=== PATIENT | male | born 1955 | race Two or more races ===

== ENCOUNTER 2020-05-05 10:17 | Outpatient (REF) | payer MEDICARE, OTHER, SELFPAY | END 2020-05-05 10:18 | disposition home or self-care (01) | LOC: HO.LAB 10:17 | PROVIDERS: PCP Internal Medicine; Visit Provider Internal Medicine | DX: Z20.828 Contact with and (suspected) exposure to other viral communicable diseases (principal) | CPT/HCPCS: 87635 ==

== ENCOUNTER 2020-05-06 16:23 | Emergency (ER) | payer MEDICARE, OTHER, SELFPAY ==
[2020-05-06 16:43] VITALS: BP 111/77; PULSE 84; RESP 20; TEMP 38.7; O2SAT 96; BMI 34.8
--- NOTE | 2020-05-06 16:47 | XR_ITS ---
EXAMINATION: XR CHEST CLINICAL INFORMATION: Cough COMPARISON: 07/20/2019 TECHNIQUE: Portable chest 5:17 PM view of the chest was obtained. FINDINGS: Relative expiratory chest eccentric lung markings. There is mild peribronchial thickening. Increased perihilar markings. No significant abnormality is otherwise noted involving the heart, lungs, mediastinum, bony thorax or soft tissues. XR/XR chest 1V IMPRESSION: Limited expiratory portable chest x-rays nonspecific findings of bronchitis.
--- NOTE | 2020-05-06 16:47 | ECG_ITS ---
Test Reason : COUGH Blood Pressure : / mmHG Vent. Rate : 071 BPM Atrial Rate : 071 BPM P-R Int : 146 ms QRS Dur : 108 ms QT Int : 392 ms P-R-T Axes : 029 -49 015 degrees QTc Int : 425 ms Normal sinus rhythm Left anterior fascicular block Abnormal ECG When compared with ECG of 28-JUL-2019 15:08, No significant change was found Referred By: Tiffany Reis Electronically Signed By:REYES HODGE MD
--- NOTE | 2020-05-06 17:03 | ED_ITS ---
HPI - Fever General Chief Complaint: Upper Respiratory Symptoms Stated Complaint: cough,headache Time Seen by Provider: 05/06/20 16:40 Source: patient Mode of arrival: ambulatory Limitations: no limitations History of Present Illness HPI Narrative: 64-year-old male with a past medical history of diabetes, gout here with complaints of headache, cough, dizziness, chest tightness and shortness of breath for the last 4 days. Yesterday he was tested for COVID-19 and his results are pending. He denies any fevers, chills or body aches at home. He tells me his cough is congested but is not productive. His shortness of breath with exertion and not at rest. Chest tightness with breathing and coughing. MD elicited complaint: other ( See above) Onset (ago): day(s) Exacerbating factors: nothing Associated symptoms: cough, chest pain and shortness of breath Treatments prior to arrival fever: none Related Data Allergies Allergy/AdvReac Type Severity Reaction Status Date / Time tuberculin, purified protein Allergy Mild RASH Verified 05/06/20 16:49 deriva [From Tuberculin PPD Henny Test] linagliptin [Tradjenta] Allergy Unknown Cough Verified 05/06/20 16:49 Invokana Allergy Unknown vomiting Uncoded 03/17/20 00:00 Phentermine HCl AdvReac Unknown insomnia, Uncoded 03/17/20 00:00 palpitations Review of Systems Review of Systems: Yes all other systems are reviewed and are negative Constitutional: Constitutional: Reports no additional constitutional complaints, Denies body ache(s), Denies chills, Denies fever(s), Reports headache(s) and Denies weakness Eyes: Eyes: Reports no additional eye complaints and Denies change in vision ENT: Reports system reviewed and no additional complaints, except as documented, Reports dizziness, Reports headache(s), Denies nasal congestion, Denies nasal discharge and Denies neck pain Cardiovascular: Cardiovascular: Reports no additional cardiovascular complaints, Reports chest pain, Denies leg edema, Reports dyspnea on exertion, Denies orthopnea and Denies paroxysmal nocturnal dyspnea Respiratory: Respiratory: Reports no additional respiratory complaints, Reports cough and Reports dyspnea on exertion Gastrointestinal: Gastrointestinal: Reports no additional gastrointestinal complaints, Denies abdominal pain, Denies diarrhea, Denies nausea and Denies vomiting Genitourinary: Genitourinary: Denies urinary incontinence Musculoskeletal: Musculoskeletal: Reports no additional musculoskeletal complaints, Denies back pain, Denies arthralgias, Denies joint swelling, Denies neck pain, Denies numbness and Denies tingling Integumentary/Breasts: Skin/Breast: Reports system reviewed and no additional complaints, except as docu and Denies rash Neurologic: Reports system reviewed and no additional complaints, except as documented, Denies Abnormal speech present, Reports dizziness, Reports headache(s), Denies numbness, Denies tingling and Denies weakness PMFSH Past Medical History Attestation statement: The following information was validated with the patient. Source: obtained from family and nursing notes reviewed Medical History Diabetes Gout Surgical History Gastric bypass status for obesity Social History Social History Advance Directives: No Advance Directives Information Provided: No Physical Exam Vital Signs: Vital Signs: Vital Signs Temp Pulse Resp BP Pulse Ox 05/06/20 16:43 101.7 F H 84 20 111/77 96 Body Mass Index 34.8 Const: General: cooperative, healthy appearing, comfortable and no acute distress Orientation/consciousness: patient oriented x3 Limitations: no limitations HENMT: Head: Yes normal to inspection Ears: hearing grossly normal bilaterally General nose exam: Normal external nose present Face and sinus: Yes normal facial exam Mouth: Normal oral and palatal mucosa present Throat: Yes posterior oropharynx normal Eyes: General: appearance normal, both eyes and all related structures Pupils: Equal, round and reactive pupils present Neck: Neck: Yes normal visual inspection Chest: Chest palpation & inspection: normal inspection of the chest Resp: Other: coarse breath sounds throughout right greater than left Effort & Inspection: normal respiratory effort Cardio: Rate: regular rate Rhythm: regular rhythm Peripheral pulses: Peripheral pulses 2+ throughout GI: Inspection: Yes normal to inspection Palpation (GI): Soft to palpation and nontender Auscultation: normal bowel sounds Back/Spine/Pelvis: Thoracic/Lumbar Spine: thoracic and lumbar spine normal to inspection Skin: General skin exam: no rashes or lesions noted Neuro: General: patient oriented x3, no focal motor deficits and normal sensation to monofilament Cranial nerves: Yes Equal, round and reactive pupils present Cognition (Neuro): normal cognition Speech: No Abnormal speech present Gait exam (Neuro): Normal gait present Motor exam (neuro): 5/5 motor strength present throughout Extrem: General: Yes normal to inspection Course Course Course Narrative: 64-year-old male here with flu-like symptoms for the last 4 days with the COVID swab which is pending. On arrival the patient appears well and is speaking full sentences. He does have coarse breath sounds throughout but has a stable saturation. He is febrile on arrival. Will need labs including blood cultures, lactic acid. EKG and troponin for reports of reproducible chest pain. Chest x-ray. 1744-CXR read as bronchitis but appears to have patchy opacities in the right middle lobe concerning for underlying PNA. Antibiotics ordered for presumed infection. 1800-Sign out to [place] [employer] pending above. MDM - Fever MDM Narrative Medical decision making narrative: Considered viral syndrome, COVID-19 infection, pneumonia
[2020-05-06 18:04] LABS: MANUAL DIFF FLAG NO
[2020-05-06 18:09] LABS: Eosinophils Percent Auto 0.5 % (0-4); Hematocrit 44.3 % (42-52); Hemoglobin 14.5 g/dl (14.0-18.0); Imm Gran Abs Auto 0.01 X10*3/uL (0.00-0.03); Imm Gran Pct Auto 0.2 % (0.0-0.4); Lymphocytes Percent Auto 18.7 % (20-40); Mean Corpuscular HGB Conc 32.7 g/dl (31.0-36.0); Mean Corpuscular Hemoglobin 29.9 pg (27.0-33.0); Mean Corpuscular Volume 91.3 fL (80-98); Mean Platelet Volume 9.7 fL (9.4-12.4); Monocytes Absolute Auto 0.8 X10*3/uL (0.1-1.2); Monocytes Percent Auto 14.2 % (2-11); Neutrophils Absolute Auto 3.7 X10*3/uL (2.0-8.3); Neutrophils Percent Auto 66.4 % (45-73); Platelet Count 152 X10*3/uL (160-400); Red Blood Count 4.85 X10*6/uL (4.60-5.80); Red Cell Distribution Width 13.7 % (11.0-16.0); White Blood Count 5.5 X10*3/uL (4.8-10.8)
[2020-05-06] MEDS: Acetaminophen 325 MG TABLET 975 MG PO (18:23)
[2020-05-06] MEDS: cefTRIAXone sodium 1 GM in 0.9 % Sodium Chloride 50 ML IV (18:24)
[2020-05-06 18:26] LABS: INTERNATIONAL NORM RATIO 1.2 (0.9-1.1); Prothrombin Time 14.2 SEC (10.8-13.0)
[2020-05-06] MEDS: 0.9 % Sodium Chloride 1,000 ML 999 ML IV (18:26)
[2020-05-06 18:30] LABS: Lactic Acid 0.7 mmol/L (0.5-2.0)
[2020-05-06 18:34] LABS: Anion Gap 12 (12-20); Blood Urea Nitrogen 15 mg/dL (9-16); Calcium 8.6 mg/dL (8.4-10.2); Carbon Dioxide 27 mmol/L (22-29); Chloride 101 mmol/L (96-108); Creatinine Clr Calc Pharmacy 53.8; Estimated Glomerular Filt Rate 42; Glucose Random 101 mg/dL (60-115); Magnesium 1.8 mg/dL (1.6-2.6); Potassium 4.3 mmol/l (3.3-5.1); Sodium 136 mmol/L (135-145)
[2020-05-06 18:41] LABS: Troponin-I High Sensitivity 10.3 ng/L (<3.5-35.0)
[2020-05-06 19:26] VITALS: PULSE 63; RESP 20; TEMP 39.1
[2020-05-06] MEDS: Azithromycin 500 MG in 0.9 % Sodium Chloride 250 ML 125 MG IV (19:40)
[2020-05-06] MEDS: 0.9 % Sodium Chloride 500 ML 1000 ML IV (19:46)
[2020-05-06] MEDS: Ibuprofen 800 MG TABLET PO (19:53)
--- NOTE | 2020-05-06 19:57 | PC.NURSE ---
Pt medicated with azithromycin and motrin as charted for continued fever. Pt appears in NAD at this time, endorsing hunger and provided with sandwich, crackers and emily reta. Abx infusing for 2 hours.
[2020-05-06 21:05] VITALS: BP 97/60; PULSE 71; RESP 22; TEMP 37.3; O2SAT 96
[2020-05-06 22:03] LABS: Troponin-I High Sensitivity 10.1 ng/L (<3.5-35.0)
[2020-05-06 22:29] VITALS: BP 108/62; PULSE 76; RESP 16; TEMP 37.2; O2SAT 96
== END 2020-05-06 22:31 | disposition home or self-care (01) ==
PROVIDERS: Nurse Practitioner Family; Nurse Practitioner Primary Care; Emergency Provider Emergency Medicine; PCP Internal Medicine
DX: J40 Bronchitis, not specified as acute or chronic (principal); Z20.828 Contact with and (suspected) exposure to other viral communicable diseases; R07.89 Other chest pain; E11.9 Type 2 diabetes mellitus without complications
CPT/HCPCS: 36415; 71045; 80048; 83605; 83735; 84484; 85025; 85610; 87040; 93005; 96361; 96365; 96367; 99285

== ENCOUNTER 2020-05-31 11:18 | Outpatient (REF) | payer MEDICARE, OTHER, SELFPAY | END 2020-05-31 11:19 | disposition home or self-care (01) | LOC: HO.LAB 11:18 | PROVIDERS: PCP Internal Medicine; Visit Provider Internal Medicine | DX: Z20.828 Contact with and (suspected) exposure to other viral communicable diseases (principal) | CPT/HCPCS: C9803; U0003 ==

== ENCOUNTER → 2020-08-16 08:25 | Outpatient (BNVA) | payer MEDICARE, SELFPAY | PROVIDERS: PCP Internal Medicine; Referring Provider Internal Medicine; Visit Provider Internal Medicine Endocrinology, Diabetes & Metabolism | DX: Z13.89 Encounter for screening for other disorder (principal) | CPT/HCPCS: Q3014 ==

== ENCOUNTER 2020-08-18 06:07 | Outpatient (REF) | payer MEDICARE, SELFPAY ==
[2020-08-18 07:00] LABS: MANUAL DIFF FLAG NO
[2020-08-18 07:15] LABS: Basophils Percent Auto 0.2 % (0-2); Eosinophils Absolute Auto 0.2 X10*3/uL (0.0-0.4); Eosinophils Percent Auto 3.8 % (0-4); Hematocrit 47.6 % (42-52); Hemoglobin 15.2 g/dl (14.0-18.0); Imm Gran Abs Auto 0.02 X10*3/uL (0.00-0.03); Imm Gran Pct Auto 0.4 % (0.0-0.4); Lymphocytes Absolute Auto 2.1 X10*3/uL (1.2-4.9); Lymphocytes Percent Auto 38.8 % (20-40); Mean Corpuscular HGB Conc 31.9 g/dl (31.0-36.0); Mean Corpuscular Hemoglobin 29.5 pg (27.0-33.0); Mean Corpuscular Volume 92.4 fL (80-98); Monocytes Absolute Auto 0.6 X10*3/uL (0.1-1.2); Neutrophils Absolute Auto 2.5 X10*3/uL (2.0-8.3); Neutrophils Percent Auto 45.8 % (45-73); Platelet Count 224 X10*3/uL (160-400); Red Blood Count 5.15 X10*6/uL (4.60-5.80); Red Cell Distribution Width 13.8 % (11.0-16.0); White Blood Count 5.5 X10*3/uL (4.8-10.8)
[2020-08-18 07:37] LABS: Alanine Aminotransferase 16 U/L (0-40); Albumin Level 4.1 g/dL (3.5-5.0); Alkaline Phosphatase 107 U/L (39-117); Anion Gap 13 (12-20); Aspartate Amino Transferase 18 U/L (5-37); Bilirubin Total 0.6 mg/dL (0.0-1.0); Blood Urea Nitrogen 20 mg/dL (9-16); Calcium 9.3 mg/dL (8.4-10.2); Carbon Dioxide 29 mmol/L (22-29); Chloride 105 mmol/L (96-108); Cholesterol 241 mg/dL; Creatinine Urine 120.88 mg/dL; Estimated Glomerular Filt Rate 46; Glucose Fasting 100 mg/dL (60-99); HDL Cholesterol 40 mg/dL; LDL Cholesterol Calculated 171 mg/dl; Microalbum/Creatinine Ratio Ur 9.9 ug/mg cr; Potassium 4.7 mmol/L (3.3-5.1); Sodium 142 mmol/L (135-145); Total Protein 7.6 g/dL (6.5-8.0); Triglycerides 151 mg/dL
[2020-08-18 07:47] LABS: Estimated Average Glucose 131 mg/dL; Hemoglobin A1c % 6.2 %
[2020-08-18 07:53] LABS: Vitamin D 25-OH Total 20.5 ng/mL (>30)
[2020-08-18 08:11] LABS: Uric Acid 11.4 mg/dL (3.4-7.0)
[2020-08-18 09:50] LABS: Vitamin B12 466 pg/mL (200-900)
[2020-08-19 05:43] LABS: LDL Cholesterol Direct 172 mg/dL (<100)
[2020-08-23 13:02] LABS: Vitamin D 25-OH, D2 6 ng/mL; Vitamin D 25-OH, D3 25 ng/mL; Vitamin D 25-OH, Total 31 ng/mL (30-100)
[2020-08-25 06:07] LABS: Vitamin B1 11 nmol/L (8-30)
== END 2020-08-18 06:08 | disposition home or self-care (01) ==
LOC: HO.LABR 06:07
PROVIDERS: PCP Internal Medicine; Visit Provider Internal Medicine Endocrinology, Diabetes & Metabolism
DX: R42 Dizziness and giddiness (principal); E11.9 Type 2 diabetes mellitus without complications; E78.5 Hyperlipidemia, unspecified; M10.9 Gout, unspecified; K90.49 Malabsorption due to intolerance, not elsewhere classified; E55.9 Vitamin D deficiency, unspecified
CPT/HCPCS: 36415; 80053; 80061; 82043; 82306; 82607; 83036; 83721; 84425; 84550; 85025

== ENCOUNTER 2020-11-03 05:26 | Emergency (ER) | payer MEDICARE, SELFPAY ==
[2020-11-03 05:50] VITALS: BP 114/75; PULSE 99; RESP 18; TEMP 37.4; O2SAT 98; BMI 36.3
[2020-11-03 06:11] LABS: Glucose Urine UA NEG (NEG); Leukocyte Esterase Urine 1+ (NEG); Nitrite Urine NEG (NEG); UACC Culture Trigger YES; Urine Blood 3+ (NEG); Urine Ketones NEG (NEG); Urine Protein TRACE MG/DL (NEG-TRACE)
[2020-11-03 06:16] LABS: Appearance Urine HAZY; Color Urine YELLOW
[2020-11-03 06:21] LABS: Bacteria Urine 2+ /LPF; Mucus Urine 1+ /LPF; RBC Urine 30-49 /HPF (0); Squamous Epithelial Cell Urine 1+ /LPF; UACC CULT YES; WBC Urine 50-75 /HPF (0-4)
--- NOTE | 2020-11-03 06:45 | ED.MALEGU ---
HPI - Male Genitourinary General Chief complaint: Urogenital-Male Stated complaint: ?UTI Time Seen by Provider: 11/03/20 06:45 Source: patient and broadcast checker Mode of arrival: ambulatory Limitations: no limitations History of Present Illness HPI Narrative: 65 yo male with DM, HPL, CKD here with dysuria x 1 day no fevers, no back pain, no vomiting Complaint: dysuria Onset (ago): day(s) (1) Duration: intermittent Radiation: penis Severity: mild Quality: burning Relieving factors: none Exacerbating factors: urination Associated symptoms: Reports denies other symptoms Related Data Home Medications Medication Instructions Recorded Confirmed allopurinol 300 mg tablet 300 mg PO DAILY 07/18/20 08/16/20 aspirin 81 mg tablet,delayed 81 mg PO DAILY 07/18/20 08/16/20 release gabapentin 100 mg capsule 100 mg PO BID 07/18/20 08/16/20 Previous Rx's Medication Instructions Recorded benzonatate 100 mg capsule 100 mg PO BID #20 cap 06/03/20 meclizine 25 mg tablet 25 mg PO DAILY PRN 7 Days #7 tab 08/10/20 acarbose 50 mg tablet 50 mg PO TID 30 Days #90 tab 08/16/20 cyanocobalamin (vitamin B-12) 1,000 mcg SUBLINGUAL DAILY 30 Days 08/16/20 1,000 mcg sublingual tablet #30 tab lisinopril 20 mg tablet 20 mg PO DAILY 30 Days #30 tab 08/16/20 atorvastatin 40 mg tablet 40 mg PO BEDTIME 30 Days #30 tab 08/18/20 cholecalciferol (vitamin D3) 1,250 1,250 mcg PO 2XW 30 Days #9 cap 08/18/20 mcg (50,000 unit) capsule docusate sodium [Colace] 100 mg PO BID PRN #30 cap 11/03/20 levofloxacin 500 mg PO DAILY 6 Days #6 tab 11/03/20 sennosides [senna] 8.6 mg PO BEDTIME PRN #30 cap 11/03/20 Allergies Allergy/AdvReac Type Severity Reaction Status Date / Time tuberculin, purified protein Allergy Mild RASH Verified 11/03/20 05:56 deriva [From Tuberculin PPD Henny Test] canagliflozin [From Invokana] Allergy Unknown vomitting Verified 11/03/20 05:56 linagliptin [Tradjenta] Allergy Unknown Cough Verified 11/03/20 05:56 phentermine Allergy Unknown insomnia,pa Verified 11/03/20 05:56 lpitations Review of Systems Review of Systems: Constitutional : No Fever, No Chills ENT/Mouth : No sore throat Eyes: No Eye Pain, No Swelling, No Redness Cardiovascular : No Chest Pain, No SOB Respiratory : No Cough, No Sputum, No Wheezing Gastrointestinal : no Nausea, no Vomiting, No Diarrhea, no abdominal pain Genitourinary : positive Dysuria, positive urinary frequency, no Hematuria, no Flank Pain, no hesitancy Musculoskeletal : No joint pain, No Myalgias Skin : No Skin Lesions, No rash Neuro : No Weakness, No Numbness, No Headache Psych : No Anxiety/Panic, No Depression Heme/Lymph: No Bruising, No Lymphadenopathy Endocrine : No Polyuria, No Polydipsia All other systems reviewed and are negative [facility] Past Medical History Attestation statement: The following information was validated with the patient. Medical History B12 deficiency CKD stage 3 due to type 2 diabetes mellitus Diabetes Diabetes type 2, controlled Dyslipidemia Essential hypertension Gout Hypoglycemia after GI (gastrointestinal) surgery Hypovitaminosis D Malabsorption due to intolerance, not elsewhere classified Surgical History Gastric bypass status for obesity History of tonsillectomy Kaposi sarcoma Family History Family History (Updated 07/06/20 @ 08:23 by Hannah Hopkins [facility]) Father Prostate cancer Mother Diabetes Brother In good health Sister In good health Son No problems noted. Sister In good health Social History Social History Alcohol intake: never Smoking Status: Never smoker Advance Directives: No Advance Directives Information Provided: No Physical Exam Vital Signs: Vital Signs: Last Vital Signs Temp 99.3 F 11/03/20 05:50 Pulse 99 11/03/20 05:50 Resp 18 11/03/20 05:50 BP 114/75 11/03/20 05:50 Pulse Ox 98 11/03/20 05:50 Body Mass Index 36.3 Appearance: Alert. Oriented X3. No acute distress. Eyes: Pupils equal, round and reactive to light. ENT: Pharynx normal. Neck: Normal inspection. Neck supple. CVS: Normal heart rate and rhythm. Pulses normal. Respiratory: No respiratory distress. Breath sounds normal. Abdomen: Soft and nontender. Back: No CVA ttp Skin: Skin warm and dry. Normal skin color. Normal skin turgor. Extremities: No lower extremity edema. No calf ttp Neuro: Oriented X 3. No motor deficit. No sensory deficit. MDM - Male Genitourinary MDM Narrative Medical decision making narrative: 65 yo male with DM, HPL, CKD here with dysuria x 1 day no fevers, no back pain, no vomiting - at this time UA ordered, also c/o mild constipation, no clinical symptoms of pyelonephritis and no signs of renal colic as he has no pain, baseline CrCl for over 1 year > 500 given age and demographics will start on levofloxacin 500 daily if he has UTI Lab Data Labs: Lab Results 11/03/20 Range/Units 06:00 Urine Color YELLOW Urine Appearance HAZY Urine pH 6.0 (5.0-8.0) Ur Specific [place] 1.020 (1.005-1.025) Urine Protein TRACE (NEG-TRACE) MG/DL Urine Glucose (UA) NEG (NEG) MG/DL Urine Ketones NEG (NEG) MG/DL Urine Blood 3+ H (NEG) Urine Nitrite NEG (NEG) Ur Leukocyte Esterase 1+ H (NEG) Urine RBC 30-49 H (0) /HPF Urine WBC 50-75 H (0-4) /HPF Ur Squamous Epith Cells 1+ /LPF Urine Bacteria 2+ /LPF Urine Mucus 1+ /LPF Discharge Plan Discharge Clinical Impression: Urinary tract infection Qualifiers: Urinary tract infection type: acute cystitis Hematuria presence: with hematuria Qualified Code(s): N30.01 - Acute cystitis with hematuria Constipation Qualifiers: Constipation type: unspecified constipation type Qualified Code(s): K59.00 - Constipation, unspecified Patient Disposition: Home, Self-Care Instructions: Constipation (ED), Urinary Tract Infection in Men (ED) Additional Instructions: return to ED for any worsening symptoms or concerns Prescriptions: New senna 8.6 mg capsule 8.6 mg PO BEDTIME PRN (Reason: constipation) Qty: 30 RF: 0 docusate sodium [Colace] 100 mg capsule 100 mg PO BID PRN (Reason: constipation) Qty: 30 RF: 0 levofloxacin 500 mg tablet 500 mg PO DAILY 6 Days Qty: 6 RF: 0 No Action benzonatate [Tessalon Perles] 100 mg capsule 100 mg PO BID Qty: 20 RF: 1 meclizine 25 mg tablet 25 mg PO DAILY PRN (Reason: motion sickness) 7 Days Qty: 7 RF: 0 atorvastatin 40 mg tablet 40 mg PO BEDTIME 30 Days Qty: 30 RF: 6 cholecalciferol (vitamin D3) 1,250 mcg (50,000 unit) capsule 1,250 mcg PO 2XW 30 Days Qty: 9 RF: 6 gabapentin 100 mg capsule 100 mg PO BID RF: 0 aspirin [Adult Aspirin Regimen] 81 mg tablet,delayed release (DR/EC) 81 mg PO DAILY RF: 0 allopurinol 300 mg tablet 300 mg PO DAILY RF: 0 cyanocobalamin (vitamin B-12) 1,000 mcg tablet, sublingual 1,000 mcg sublingual DAILY 30 Days Qty: 30 RF: 6 acarbose 50 mg tablet 50 mg PO TID 30 Days Qty: 90 RF: 6 lisinopril 20 mg tablet 20 mg PO DAILY 30 Days Qty: 30 RF: 6 Referrals: Maryam Art MD [Primary Care Provider] - 5 days (have kidney function checked on Saturday by your doctor) Stand Alone Forms: Work/School Release Print Language: Slovak
[2020-11-03] MEDS: levoFLOXacin 500 MG TABLET PO (07:37)
== END 2020-11-03 07:41 | disposition home or self-care (01) ==
PROVIDERS: Emergency Provider Emergency Medicine; PCP Internal Medicine
DX: N30.01 Acute cystitis with hematuria (principal); K59.00 Constipation, unspecified; R30.0 Dysuria; Z79.899 Other long term (current) drug therapy
CPT/HCPCS: 81001; 87086; 87088; 87186; 99283

== ENCOUNTER 2020-12-02 11:46 | Emergency (ER) | payer MEDICARE, SELFPAY ==
--- NOTE | ~2020-12-02 | CT_ITS ---
EXAMINATION: CT ABDOMEN AND PELVIS WITH CONTRAST CLINICAL INFORMATION: Patient with left testicular swelling COMPARISON: Ultrasound earlier the same day prior CT 02/17/2014 TECHNIQUE: Multidetector volumetric images were obtained from the superior aspect of the liver through the pubic symphysis following administration 100 mL of Omnipaque 350 intravenous contrast. Sagittal and coronal reformatted images were obtained on the technologist's workstation. Oral contrast: No This CT examination was performed using dose optimization techniques as appropriate, variously including the following: *Automated exposure control *Adjustment of mA and/or kV according to patient size (this includes techniques or standardized protocols for targeted exams where dose is matched to indication/reason for exam; i.e. extremities or head) *Use of iterative reconstruction technique DLP: 1063 mGy-cm FINDINGS: LUNG BASES: There is bilateral lower lobe bronchial wall thickening. There is mosaic lung attenuation at the lung bases suggesting small airways disease. LIVER, GALLBLADDER, AND BILIARY TREE: The liver is normal in size, shape, and attenuation. No focal hepatic lesion or biliary ductal dilatation is present. There is dependent density in the neck of the gallbladder which could represent noncalcified sludge or stones. No gallbladder wall thickening or pericholecystic fluid. No biliary ductal dilatation. PANCREAS: Unremarkable. SPLEEN: Unremarkable. ADRENAL GLANDS: Unremarkable. KIDNEYS AND URETERS: The kidneys are normal in size, shape, and attenuation. No hydronephrosis, hydroureter, or calculi seen. No perinephric stranding. BLADDER: Unremarkable. GASTROINTESTINAL TRACT: Postoperative changes consistent with prior Linda-en-Y gastric bypass. No dilated loops of bowel seen. Normal appendix. Scattered colonic diverticulosis. One wall of the sigmoid colon extends through the left inguinal canal with a fat-containing left inguinal hernia extending further inferiorly. There is a fat-containing right inguinal hernia as well. ABDOMINAL WALL: Left greater than right bilateral inguinal hernias as described above. Small fat-containing umbilical hernia. LYMPH NODES: Normal. VASCULAR: Normal caliber aorta. PELVIC VISCERA: Prostatomegaly. OSSEOUS STRUCTURES: No acute or suspicious osseous abnormality. Severe lower lumbar facet arthropathy. CT/CT abdomen pelvis w con IMPRESSION: One wall of the sigmoid colon extends into the left inguinal canal (Gifford's hernia) with left greater than right inguinal hernias. Hyperdense sludge or noncalcified stones dependently in the gallbladder. Bilateral lower lobe bronchial wall thickening and mosaic lung attenuation at the lung bases consistent with small airways disease.
--- NOTE | ~2020-12-02 | US_ITS ---
EXAMINATION: US SCROTUM CLINICAL INFORMATION: Swelling. COMPARISON: Previous scrotal ultrasound July 2014 TECHNIQUE: A sonogram of the scrotum was performed assessing pro-scale appearance and color Doppler flow. Spectral Doppler analysis of the arterial and venous flow were performed in the testes bilaterally. FINDINGS: RIGHT: Right testicle measures 4.1 x 2.2 x 2.8 cm, volume 13 mL. There is a 5 mm hypoechoic solid lesion with vascular flow seen in the right testicle. This does not appear appreciably changed in size from prior exams 2013 and this measured 0.4 cm. Spectral Doppler analysis of the arterial and venous flow is in the right testis. Right epididymal head is normal in size. There are multiple right epididymal head cysts, largest measuring 4 x 4 x 5 mm. The remainder of the right epididymis is normal. There are right tunical calcifications and moderate right hydrocele. There is no right varicocele. LEFT: Left testicle measures 3.4 x 2.7 x 2.7 cm, volume 13 mL. No focal testicular parenchymal lesions are visualized. Spectral Doppler analysis of the arterial and venous flow is increased in the left testis. The left epididymis is enlarged and hypervascular. There is a large left hydrocele. There is question left tunical calcification versus a calcified appendix epididymis. There is no left varicocele. There is left scrotal skin thickening. US/US scrotum doppler IMPRESSION: Left: Hypervascular left testicle and enlarged hypervascular left epididymis suggestive of left epididymoorchitis. Large left hydrocele. Right: 5 mm hypoechoic lesion in the right testicle not appreciably changed from old exams from 2013 and 2014. Right hydrocele. Right epididymal head cyst.
[2020-12-02 12:41] VITALS: BP 119/76; PULSE 67; RESP 18; TEMP 36.4; O2SAT 99; BMI 35.4
--- NOTE | 2020-12-02 15:44 | PC.NURSE ---
MED PULLED FOR PATIENT HE WENT TO ULTRASOUND WILL MEDICATE ONCE HE RETURNS
[2020-12-02] MEDS: Acetaminophen 325 MG TABLET 975 MG PO (15:45)
[2020-12-02] MEDS: oxyCODONE HCl Immed Release 5 MG TABLET PO (15:46)
[2020-12-02 17:01] LABS: MANUAL DIFF FLAG NO
[2020-12-02 17:05] LABS: Basophils Percent Auto 0.1 % (0-2); Eosinophils Absolute Auto 0.2 X10*3/uL (0.0-0.4); Eosinophils Percent Auto 2.2 % (0-4); Hematocrit 41.1 % (42-52); Hemoglobin 13.3 g/dl (14.0-18.0); Imm Gran Abs Auto 0.06 X10*3/uL (0.00-0.03); Imm Gran Pct Auto 0.7 % (0.0-0.4); Lymphocytes Absolute Auto 2.2 X10*3/uL (1.2-4.9); Lymphocytes Percent Auto 27.3 % (20-40); Mean Corpuscular HGB Conc 32.4 g/dl (31.0-36.0); Mean Corpuscular Hemoglobin 30.1 pg (27.0-33.0); Mean Platelet Volume 8.4 fL (9.4-12.4); Monocytes Absolute Auto 0.7 X10*3/uL (0.1-1.2); Monocytes Percent Auto 8.6 % (2-11); Neutrophils Absolute Auto 4.9 X10*3/uL (2.0-8.3); Neutrophils Percent Auto 61.1 % (45-73); Platelet Count 328 X10*3/uL (160-400); Red Blood Count 4.42 X10*6/uL (4.60-5.80); Red Cell Distribution Width 13.8 % (11.0-16.0); White Blood Count 8.1 X10*3/uL (4.8-10.8)
[2020-12-02] MEDS: cefTRIAXone sodium 2 GM in 0.9 % Sodium Chloride 50 ML IV (17:08)
[2020-12-02] MEDS: 0.9 % Sodium Chloride 1,000 ML 999 ML IVCONT (17:08)
[2020-12-02 17:09] LABS: INTERNATIONAL NORM RATIO 1.2 (0.9-1.1); Prothrombin Time 14.7 SEC (10.8-13.0)
--- NOTE | 2020-12-02 17:29 | ED.MALEGU ---
HPI - Male Genitourinary General Chief complaint: Urogenital-Male Stated complaint: having pain Time Seen by Provider: 12/02/20 13:57 Source: patient Mode of arrival: ambulatory Limitations: language barrier (Belarusian-speaking) History of Present Illness HPI Narrative: 65-year-old male with a past medical history of diabetes type 2, hypertension, dyslipidemia, CKD type 3 and gout presenting to the ED with complaints of/swelling for the past 6 days worse today. Reports that approximately 1 month ago he was treated here for UTI and then he went to [place] and ended up in the hospital there and was receiving and reports he is currently still on oral antibiotics from [place]. Reports he has not been sexually active and he has been with his for years and he does not have concerns for STDs. Denies any fevers, abdominal pain, dysuria, hematuria, back pain, abnormal penile discharge, rashes to the penis area, recent trauma or any other symptoms complaints or concerns at this time. MD Complaint: testicle pain and testicle swelling Onset (ago): day(s) (Six days worse today) Duration: constant and progressively worsening Location: left testicle Severity: severe Severity scale (1-10): >10 Quality: aching Relieving factors: none Exacerbating factors: palpation and movement Associated symptoms: Reports denies other symptoms Related Data Sexually active: No Home Medications Medication Instructions Recorded Confirmed allopurinol 300 mg tablet 300 mg PO DAILY 07/18/20 11/15/20 aspirin 81 mg tablet,delayed 81 mg PO DAILY 07/18/20 11/15/20 release gabapentin 100 mg capsule 100 mg PO BID 07/18/20 11/15/20 Previous Rx's Medication Instructions Recorded benzonatate 100 mg capsule 100 mg PO BID #20 cap 06/03/20 meclizine 25 mg tablet 25 mg PO DAILY PRN 7 Days #7 tab 08/10/20 acarbose 50 mg tablet 50 mg PO TID 30 Days #90 tab 08/16/20 cyanocobalamin (vitamin B-12) 1,000 mcg SUBLINGUAL DAILY 30 Days 08/16/20 1,000 mcg sublingual tablet #30 tab lisinopril 20 mg tablet 20 mg PO DAILY 30 Days #30 tab 08/16/20 atorvastatin 40 mg tablet 40 mg PO BEDTIME 30 Days #30 tab 08/18/20 cholecalciferol (vitamin D3) 1,250 1,250 mcg PO 2XW 30 Days #9 cap 08/18/20 mcg (50,000 unit) capsule docusate sodium [Colace] 100 mg PO BID PRN #30 cap 11/03/20 sennosides [senna] 8.6 mg PO BEDTIME PRN #30 cap 11/03/20 acetaminophen [Tylenol Extra 1,000 mg PO QID PRN #14 tab 12/02/20 Strength] oxycodone 5 mg PO BID PRN #10 tab 12/02/20 sulfamethoxazole-trimethoprim 1 tab PO BID 14 Days #28 tab 12/02/20 [Bactrim DS] Allergies Allergy/AdvReac Type Severity Reaction Status Date / Time canagliflozin [From Invokana] Allergy Intermediate vomitting Verified 11/15/20 14:47 linagliptin [Tradjenta] Allergy Intermediate Cough Verified 11/15/20 14:47 phentermine Allergy Intermediate insomnia,pa Verified 11/15/20 14:47 lpitations tuberculin, purified protein Allergy Mild RASH Verified 11/15/20 14:47 deriva [From Tuberculin PPD Henny Test] Review of Systems Review of Systems: Constitutional : No Weight loss, No Fever, No Chills, No Night Sweats, No Fatigue, NoMalaise ENT/Mouth: No ear pain, No sore throat, No Difficulty swallowing Cardiovascular : No Chest Pain, No SOB, No Dyspnea on Exertion, No Orthopnea, NoEdema, No Palpitations Respiratory : No Cough, No Sputum, No Wheezing, No Dyspnea Gastrointestinal : No Nausea, No Vomiting, No Diarrhea, + abdominal Pain, No Hematochezia, No Melena Genitourinary : + testicular pain/swelling left-sided, No irregular bleeding, No Dysuria, No Urinary Frequency, No Hematuria,No Urinary Incontinence, No Urgency, No Flank Pain Musculoskeletal : No joint pain, No Myalgias, No Joint Swelling Skin : No Skin Lesions, No rash Neuro : No Weakness, No Numbness, No Paresthesias, No Loss of Consciousness, NoDizziness, No Headache Psych : No Social Issues, Heme/Lymph: No Bruising, No Bleeding,No Lymphadenopathy Endocrine : No Polyuria, No Polydipsia, No Temperature Intolerance PATIENT DENIES ANY THOUGHTS OF STDS Yes all other systems are reviewed and are negative [facility] Past Medical History Attestation statement: The following information was validated with the patient. 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 Sister In good health Social History Social History Alcohol intake: never Smoking Status: Never smoker Advance Directives: Yes Advance Directives Information Provided: Yes Advance Directives on File: No Physical Exam Vital Signs: Vital Signs: Last Vital Signs Temp 97.5 F 12/02/20 12:41 Pulse 67 12/02/20 12:41 Resp 18 12/02/20 12:41 BP 119/76 12/02/20 12:41 Pulse Ox 99 12/02/20 12:41 Body Mass Index 35.4 vital signs have been reviewed as normal and appeared to be correct. Blood pressure normal. Heart rate normal. Respiration rate normal. Temperature normal. Oxygen saturation normal. Appearance: Alert. Oriented X3. No acute distress. Head: Normal external exam. Normocephalic. Atraumatic. Eyes: PERRLA. EOMI. Conjunctiva and sclera normal. Eyelids normal. ENT: Pharynx normal. Uvula midline. Moist mucous membranes. Neck: Normal inspection. Neck supple. FROM. No adenopathy. Thyroid Normal. No meningeal signs. No neck mass noted. CVS: Normal heart rate and rhythm. Heart sound normal. No murmurs noted. Pulses normal throughout. Respiratory: No respiratory distress. Painless inspiration. Breath sounds normal. No wheezes/rales/rhonchi noted. Chest nontender. No accessory muscle usage noted or decreased air movement noted. Abdomen: Soft and nontender. Bowel sounds normal in all 4 quadrants. No distention noted. No organomegaly noted. No visible injury noted. : Chaperoned by SHELDON Byrnes. Left scrotum/testicle moderately larger than the right side with moderate tenderness. The rest of the external exam is within normal limits. No ecchymosis/erythema noted. No hernia noted. No inguinal lymphadenopathy noted. No lacerations/lesions/induration noted. Normal penis. No Condyloma noted. No ecchymosis/nodule/papules/pustules/vesicles. Not consistent with paraphimosis or phimosis. No ulcerations or lesions noted. The meatus is normal. No meatal discharge noted. No blood at the meatus. Cremasteric reflex positive. No ecchymosis/erythema noted. Testicles are both descended bilaterally. No hydrocele noted. No inguinal hernia noted. No ulcerations or varicocele. No blue dot sign. No testicular atrophy noted. Back: No CVA tenderness. Full range of motion noted. Skin: Skin warm and dry. Normal skin color. Normal skin turgor. No rashes/lesions/lacerations noted. Extremities: Extremities exhibit normal range of motion. Extremities nontender. Neuro: Oriented X 3. No motor deficit. No sensory deficit. Reflexes normal. Course Course Course Narrative: 16:30pm - ultrasound revealed Left: Hypervascular left testicle and enlarged hypervascular left epididymis suggestive of left epididymoorchitis. Large left hydrocele. - therefore I consulted with Dr. Carver the urologist and he recommended to give the patient IV Rocephin and to discharge the patient on double-strength Bactrim for approximately 7-10 days and for the patient to follow up with him in the outpatient office - therefore at this time will obtain labs, blood cultures, lactic acid. Provide IV fluids, IV Rocephin and a CT scan of abdomen and pelvis and re-evaluate Reevaluation(s) Reevaluation #1: - labs reviewed and patient with mild anemia with an H&H of /41. Otherwise all other labs are within normal limits. UA revealed leukocytes and blood. Gonorrhea chlamydia are pending at this time. - pending CT scan of abdomen and pelvis with IV contrast will re-evaluate Time: 17:41 MDM - Male Genitourinary MDM Narrative Medical decision making narrative: - 65-year-old male with a past medical history of diabetes type 2, hypertension, dyslipidemia, CKD type 3 and gout presenting to the ED with complaints of/swelling for the past 6 days worse today. Reports that approximately 1 month ago he was treated here for UTI and then he went to [place] and ended up in the hospital there and was receiving and reports he is currently still on oral antibiotics from [place]. Reports he has not been sexually active and he has been with his for years and he does not have concerns for STDs. - on exam patient has moderate tenderness and swelling to the left testicle it is more enlarged than the right side although no signs of infection. No penile discharge is noted. No rashes noted abdomen is soft nontender. - Plan: UA, ultrasound of scrotum/testicles provide 975 mg of Tylenol and 5 mg of oxycodone then re-evaluate. Medical Records Attestation: I reviewed the patient's medical records. Lab Data Attestation: I reviewed the patient's lab results. Result diagrams: 12/02/20 16:55 12/02/20 16:55 Labs: Lab Results 12/02/20 12/02/20 12/02/20 Range/Units 16:54 16:55 16:55 WBC 8.1 (4.8-10.8) X10*3/uL RBC 4.42 L (4.60-5.80) X10*6/uL Hgb 13.3 L (14.0-18.0) g/dl Hct 41.1 L (42-52) % MCV 93.0 (80-98) fL MCH 30.1 (27.0-33.0) pg MCHC 32.4 (31.0-36.0) g/dl RDW 13.8 (11.0-16.0) % Plt Count 328 D (160-400) X10*3/uL MPV 8.4 L (9.4-12.4) fL Immature Gran % (Auto) 0.7 H (0.0-0.4) % Neut % (Auto) 61.1 (45-73) % Lymph % (Auto) 27.3 (20-40) % [place] % (Auto) 8.6 (2-11) % Eos % (Auto) 2.2 (0-4) % Baso % (Auto) 0.1 (0-2) % Lymph # (Auto) 2.2 (1.2-4.9) X10*3/uL [place] # (Auto) 0.7 (0.1-1.2) X10*3/uL Eos # (Auto) 0.2 (0.0-0.4) X10*3/uL Baso # (Auto) 0.0 (0.0-0.2) X10*3/uL Abs Immat Gran (auto) 0.06 H (0.00-0.03) X10*3/uL Absolute Neuts (auto) 4.9 (2.0-8.3) X10*3/uL Absolute Nucleated RBC 0.000 (0.0-0.012) X10*3/uL Nucleated RBC % (auto) 0.0 (0.0-0.2) /100WBC PT 14.7 H (10.8-13.0) SEC INR 1.2 H (0.9-1.1) Sodium (135-145) mmol/L Potassium (3.3-5.1) mmol/L Chloride (96-108) mmol/L Carbon Dioxide (22-29) mmol/L Anion Gap (12-20) BUN (9-16) mg/dL Creatinine (0.5-1.4) mg/dL Estim Creat Clear Calc Estimated GFR Random Glucose (60-115) mg/dL Lactic Acid 1.6 (0.5-2.0) mmol/L Calcium (8.4-10.2) mg/dL Magnesium (1.6-2.6) mg/dL Total Bilirubin (0.0-1.0) mg/dL AST (5-37) U/L ALT (0-40) U/L Alkaline Phosphatase (39-117) U/L Total Protein (6.5-8.0) g/dL Albumin (3.5-5.0) g/dL 12/02/20 Range/Units 16:55 WBC (4.8-10.8) X10*3/uL RBC (4.60-5.80) X10*6/uL Hgb (14.0-18.0) g/dl Hct (42-52) % MCV (80-98) fL MCH (27.0-33.0) pg MCHC (31.0-36.0) g/dl RDW (11.0-16.0) % Plt Count (160-400) X10*3/uL MPV (9.4-12.4) fL Immature Gran % (Auto) (0.0-0.4) % Neut % (Auto) (45-73) % Lymph % (Auto) (20-40) % [place] % (Auto) (2-11) % Eos % (Auto) (0-4) % Baso % (Auto) (0-2) % Lymph # (Auto) (1.2-4.9) X10*3/uL [place] # (Auto) (0.1-1.2) X10*3/uL Eos # (Auto) (0.0-0.4) X10*3/uL Baso # (Auto) (0.0-0.2) X10*3/uL Abs Immat Gran (auto) (0.00-0.03) X10*3/uL Absolute Neuts (auto) (2.0-8.3) X10*3/uL Absolute Nucleated RBC (0.0-0.012) X10*3/uL Nucleated RBC % (auto) (0.0-0.2) /100WBC PT (10.8-13.0) SEC INR (0.9-1.1) Sodium 142 (135-145) mmol/L Potassium 4.2 (3.3-5.1) mmol/L Chloride 104 (96-108) mmol/L Carbon Dioxide 27 (22-29) mmol/L Anion Gap 15 (12-20) BUN 16 (9-16) mg/dL Creatinine 1.27 (0.5-1.4) mg/dL Estim Creat Clear Calc 69.5 Estimated GFR 57 Random Glucose 110 (60-115) mg/dL Lactic Acid (0.5-2.0) mmol/L Calcium 9.1 (8.4-10.2) mg/dL Magnesium 2.2 (1.6-2.6) mg/dL Total Bilirubin 0.5 (0.0-1.0) mg/dL AST 18 (5-37) U/L ALT 25 (0-40) U/L Alkaline Phosphatase 106 (39-117) U/L Total Protein 7.6 (6.5-8.0) g/dL Albumin 3.9 (3.5-5.0) g/dL Imaging Data Ultrasound of testicle/scrotum: Attestation: I personally reviewed and interpreted this imaging study as follows: Radiologist's impression: RIGHT: Right testicle measures 4.1 x 2.2 x 2.8 cm, volume 13 mL. There is a 5 mm hypoechoic solid lesion with vascular flow seen in the right testicle. This does not appear appreciably changed in size from prior exams 2014 and this measured 0.4 cm. Spectral Doppler analysis of the arterial and venous flow is in the right testis. Right epididymal head is normal in size. There are multiple right epididymal head cysts, largest measuring 4 x 4 x 5 mm. The remainder of the right epididymis is normal. There are right tunical calcifications and moderate right hydrocele. There is no right varicocele. LEFT: Left testicle measures 3.4 x 2.7 x 2.7 cm, volume 13 mL. No focal testicular parenchymal lesions are visualized. Spectral Doppler analysis of the arterial and venous flow is increased in the left testis. The left epididymis is enlarged and hypervascular. There is a large left hydrocele. There is question left tunical calcification versus a calcified appendix epididymis. There is no left varicocele. There is left scrotal skin thickening. US/US scrotum IMPRESSION: Left: Hypervascular left testicle and enlarged hypervascular left epididymis suggestive of left epididymoorchitis. Large left hydrocele. Right: 5 mm hypoechoic lesion in the right testicle not appreciably changed from old exams from 2013 and 2014. Right hydrocele. Right epididymal head cyst. Critical Care Time Critical Care Time Critical Care Time: Yes Total Critical Care Time: 60 Attestation: I personally attest to this time spent taking care of the patient Discharge Plan Discharge Clinical Impression: Acute epididymo-orchitis, Left hydrocele Instructions: Epididymo-Orchitis (ED), Hydrocele (ED) Prescriptions: New sulfamethoxazole-trimethoprim [Bactrim DS] 800-160 mg tablet 1 tab PO BID 14 Days Qty: 28 RF: 0 acetaminophen [Tylenol Extra Strength] 500 mg tablet 1,000 mg PO QID PRN (Reason: fever or pain) Qty: 14 RF: 0 oxycodone 5 mg tablet 5 mg PO BID PRN (Reason: pain) Qty: 10 RF: 0 No Action benzonatate [Tessalon Perles] 100 mg capsule 100 mg PO BID Qty: 20 RF: 1 meclizine 25 mg tablet 25 mg PO DAILY PRN (Reason: motion sickness) 7 Days Qty: 7 RF: 0 atorvastatin 40 mg tablet 40 mg PO BEDTIME 30 Days Qty: 30 RF: 6 cholecalciferol (vitamin D3) 1,250 mcg (50,000 unit) capsule 1,250 mcg PO 2XW 30 Days Qty: 9 RF: 6 senna 8.6 mg capsule 8.6 mg PO BEDTIME PRN (Reason: constipation) Qty: 30 RF: 0 docusate sodium [Colace] 100 mg capsule 100 mg PO BID PRN (Reason: constipation) Qty: 30 RF: 0 gabapentin 100 mg capsule 100 mg PO BID RF: 0 aspirin [Adult Aspirin Regimen] 81 mg tablet,delayed release (DR/EC) 81 mg PO DAILY RF: 0 allopurinol 300 mg tablet 300 mg PO DAILY RF: 0 cyanocobalamin (vitamin B-12) 1,000 mcg tablet, sublingual 1,000 mcg sublingual DAILY 30 Days Qty: 30 RF: 6 acarbose 50 mg tablet 50 mg PO TID 30 Days Qty: 90 RF: 6 lisinopril 20 mg tablet 20 mg PO DAILY 30 Days Qty: 30 RF: 6 Referrals: Meir Carver MD [Physician] - 1 week Print Language: Belarusian
[2020-12-02 17:32] LABS: Lactic Acid 1.6 mmol/L (0.5-2.0)
[2020-12-02 17:36] LABS: Alanine Aminotransferase 25 U/L (0-40); Albumin Level 3.9 g/dL (3.5-5.0); Alkaline Phosphatase 106 U/L (39-117); Anion Gap 15 (12-20); Aspartate Amino Transferase 18 U/L (5-37); Bilirubin Total 0.5 mg/dL (0.0-1.0); Blood Urea Nitrogen 16 mg/dL (9-16); Calcium 9.1 mg/dL (8.4-10.2); Carbon Dioxide 27 mmol/L (22-29); Chloride 104 mmol/L (96-108); Creatinine Clr Calc Pharmacy 69.5; Estimated Glomerular Filt Rate 57; Glucose Random 110 mg/dL (60-115); Magnesium 2.2 mg/dL (1.6-2.6); Potassium 4.2 mmol/L (3.3-5.1); Sodium 142 mmol/L (135-145); Total Protein 7.6 g/dL (6.5-8.0)
[2020-12-02] MEDS: iohexoL 350 MG/ML 100 ML INFUS..BTL IV (18:22)
[2020-12-03 10:20] LABS: CT PCR NOT DETECTED (Not Detect.)
[2020-12-03 10:21] LABS: NG PCR NOT DETECTED (Not Detect.)
== END 2020-12-02 21:00 | disposition home or self-care (01) ==
PROVIDERS: Physician Assistant Medical; Emergency Provider Internal Medicine; PCP Internal Medicine
DX: N45.3 Epididymo-orchitis (principal); N43.3 Hydrocele, unspecified; N50.89 Other specified disorders of the male genital organs; I12.9 Hypertensive chronic kidney disease with stage 1 through stage 4 chronic kidney disease, or unspecified chronic kidney disease; E11.22 Type 2 diabetes mellitus with diabetic chronic kidney disease; N18.30 Chronic kidney disease, stage 3 unspecified; Z79.899 Other long term (current) drug therapy
CPT/HCPCS: 36415; 74177; 76870; 80053; 83605; 83735; 85025; 85610; 87040; 87491; 87591; 93975; 96360; 96361; 99283; 99285; J0696; Q9967

== ENCOUNTER → 2020-12-19 07:24 | Outpatient (BNVA) | payer MEDICARE, SELFPAY | PROVIDERS: PCP Internal Medicine; Visit Provider Internal Medicine Endocrinology, Diabetes & Metabolism | DX: K91.2 Postsurgical malabsorption, not elsewhere classified (principal); E11.22 Type 2 diabetes mellitus with diabetic chronic kidney disease; I12.9 Hypertensive chronic kidney disease with stage 1 through stage 4 chronic kidney disease, or unspecified chronic kidney disease; N18.30 Chronic kidney disease, stage 3 unspecified; E53.8 Deficiency of other specified B group vitamins; E78.5 Hyperlipidemia, unspecified; E55.9 Vitamin D deficiency, unspecified | CPT/HCPCS: 82947; 99212 ==

== ENCOUNTER 2020-12-19 08:05 | Outpatient (REF) | payer MEDICARE, SELFPAY ==
[2020-12-19 10:27] LABS: MANUAL DIFF FLAG NO
[2020-12-19 10:37] LABS: Basophils Percent Auto 0.2 % (0-2); Eosinophils Absolute Auto 0.2 X10*3/uL (0.0-0.4); Eosinophils Percent Auto 2.7 % (0-4); Imm Gran Abs Auto 0.02 X10*3/uL (0.00-0.03); Imm Gran Pct Auto 0.3 % (0.0-0.4); Lymphocytes Absolute Auto 1.8 X10*3/uL (1.2-4.9); Lymphocytes Percent Auto 28.6 % (20-40); Mean Corpuscular HGB Conc 32.6 g/dl (31.0-36.0); Mean Corpuscular Hemoglobin 30.4 pg (27.0-33.0); Mean Corpuscular Volume 93.5 fL (80-98); Mean Platelet Volume 9.7 fL (9.4-12.4); Monocytes Absolute Auto 0.7 X10*3/uL (0.1-1.2); Monocytes Percent Auto 10.4 % (2-11); Neutrophils Absolute Auto 3.6 X10*3/uL (2.0-8.3); Neutrophils Percent Auto 57.8 % (45-73); Platelet Count 247 X10*3/uL (160-400); White Blood Count 6.3 X10*3/uL (4.8-10.8)
[2020-12-19 11:10] LABS: Alanine Aminotransferase 19 U/L (0-40); Albumin Level 3.9 g/dL (3.5-5.0); Alkaline Phosphatase 116 U/L (39-117); Anion Gap 13 (12-20); Aspartate Amino Transferase 19 U/L (5-37); Bilirubin Total 0.5 mg/dL (0.0-1.0); Blood Urea Nitrogen 17 mg/dL (9-16); Calcium 9.2 mg/dL (8.4-10.2); Carbon Dioxide 21 mmol/L (22-29); Chloride 110 mmol/L (96-108); Cholesterol 214 mg/dL; Estimated Glomerular Filt Rate 39; Glucose Fasting 114 mg/dL (60-99); HDL Cholesterol 40 mg/dL; LDL Cholesterol Calculated 151 mg/dl; Potassium 4.4 mmol/L (3.3-5.1); Sodium 140 mmol/L (135-145); Total Protein 7.4 g/dL (6.5-8.0); Triglycerides 115 mg/dL
[2020-12-19 11:38] LABS: Vitamin B12 741 pg/mL (200-900)
[2020-12-19 11:47] LABS: Creatinine Urine 133.64 mg/dL; Microalbum/Creatinine Ratio Ur 6.7 ug/mg cr
[2020-12-21 05:42] LABS: LDL Cholesterol Direct 146 mg/dL (<100)
[2020-12-26 05:22] LABS: Vitamin D 25-OH, D2 5 ng/mL; Vitamin D 25-OH, D3 21 ng/mL; Vitamin D 25-OH, Total 26 ng/mL (30-100)
== END 2020-12-19 08:06 | disposition home or self-care (01) ==
LOC: HO.10HDL 08:05
PROVIDERS: Internal Medicine Endocrinology, Diabetes & Metabolism; Visit Provider Internal Medicine
DX: D64.9 Anemia, unspecified (principal); E53.8 Deficiency of other specified B group vitamins; E11.9 Type 2 diabetes mellitus without complications; E78.5 Hyperlipidemia, unspecified; M10.9 Gout, unspecified; E55.9 Vitamin D deficiency, unspecified
CPT/HCPCS: 36415; 80053; 80061; 82043; 82306; 82607; 82746; 83721; 84550; 85025

== ENCOUNTER → 2020-12-21 14:10 | Outpatient (BNVA) | payer MEDICARE, SELFPAY | PROVIDERS: PCP Internal Medicine; Visit Provider Urology | DX: N32.0 Bladder-neck obstruction (principal); N43.3 Hydrocele, unspecified | CPT/HCPCS: 99202 ==

== ENCOUNTER 2021-02-13 07:36 | Outpatient (REF) | payer MEDICARE, SELFPAY ==
--- NOTE | ~2021-02-13 | MR_ITS ---
EXAMINATION: MR BRAIN WITHOUT CONTRAST CLINICAL INFORMATION: Stroke. Vertebral basilar occlusive disease. Self-reported dizziness. COMPARISON: None TECHNIQUE: Routine unenhanced MRI of the brain. FINDINGS: Diffusion-weighted images demonstrate no evidence of acute infarcts. No intracranial hemorrhage or intracranial tumors are noted. Mild diffuse commensurate prominence of ventricles and sulci is visualized. A mild number of scattered supratentorial subcortical and periventricular white matter punctate T2 hyperintensities are identified. Susceptibility weighted images reveal no evidence of acute or chronic hemorrhage within the brain parenchyma. Grossly normal flow-related signal intensity is identified in the major intracranial vessels and dural sinuses including the visualized components of the basilar artery and intradural segments of the vertebral arteries. 4 mm inferior ectopia of the cerebellar tonsils is visualized (series 3 image 12). Mild hyperostosis frontalis interna is identified. No suspicious marrow abnormalities are visualized. Partial visualization is made of endplate discogenic marrow signal changes at C3-C4 and along the inferior endplate of C4 with partial visualization made of at least mild-moderate central stenosis at C3-C4 related to a partially visualized broad-based disc bulge. Mild mucosal thickening is present throughout the paranasal sinuses with findings most pronounced within the maxillary sinuses. No mastoid effusions are identified. Making allowances for artifacts, the orbits and globes are normal in appearance. MR/MR head/brain wo con IMPRESSION: 1. No acute abnormalities. No acute infarcts or intracranial hemorrhage. 2. Mild white matter chronic small vessel ischemic changes. 3. Grossly normal appearance of the basilar artery without evidence of gross basilar artery stenosis or occlusion. 4. Mild Chiari I malformation. 4 mm inferior cerebellar tonsillar ectopia is noted and just meets size threshold criteria for a Chiari I malformation. The visualized cervical spinal cord demonstrates no syrinx formation. Chiari malformations with less than 7 mm cerebellar ectopia may be asymptomatic. 5. Mild diffuse paranasal sinus mucosal thickening which may correlate with mild chronic sinusitis.
== END 2021-02-13 07:37 | disposition home or self-care (01) ==
LOC: HO.MRI 07:36
PROVIDERS: Visit Provider Psychiatry & Neurology Neurology
DX: G45.0 Vertebro-basilar artery syndrome (principal); Z86.73 Personal history of transient ischemic attack (TIA), and cerebral infarction without residual deficits
CPT/HCPCS: 70551

== ENCOUNTER → 2021-03-03 13:43 | Outpatient (REF) | payer MEDICARE, SELFPAY ==
--- NOTE | 2021-03-03 13:56 | ECG_ITS ---
Hook-up date: 2021-03-03 14:03:00 Duration: 47:59:00 Test Indications: syncopal episodes Medications: [id number] QRS complexes 137 Ventricular ectopics which represent <1 % of total QRS comp. 104 Supraventricular ectopics which represent <1 % of total QRS comp. * Paced QRS complexs which represent % of total QRS comp. VENTRICULAR ECTOPY 137 Isolated 0 Bigeminal Cycles 0 Couplets 0 Runs 0 Beats in Runs * Beats LONGEST at * BPM at :: -- * Beats FASTEST at * BPM at :: -- SUPRAVENTRICULAR ECTOPY 102 Isolated 1 Couplets 0 Runs 0 Beats in Runs * Beats LONGEST at * BPM at :: -- * Beats FASTEST at * BPM at :: -- HEART RATES 42 MIN at 05:55:48 2021-03-05 64 AVG 116 MAX at 09:19:08 2021-03-04 LONGEST RR 1.5120 secs at 06:07:18 2021-03-05 S-T LEVELS Channel 1 - 128 mm at 14:03:00 2021-03-03 - 128 mm at 14:03:00 2021-03-03 Channel 2 - 128 mm at 14:03:00 2021-03-03 - 128 mm at 14:03:00 2021-03-03 Channel 3 - 128 mm at 03:32:21 -- - 128 mm at 03:32:21 Basic rhythm Normal sinus rhythm No long pause or profound bradycardia Rare ectopics No diary submitted Referred By: Eleanor Montgomery Overread By: DEBORAH FALK MD
== END ==
LOC: HO.CARD 13:43
PROVIDERS: Visit Provider Psychiatry & Neurology Neurology
DX: R42 Dizziness and giddiness (principal)
CPT/HCPCS: 93225; 93226

== ENCOUNTER 2021-03-06 08:47 | Outpatient (REF) | payer MEDICARE, SELFPAY ==
[2021-03-06 10:42] LABS: Alanine Aminotransferase 16 U/L (0-40); Albumin Level 4.1 g/dL (3.5-5.0); Alkaline Phosphatase 109 U/L (39-117); Anion Gap 12 (12-20); Aspartate Amino Transferase 19 U/L (5-37); Bilirubin Total 0.9 mg/dL (0.0-1.0); Blood Urea Nitrogen 17 mg/dL (9-16); Calcium 9.4 mg/dL (8.4-10.2); Carbon Dioxide 26 mmol/L (22-29); Chloride 108 mmol/L (96-108); Cholesterol 138 mg/dL; Estimated Glomerular Filt Rate 49; Glucose Fasting 106 mg/dL (60-99); HDL Cholesterol 41 mg/dL; LDL Cholesterol Calculated 79 mg/dl; Potassium 4.7 mmol/L (3.3-5.1); Sodium 141 mmol/L (135-145); Total Protein 7.3 g/dL (6.5-8.0); Triglycerides 92 mg/dL
[2021-03-06 10:58] LABS: Prostate Specific Antigen 9.27 ng/mL (<0.05-4.0)
== END 2021-03-06 08:48 | disposition home or self-care (01) ==
LOC: HO.10HDL 08:47
PROVIDERS: Internal Medicine Endocrinology, Diabetes & Metabolism; Visit Provider Urology
DX: E78.5 Hyperlipidemia, unspecified (principal); N13.8 Other obstructive and reflux uropathy; N40.1 Benign prostatic hyperplasia with lower urinary tract symptoms; E11.9 Type 2 diabetes mellitus without complications
CPT/HCPCS: 36415; 80053; 80061; 84153

== ENCOUNTER → 2021-03-23 14:13 | Outpatient (BNVA) | payer MEDICARE, SELFPAY | PROVIDERS: Visit Provider Urology | DX: N50.819 Testicular pain, unspecified (principal); N32.0 Bladder-neck obstruction; R97.20 Elevated prostate specific antigen [PSA]; N40.1 Benign prostatic hyperplasia with lower urinary tract symptoms; N13.8 Other obstructive and reflux uropathy; R35.1 Nocturia | CPT/HCPCS: 51798; 99212 ==

== ENCOUNTER 2021-06-13 07:43 | Outpatient (REF) | payer MEDICARE, SELFPAY ==
[2021-06-13 10:54] LABS: PSA,Total (Free>4and<10) 2.99 ng/mL (0.00-4.00)
== END 2021-06-13 07:44 | disposition home or self-care (01) ==
LOC: HO.10HDL 07:43
PROVIDERS: Visit Provider Urology
DX: Z12.5 Encounter for screening for malignant neoplasm of prostate (principal); R97.20 Elevated prostate specific antigen [PSA]
CPT/HCPCS: 36415; 84153

== ENCOUNTER → 2021-07-04 09:28 | Outpatient (BNVA) | payer MEDICARE, SELFPAY | PROVIDERS: PCP Internal Medicine; Visit Provider Urology | DX: R97.20 Elevated prostate specific antigen [PSA] (principal); N32.0 Bladder-neck obstruction | CPT/HCPCS: Q3014 ==

== ENCOUNTER 2021-07-17 07:58 | Outpatient (REF) | payer MEDICARE, SELFPAY ==
[2021-07-17 08:16] LABS: MANUAL DIFF FLAG NO
[2021-07-17 08:46] LABS: Basophils Percent Auto 0.2 % (0-2); Eosinophils Absolute Auto 0.1 X10*3/uL (0.0-0.4); Eosinophils Percent Auto 2.1 % (0-4); Hematocrit 45.4 % (42.0-52.0); Hemoglobin 14.9 g/dl (14.0-18.0); Imm Gran Abs Auto 0.02 X10*3/uL (0.00-0.03); Imm Gran Pct Auto 0.3 % (0.0-0.4); Lymphocytes Absolute Auto 1.9 X10*3/uL (1.2-4.9); Lymphocytes Percent Auto 33.2 % (20-40); Mean Corpuscular HGB Conc 32.8 g/dl (31.0-36.0); Mean Corpuscular Hemoglobin 30.7 pg (27.0-33.0); Mean Corpuscular Volume 93.4 fL (80.0-98.0); Mean Platelet Volume 9.8 fL (9.4-12.4); Monocytes Absolute Auto 0.6 X10*3/uL (0.1-1.2); Monocytes Percent Auto 9.5 % (2-11); Neutrophils Absolute Auto 3.2 x10*3/uL (2.0-8.3); Neutrophils Percent Auto 54.7 % (45-73); Platelet Count 219 X10*3/uL (160-400); Red Blood Count 4.86 X10*6/uL (4.60-5.80); Red Cell Distribution Width 13.5 % (11.0-16.0); White Blood Count 5.8 X10*3/uL (4.8-10.8)
[2021-07-17 09:02] LABS: Alanine Aminotransferase 21 U/L (0-40); Alkaline Phosphatase 117 U/L (39-117); Anion Gap 9 (12-20); Aspartate Amino Transferase 20 U/L (5-37); Bilirubin Total 0.9 mg/dL (0.0-1.0); Blood Urea Nitrogen 18 mg/dL (9-16); Calcium 9.8 mg/dL (8.4-10.2); Carbon Dioxide 29 mmol/L (22-29); Chloride 107 mmol/L (96-108); Cholesterol 168 mg/dL; Estimated Glomerular Filt Rate 42; Glucose Fasting 99 mg/dL (60-99); HDL Cholesterol 42 mg/dL; Iron 115 mcg/dL (45-160); LDL Cholesterol Calculated 105 mg/dl; Percent Iron Saturation 38 % (15-50); Potassium 5.2 mmol/L (3.3-5.1); Sodium 140 mmol/L (135-145); Total Iron Binding Capacity 304 mcg/dL (228-428); Total Protein 7.4 g/dL (6.5-8.0); Triglycerides 105 mg/dL; Unsaturated Iron Binding 189 ug/dL; Uric Acid 5.5 mg/dL (3.4-7.0)
[2021-07-17 09:33] LABS: Folate 17.8 ng/mL (> or = 4.0); Vitamin B12 327 pg/mL (200-900)
[2021-07-17 10:26] LABS: Creatinine Urine 113.85 mg/dL; Microalbumin Urine < 5.0 mg/L
[2021-07-21 12:52] LABS: Vitamin D 25-OH, D2 <4 ng/mL; Vitamin D 25-OH, D3 32 ng/mL; Vitamin D 25-OH, Total 32 ng/mL (30-100)
== END 2021-07-17 07:59 | disposition home or self-care (01) ==
LOC: HO.LAB 07:58
PROVIDERS: PCP Internal Medicine; Visit Provider Internal Medicine
DX: E53.8 Deficiency of other specified B group vitamins (principal); E11.22 Type 2 diabetes mellitus with diabetic chronic kidney disease; N18.30 Chronic kidney disease, stage 3 unspecified; M10.9 Gout, unspecified; E55.9 Vitamin D deficiency, unspecified; E78.5 Hyperlipidemia, unspecified; D64.9 Anemia, unspecified
CPT/HCPCS: 36415; 80053; 80061; 82043; 82306; 82607; 82746; 83540; 84550; 85025

== ENCOUNTER 2021-10-09 08:15 | Outpatient (REF) | payer MEDICARE, SELFPAY ==
[2021-10-09 14:20] LABS: PSA,Total (Free>4and<10) 1.87 ng/mL (0.00-4.00)
== END 2021-10-09 08:16 | disposition home or self-care (01) ==
LOC: HO.10HDL 08:15
PROVIDERS: Visit Provider Urology
DX: Z12.5 Encounter for screening for malignant neoplasm of prostate (principal); N13.8 Other obstructive and reflux uropathy; N40.1 Benign prostatic hyperplasia with lower urinary tract symptoms; R97.20 Elevated prostate specific antigen [PSA]
CPT/HCPCS: 36415; 84153

== ENCOUNTER → 2021-12-05 09:05 | Outpatient (BNVA) | payer MEDICARE, SELFPAY | PROVIDERS: PCP Internal Medicine; Referring Provider Internal Medicine; Visit Provider Physician Assistant | DX: Z13.89 Encounter for screening for other disorder (principal) ==

== ENCOUNTER → 2021-12-07 13:00 | Outpatient (BNVA) | payer MEDICARE, SELFPAY | PROVIDERS: PCP Internal Medicine; Referring Provider Internal Medicine; Visit Provider Physician Assistant | DX: E66.9 Obesity, unspecified (principal); Z68.38 Body mass index [BMI] 38.0-38.9, adult; E11.9 Type 2 diabetes mellitus without complications; Z98.84 Bariatric surgery status; Z98.890 Other specified postprocedural states | CPT/HCPCS: 99202 ==

== ENCOUNTER 2022-01-02 08:44 | Outpatient (REF) | payer MEDICARE, SELFPAY ==
[2022-01-02 09:04] LABS: MANUAL DIFF FLAG NO
[2022-01-02 09:13] LABS: Basophils Percent Auto 0.2 % (0-2); Eosinophils Absolute Auto 0.2 X10*3/uL (0.0-0.4); Eosinophils Percent Auto 2.6 % (0-4); Hematocrit 44.3 % (42.0-52.0); Hemoglobin 14.2 g/dl (14.0-18.0); Imm Gran Abs Auto 0.02 X10*3/uL (0.00-0.03); Imm Gran Pct Auto 0.3 % (0.0-0.4); Lymphocytes Absolute Auto 2.2 X10*3/uL (1.2-4.9); Lymphocytes Percent Auto 35.8 % (20-40); Mean Corpuscular HGB Conc 32.1 g/dl (31.0-36.0); Mean Corpuscular Volume 93.7 fL (80.0-98.0); Mean Platelet Volume 9.2 fL (9.4-12.4); Monocytes Absolute Auto 0.6 X10*3/uL (0.1-1.2); Monocytes Percent Auto 10.3 % (2-11); Neutrophils Absolute Auto 3.1 x10*3/uL (2.0-8.3); Neutrophils Percent Auto 50.8 % (45-73); Platelet Count 214 X10*3/uL (160-400); Red Blood Count 4.73 X10*6/uL (4.60-5.80); Red Cell Distribution Width 13.8 % (11.0-16.0); White Blood Count 6.1 X10*3/uL (4.8-10.8)
[2022-01-02 10:29] LABS: Folate 19.3 ng/mL (> or = 4.0); Vitamin B12 561 pg/mL (200-900)
[2022-01-02 10:48] LABS: Alanine Aminotransferase 20 U/L (0-40); Alkaline Phosphatase 106 U/L (39-117); Anion Gap 9 (12-20); Aspartate Amino Transferase 19 U/L (5-37); Bilirubin Total 0.6 mg/dL (0.0-1.0); Blood Urea Nitrogen 18 mg/dL (9-16); Carbon Dioxide 28 mmol/L (22-29); Chloride 108 mmol/L (96-108); Cholesterol 161 mg/dL; Creatinine Urine 132.34 mg/dL; Estimated Glomerular Filt Rate 51; Glucose Fasting 102 mg/dL (60-99); HDL Cholesterol 43 mg/dL; LDL Cholesterol Calculated 98 mg/dl; Microalbum/Creatinine Ratio Ur 3.7 ug/mg cr; Potassium 4.3 mmol/L (3.3-5.1); Sodium 141 mmol/L (135-145); Total Protein 7.1 g/dL (6.5-8.0); Triglycerides 103 mg/dL; Uric Acid 5.4 mg/dL (3.4-7.0)
[2022-01-02 10:50] LABS: Insulin 16 uU/mL (2-29); Thyroid Stimulating Hormone 1.22 uIU/mL (0.32-4.0); Vitamin D 25-OH Total 29.2 ng/mL (>30)
[2022-01-06 04:17] LABS: Zinc 82 mcg/dL (60-130)
== END 2022-01-02 08:45 | disposition home or self-care (01) ==
LOC: HO.10HDL 08:44
PROVIDERS: Visit Provider Internal Medicine
DX: R97.20 Elevated prostate specific antigen [PSA] (principal); N32.0 Bladder-neck obstruction; E66.01 Morbid (severe) obesity due to excess calories; Z68.41 Body mass index [BMI] 40.0-44.9, adult; E11.9 Type 2 diabetes mellitus without complications; E78.5 Hyperlipidemia, unspecified; M10.9 Gout, unspecified; E55.9 Vitamin D deficiency, unspecified; E53.8 Deficiency of other specified B group vitamins
CPT/HCPCS: 36415; 80053; 80061; 82043; 82306; 82607; 82746; 83525; 84443; 84550; 84630; 85025; Q3014

== ENCOUNTER 2022-02-13 10:30 | Outpatient (REF) | payer MEDICARE, SELFPAY ==
--- NOTE | ~2022-02-13 | XR_ITS ---
EXAMINATION: XR CHEST 2 VIEWS CLINICAL INFORMATION: Nonspecific reaction to tuberculin skin test without active tuberculosis. COMPARISON: Chest radiograph dated 05/06/2020. TECHNIQUE: Frontal and lateral views of the chest were obtained. FINDINGS: The heart, great vessels, pulmonary vasculature and mediastinum are normal. The lungs show no focal infiltrate, effusion or pneumothorax. There is no mass, nodule or thoracic lymphadenopathy. There is no acute osseous abnormality. XR/XR chest 2V IMPRESSION: No active cardiopulmonary disease.
== END 2022-02-13 10:31 | disposition home or self-care (01) ==
LOC: HO.XRAY 10:30
PROVIDERS: PCP Internal Medicine; Visit Provider Internal Medicine
DX: R76.11 Nonspecific reaction to tuberculin skin test without active tuberculosis (principal)
CPT/HCPCS: 71046

== ENCOUNTER 2022-02-15 09:27 | Outpatient (REF) | payer MEDICARE, SELFPAY ==
[2022-02-15 10:46] LABS: Alanine Aminotransferase 17 U/L (0-40); Albumin Level 4.1 g/dL (3.5-5.0); Alkaline Phosphatase 101 U/L (39-117); Anion Gap 14 (12-20); Aspartate Amino Transferase 22 U/L (5-37); Bilirubin Total 0.9 mg/dL (0.0-1.0); Blood Urea Nitrogen 15 mg/dL (9-16); Calcium 9.4 mg/dL (8.4-10.2); Carbon Dioxide 26 mmol/L (22-29); Chloride 106 mmol/L (96-108); Estimated Glomerular Filt Rate 47; Glucose Random 113 mg/dL (60-115); Potassium 4.9 mmol/L (3.3-5.1); Sodium 141 mmol/L (135-145); Total Protein 7.2 g/dL (6.5-8.0)
[2022-02-15 10:59] LABS: Creatinine Urine 137.09 mg/dL; Total Protein Urine Random < 7 mg/dL (<12)
== END 2022-02-15 09:28 | disposition home or self-care (01) ==
LOC: HO.LAB 09:27
PROVIDERS: Absent Provider Internal Medicine Hypertension Specialist; PCP Internal Medicine; Visit Provider Urology
DX: I12.9 Hypertensive chronic kidney disease with stage 1 through stage 4 chronic kidney disease, or unspecified chronic kidney disease (principal); N18.9 Chronic kidney disease, unspecified; E11.22 Type 2 diabetes mellitus with diabetic chronic kidney disease
CPT/HCPCS: 36415; 80053; 84156

== ENCOUNTER 2022-07-03 07:25 | Outpatient (REF) | payer MEDICARE, SELFPAY ==
[2022-07-03 09:11] LABS: Prostate Specific Antigen 1.12 ng/mL (<0.05-4.0)
== END 2022-07-03 07:26 | disposition home or self-care (01) ==
LOC: HO.LAB 07:25
PROVIDERS: PCP Internal Medicine; Visit Provider Urology
DX: Z12.5 Encounter for screening for malignant neoplasm of prostate (principal); N40.1 Benign prostatic hyperplasia with lower urinary tract symptoms; N13.8 Other obstructive and reflux uropathy
CPT/HCPCS: 36415; 84153

== ENCOUNTER → 2022-07-06 10:25 | Outpatient (BNVA) | payer MEDICARE, SELFPAY | PROVIDERS: PCP Internal Medicine; Visit Provider Urology | DX: R97.20 Elevated prostate specific antigen [PSA] (principal); N32.0 Bladder-neck obstruction | CPT/HCPCS: 51798; 99212 ==

== ENCOUNTER 2022-10-03 08:41 | Outpatient (REF) | payer MEDICARE, SELFPAY ==
[2022-10-03 11:53] LABS: Anion Gap 11 (12-20); Blood Urea Nitrogen 17 mg/dL (9-16); Carbon Dioxide 27 mmol/L (22-29); Chloride 108 mmol/L (96-108); Estimated Glomerular Filt Rate 53; Glucose Random 127 mg/dL (60-115); Potassium 4.4 mmol/L (3.3-5.1); Sodium 142 mmol/L (135-145)
== END 2022-10-03 08:42 | disposition home or self-care (01) ==
LOC: HO.10HDL 08:41
PROVIDERS: Visit Provider Internal Medicine Hypertension Specialist
DX: N18.30 Chronic kidney disease, stage 3 unspecified (principal)
CPT/HCPCS: 36415; 80048

== ENCOUNTER 2022-11-12 07:36 | Outpatient (REF) | payer MEDICARE, SELFPAY ==
[2022-11-12 08:50] LABS: Cholesterol 154 mg/dL; HDL Cholesterol 39 mg/dL; LDL Cholesterol Calculated 89 mg/dl; Triglycerides 130 mg/dL; Uric Acid 5.5 mg/dL (3.4-7.0)
[2022-11-12 09:10] LABS: ~HepC Num1 0.09 S/CO (0.00-0.79); ~Hepatitis C Antibody Nonreactive (Nonreactive)
[2022-11-12 09:13] LABS: Folate 15.4 ng/mL (> or = 4.0); Vitamin B12 251 pg/mL (200-900); Vitamin D 25-OH Total 30.3 ng/mL (>30)
[2022-11-12 10:21] LABS: Creatinine Urine 152.09 mg/dL; Microalbumin Urine < 5.0 mg/L
== END 2022-11-12 07:37 | disposition home or self-care (01) ==
LOC: HO.LAB 07:36
PROVIDERS: PCP Internal Medicine; Visit Provider Internal Medicine
DX: E11.9 Type 2 diabetes mellitus without complications (principal); E78.5 Hyperlipidemia, unspecified; E53.8 Deficiency of other specified B group vitamins; M10.9 Gout, unspecified; E55.9 Vitamin D deficiency, unspecified
CPT/HCPCS: 36415; 80061; 82043; 82306; 82607; 82746; 84550; 86803

== ENCOUNTER 2023-03-13 09:05 | Outpatient (REF) | payer MEDICARE, SELFPAY ==
[2023-03-13 11:02] LABS: Creatinine Urine 152.35 mg/dL; Microalbum/Creatinine Ratio Ur 8.5 ug/mg cr (<30)
[2023-03-13 11:12] LABS: Alanine Aminotransferase 16 U/L (0-40); Albumin Level 4.2 g/dL (3.5-5.0); Alkaline Phosphatase 104 U/L (39-117); Anion Gap 10 (12-20); Aspartate Amino Transferase 21 U/L (5-37); Bilirubin Total 0.7 mg/dL (0.0-1.0); Blood Urea Nitrogen 17 mg/dL (9-16); Calcium 10.1 mg/dL (8.4-10.2); Carbon Dioxide 28 mmol/L (22-29); Chloride 108 mmol/L (96-108); Cholesterol 147 mg/dL (<200); Estimated Glomerular Filt Rate 48; Glucose Fasting 110 mg/dL (60-99); HDL Cholesterol 42 mg/dL (>40); LDL Cholesterol Calculated 86 mg/dL (<100); Potassium 4.4 mmol/L (3.3-5.1); Sodium 142 mmol/L (135-145); Total Protein 7.8 g/dL (6.5-8.0); Triglycerides 99 mg/dL (<150); Uric Acid 5.1 mg/dL (3.4-7.0)
[2023-03-13 11:24] LABS: Prostate Specific Antigen 1.49 ng/mL (<0.05-4.0)
[2023-03-13 11:32] LABS: Vitamin D 25-OH Total 31.5 ng/mL (>30)
[2023-03-13 11:41] LABS: Folate 16.1 ng/mL (> or = 4.0); Vitamin B12 335 pg/mL (200-900)
== END 2023-03-13 09:06 | disposition home or self-care (01) ==
LOC: HO.LAB 09:05
PROVIDERS: Urology; PCP Internal Medicine; Visit Provider Internal Medicine
DX: Z12.5 Encounter for screening for malignant neoplasm of prostate (principal); M10.9 Gout, unspecified; E11.22 Type 2 diabetes mellitus with diabetic chronic kidney disease; N18.30 Chronic kidney disease, stage 3 unspecified; E53.8 Deficiency of other specified B group vitamins; E78.5 Hyperlipidemia, unspecified; R97.20 Elevated prostate specific antigen [PSA]; E55.9 Vitamin D deficiency, unspecified
CPT/HCPCS: 36415; 80053; 80061; 82043; 82306; 82607; 82746; 84153; 84550

== ENCOUNTER 2023-03-20 16:35 | Outpatient (AMB) | payer MEDICARE, SELFPAY ==
[2023-03-20 16:44] VITALS: BP 122/80; BMI 40.3
--- NOTE | 2023-03-20 16:44 | MHC.PC.OV ---
Vital Signs 03/20/23 16:44 Height 5 ft 9 in Weight 273 lb BMI 40.3 BP 122/80 Blood Pressure Location Lt brachial Position Sitting Intake Visit Reasons: 4 month f/u Intake Note: Patient here for a 4 month follow up Color Weigher Required: No Accompanied by: Self / Same As Patient Allergies canagliflozin [From Invokana] Allergy (Intermediate, Verified 03/20/23 17:12) vomitting linagliptin [Tradjenta] Allergy (Intermediate, Verified 03/20/23 17:12) Cough phentermine Allergy (Intermediate, Verified 03/20/23 17:12) insomnia,palpitations tuberculin, purified protein deriva [From Tuberculin PPD Henny Test] Allergy (Mild, Verified 03/20/23 17:12) RASH Medication List - Last Reconciled 03/20/23 by Maryam Black MD acetaminophen (Tylenol Extra Strength) 1,000 mg (2 x 500 mg) PO QID PRN allopurinol 300 mg PO DAILY 90 days aspirin (Adult Aspirin Regimen) 81 mg PO DAILY 90 days atorvastatin 20 mg PO DAILY 90 days blood sugar diagnostic (Accu-Chek Guide test strips) Use 1 test strip once a day blood-glucose meter (Accu-Chek Guide Glucose Meter) As directed cholecalciferol (vitamin D3) 1,250 mcg PO 2XW 30 days cyanocobalamin (vitamin B-12) 1,000 mcg sublingual DAILY 30 days [diabetic shoes As directed] docusate sodium (Colace) 100 mg PO BID PRN finasteride 5 mg PO DAILY 90 days gabapentin 100 mg PO BID lisinopril 20 mg PO DAILY 30 days multivitamin 1 tab PO DAILY sennosides (senna) 8.6 mg PO BEDTIME PRN tamsulosin 0.4 mg PO BEDTIME 90 days Tobacco use date assessed: 08/02/22 Fall risk assessment: No Falls in past year Last assessed Fall Risk: 03/20/23 Dental Screening Dental Screen Date: 03/20/23 Did you have a dental visit in the last 12 months?: Yes Did you have a dental problem in the last 6 months where you did not have access to dental care?: No Was dental information given to patient?: Patient has dentist HPI HPI Comments History of Present Illness Details This is a 67-year-old male with diabetes mellitus type 2 controlled with diet, hypertension, dyslipidemia, morbid obesity and Arnold-Chiari malformation type 1 that comes today complaining of some constipation and persistent headaches. A1c within goal. Blood pressure stable. LDL close to goal. He is morbidly obese with BMI of 40.3 and declines weight loss surgery. Last MRI of the brain was 2020 and MRI will be repeated to see if there is any difference in Arnold Chiari malformation causing persistent headaches. I will refill docusate to help with constipation. 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 Sister In good health Social History Housing: House Alcohol intake: never Patient Tobacco Use Status: Never used Tobacco e-Cigarette/Vaping Use: Never Used Second Hand Smoke Exposure: No service: No Current occupational status: employed Current occupational exposures/hazards: No Cognitive needs: No Hearing needs: No Vision needs: Yes Questionnaire Thrive Questionnaire Date Thrive assessed: 11/13/22 JORGE L-7 AMB Questionnaire JORGE L-7 Date JORGE L - 7 assessed: 08/02/22 Source: Developed by Drs. Amando Del Toro, Amna Harris, Zeus Ho and colleagues, with an educational josé antonio from [employer] Review of Systems Const All systems reviewed & are unremarkable except as noted in HPI and below Eyes Reports no additional complaints, Denies change in vision and Denies other visual disturbances Card Denies chest pain at rest, Denies chest pain with activity, Denies edema, Denies irregular heart rhythm, Denies claudication, Denies dyspnea, Denies dyspnea on exertion, Denies orthopnea, Denies paroxysmal nocturnal dyspnea and Denies slow heart rate Resp Denies cough, Denies dyspnea and Denies dyspnea on exertion GI Denies abdominal pain, Denies change in bowel habits, Denies excessive flatus, Denies nausea and Denies vomiting Denies urinary hesitancy, Denies urinary incontinence and Denies urinary urgency Musc Denies abnormal gait, Denies atrophy, Denies deformity and Denies limited range of motion Skin/Breast Denies bleeding lesions, Denies changing lesions and Denies rash Neuro Denies abnormal gait and Denies lack of coordination Physical exam (Primary Care) Vital Signs: Last Vital Signs BP 122/80 03/20/23 16:44 BMI result Body Mass Index 40.3 Tobacco/Smoking Status: Tobacco use Status Tobacco use date assessed 08/02/22 03/20/23 16:49 Patient Tobacco Use Status Never used Tobacco 03/20/23 16:49 e-Cigarette/Vaping Use Never Used 03/20/23 16:49 Thrive Assessment: Date of Thrive Assessment Date Thrive assessed 11/13/22 03/20/23 16:49 Eyes General: appearance normal, both eyes and all related structures Eyelids: Yes eyelids normal Conjunctivae: conjunctivae normal Neck Neck: Yes normal visual inspection and Yes supple Resp Effort & Inspection: normal respiratory effort Auscultation: clear to auscultation bilaterally Cardio Jugular venous distension: no JVD Rate: regular rate Rhythm: regular rhythm Heart sounds: S1 normal heart sound present and S2 normal heart sound present Extrem General: Yes full ROM Results AMB Hemoglobin A1c AMB Hemoglobin A1c 6.7 % Last Edit by JOSE Hebert on 03/20/23 16:52 AMB Urinalysis, Automated UA Leukoctes 0 Eli/uL Last Edit by JOSE Hebert on 03/20/23 17:32 UA Nitrite Negative Last Edit by JOSE Hebert on 03/20/23 17:32 UA Urobilinogen 0.2 mg/dL Last Edit by JOSE Hebert on 03/20/23 17:32 UA Protein 0 mg/dL Last Edit by JOSE Hebert on 03/20/23 17:32 UA pH 6.0 Last Edit by Camilo Contreras, RMA on 03/20/23 17:32 UA Blood 1 Jasen/uL Last Edit by Camilo Contreras, RMA on 03/20/23 17:32 UA Specific [place] 1.015 Last Edit by Camilo Contreras, RMA on 03/20/23 17:32 UA Ketone Negative Last Edit by Camilo Contreras, RMA on 03/20/23 17:32 UA Bilirubin 0 mg/dL Last Edit by Camilo Contreras, RMA on 03/20/23 17:32 UA Glucose 0 mg/dL Last Edit by Camilo Contreras, RMA on 03/20/23 17:32 Results Reviewed Results Reviewed: Laboratory Last Values Hgb A1c (Clinic) 6.7 % (4.0-6.0) H 03/20/23 16:50 Urine pH (Auto) 6.0 03/20/23 17:30 Specific [place] (Auto) 1.015 03/20/23 17:30 Urine Protein (Auto) 0 mg/dL 03/20/23 17:30 Glucose (UA)(Auto) 0 mg/dL 03/20/23 17:30 Urine Ketones (Auto) Negative 03/20/23 17:30 Urine Blood (Auto) 1 Jasen/uL 03/20/23 17:30 Urine Nitrite (Auto) Negative 03/20/23 17:30 Urine Bilirubin (Auto) 0 mg/dL 03/20/23 17:30 Urine Urobilinogen (Auto) 0.2 mg/dL 03/20/23 17:30 Leukocyte Esterase (Auto) 0 Eli/uL 03/20/23 17:30 Assessment and Plan Assessment & Plan (1) Diabetes type 2, controlled: Code(s): E11.9 - Type 2 diabetes mellitus without complications Qualifiers: Diabetes mellitus predatory animal exterminator insulin use: without predatory animal exterminator use Diabetes mellitus complication status: without complication Qualified Code(s): E11.9 - Type 2 diabetes mellitus without complications Plan: Controlled with diet. A1c goal is equal or less than 7%. (2) Essential hypertension: Code(s): I10 - Essential (primary) hypertension Plan: Continue lisinopril. Blood pressure goal is equal or less than 130/80. (3) Dyslipidemia: Code(s): E78.5 - Hyperlipidemia, unspecified Plan: Continue statins. LDL goal is less than 70. (4) Arnold-Chiari malformation, type I: Code(s): G93.5 - Compression of brain Plan: MRI of the brain ordered (5) Morbid obesity with BMI of 40.0-44.9, adult: Code(s): E66.01 - Morbid (severe) obesity due to excess calories; Z68.41 - Body mass index [BMI] 40.0-44.9, adult Plan: Start diet and exercise. BMI goal is less than 30. Orders: Orders MR head/brain wo con Today G93.5 - Compression of brain Vitamin D 25-OH Total 4 Months E55.9 - Vitamin D deficiency, unspecified Vitamin B12 and Folate 4 Months E53.8 - Deficiency of other specified B group vitamins Lipid Panel 4 Months E78.5 - Hyperlipidemia, unspecified Microalbumin, Random (w Creat) 4 Months E11.9 - Type 2 diabetes mellitus without complications Comprehensive [place]. Panel Fast 4 Months E11.9 - Type 2 diabetes mellitus without complications AMB Hemoglobin A1c Today E11.9 - Type 2 diabetes mellitus without complications AMB Urinalysis Automated Today R30.0 - Dysuria Medications: New semaglutide (Rybelsus) 3 mg PO DAILY 30 days 30 tabs 0RF E11.9 - Type 2 diabetes mellitus without complications Changed From docusate sodium (Colace) 100 mg PO BID PRN 30 caps 0RF constipation To docusate sodium (Colace) 100 mg PO BID 30 days PRN 30 caps 3RF constipation Coding Level of Care Code Est Pt Level 4 (72402) Diagnoses Diabetes type 2, controlled E11.9 Diabetes mellitus predatory animal exterminator insulin use: without predatory animal exterminator use Diabetes mellitus complication status: without complication Essential hypertension I10 Dyslipidemia E78.5 Arnold-Chiari malformation, type I G93.5 Morbid obesity with BMI of 40.0-44.9, adult E66.01; Z68.41 Time Spent (min) 23
== END 2023-03-20 17:43 | disposition home or self-care (01) ==
PROVIDERS: Visit Provider Internal Medicine
DX: E11.9 Type 2 diabetes mellitus without complications (principal); I10 Essential (primary) hypertension; G93.5 Compression of brain; E66.01 Morbid (severe) obesity due to excess calories; Z68.41 Body mass index [BMI] 40.0-44.9, adult; R30.0 Dysuria; E78.5 Hyperlipidemia, unspecified
CPT/HCPCS: 81003; 83036; 99214

== ENCOUNTER 2023-04-16 12:42 | Outpatient (AMB) | payer MEDICARE, SELFPAY ==
[2023-04-16 12:44] VITALS: BP 110/74; PULSE 77; BMI 39.5
--- NOTE | 2023-04-16 12:44 | A.OFFVIS_ITS ---
Intake Vital Signs 04/16/23 12:44 Height 5 ft 9 in Weight 267 lb 10.259 oz BMI 39.5 BP 110/74 Blood Pressure Location Rt brachial Position Sitting Pulse 77 Intake Visit Reasons: Colonoscopy Screening Intake Note: Patient presents to in office visit today for colonoscopy screening. CC: Patient reports doing well and last colonoscopy he reports was done before the pandemic. Denies any GI concerns or symptoms today. Allergies canagliflozin [From Invokana] Allergy (Intermediate, Verified 04/16/23 12:49) vomitting linagliptin [Tradjenta] Allergy (Intermediate, Verified 04/16/23 12:49) Cough phentermine Allergy (Intermediate, Verified 04/16/23 12:49) insomnia,palpitations tuberculin, purified protein deriva [From Tuberculin PPD Henny Test] Allergy (Mild, Verified 04/16/23 12:49) RASH HPI Colonoscopy Screening HPI Details 67 year old? male here today for pre col onoscopy screening.? Patient was sent to us by his PCP.? Last colonoscopy 08/24/2009 1 tubular adenoma found.? Patient denies any gastrointestinal symptoms in the past or at present.? Denies any personal or family history of gastrointestinal disease or cancer.? Denies history of difficulty with sedation or anesthesia in the past.? Negative for history of sleep apnea.? Denies any history of cardiac, renal, pulmonary, or hepatic disease.?? No history of infectious? diseases like hepatitis A, B, C, HIV or tuberculosis.? Patient is on low-dose aspirin [facility] Medical History Morbid obesity with BMI of 40.0-44.9, adult CKD stage 3 due to type 2 diabetes mellitus Class 2 obesity with body mass index (BMI) of 38.0 to 38.9 in adult Physical exam Arnold-Chiari malformation, type I Testicular pain Dizziness Malabsorption due to intolerance, not elsewhere classified Dyslipidemia B12 deficiency CKD stage 3 due to type 2 diabetes mellitus Diabetes type 2, controlled Hypoglycemia after GI (gastrointestinal) surgery Hypovitaminosis D Essential hypertension Gout Diabetes Surgical History Kaposi sarcoma History of tonsillectomy Gastric bypass status for obesity Family History Father Prostate cancer Mother Diabetes Brother In good health Sister In good health Son No problems noted. Sister In good health Social History Housing: House Alcohol intake: never Patient Tobacco Use Status: Never used Tobacco e-Cigarette/Vaping Use: Never Used Second Hand Smoke Exposure: No service: No Current occupational status: employed Current occupational exposures/hazards: No Cognitive needs: No Hearing needs: No Vision needs: Yes Review of Systems Const Denies weight gain and Denies weight loss ENT Reports no additional complaints, Denies dysphagia and Denies odynophagia Card Reports no additional complaints Resp Reports no additional complaints GI Denies abdominal pain, Denies belching, Denies melena, Denies bloating, Denies change in bowel habits, Denies dysphagia, Denies excessive flatus, Denies dyspepsia, Denies heartburn, Denies diarrhea, Denies loose stools, Denies nausea, Denies odynophagia and Denies vomiting Reports no additional complaints Musc Reports no additional complaints Neuro Reports no additional complaints Psych Reports no additional complaints Endo Reports no additional complaints Physical Exam Vital Signs: Last Vital Signs Pulse 77 04/16/23 12:44 BP 110/74 04/16/23 12:44 BMI result Body Mass Index 39.5 Const General: healthy appearing, no acute distress and well developed Orientation/consciousness: patient oriented x3 HEENT Head: Yes normal to inspection, Yes normocephalic and Yes atraumatic Face and sinus: Yes normal facial exam Mouth: Normal oral and palatal mucosa present Throat: Yes posterior oropharynx normal, Yes tonsils normal and Yes uvula midline Eyes General: appearance normal, both eyes and all related structures Neck Neck: Yes normal visual inspection, Yes full ROM and Yes trachea midline Thyroid: Thyroid normal Resp Effort & Inspection: normal respiratory effort, able to speak in complete sentences, no tracheal deviation and symmetric chest movement Auscultation: clear to auscultation bilaterally Cardio Rate: regular rate Heart sounds: S1 normal heart sound present and S2 normal heart sound present GI Inspection: Yes normal to inspection, No distended and Yes obesity Palpation (GI): Soft to palpation, not firm, nontender and No hepatosplenomegaly present Auscultation: normal bowel sounds General: Yes no CVA tenderness Back/Spine/Pelvis Back: no CVA tenderness Skin General skin exam: elasticity normal, turgor normal and dry skin Neuro General: patient oriented x3 Psych Appearance: grossly normal Mental Status: mental status grossly normal Speech and movement: Normal speech and movement present Assessment & Plan Assessment & Plan (1) Tubular adenoma of colon: Code(s): D12.6 - Benign neoplasm of colon, unspecified (2) Screen for colon cancer: Code(s): Z12.11 - Encounter for screening for malignant neoplasm of colon Plan: Patient denies any GI, cardiac or respiratory symptoms.? Denies any issues with anesthesia in the past.? Denies any history of sleep apnea.? No history infectious diseases in the past or present.? On low-dose aspirin daily. ? No family or personal history of colon cancer or polyps.? Patient denies melena, hematochezia, unintentional weight loss or ribbon like stools.? Discussed at [facility] the pre-procedure,? prep, diet & medications as well as what to expect prior, during and after the procedure.?? Stressed the importance of good bowel prep. ?Recommended the use of Vaseline or Calmoseptine OTC & baby wipes with bowel movements to promote comfort.? ?Patient verbalizes understanding and agrees to plan of care.? He was given the opportunity to ask questions and all questions answered.? We will see him after the procedure.? Medications: New bisacodyl (Dulcolax (bisacodyl)) take 2 tabs at noon the day before your colonoscopy 10 mg (2 x 5 mg) PO ONCE 2 tabs 0RF 1 day Z12.11 - Encounter for screening for malignant neoplasm of colon polyethylene glycol 3350 (Miralax) As directed by gastroenterology department at [facility] 238 grams PO ONCE 238 grams 0RF Z12.11 - Encounter for screening for malignant neoplasm of colon Coding Level of Care Code New Pt Level 3 (59870) Diagnoses Tubular adenoma of colon D12.6 Screen for colon cancer Z12.11 Time Spent (min) 40 Comment 30 minutes spent with patient and additional 10 minutes spent reviewing his records.
== END 2023-04-16 14:03 | disposition home or self-care (01) ==
PROVIDERS: PCP Internal Medicine; Visit Provider Nurse Practitioner Family
DX: D12.6 Benign neoplasm of colon, unspecified (principal); Z12.11 Encounter for screening for malignant neoplasm of colon
CPT/HCPCS: 99203

== ENCOUNTER → 2023-04-16 12:42 | Outpatient (BNVA) | payer MEDICARE, SELFPAY | PROVIDERS: PCP Internal Medicine; Visit Provider Nurse Practitioner Family ==

== ENCOUNTER 2023-04-25 07:37 | Outpatient (REF) | payer MEDICARE, SELFPAY ==
--- NOTE | ~2023-04-25 | MR_ITS ---
EXAMINATION: CT HEAD WITHOUT IV CONTRAST INDICATION: Compression of brain COMPARISON: MRI brain on 02/13/2021. TECHNIQUE: Multiplanar multisequence MRI of the brain without administration of intravenous contrast. FINDINGS: Additional artifact is present. No acute intracranial hemorrhage or infarct. Scattered and confluent periventricular white matter T2/FLAIR hyperintensities, nonspecific however commonly seen with small vessel ischemic disease. No midline shift or hydrocephalus. No acute extra-axial fluid collections. The osseous structures are unremarkable. There is 6 mm inferior descent of the cerebellar tonsils into the foramen magnum which appears similar to prior with minimal crowding of the posterior fossa. No evidence of syrinx within the visualized upper cervical spinal cord. The pituitary gland and pineal gland are unremarkable. No orbital pathology. Mucosal thickening of the paranasal sinuses. The mastoid air cells are clear. MR/MR head/brain wo con IMPRESSION: Within the limitations of this study, -No acute intracranial abnormality. -Chiari I malformation.
== END 2023-04-25 07:38 | disposition home or self-care (01) ==
LOC: HO.MRI 07:37
PROVIDERS: PCP Internal Medicine; Visit Provider Internal Medicine
DX: G93.5 Compression of brain (principal)
CPT/HCPCS: 70551

== ENCOUNTER 2023-07-23 07:42 | Outpatient (REF) | payer MEDICARE, SELFPAY ==
[2023-07-23 09:06] LABS: Alanine Aminotransferase 24 U/L (0-40); Albumin Level 3.9 g/dL (3.5-5.0); Alkaline Phosphatase 95 U/L (39-117); Anion Gap 10 (12-20); Aspartate Amino Transferase 24 U/L (5-37); Bilirubin Total 0.5 mg/dL (0.0-1.0); Blood Urea Nitrogen 16 mg/dL (9-16); Calcium 9.5 mg/dL (8.4-10.2); Carbon Dioxide 29 mmol/L (22-29); Chloride 107 mmol/L (96-108); Cholesterol 192 mg/dL (<200); Estimated Glomerular Filt Rate 53; Glucose Fasting 96 mg/dL (60-99); HDL Cholesterol 44 mg/dL (>40); LDL Cholesterol Calculated 124 mg/dL (<100); Potassium 4.2 mmol/L (3.3-5.1); Sodium 142 mmol/L (135-145); Total Protein 7.5 g/dL (6.5-8.0); Triglycerides 123 mg/dL (<150)
[2023-07-23 09:35] LABS: Folate 14.2 ng/mL (> or = 4.0); Vitamin B12 432 pg/mL (200-900)
[2023-07-23 10:06] LABS: Creatinine Urine 119.97 mg/dL
== END 2023-07-23 07:43 | disposition home or self-care (01) ==
LOC: HO.LAB 07:42
PROVIDERS: Visit Provider Internal Medicine
DX: E11.9 Type 2 diabetes mellitus without complications (principal); E55.9 Vitamin D deficiency, unspecified; E53.8 Deficiency of other specified B group vitamins; E78.5 Hyperlipidemia, unspecified
CPT/HCPCS: 36415; 80053; 80061; 82043; 82306; 82570; 82607; 82746

== ENCOUNTER 2023-07-25 16:36 | Outpatient (AMB) | payer MEDICARE, SELFPAY ==
[2023-07-25 17:03] VITALS: BP 112/76; BMI 39.0
--- NOTE | 2023-07-25 17:03 | MHC.PC.OV ---
Vital Signs 07/25/23 17:03 Height 5 ft 9 in Weight 264 lb BMI 39.0 BP 112/76 Blood Pressure Location Lt brachial Position Sitting Intake Visit Reasons: dm Intake Note: Patient here for a follow up DM Platform Power Technician Required: No Accompanied by: Self / Same As Patient Allergies canagliflozin [From Invokana] Allergy (Intermediate, Verified 07/25/23 17:13) vomitting linagliptin [Tradjenta] Allergy (Intermediate, Verified 07/25/23 17:13) Cough phentermine Allergy (Intermediate, Verified 07/25/23 17:13) insomnia,palpitations tuberculin, purified protein deriva [From Tuberculin PPD Henny Test] Allergy (Mild, Verified 07/25/23 17:13) RASH Medication List - Last Reconciled 07/25/23 by Maryam Black MD acetaminophen (Tylenol Extra Strength) 1,000 mg (2 x 500 mg) PO QID PRN allopurinol 300 mg PO DAILY 90 days aspirin (Adult Aspirin Regimen) 81 mg PO DAILY 90 days atorvastatin 20 mg PO DAILY 90 days bisacodyl (Dulcolax (bisacodyl)) 10 mg (2 x 5 mg) PO ONCE 1 day blood sugar diagnostic (Accu-Chek Guide test strips) Use 1 test strip once a day blood-glucose meter (Accu-Chek Guide Glucose Meter) As directed cholecalciferol (vitamin D3) 1,250 mcg PO 2XW 30 days cyanocobalamin (vitamin B-12) 1,000 mcg sublingual DAILY 30 days [diabetic shoes As directed] docusate sodium (Colace) 100 mg PO BID PRN 30 days finasteride 5 mg PO DAILY 90 days lisinopril 20 mg PO DAILY 30 days multivitamin 1 tab PO DAILY polyethylene glycol 3350 (Miralax) 238 grams PO ONCE sennosides (senna) 8.6 mg PO BEDTIME PRN tamsulosin 0.4 mg PO BEDTIME 90 days Tobacco use date assessed: 07/25/23 Fall risk assessment: No Falls in past year Last assessed Fall Risk: 07/25/23 Dental Screening Dental Screen Date: 07/25/23 Did you have a dental visit in the last 12 months?: No Did you have a dental problem in the last 6 months where you did not have access to dental care?: No Was dental information given to patient?: Patient has dentist HPI HPI Comments History of Present Illness Details This is a 67-year-old male with diabetes mellitus type 2, hypertension, dyslipidemia and Arnold-Chiari malformation type 1 that comes today for follow-up on his conditions. A1c within goal control with diet. Blood pressure stable. LDL not on goal and I will increase atorvastatin. Recent MRI of the brain showing stable Arnold-Chiari malformation and he denies any headaches or weakness. Will be referred to neuro surgery for this matter. Compliant with medications. REPLACED BY [facility] Medical History Morbid obesity with BMI of 40.0-44.9, adult CKD stage 3 due to type 2 diabetes mellitus Class 2 obesity with body mass index (BMI) of 38.0 to 38.9 in adult Physical exam Arnold-Chiari malformation, type I Testicular pain Dizziness Malabsorption due to intolerance, not elsewhere classified Dyslipidemia B12 deficiency CKD stage 3 due to type 2 diabetes mellitus Diabetes type 2, controlled Hypoglycemia after GI (gastrointestinal) surgery Hypovitaminosis D Essential hypertension Gout Diabetes Surgical History Kaposi sarcoma History of tonsillectomy Gastric bypass status for obesity Family History Father Prostate cancer Mother Diabetes Brother In good health Sister In good health Son No problems noted. Sister In good health Social History Housing: House Alcohol intake: never Patient Tobacco Use Status: Never used Tobacco e-Cigarette/Vaping Use: Never Used Second Hand Smoke Exposure: No service: No Current occupational status: employed Current occupational exposures/hazards: No Cognitive needs: No Hearing needs: No Vision needs: Yes Questionnaire PHQ-9 Over the last 2 weeks, how often have you been bothered by any of the following problems? 1. Little interest or pleasure in doing things: not at all 2. Feeling down, depressed, or hopeless: not at all 3. Trouble falling or staying asleep, or sleeping too much: not at all 4. Feeling tired or having little energy: not at all 5. Poor appetite or overeating: not at all 6. Feeling bad about yourself - or that you are a failure or have let yourself or your family down: not at all 7. Trouble concentrating on things, such as reading the newspaper or watching television: not at all 8. Moving or speaking so slowly that other people could have noticed. Or the opposite - being so fidgety or restless that you have been moving around a lot more than usual: not at all 9. Thoughts that you would be better off or of hurting yourself in some way: not at all Total score: 0 Depression Screening Interpretation: Negative Depression Screening Done: Yes 11892 - PHQ-9 Billing: Yes Source: Developed by Drs. Amando Del Toro, Amna Harris, Zeus Ho and colleagues, with an educational josé antonio from [employer]. Thrive Questionnaire Date Thrive assessed: 07/25/23 I am a: Patient What is your living situation today?: I have a steady place to live Within the past 12 months, did the food you bought not last and you didn't have the money to get more?: Never true Within the past 12 months, did you worry whether your food would run out before you got money to buy more?: Never true Do you have trouble paying for medicines?: No Do you have trouble getting transportation to medical appointments?: No Do you have trouble paying your heating and electricity bill?: No Do you have trouble taking care of your child, family member or friend?: No Do you have trouble with day-to-day activities such as bathing, preparing meals, shopping, managing finances, etc.?: No Are you currently unemployed and looking for a job?: No Are you interested in more education?: No Please select the resources that you would like help with: None Currently or been in a relationship where the following occur: no concerns reported AUDIT C Alcohol Use Questionnaire (AUDIT-C) 1. How often do you have a drink containing alcohol?: Never Total Score: 0 JORGE L-7 AMB Questionnaire JORGE L-7 Date JORGE L - 7 assessed: 07/25/23 Feeling nervous, anxious, or on edge: 0 = Not at all Not being able to stop or control worryin = Not at all Worrying too much about different things: 0 = Not at all Trouble relaxin = Not at all Being so restless that it is hard to sit still: 0 = Not at all Becoming easily annoyed or irritable: 0 = Not at all Feeling afraid as if something awful might happen: 0 = Not at all Total JORGE L-7 score (0-4 normal; 5-9 mild; 10-14 moderate; 15-21 severe): 0 Source: Developed by Drs. Amando Del Toro, Amna Harris, Zeus Ho and colleagues, with an educational josé antonio from [employer]. JORGE L-7 Assessment Billing JORGE L-7 Assessment Tool: JORGE L-7 Assessment 19082 Review of Systems Const All systems reviewed & are unremarkable except as noted in HPI and below Eyes Reports no additional complaints, Denies change in vision and Denies other visual disturbances Card Denies chest pain at rest, Denies chest pain with activity, Denies edema, Denies irregular heart rhythm, Denies claudication, Denies dyspnea, Denies dyspnea on exertion, Denies orthopnea, Denies paroxysmal nocturnal dyspnea and Denies slow heart rate Resp Denies cough, Denies dyspnea and Denies dyspnea on exertion GI Denies abdominal pain, Denies change in bowel habits, Denies excessive flatus, Denies nausea and Denies vomiting Denies urinary hesitancy, Denies urinary incontinence and Denies urinary urgency Musc Denies atrophy, Denies deformity and Denies limited range of motion Physical exam (Primary Care) Vital Signs: Last Vital Signs BP 112/76 07/25/23 17:03 BMI result Body Mass Index 39.0 Tobacco/Smoking Status: Tobacco use Status Tobacco use date assessed 07/25/23 07/25/23 17:07 Patient Tobacco Use Status Never used Tobacco 07/25/23 17:07 e-Cigarette/Vaping Use Never Used 07/25/23 17:07 PHQ-9: PHQ-9 Score PHQ-9: Total score 0 07/25/23 17:15 Depression Screening Interpretation: Negative Thrive Assessment: Date of Thrive Assessment Date Thrive assessed 07/25/23 07/25/23 17:07 Currently or been in a relationship where the following occur: no concerns reported Eyes General: appearance normal, both eyes and all related structures Eyelids: Yes eyelids normal Conjunctivae: conjunctivae normal Neck Neck: Yes normal visual inspection and Yes supple Resp Effort & Inspection: normal respiratory effort Auscultation: clear to auscultation bilaterally Cardio Jugular venous distension: no JVD Rate: regular rate Rhythm: regular rhythm Heart sounds: S1 normal heart sound present and S2 normal heart sound present Extrem General: Yes full ROM Results AMB Hemoglobin A1c AMB Hemoglobin A1c 6.8 % Last Edit by JOSE Hebert on 07/25/23 17:10 Results Reviewed Results Reviewed: Laboratory Last Values Hgb A1c (Clinic) 6.8 % (4.0-6.0) H 07/25/23 17:07 Assessment and Plan Assessment & Plan (1) Diabetes type 2, controlled: Code(s): E11.9 - Type 2 diabetes mellitus without complications Qualifiers: Diabetes mellitus terminal gauger insulin use: without nursing home use Diabetes mellitus complication status: without complication Qualified Code(s): E11.9 - Type 2 diabetes mellitus without complications Plan: Start Ozempic. A1c goal is equal or less than 7%. (2) Essential hypertension: Code(s): I10 - Essential (primary) hypertension Plan: Continue lisinopril. Blood pressure goal is equal or less than 130/80. (3) Dyslipidemia: Code(s): E78.5 - Hyperlipidemia, unspecified Plan: Increase atorvastatin from 20 mg to 40 mg. LDL goal is less than 70. (4) Arnold-Chiari malformation, type I: Code(s): G93.5 - Compression of brain Plan: Referred to neuro surgery. Orders: Orders Microalbumin, Random (w Creat) 5 Months E11.9 - Type 2 diabetes mellitus without complications Comprehensive [place]. Panel Fast 5 Months E11.9 - Type 2 diabetes mellitus without complications Vitamin B12 and Folate 5 Months E53.8 - Deficiency of other specified B group vitamins AMB Hemoglobin A1c Today E11.9 - Type 2 diabetes mellitus without complications Lipid Panel 5 Months E78.5 - Hyperlipidemia, unspecified Vitamin D 25-OH Total 5 Months E55.9 - Vitamin D deficiency, unspecified Uric Acid 5 Months M10.9 - Gout, unspecified Referrals Neurosurgery Referral G93.5 - Compression of brain Medications: New atorvastatin 40 mg PO BEDTIME 90 days 90 tabs 1RF semaglutide (Ozempic) for 4 weeks 0.25 mg (0.368 mL) subcut QWEEK 28 days 1.472 mL 0RF E11.9 - Type 2 diabetes mellitus without complications cholecalciferol (vitamin D3) 50 mcg PO DAILY 90 days 90 caps 2RF Refilled [diabetic shoes with inserts] As directed 1 ea 1RF E11.9 - Type 2 diabetes mellitus without complications Discontinued atorvastatin Discontinued Reason: Patient Completed Course 20 mg PO DAILY 90 days 90 tabs 1RF cholecalciferol (vitamin D3) Dose increased Discontinued Reason: Patient Completed Course 1,250 mcg PO 2XW 30 days 10 caps 6RF E11.9 - Type 2 diabetes mellitus without complications Coding Level of Care Code Est Pt Level 4 (71961) Diagnoses Controlled type 2 diabetes mellitus without complication, without long-term current use of insulin E11.9 Diabetes mellitus terminal gauger insulin use: without terminal gauger use Diabetes mellitus complication status: without complication Essential hypertension I10 Dyslipidemia E78.5 Arnold-Chiari malformation, type I G93.5 Additional Codes JORGE L-7 Assessment Billing - JORGE L-7 Assessment Tool: JORGE L-7 Assessment [id number] ([id number]) Time Spent (min) 21
== END 2023-07-25 17:22 | disposition home or self-care (01) ==
LOC: HO.HMGH 16:36
PROVIDERS: PCP Internal Medicine; Visit Provider Internal Medicine
DX: E11.9 Type 2 diabetes mellitus without complications (principal); I10 Essential (primary) hypertension; E78.5 Hyperlipidemia, unspecified; G93.5 Compression of brain
CPT/HCPCS: 83036; 99214

== ENCOUNTER 2023-09-05 09:03 | Outpatient (AMB) | payer MEDICARE, SELFPAY ==
--- NOTE | 2023-09-05 09:04 | A.OFFVIS_ITS ---
Intake Intake Visit Reasons: 1Y PSA/PVR(set) Intake Note: Patient presents today for a follow-up Meds- Tamsulosin, Finasteride Allergies to Antibiotic- No Known Allergies Blood Thinner- Aspirin Patient Symptoms: Patient stated he goes to the bathroom constantly, about 8 to 10 times a day. he has to push hard to urinates, cause the urine does not want to come out and causes him discomfort and pain. He also stated he needs refiills for Tamsulosin and Finasteride. Key Account Representative Required: Yes Accompanied by: Self / Same As Patient Allergies canagliflozin [From Invokana] Allergy (Intermediate, Verified 09/05/23 09:21) vomitting linagliptin [Tradjenta] Allergy (Intermediate, Verified 09/05/23 09:21) Cough phentermine Allergy (Intermediate, Verified 09/05/23 09:21) insomnia,palpitations tuberculin, purified protein deriva [From Tuberculin PPD Henny Test] Allergy (Mild, Verified 09/05/23 09:21) RASH Medication List - Last Reconciled 09/05/23 by Meir Carver MD acetaminophen (Tylenol Extra Strength) 1,000 mg (2 x 500 mg) PO QID PRN allopurinol 300 mg PO DAILY 90 days aspirin (Adult Aspirin Regimen) 81 mg PO DAILY 90 days atorvastatin 40 mg PO BEDTIME 90 days bisacodyl (Dulcolax (bisacodyl)) 10 mg (2 x 5 mg) PO ONCE 1 day blood sugar diagnostic (Accu-Chek Guide test strips) Use 1 test strip once a day blood-glucose meter (Accu-Chek Guide Glucose Meter) As directed cholecalciferol (vitamin D3) 50 mcg PO DAILY 90 days cyanocobalamin (vitamin B-12) 1,000 mcg sublingual DAILY 30 days [diabetic shoes with inserts As directed] docusate sodium (Colace) 100 mg PO BID PRN 30 days finasteride 5 mg PO DAILY 90 days lisinopril 20 mg PO DAILY 30 days multivitamin 1 tab PO DAILY polyethylene glycol 3350 (Miralax) 238 grams PO ONCE semaglutide (Ozempic) 0.25 mg (0.368 mL) subcut QWEEK 28 days sennosides (senna) 8.6 mg PO BEDTIME PRN tamsulosin 0.4 mg PO BEDTIME 90 days HPI HPI Comments History of Present Illness Details Zan is a pleasant male. He is a patient of Dr. Black. He is seen for the following urologic conditions - lower urinary tract symptoms - left hydrocele Armenian translation provided in office by qualified biomedical service engineer PSA remains low Reports urgency with some frequency Small volumes Discussed renal bladder ultrasound with office cystoscopy Hydrocele seen for epididymo-orchitis in emergency room 2020 reactive hydrocele on left side Substantially improved The is no pain in the swelling resolved Bladder outlet obstruction Follow-up for lower urinary tract symptoms Currently has less restricted stream and improved emptying - nocturia - 1-2 times PSA 03/04 9.3, 10/03 1.9, 07/05 1.2, 03/06 1.5 Good response tamsulosin and finasteride Father had prostate cancer [facility] Medical History Morbid obesity with BMI of 40.0-44.9, adult CKD stage 3 due to type 2 diabetes mellitus Class 2 obesity with body mass index (BMI) of 38.0 to 38.9 in adult Physical exam Arnold-Chiari malformation, type I Testicular pain Dizziness Malabsorption due to intolerance, not elsewhere classified Dyslipidemia B12 deficiency CKD stage 3 due to type 2 diabetes mellitus Diabetes type 2, controlled Hypoglycemia after GI (gastrointestinal) surgery Hypovitaminosis D Essential hypertension Gout Diabetes Surgical History Kaposi sarcoma History of tonsillectomy Gastric bypass status for obesity Family History Father Prostate cancer Mother Diabetes Brother In good health Sister In good health Son No problems noted. Sister In good health Social History Housing: House Alcohol intake: never Patient Tobacco Use Status: Never used Tobacco e-Cigarette/Vaping Use: Never Used Second Hand Smoke Exposure: No service: No Current occupational status: employed Current occupational exposures/hazards: No Cognitive needs: No Hearing needs: No Vision needs: Yes Review of Systems Const Denies chills and Denies fever(s) Card Reports no additional complaints and Denies syncope Resp Denies cough GI Denies abdominal pain and Denies heartburn Reports as per HPI and Denies change in libido Neuro Denies syncope Psych Denies change in libido Endo Denies change in libido Physical Exam Const General: cooperative, healthy appearing, comfortable and no acute distress Orientation/consciousness: patient oriented x3 HEENT Face and sinus: Yes normal facial exam Mouth: moist mucous membranes Neck Neck: Yes normal visual inspection, Yes full ROM and Yes trachea midline Chest Chest palpation & inspection: normal inspection of the chest Resp Effort & Inspection: normal respiratory effort, able to speak in complete sentences and no respiratory distress GI Inspection: Yes normal to inspection Back/Spine/Pelvis Cervical Spine: normal cervical lordosis Thoracic/Lumbar Spine: thoracic and lumbar spine normal to inspection Skin General skin exam: no rashes or lesions noted Neuro General: patient oriented x3, gait normal, tone normal and moves all extremities Extrem General: Yes normal to inspection and Yes capillary refill normal Assessment & Plan Assessment & Plan (1) Elevated PSA: Code(s): R97.20 - Elevated prostate specific antigen [PSA] (2) Bladder outlet obstruction: Code(s): N32.0 - Bladder-neck obstruction Plan Renal bladder ultrasound with office cystoscopy Refill medications Orders: Orders US retroperitoneal limited Today N32.0 - Bladder-neck obstruction, R31.29 - Other microscopic hematuria Medications: Refilled finasteride 5 mg PO DAILY 90 tabs 3RF 90 days N13.8 - Other obstructive and reflux uropathy, N32.0 - Bladder-neck obstruction, N40.1 - Benign prostatic hyperplasia with lower urinary tract symptoms, R33.9 - Retention of urine, unspecified tamsulosin 0.4 mg PO BEDTIME 90 caps 3RF 90 days N40.1 - Benign prostatic hyperplasia with lower urinary tract symptoms, R35.1 - Nocturia Patient Instructions: Imaging studies, laboratory and physical exam results were discussed and reviewed in detail. No major barriers to patient understanding were identified. An opportunity to ask questions regarding the treatment plan was provided. All questions were answered. The patient expressed understanding and agreement with the above treatment plan. The patient is aware they should contact our office by phone for worsening of their current condition or the appearance of new urologic symptoms. Compliance is encouraged with any medications and followup testing that is ordered. It is a privilege to participate in the urologic care of your patient. If you have any questions or concerns regarding treatment for the above conditions, or other urologic issues, please do not hesitate to contact me. The office telephone contact is [phone]. This note is constructed using voice recognition software. While every effort has been made to ensure accuracy industrial engineering analyst errors may have been included. Yours sincerely, Dr Meir Carver MD, [facility] - Urology Providers of Expert, Compassionate Care for the Genitourinary System Coding Level of Care Code Est Pt Level 4 (06019) Diagnoses Elevated PSA R97.20 Bladder outlet obstruction N32.0
== END 2023-09-05 09:35 | disposition home or self-care (01) ==
PROVIDERS: PCP Internal Medicine; Visit Provider Urology
DX: R97.20 Elevated prostate specific antigen [PSA] (principal); N32.0 Bladder-neck obstruction
CPT/HCPCS: 99213

== ENCOUNTER → 2023-09-05 09:03 | Outpatient (BNVA) | payer MEDICARE, SELFPAY | PROVIDERS: PCP Internal Medicine; Visit Provider Urology | DX: R97.20 Elevated prostate specific antigen [PSA] (principal); N32.0 Bladder-neck obstruction | CPT/HCPCS: 99212 ==

== ENCOUNTER 2023-09-08 15:47 | Outpatient (REF) | payer MEDICARE, SELFPAY ==
--- NOTE | ~2023-09-08 | MR_ITS ---
EXAMINATION: MR CERVICAL SPINE WITHOUT CONTRAST CLINICAL INFORMATION: Neck and shoulder pain. Arm pain. COMPARISON: Brain MRI dated 04/25/2023. TECHNIQUE: Multiplanar, multisequential imaging of the cervical spine was performed without contrast. FINDINGS: VERTEBRAL BODIES AND PARASPINAL SOFT TISSUES: There are severe chronic degenerative endplate changes and loss of disc height with a retrosubluxation at the C3-C4 level. Very mild edematous endplate changes noted. No compression fractures are visible. Mild leftward cervical spinal curvature evident. There are partial osseous endplate fusion changes at the C4-C5 and C5-C6 levels. Ryymdduu-ps-cqatfm loss of disc height evident at the C6-C7 level. There is a mild anterolisthesis at the C7-T1 level. The paraspinal soft tissues are normal. The vertebral artery flow voids are preserved. The visualized lung apices are grossly clear. CERVICOMEDULLARY JUNCTION AND VISUALIZED POSTERIOR FOSSA: No Chiari malformation evident on the basis of this study. The cerebellar tonsils are approximately 4 mm caudal to the level of foramen magnum. No cord signal abnormality or syrinx is seen. SPINAL LEVELS: C2-C3: No focal disc protrusion or central canal stenosis. Patent neural foramina with mild facet arthrosis. C3-C4: Retrosubluxation and broad-based disc-osteophyte complex with thickening of the ligamentum flavum resulting in [id number]-[id number] cord distortion and moderate central canal stenosis. Severe bilateral foraminal narrowing. C4-C5: Partial endplate fusion changes with a mild disc bulge. Mild narrowing of the central canal. Severe right foraminal narrowing and moderate left foraminal encroachment. C5-C6: Posterior disc bulge and endplate spurring with mild central canal stenosis and severe right foraminal encroachment. C6-C7: Small left paracentral disc protrusion and disc-osteophyte complex without central canal stenosis or foraminal narrowing. C7-T1: Mild anterolisthesis without central canal stenosis. Moderate facet arthropathy and gncv-rr-ltxcphas foraminal narrowing. MR/MR cervical spine wo con IMPRESSION: 1. Multilevel cervical spondylosis, most severe at the C3-C4 level with a retrosubluxation and disc-osteophyte complex resulting in dwdr-[id number] cord distortion and moderate central canal stenosis. Severe bilateral foraminal narrowing. 2. Severe right foraminal narrowing and moderate left foraminal narrowing with partial endplate fusion changes at the C4-C5 level. 3. Mild central canal stenosis and severe right foraminal narrowing at the C5-C6 level. 4. Small left paracentral disc protrusion and disc-osteophyte complex at the C6-C7 level.
== END 2023-09-08 15:48 | disposition home or self-care (01) ==
LOC: HO.MRI 15:47
PROVIDERS: PCP Internal Medicine; Visit Provider Physician Assistant
DX: G93.5 Compression of brain (principal)
CPT/HCPCS: 72141

== ENCOUNTER 2023-09-12 10:44 | Outpatient (REF) | payer MEDICARE, SELFPAY ==
--- NOTE | ~2023-09-12 | US_ITS ---
EXAMINATION: US PELVIS LIMITED (BLADDER) CLINICAL INFORMATION: Other microscopic hematuria. Bladder neck obstruction. COMPARISON: Renal ultrasound 09/04/2021 and 10/26/2019. CT abdomen and pelvis 12/02/2020. TECHNIQUE: Real-time imaging of the bladder. FINDINGS: BLADDER: Partially distended. Bilateral ureteral jets are demonstrated. Prevoid bladder volume is 95 mL. Postvoid bladder volume is 5 mL. A 1.3 cm posteroinferior bladder diverticulum is seen. OTHER: Prostate dimensions are 5.6 x 4.5 x 3.9 cm (volume 51.9 mL). US/US bladder IMPRESSION: 1. A small bladder diverticulum is seen. 2. There is prostatomegaly.
== END 2023-09-12 10:45 | disposition home or self-care (01) ==
LOC: HO.US 10:44
PROVIDERS: PCP Internal Medicine; Visit Provider Urology
DX: R31.29 Other microscopic hematuria (principal); N32.0 Bladder-neck obstruction
CPT/HCPCS: 76857

== ENCOUNTER 2023-09-12 20:04 | Outpatient (REF) | payer MEDICARE, SELFPAY | END 2023-09-12 20:05 | disposition home or self-care (01) | LOC: HO.MRI 20:04 | PROVIDERS: PCP Internal Medicine; Visit Provider Physician Assistant | DX: Z13.89 Encounter for screening for other disorder (principal) ==

== ENCOUNTER 2023-09-17 07:13 | Day surgery (SDC) | payer MEDICARE, SELFPAY ==
[2023-09-13 14:21] VITALS: BMI 39.4
--- NOTE | 2023-09-16 09:00 | HO.ANESPROP2 ---
Documented by User: Roopa Priest NP 09/16/23 10:33 HPI - Anesthesia Eval Consult details Narrative: 67yo M for Colonoscopy Anesthesia Pre-Procedure Meds Is the patient on any of the following meds?: Semaglutide (Ozempic) PMFSH Active Problems Active Problems: All Active Problems (Updated 11/13/22 @ 14:31 by Maryam Black MD) Tubular adenoma of colon (Acute) Skin lesion (Acute) Screening for hepatitis C declined (Acute) PPD positive (Acute) Obesity (Acute) S/P panniculectomy (Acute) Morbid obesity with BMI of 40.0-44.9, adult (Acute) CKD stage 3 due to type 2 diabetes mellitus (Acute) Class 2 obesity with body mass index (BMI) of 38.0 to 38.9 in adult (Acute) Physical exam (Acute) Elevated PSA (Acute) Arnold-Chiari malformation, type I (Acute) Hydrocele (Acute) Bladder outlet obstruction (Acute) Testicular pain (Acute) Dizziness (Acute) Malabsorption due to intolerance, not elsewhere classified (Acute) Dyslipidemia (Acute) B12 deficiency (Acute) CKD stage 3 due to type 2 diabetes mellitus (Acute) Diabetes type 2, controlled (Acute) Hypoglycemia after GI (gastrointestinal) surgery (Acute) Hypovitaminosis D (Acute) Essential hypertension (Acute) Gout (Acute) Diabetes (Acute) Past Medical History Medical History Morbid obesity with BMI of 40.0-44.9, adult CKD stage 3 due to type 2 diabetes mellitus Class 2 obesity with body mass index (BMI) of 38.0 to 38.9 in adult Physical exam Arnold-Chiari malformation, type I Testicular pain Dizziness Malabsorption due to intolerance, not elsewhere classified Dyslipidemia B12 deficiency CKD stage 3 due to type 2 diabetes mellitus Diabetes type 2, controlled Hypoglycemia after GI (gastrointestinal) surgery Hypovitaminosis D Essential hypertension Gout Diabetes Family History Family History Father Prostate cancer Mother Diabetes Brother In good health Sister In good health Son No problems noted. Sister In good health Surgical History Surgical History Kaposi sarcoma History of tonsillectomy Gastric bypass status for obesity Social History Social History Housing: House Alcohol intake: never Patient Tobacco Use Status: Never used Tobacco e-Cigarette/Vaping Use: Never Used Second Hand Smoke Exposure: No Advance Directives: No Advance Directives Information Provided: Yes service: No Current occupational status: employed Current occupational exposures/hazards: No Cognitive needs: No Hearing needs: No Vision needs: Yes Meds Allergies Allergy/AdvReac Type Severity Reaction Status Date / Time canagliflozin [From Invokana] Allergy Intermediate vomitting Verified 09/05/23 09:21 linagliptin [Tradjenta] Allergy Intermediate Cough Verified 09/05/23 09:21 phentermine Allergy Intermediate insomnia,pa Verified 09/05/23 09:21 lpitations tuberculin, purified protein Allergy Mild RASH Verified 09/05/23 09:21 deriva [From Tuberculin PPD Henny Test] Home Medications Medication Instructions Recorded Confirmed Last Taken Type multivitamin 1 tab PO DAILY 12/07/21 09/05/23 Unknown History sennosides 8.6 mg tablet (senna) 8.6 mg PO BEDTIME PRN constipation 07/06/22 09/05/23 Unknown History Exam Height,Weight and Vital Signs: Height 5 ft 9 in Weight 121.109 kg Pertinent Lab Results Pertinent Lab Results: Laboratory Tests 07/23/23 07:54 Sodium 142 Potassium 4.2 Chloride 107 Carbon Dioxide 29 BUN 16 Creatinine 1.35 Assessment and Plan Assessment Anesthesia Assessment: Chart Reviewed Documented by User: Joselin Clements MD 09/17/23 08:24 HPI - Anesthesia Eval Anesthesia Pre-Procedure Meds If Yes to any meds - educate patient: Pt education - increased risk of aspiration PMFSH Past Medical History Medical History Morbid obesity with BMI of 40.0-44.9, adult CKD stage 3 due to type 2 diabetes mellitus Class 2 obesity with body mass index (BMI) of 38.0 to 38.9 in adult Physical exam Arnold-Chiari malformation, type I Testicular pain Dizziness Malabsorption due to intolerance, not elsewhere classified Dyslipidemia B12 deficiency CKD stage 3 due to type 2 diabetes mellitus Diabetes type 2, controlled Hypoglycemia after GI (gastrointestinal) surgery Hypovitaminosis D Essential hypertension Gout Diabetes Family History Family History Father Prostate cancer Mother Diabetes Brother In good health Sister In good health Son No problems noted. Sister In good health Surgical History Surgical History Kaposi sarcoma History of tonsillectomy Gastric bypass status for obesity History of Problems with Anesthesia: No Social History Social History Housing: House Alcohol intake: never Patient Tobacco Use Status: Never used Tobacco e-Cigarette/Vaping Use: Never Used Second Hand Smoke Exposure: No Advance Directives: No Advance Directives Information Provided: Yes service: No Current occupational status: employed Current occupational exposures/hazards: No Cognitive needs: No Hearing needs: No Vision needs: Yes Meds Allergies Allergy/AdvReac Type Severity Reaction Status Date / Time canagliflozin [From Invokana] Allergy Intermediate vomitting Verified 09/05/23 09:21 linagliptin [Tradjenta] Allergy Intermediate Cough Verified 09/05/23 09:21 phentermine Allergy Intermediate insomnia,pa Verified 09/05/23 09:21 lpitations tuberculin, purified protein Allergy Mild RASH Verified 09/05/23 09:21 deriva [From Tuberculin PPD Henny Test] Home Medications Medication Instructions Recorded Confirmed Last Taken Type multivitamin 1 tab PO DAILY 12/07/21 09/05/23 Unknown History sennosides 8.6 mg tablet (senna) 8.6 mg PO BEDTIME PRN constipation 07/06/22 09/05/23 Unknown History Exam Airway Mallampati Class: IV TM Dist: >3cm Neck ROM: Limited Partial: Lower Loose/Missing/Broken Teeth: Yes and Lower Heart: RRR Lungs: CTA Assessment and Plan Assessment Anesthesia Assessment: Anesthesia Plan Discussed Final Anesthetic Review History of Problems with Anesthesia: No NPO: Yes ASA Class: III Final Preanesthetic Review: Meds/Allgs Chart Reviewed, Consent Obtained/Reviewed and Anes Risks/Benef Reviewed Patient Risk: Intermediate Procedure Risk: Low Anesthetic Plan Anesthetic Plan: MAC: Disposition: Standard PACU
[2023-09-17] MEDS: Lactated Ringers 1,000 ML 100 ML IVCONT (07:59)
--- NOTE | 2023-09-17 08:22 | MHC.SHP ---
Pre-Procedural Eval Section A - 24 Hr Update-Section A only Date of Service: 09/17/23 Section B - Complete if H&P > 30 days Chief Complaint: screening Relevant Family History (Specify if Yes): No Relevant Social History: None Present Medications: see Short Stay Collaborative assessment Medical History: Significant History (Morbid obesity with BMI of 40.0-44.9, adult CKD stage 3 due to type 2 diabetes mellitus Class 2 obesity with body mass index (BMI) of 38.0 to 38.9 in adult Physical exam Arnold-Chiari malformation, type I Testicular pain Dizziness Malabsorption due to intolerance, not elsewhere classified Dyslipidem) History of Previous Operations: Relevant previous surgery/procedure and date(s) (Kaposi sarcoma History of tonsillectomy Gastric bypass status for obesity) Allergies: Allergies Allergy/AdvReac Type Severity Reaction Status Date / Time canagliflozin [From Invokana] Allergy Intermediate vomitting Verified 09/05/23 09:21 linagliptin [Tradjenta] Allergy Intermediate Cough Verified 09/05/23 09:21 phentermine Allergy Intermediate insomnia,pa Verified 09/05/23 09:21 lpitations tuberculin, purified protein Allergy Mild RASH Verified 09/05/23 09:21 deriva [From Tuberculin PPD Henny Test] Review of Systems Sugical H&P ROS: Negative: Constitution, Cardiovascular, Respiratory, Neurological, Psychiatric, Hem-Onc, Allergic/Immunologic, Gastrointestinal, Genitourinary, Musculoskeletal, Integumentary, Endocrine and Eyes/Ears/Nose/Throat Exam Surgical H&P Exam: Normal: HEENT, Normal: Heart, Normal: Lungs, Normal: Extremities, Normal: Abdomen, Normal: Skin and Normal: Neurological Plan Diagnosis/Plan: Unchanged I have reviewed the history and physical and performed a pertinent physical examination on my patient. No changes have occurred unless specified. Time Spent With Patient Time: Total time managing care of this patient today ____ minutes.
--- NOTE | 2023-09-17 08:26 | P.OP_ITS ---
Operative Note Operative Note Date of Service: 09/17/23 Narrative: Operative Information Procedure Description: Colonoscopy Indication: screening Anesthesia: MAC COLONOSCOPY Instrument: Olympus variable stiffness pediatric scope 190L Colonoscopy Monitoring: Vital signs and clinical assessment, continuous EKG monitoring, Pulse oximetry, Carbon Dioxide monitoring and blood pressure monitoring were done throughout the procedure. Colon withdrawal time was 12 minutes. Procedure: The patient was placed in the left lateral decubitis position and pre-procedure medications were administered. After a digital rectal examination of the ano-rectum, the video colonoscope was inserted into the rectum and advanced through the colon to the cecum/TI. The colonoscope was slowly withdrawn in a retrograde panoramic fashion and the colon mucosa was carefully examined including a retroflexed view of the rectum. Findings and interventions are described below. Procedure Difficulty: easy Findings: Terminal Ileum-normal Cecum:normal right sided retroflexion: normal Ascending Colon: normal Transverse Colon - x 2 sessile polyps moted, x 1 was 10 mm and removed with cold snare, the other was about 6-7 mm and removed with cold forceps Descending Colon:normal Sigmoid Colon: moderate diverticulosis Rectum: Retroflexion with medium sized internal hemorrhoids seen, grade I Anorectum - normal Colon preparation: Pattison Bowel Preparation Scale Right colon; 1-2 Transverse colon: 2 Left colon; 1-2 (0 = Unprepared colon segment with mucosa not seen due to solid stool that cannot be cleared. 1 = Portion of mucosa of the colon segment seen, but other areas of the colon se gment not well seen due to staining, residual stool and/or opaque liquid. 2 = Minor amount of residual staining, small fragments of stool and/or opaque liquid, but mucosa of colon segment seen well. 3 = Entire mucosa of colon segment seen well with no residual staining, small fragments of stool or opaque liquid) Impression and Post Procedure Diagnosis: diverticulosis colon polyps internal hemorrhoids Plan: High fiber diet leaflet Avoid straining at stool, epsom salts and sitz bath, anusol supps or cream Repeat Colonoscopy in 3 years due to hx of polyps and fair prep or earlier if clinically indicated Above findings were reviewed with the patient and relevant handouts were provided if indicated.
[2023-09-17 08:55] VITALS: BP 102/71; PULSE 71; RESP 18; TEMP 36.1; O2SAT 99
[2023-09-17 09:10] VITALS: BP 116/83; PULSE 58; RESP 16; TEMP 36.1; O2SAT 98
== END 2023-09-17 09:44 | disposition home or self-care (01) ==
PROVIDERS: PCP Internal Medicine; Visit Provider Internal Medicine Gastroenterology
PROC: 0DJD8ZZ Inspection of Lower Intestinal Tract, Via Natural or Artificial Opening Endoscopic (ICD-10-PCS; CPT 45378; principal; 2023-09-17 09:00)
DX: Z12.11 Encounter for screening for malignant neoplasm of colon (principal); D12.3 Benign neoplasm of transverse colon; K57.30 Diverticulosis of large intestine without perforation or abscess without bleeding; K64.0 First degree hemorrhoids; Z86.010 Personal history of colon polyps; E11.22 Type 2 diabetes mellitus with diabetic chronic kidney disease; I12.9 Hypertensive chronic kidney disease with stage 1 through stage 4 chronic kidney disease, or unspecified chronic kidney disease; N18.30 Chronic kidney disease, stage 3 unspecified; E78.5 Hyperlipidemia, unspecified; Z98.84 Bariatric surgery status; Z79.82 Long term (current) use of aspirin
CPT/HCPCS: 45385; 45380; 88305; J2405; J2704

== ENCOUNTER → 2023-09-17 07:13 | Outpatient (BNV) | payer MEDICARE, SELFPAY | PROVIDERS: PCP Internal Medicine; Visit Provider Internal Medicine Gastroenterology | DX: Z12.11 Encounter for screening for malignant neoplasm of colon (principal); D12.3 Benign neoplasm of transverse colon; K57.30 Diverticulosis of large intestine without perforation or abscess without bleeding; K64.0 First degree hemorrhoids | CPT/HCPCS: 45380; 45385 ==

== ENCOUNTER 2023-10-08 13:21 | Outpatient (AMB) | payer MEDICARE, SELFPAY ==
--- NOTE | 2023-10-08 13:23 | MHC.OFFVIS ---
Intake Vital Signs 10/08/23 13:24 Height 5 ft 9 in Weight 267 lb BMI 39.4 BP 115/69 Blood Pressure Location Rt brachial Position Sitting Pulse 77 Intake Visit Reasons: f/u Colonoscopy Intake Note: Patient in office today in follow up of colonoscopy on 09/17/23. CC: Patient reports doing well and denies having any GI symptoms today. 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 Denies any issues with anesthesia in the past.? Denies any history of sleep apnea.? No history infectious diseases in the past or present.? On low-dose aspirin daily. ? No family or personal history of colon cancer or polyps.? Patient denies melena, hematochezia, unintentional weight loss or ribbon like stools.? Discussed at length the pre-procedure,? prep, diet & medications as well as what to expect prior, during and after the procedure.?? Stressed the importance of good bowel prep. ?Recommended the use of Vaseline or Calmoseptine OTC & baby wipes with bowel movements to promote comfort.? ?Patient verbalizes understanding and agrees to plan of care.? He was given the opportunity to ask questions and all questions answered.? We will see him after the procedure.? Plan Medications New bisacodyl (Dulcolax (bisacodyl)) take 2 tabs at noon the day before your colonoscopy 10 mg (2 x 5 mg) PO ONCE 2 tabs 0RF 1 day Z12.11 polyethylene glycol 3350 (Miralax) As directed by gastroenterology department at [facility] 238 grams PO ONCE 238 grams 0RF Z12.11 COLONOSCOPY: Findings: Terminal Ileum-normal Cecum:normal right sided retroflexion: normal Ascending Colon: normal Transverse Colon - x 2 sessile polyps moted, x 1 was 10 mm and removed with cold snare, the other was about 6-7 mm and removed with cold forceps Descending Colon:normal Sigmoid Colon: moderate diverticulosis Rectum: Retroflexion with medium sized internal hemorrhoids seen, grade I Anorectum - normal Colon preparation: Mclean Bowel Preparation Scale Right colon; 1-2 Transverse colon: 2 Left colon; 1-2 (0 = Unprepared colon segment with mucosa not seen due to solid stool that cannot be cleared. 1 = Portion of mucosa of the colon segment seen, but other areas of the colon segment not well seen due to staining, residual stool and/or opaque liquid. 2 = Minor amount of residual staining, small fragments of stool and/or opaque liquid, but mucosa of colon segment seen well. 3 = Entire mucosa of colon segment seen well with no residual staining, small fragments of stool or opaque liquid) Impression and Post Procedure Diagnosis: diverticulosis colon polyps internal hemorrhoids Plan: High fiber diet leaflet Avoid straining at stool, epsom salts and sitz bath, anusol supps or cream Repeat Colonoscopy in 3 years due to hx of polyps and fair prep or earlier if clinically indicated PATHOLOGY RESULTS: Diagnosis Colon, transverse, polypectomy x2: Tubular adenoma (2); negative for high-grade dysplasia TODAY'S VISIT: Patient is here today for follow-up and to discuss colonoscopy results. Patient denies any ill effects from the prep, anesthesia or procedure itself. Patient reports that he has been feeling well. Denies any GI concerning symptoms. Denies any melena, hematochezia. Two polyps found in transverse colon biopsy showing tubular adenoma found without high-grade dysplasia or carcinoma. Patient will need to return for colorectal screening in 3 years due to polyps and suboptimal prep. Patient was found to have moderate diverticulosis of sigmoid colon. Patient was instructed food increase fiber in his diet after his colonoscopy. Patient states that he has been moving his bowels without any issues. Denies any abdominal pain or discomfort. Patient is taking hoco-ufs-djbohes fiber. [facility] Medical History (Updated 10/08/23 @ 13:52 by Yen Soliz [facility]) Diverticulosis Morbid obesity with BMI of 40.0-44.9, adult CKD stage 3 due to type 2 diabetes mellitus Class 2 obesity with body mass index (BMI) of 38.0 to 38.9 in adult Physical exam Arnold-Chiari malformation, type I Testicular pain Dizziness Malabsorption due to intolerance, not elsewhere classified Dyslipidemia B12 deficiency CKD stage 3 due to type 2 diabetes mellitus Diabetes type 2, controlled Hypoglycemia after GI (gastrointestinal) surgery Hypovitaminosis D Essential hypertension Gout Diabetes Surgical History Kaposi sarcoma History of tonsillectomy Gastric bypass status for obesity Family History Father Prostate cancer Mother Diabetes Brother In good health Sister In good health Son No problems noted. Sister In good health Social History Housing: House Alcohol intake: never Patient Tobacco Use Status: Never used Tobacco e-Cigarette/Vaping Use: Never Used Second Hand Smoke Exposure: No service: No Current occupational status: employed Current occupational exposures/hazards: No Cognitive needs: No Hearing needs: No Vision needs: Yes Review of Systems Const Denies weight gain and Denies weight loss ENT Reports no additional complaints, Denies dysphagia and Denies odynophagia Card Reports no additional complaints Resp Reports no additional complaints GI Denies abdominal pain, Denies belching, Denies melena, Denies bloating, Denies change in bowel habits, Denies dysphagia, Denies excessive flatus, Denies dyspepsia, Denies heartburn, Denies diarrhea, Denies loose stools, Denies nausea, Denies odynophagia and Denies vomiting Reports no additional complaints Musc Reports no additional complaints Neuro Reports no additional complaints Psych Reports no additional complaints Endo Reports no additional complaints Physical Exam Vital Signs: Last Vital Signs Pulse 77 10/08/23 13:24 BP 115/69 10/08/23 13:24 BMI result Body Mass Index 39.4 Const General: healthy appearing and no acute distress Nutritional Appearance: obese Orientation/consciousness: patient oriented x3 Resp Effort & Inspection: normal respiratory effort, able to speak in complete sentences, no tracheal deviation and symmetric chest movement Auscultation: clear to auscultation bilaterally Cardio Rate: regular rate GI Inspection: Yes normal to inspection, No distended and Yes obesity Palpation (GI): Soft to palpation, not firm, nontender and No hepatosplenomegaly present Auscultation: normal bowel sounds General: Yes no CVA tenderness Back/Spine/Pelvis Back: no CVA tenderness Skin General skin exam: elasticity normal, turgor normal and dry skin Neuro General: patient oriented x3 Psych Appearance: grossly normal Mental Status: mental status grossly normal Assessment & Plan Assessment & Plan (1) Tubular adenoma of colon: Code(s): D12.6 - Benign neoplasm of colon, unspecified (2) Diverticulosis: Code(s): K57.90 - Diverticulosis of intestine, part unspecified, without perforation or abscess without bleeding (3) Status post colonoscopy: Code(s): Z98.890 - Other specified postprocedural states Plan Two tubular adenomas without high-grade dysplasia or carcinoma found in transverse colon. Moderate diverticulosis in sigmoid colon. Patient will follow-up in 3 years, sooner if clinically necessary. Patient did have suboptimal prep. He can use [id number] fiber and probiotics. Increase fiber in his diet. Patient was also encouraged to increase fluid intake and activity to promote better bowel motility. Patient denies any GI concerning symptoms and will follow-up in our office on as needed basis. He is agreeable to this plan and verbalizes understanding of instructions. He was given the opportunity to ask questions and all questions answered. Thank you for allowing me to participate in her care Coding Level of Care Code Est Pt Level 3 (52519) Diagnoses Tubular adenoma of colon D12.6 Diverticulosis K57.90 Status post colonoscopy Z98.890 Time Spent (min) 30 Comment 20 minutes spent with patient and additional 10 minutes spent reviewing his records
[2023-10-08 13:24] VITALS: BP 115/69; PULSE 77; BMI 39.4
== END 2023-10-08 15:17 | disposition home or self-care (01) ==
PROVIDERS: PCP Internal Medicine; Visit Provider Nurse Practitioner Family
DX: D12.6 Benign neoplasm of colon, unspecified (principal); K57.90 Diverticulosis of intestine, part unspecified, without perforation or abscess without bleeding; Z98.890 Other specified postprocedural states
CPT/HCPCS: 99213

== ENCOUNTER → 2023-10-08 13:21 | Outpatient (BNVA) | payer MEDICARE, SELFPAY | PROVIDERS: PCP Internal Medicine; Visit Provider Nurse Practitioner Family | DX: D12.6 Benign neoplasm of colon, unspecified (principal); K57.90 Diverticulosis of intestine, part unspecified, without perforation or abscess without bleeding; Z98.890 Other specified postprocedural states | CPT/HCPCS: 99212 ==

== ENCOUNTER 2023-10-18 12:55 | Outpatient (AMB) | payer MEDICARE, SELFPAY ==
--- NOTE | 2023-10-18 13:12 | MHC.OFFVIS ---
Intake Intake Visit Reasons: cysto/US Intake Note: Patient presents today for a Cystoscopy Meds: Tamsulosin Allergies to Antibiotic: No Known Allergies Blood Thinner: Aspirin Urinalysis test clear for Cysto? Yes Disposable Uro-G Cystoscope Cannula: Lot: [id number] Exp: 05/23/2026 Sales Donor Recruitment Representative Required: No Accompanied by: Self / Same As Patient Allergies canagliflozin [From Invokana] Allergy (Intermediate, Verified 10/18/23 13:14) vomitting linagliptin [Tradjenta] Allergy (Intermediate, Verified 10/18/23 13:14) Cough phentermine Allergy (Intermediate, Verified 10/18/23 13:14) insomnia,palpitations tuberculin, purified protein deriva [From Tuberculin PPD Henny Test] Allergy (Mild, Verified 10/18/23 13:14) RASH HPI HPI Comments History of Present Illness Details Zan is a pleasant male. He is a patient of Dr. Black. He is seen for the following urologic conditions - lower urinary tract symptoms - left hydrocele Albanian translation provided in office by qualified bilingual medical receptionist Cystoscopy for urinary urgency and progressive bladder outlet obstruction symptoms Bladder ultrasound 50 g prostate, effective emptying, small diverticulum Prostate impingement GreenLight laser recommended Hydrocele seen for epididymo-orchitis in emergency room 2020 reactive hydrocele on left side Substantially improved The is no pain in the swelling resolved Bladder outlet obstruction Follow-up for lower urinary tract symptoms Currently has less restricted stream and improved emptying - nocturia - 1-2 times PSA 03/04 9.3, 10/03 1.9, 07/05 1.2, 03/06 1.5 Good response tamsulosin and finasteride Father had prostate cancer [facility] Medical History Diverticulosis Morbid obesity with BMI of 40.0-44.9, adult CKD stage 3 due to type 2 diabetes mellitus Class 2 obesity with body mass index (BMI) of 38.0 to 38.9 in adult Physical exam Arnold-Chiari malformation, type I Testicular pain Dizziness Malabsorption due to intolerance, not elsewhere classified Dyslipidemia B12 deficiency CKD stage 3 due to type 2 diabetes mellitus Diabetes type 2, controlled Hypoglycemia after GI (gastrointestinal) surgery Hypovitaminosis D Essential hypertension Gout Diabetes Surgical History Kaposi sarcoma History of tonsillectomy Gastric bypass status for obesity Family History Father Prostate cancer Mother Diabetes Brother In good health Sister In good health Son No problems noted. Sister In good health Social History Housing: House Alcohol intake: never Patient Tobacco Use Status: Never used Tobacco e-Cigarette/Vaping Use: Never Used Second Hand Smoke Exposure: No service: No Current occupational status: employed Current occupational exposures/hazards: No Cognitive needs: No Hearing needs: No Vision needs: Yes Review of Systems Const Denies chills and Denies fever(s) Card Reports no additional complaints and Denies syncope Resp Denies cough GI Denies abdominal pain and Denies heartburn Reports as per HPI and Denies change in libido Neuro Denies syncope Psych Denies change in libido Endo Denies change in libido Physical Exam Const General: cooperative, healthy appearing, comfortable and no acute distress Orientation/consciousness: patient oriented x3 HEENT Face and sinus: Yes normal facial exam Mouth: moist mucous membranes Neck Neck: Yes normal visual inspection, Yes full ROM and Yes trachea midline Chest Chest palpation & inspection: normal inspection of the chest Resp Effort & Inspection: normal respiratory effort, able to speak in complete sentences and no respiratory distress GI Inspection: Yes normal to inspection Back/Spine/Pelvis Cervical Spine: normal cervical lordosis Thoracic/Lumbar Spine: thoracic and lumbar spine normal to inspection Skin General skin exam: no rashes or lesions noted Neuro General: patient oriented x3, gait normal, tone normal and moves all extremities Extrem General: Yes normal to inspection and Yes capillary refill normal Office Procedures Cystoscopy Consent Discussed risk and benefit or proposed procedure with the patient. Information consent for procedure given to the patient. Discussed technical aspects, risks, benefits and alternatives in full. Addressed all of the patient's questions and concerns regarding the procedure. The patient demonstrated knowledge and understanding. They wish to proceed with this procedure. Preparation The patient was prepped in the usual manner. A delinquent tax collector was present and in the room. Genitalia was prepped with betadine solution in a sterile manner. Lidocaine Jelly 2% was placed into the urethra and 16Fr flexible Olympus cystoscope was inserted into the meatus after adequate lubrication. Procedure Meatus uncircumcised Urethra anterior and posterior urethra normal Prostatic Urethra trilobar hyperplasia Bladder examination with retroflexion of cystoscope Bladder Orifices normal shape and position Bladder Capacity median Trabeculations grade 1/2 Cellule Formation - Diverticulum Formation - Mucosal Erythema - Bladder Tumor - [id number] DISPOSABLE SCOPE URO-G FLEXIBLE SCOPE Procedure code (CPT) selection complete Office Meds lidocaine HCl 2 % mucosal jelly in applicator Performing Provider: Meir Carver MD Performing Location: [facility] Administered by: Mark Haynes LPN on 10/18/23 13:26 Dose Route Admin Location Dispensed Lot Number Expiration Date ND Wharf Tender Helper 10 mL intra-urethral 10 mL nitrofurantoin monohydrate/macrocrystals 100 mg capsule Performing Provider: Meir Carver MD Performing Location: [facility] Administered by: Mark Haynes LPN on 10/18/23 13:26 Dose Route Admin Location Dispensed Lot Number Expiration Date ND Wharf Tender Helper 100 mg PO 1 cap naproxen 500 mg tablet Performing Provider: Meir Carver MD Performing Location: [facility] Administered by: Mark Haynes LPN on 10/18/23 13:26 Dose Route Admin Location Dispensed Lot Number Expiration Date ND Wharf Tender Helper 500 mg PO 1 tab Results AMB Urinalysis, Automated UA Leukoctes 0 Eli/uL Last Edit by Janice Da Silva CMA on 10/18/23 13:18 UA Nitrite Negative Last Edit by Janice Da Silva CMA on 10/18/23 13:18 UA Urobilinogen 0.2 mg/dL Last Edit by Janice Da Silva CMA on 10/18/23 13:18 UA Protein 0 mg/dL Last Edit by Janice Da Silva CMA on 10/18/23 13:18 UA pH 6.0 Last Edit by Janice Da Silva CMA on 10/18/23 13:18 UA Blood 0 Jasen/uL Last Edit by Janice Da Silva CMA on 10/18/23 13:18 UA Specific [place] 1.015 Last Edit by Janice Da Silva CMA on 10/18/23 13:18 UA Ketone Negative Last Edit by Janice Da Silva CMA on 10/18/23 13:18 UA Bilirubin 0 mg/dL Last Edit by Janice Da Silva CMA on 10/18/23 13:18 UA Glucose 0 mg/dL Last Edit by Janice Da Silva CMA on 10/18/23 13:18 Results Reviewed Results Reviewed: Laboratory Last Values Urine pH (Auto) 6.0 10/18/23 13:14 Specific [place] (Auto) 1.015 10/18/23 13:14 Urine Protein (Auto) 0 mg/dL 10/18/23 13:14 Glucose (UA)(Auto) 0 mg/dL 10/18/23 13:14 Urine Ketones (Auto) Negative 10/18/23 13:14 Urine Blood (Auto) 0 Jasen/uL 10/18/23 13:14 Urine Nitrite (Auto) Negative 10/18/23 13:14 Urine Bilirubin (Auto) 0 mg/dL 10/18/23 13:14 Urine Urobilinogen (Auto) 0.2 mg/dL 10/18/23 13:14 Leukocyte Esterase (Auto) 0 Eli/uL 10/18/23 13:14 Assessment & Plan Assessment & Plan (1) Bladder outlet obstruction: Code(s): N32.0 - Bladder-neck obstruction (2) Elevated PSA: Code(s): R97.20 - Elevated prostate specific antigen [PSA] Plan We discussed the nature of the decision and reasonable options for performing a prostate intervention. Interventions include TURP, GreenLight laser enucleation of the prostate, GreenLight laser ablation of the prostate, transurethral incision of the prostate, and I-Tend prostate procedure. Options such as medical therapy were discussed. The relative uncertainties and benefits related to each alternate procedure were adequately discussed. General surgical risks including, but not limited to, pain, bleeding, infection, myocardial infarction, pulmonary embolus, deep vein thrombosis and cerebrovascular accident which may result in further hospitalization were discussed. Full disclosure of the procedure as well as all major risks, benefits and complications were discussed including but not limited to damage to the urethra or bladder neck, recurrent BPH, retrograde ejaculation, bladder infection, urge, de del frequency, incomplete emptying, dysuria, remote chance of erectile dysfunction, epididymitis, and meatal stenosis. The success rate of the procedure was discussed. Success of the procedure in the short-term does not necessarily guarantee that long-term success will be maintained. Suitable follow up will need to be maintained. The patient showed understanding of discussion. An opportunity was provided for questions to be answered and wishes to proceed with the following procedure. - GreenLight laser prostatectomy Orders: Orders AMB Urinalysis Automated Today R33.9 - Retention of urine, unspecified AMB Cystoscopy Today N32.0 - Bladder-neck obstruction, R97.20 - Elevated prostate specific antigen [PSA] Patient Instructions: Imaging studies, laboratory and physical exam results were discussed and reviewed in detail. No major barriers to patient understanding were identified. An opportunity to ask questions regarding the treatment plan was provided. All questions were answered. The patient expressed understanding and agreement with the above treatment plan. The patient is aware they should contact our office by phone for worsening of their current condition or the appearance of new urologic symptoms. Compliance is encouraged with any medications and followup testing that is ordered. It is a privilege to participate in the urologic care of your patient. If you have any questions or concerns regarding treatment for the above conditions, or other urologic issues, please do not hesitate to contact me. The office telephone contact is [phone]. This note is constructed using voice recognition software. While every effort has been made to ensure accuracy bakery pastry internship errors may have been included. Yours sincerely, Dr Meir Carver MD, [facility] - Urology Providers of Expert, Compassionate Care for the Genitourinary System Coding Level of Care Code Est Pt Level 4 (95464) Diagnoses Bladder outlet obstruction N32.0 Elevated PSA R97.20 CPT Codes Cystoscopy - CPT: 23069-Zavqpybitl ([id number])
== END 2023-10-18 13:49 | disposition home or self-care (01) ==
PROVIDERS: PCP Internal Medicine; Visit Provider Urology
DX: N32.0 Bladder-neck obstruction (principal); R97.20 Elevated prostate specific antigen [PSA]; R33.9 Retention of urine, unspecified
CPT/HCPCS: 52000; 99214

== ENCOUNTER → 2023-10-18 12:55 | Outpatient (BNVA) | payer MEDICARE, SELFPAY | PROVIDERS: PCP Internal Medicine; Visit Provider Urology | DX: N32.0 Bladder-neck obstruction (principal); R97.20 Elevated prostate specific antigen [PSA] | CPT/HCPCS: 52000; 81003; 99212 ==

== ENCOUNTER 2023-11-26 16:55 | Outpatient (AMB) | payer MEDICARE, SELFPAY ==
--- NOTE | 2023-11-26 17:02 | MHC.PC.OV ---
Vital Signs 11/26/23 17:04 Height 5 ft 9 in Weight 269 lb BMI 39.7 BP 118/70 Blood Pressure Location Lt brachial Position Sitting Intake Visit Reasons: dm - see comments Intake Note: Patient here for a follow up DM Rib Sawyer Required: No Accompanied by: Self / Same As Patient Allergies canagliflozin [From Invokana] Allergy (Intermediate, Verified 11/26/23 17:23) vomitting linagliptin [Tradjenta] Allergy (Intermediate, Verified 11/26/23 17:23) Cough phentermine Allergy (Intermediate, Verified 11/26/23 17:23) insomnia,palpitations tuberculin, purified protein deriva [From Tuberculin PPD Henny Test] Allergy (Mild, Verified 11/26/23 17:23) RASH Medication List - Last Reconciled 11/26/23 by Maryam Black MD acetaminophen (Tylenol Extra Strength) 1,000 mg (2 x 500 mg) PO QID PRN allopurinol 300 mg PO DAILY 90 days aspirin (Adult Aspirin Regimen) 81 mg PO DAILY 90 days atorvastatin 40 mg PO BEDTIME 90 days blood sugar diagnostic (Accu-Chek Guide test strips) Use 1 test strip once a day blood-glucose meter (Accu-Chek Guide Glucose Meter) As directed cholecalciferol (vitamin D3) 50 mcg PO DAILY 90 days cyanocobalamin (vitamin B-12) 1,000 mcg sublingual DAILY 30 days [diabetic shoes with inserts As directed] docusate sodium (Colace) 100 mg PO BID PRN 30 days finasteride 5 mg PO DAILY 90 days lisinopril 20 mg PO DAILY 30 days multivitamin 1 tab PO DAILY semaglutide (Ozempic) 0.25 mg (0.368 mL) subcut QWEEK 28 days sennosides (senna) 8.6 mg PO BEDTIME PRN tamsulosin 0.4 mg PO BEDTIME 90 days Tobacco use date assessed: 07/25/23 Fall risk assessment: No Falls in past year Last assessed Fall Risk: 11/26/23 Dental Screening Dental Screen Date: 07/25/23 HPI HPI Comments History of Present Illness Details This is a 68-year-old male with diabetes mellitus type 2, hypertension, dyslipidemia and chronic kidney disease stage 3 that comes today for follow-up on his conditions. A1c within goal. Blood pressure stable. Last LDL was not on goal and this will be repeated. Last GFR was 53 and has been stable. Denies any chest pain or shortness of breath. Has not had a gout attack in years. Has enlarged prostate that is follow by Urology and will have surgery soon. He is obese with a BMI of 39.7 and was advised to diet and exercise to reach BMI goal less than 30. [facility] Medical History Diverticulosis Morbid obesity with BMI of 40.0-44.9, adult CKD stage 3 due to type 2 diabetes mellitus Class 2 obesity with body mass index (BMI) of 38.0 to 38.9 in adult Physical exam Arnold-Chiari malformation, type I Testicular pain Dizziness Malabsorption due to intolerance, not elsewhere classified Dyslipidemia B12 deficiency CKD stage 3 due to type 2 diabetes mellitus Diabetes type 2, controlled Hypoglycemia after GI (gastrointestinal) surgery Hypovitaminosis D Essential hypertension Gout Diabetes Surgical History Kaposi sarcoma History of tonsillectomy Gastric bypass status for obesity Family History Father Prostate cancer Mother Diabetes Brother In good health Sister In good health Son No problems noted. Sister In good health Social History Housing: House Alcohol intake: never Patient Tobacco Use Status: Never used Tobacco e-Cigarette/Vaping Use: Never Used Second Hand Smoke Exposure: No service: No Current occupational status: employed Current occupational exposures/hazards: No Cognitive needs: No Hearing needs: No Vision needs: Yes Questionnaire Thrive Questionnaire Date Thrive assessed: 07/25/23 JORGE L-7 AMB Questionnaire JORGE L-7 Date JORGE L - 7 assessed: 07/25/23 Source: Developed by Drs. Amando Del Toro, Amna Harris, Zeus Ho and colleagues, with an educational josé antonio from [employer]. Review of Systems Const All systems reviewed & are unremarkable except as noted in HPI and below Eyes Reports no additional complaints, Denies change in vision and Denies other visual disturbances Card Denies chest pain at rest, Denies chest pain with activity, Denies edema, Denies irregular heart rhythm, Denies claudication, Denies dyspnea, Denies dyspnea on exertion, Denies orthopnea, Denies paroxysmal nocturnal dyspnea and Denies slow heart rate Resp Denies cough, Denies dyspnea and Denies dyspnea on exertion Physical exam (Primary Care) Vital Signs: Last Vital Signs BP 118/70 11/26/23 17:04 BMI result Body Mass Index 39.7 Tobacco/Smoking Status: Tobacco use Status Tobacco use date assessed 07/25/23 11/26/23 17:11 Patient Tobacco Use Status Never used Tobacco 11/26/23 17:11 e-Cigarette/Vaping Use Never Used 11/26/23 17:11 Thrive Assessment: Date of Thrive Assessment Date Thrive assessed 07/25/23 11/26/23 17:11 Resp Effort & Inspection: normal respiratory effort Auscultation: clear to auscultation bilaterally Cardio Jugular venous distension: no JVD Rate: regular rate Rhythm: regular rhythm Heart sounds: S1 normal heart sound present and S2 normal heart sound present Extrem General: Yes full ROM Results AMB Hemoglobin A1c AMB Hemoglobin A1c 6.5 % Last Edit by JOSE Hebert on 11/26/23 17:14 Results Reviewed Results Reviewed: Laboratory Last Values Hgb A1c (Clinic) 6.5 % (4.0-6.0) H 11/26/23 17:12 Assessment and Plan Assessment & Plan (1) Diabetes type 2, controlled: Code(s): E11.9 - Type 2 diabetes mellitus without complications Qualifiers: Diabetes mellitus manager terminal insulin use: without custodial use Diabetes mellitus complication status: without complication Qualified Code(s): E11.9 - Type 2 diabetes mellitus without complications Plan: Increase Ozempic. A1c goal is equal or less than 7%. (2) Essential hypertension: Code(s): I10 - Essential (primary) hypertension Plan: Continue lisinopril. Blood pressure goal is equal or less than 130/80. (3) CKD stage 3 due to type 2 diabetes mellitus: Code(s): E11.22 - Type 2 diabetes mellitus with diabetic chronic kidney disease; N18.30 - Chronic kidney disease, stage 3 unspecified Plan: Avoid NSAIDs. Keep blood pressure within goal. (4) Dyslipidemia: Code(s): E78.5 - Hyperlipidemia, unspecified Plan: Continue statins. Repeat lipid panel. LDL goal is less than 70. Orders: Orders AMB Hemoglobin A1c Today E11.9 - Type 2 diabetes mellitus without complications Lipid Panel 4 Months E78.5 - Hyperlipidemia, unspecified Uric Acid 4 Months M10.9 - Gout, unspecified Vitamin B12 and Folate 4 Months E53.8 - Deficiency of other specified B group vitamins Vitamin D 25-OH Total 4 Months E55.9 - Vitamin D deficiency, unspecified Comprehensive Dana. Panel Fast 4 Months E11.9 - Type 2 diabetes mellitus without complications Medications: New semaglutide (Ozempic) 0.5 mg (0.736 mL) subcut QWEEK 4 weeks 2.944 mL 0RF E11.9 - Type 2 diabetes mellitus without complications Refilled [diabetic shoes with inserts] As directed 1 ea 1RF E11.9 - Type 2 diabetes mellitus without complications Discontinued semaglutide (Ozempic) for 4 weeks Discontinued Reason: Order 0.25 mg (0.368 mL) subcut QWEEK 28 days 1.472 mL 0RF E11.9 - Type 2 diabetes mellitus without complications Coding Level of Care Code Est Pt Level 4 (73342) Diagnoses Controlled type 2 diabetes mellitus without complication, without long-term current use of insulin E11.9 Diabetes mellitus manager terminal insulin use: without manager terminal use Diabetes mellitus complication status: without complication Essential hypertension I10 CKD stage 3 due to type 2 diabetes mellitus E11.22; N18.30 Dyslipidemia E78.5 Time Spent (min) 23
[2023-11-26 17:04] VITALS: BP 118/70; BMI 39.7
== END 2023-11-26 17:33 | disposition home or self-care (01) ==
PROVIDERS: PCP Internal Medicine; Visit Provider Internal Medicine
DX: I12.9 Hypertensive chronic kidney disease with stage 1 through stage 4 chronic kidney disease, or unspecified chronic kidney disease (principal); E11.22 Type 2 diabetes mellitus with diabetic chronic kidney disease; N18.30 Chronic kidney disease, stage 3 unspecified; E78.5 Hyperlipidemia, unspecified
CPT/HCPCS: 83036; 99214

== ENCOUNTER 2023-12-30 08:43 | Day surgery (SDC) | payer MEDICARE, SELFPAY ==
[2023-12-26 16:17] VITALS: BMI 40.0
[2023-12-30] VITALS (7 sets, daily range): BP systolic 95–129; BP diastolic 65–79; PULSE 53–75; RESP 14–18; TEMP 36.1–36.8; O2SAT 95–99; BMI 40.0
--- NOTE | 2023-12-30 09:37 | HO.ANESPROP2 ---
[facility] Active Problems Active Problems: All Active Problems Diverticulosis (Acute) Tubular adenoma of colon (Acute) Skin lesion (Acute) Screening for hepatitis C declined (Acute) PPD positive (Acute) Obesity (Acute) S/P panniculectomy (Acute) Morbid obesity with BMI of 40.0-44.9, adult (Acute) CKD stage 3 due to type 2 diabetes mellitus (Acute) Class 2 obesity with body mass index (BMI) of 38.0 to 38.9 in adult (Acute) Physical exam (Acute) Elevated PSA (Acute) Arnold-Chiari malformation, type I (Acute) Hydrocele (Acute) Bladder outlet obstruction (Acute) Testicular pain (Acute) Dizziness (Acute) Malabsorption due to intolerance, not elsewhere classified (Acute) Dyslipidemia (Acute) B12 deficiency (Acute) CKD stage 3 due to type 2 diabetes mellitus (Acute) Diabetes type 2, controlled (Acute) Hypoglycemia after GI (gastrointestinal) surgery (Acute) Hypovitaminosis D (Acute) Essential hypertension (Acute) Gout (Acute) Diabetes (Acute) Past Medical History Medical History Diverticulosis Morbid obesity with BMI of 40.0-44.9, adult CKD stage 3 due to type 2 diabetes mellitus Class 2 obesity with body mass index (BMI) of 38.0 to 38.9 in adult Physical exam Arnold-Chiari malformation, type I Testicular pain Dizziness Malabsorption due to intolerance, not elsewhere classified Dyslipidemia B12 deficiency CKD stage 3 due to type 2 diabetes mellitus Diabetes type 2, controlled Hypoglycemia after GI (gastrointestinal) surgery Hypovitaminosis D Essential hypertension Gout Diabetes Family History Family History Father Prostate cancer Mother Diabetes Brother In good health Sister In good health Son No problems noted. Sister In good health Surgical History Surgical History Kaposi sarcoma History of tonsillectomy Gastric bypass status for obesity History of Problems with Anesthesia: No Social History Social History Housing: House Alcohol intake: never Patient Tobacco Use Status: Never used Tobacco e-Cigarette/Vaping Use: Never Used Second Hand Smoke Exposure: No Advance Directives: No Advance Directives Information Provided: Yes service: No Current occupational status: employed Current occupational exposures/hazards: No Cognitive needs: No Hearing needs: No Vision needs: Yes Meds Allergies Allergy/AdvReac Type Severity Reaction Status Date / Time canagliflozin [From Invokana] Allergy Intermediate vomitting Verified 12/30/23 09:45 linagliptin [Tradjenta] Allergy Intermediate Cough Verified 12/30/23 09:45 phentermine Allergy Intermediate insomnia,pa Verified 12/30/23 09:45 lpitations tuberculin, purified protein Allergy Mild RASH Verified 12/30/23 09:45 deriva [From Tuberculin PPD Henny Test] Active Medications: Current Medications Lactated Ringer's (Lr) 1,000 mls @ 80 mls/hr IVCONT .[id number] DANIELLA Home Medications ?Medication ?Instructions ?Recorded ?Confirmed ?Last Taken ?Type multivitamin 1 tab PO DAILY 12/07/21 12/30/23 Unknown History sennosides 8.6 mg tablet (senna) 8.6 mg PO BEDTIME PRN constipation 07/06/22 12/30/23 Unknown History Exam Height,Weight and Vital Signs: Height 5 ft 8.75 in Weight 122.016 kg Airway Mallampati Class: III TM Dist: >3cm Neck ROM: Full Denture: Lower Loose/Missing/Broken Teeth: Yes and Lower Heart: RRR Lungs: CTA Assessment and Plan Assessment Anesthesia Assessment: Anesthesia Plan Discussed and Chart Reviewed Final Anesthetic Review History of Problems with Anesthesia: No NPO: Yes ASA Class: III Final Preanesthetic Review: Meds/Allgs Chart Reviewed, Consent Obtained/Reviewed and Anes Risks/Benef Reviewed Patient Risk: Intermediate Procedure Risk: Low Anesthetic Plan Anesthetic Plan: GA Disposition: Standard PACU
[2023-12-30] MEDS: Lactated Ringers 1,000 ML 80 ML IVCONT (09:39)
[2023-12-30 09:47] LABS: Glucose, Whole Blood 100 mg/dL (60-115)
--- NOTE | 2023-12-30 10:22 | MHC.SHP ---
Pre-Procedural Eval Section A - 24 Hr Update-Section A only Date of Service: 12/30/23 The patient is an INPATIENT: No Changes since office visit: No Cold of Flu in the past 2 weeks, No New Medical Problems, No Changes in Medication and No Patient answered all questions The patient has been examined within 24 hours of the surgical procedure. The History & Physical has been completed within 30 days and I have reviewed it.: Yes Section B - Complete if H&P > 30 days Chief Complaint: Benign prostatic hyperplasia with lower urinary tr Details of Present Illness: 50cc on US Relevant Family History (Specify if Yes): No Relevant Social History: None Present Medications: see Short Stay Collaborative assessment Medical History: No relevant PMH History of Previous Operations: No relevant previous surgery Allergies: Allergies Allergy/AdvReac Type Severity Reaction Status Date / Time canagliflozin [From Invokana] Allergy Intermediate vomitting Verified 12/30/23 09:45 linagliptin [Tradjenta] Allergy Intermediate Cough Verified 12/30/23 09:45 phentermine Allergy Intermediate insomnia,pa Verified 12/30/23 09:45 lpitations tuberculin, purified protein Allergy Mild RASH Verified 12/30/23 09:45 deriva [From Tuberculin PPD Henny Test] Review of Systems Sugical H&P ROS: Negative: Constitution, Cardiovascular, Respiratory, Neurological, Psychiatric, Hem-Onc, Allergic/Immunologic, Gastrointestinal, Genitourinary, Musculoskeletal, Integumentary, Endocrine and Eyes/Ears/Nose/Throat Exam Surgical H&P Exam: Normal: HEENT, Normal: Heart, Normal: Lungs, Normal: Extremities, Normal: Abdomen, Normal: Skin and Normal: Neurological Plan Diagnosis/Plan: Unchanged (green light laser prostatectomy) I have reviewed the history and physical and performed a pertinent physical examination on my patient. No changes have occurred unless specified. Time Spent With Patient Time: Total time managing care of this patient today ____ minutes.
--- NOTE | 2023-12-30 11:28 | W.PM.OPN ---
Operative Note Operative Note Date of Service: 12/30/23 Narrative: PreOperative Diagnosis: Bladder outlet obstruction Post Operative Diagnosis: Bladder outlet obstruction Procedure: GreenLight Laser Enucleation of the prostate CPT 83883 Surgeon: Dr Meir Carver Anesthesia: General History of bladder outlet obstruction. Treated with alpha-kimo and other medications. Still with symptoms. On cystoscopy in office has trilobar prostate. Recommendation for prostate procedure with laser enucleation of prostate. 75 g on ultrasound Risks and benefits have been discussed. Focus was placed on development of retrograde ejaculation which is a normal part of this procedure. Procedure: After informed consent was verified the patient was brought to the operating room and placed in a supine position. Anesthesia was administered per protocol. Patient was placed in modified dorsal lithotomy position and prepped and draped in a sterile fashion. Safety pause time-out was confirmed. Antibiotics have been given. A Twenty-four [place] laser cystoscope was inserted per urethra. No abnormalities were found of the anterior and bulbar urethra. The prostatic urethra shows primarily lateral lobe crowding. The bladder was examined and both ureteric orifices were seen in their normal positions away from the area of interest. Bladder trabeculation grade 1. Using a GreenLight laser with settings of 80 donahue incisions were made at the 5 and 7 o'clock position. The incisions were taken down from the bladder neck down to the level of the veru. These were gradually deepened in order to define the lateral aspects of the median lobe area. Once clearly defined they will also extended in the lateral directions in order to create a deep groove. The median lobe was then ablated and enucleated tissue released into the bladder with the laser power increased to 120 W. Once the median lobe area had been cleared attention was directed to the lateral lobes. Starting with the patient's left lateral lobe. First the 05:00 o'clock groove was further developed. This was moved in the lateral direction to undermine the tissue on the lateral side running from the bladder neck to the prostate apex. The ureteric orifice was used to guide incisions. Focus was then placed on the laser at the 1 o'clock position to developing a secondary groove down to the level of bladder fibers. The creation of a second deep groove defined a segment of intervening tissue similar to a slice of orange. At the apex of the prostate the 2 grooves were linked the us releasing the intervening tissue. This tissue was then removed with a combination of enucleation and ablation working from the apex toward the bladder neck. A similar procedure was repeated on the patient's right-hand side. The only differences being the position of the lateral groove at he 7 'oclock position and the secondary groove at the 11 o'clock position, Otherwise the procedure was developed in a mirror fashion. After the majority of tissue had been debulked remnant tissue was ablated with the side fire laser and the curve of the prostate followed up each side wall clearly defining the anterior remnant strip that remained between the 11 and 1 o'clock positions. When this was had been completed debris and pieces of prostate were removed from the bladder with irrigation. Both ureteric orifices were reviewed again in shown to be patent in away from any areas of energy damage. The apical area was reviewed in any stray ooze was controlled. A 22 [place] 30 cc balloon Davis catheter was placed over a stylet into the bladder. Clear efflux was obtained upon irrigation with a Thad piston syringe. 30 cc cc was placed in the balloon and gentle traction was placed. A snap was used to hold tension on the catheter to control bleeding during patient moved and transported. A drainage bag was placed. Once transportation is complete to the PACU the snap will be removed. The patient tolerated the procedure well, he was extubated in the operating and transferred in a stable condition to the recovery area. Total Power 108 kW Lasing time 10 minutes 50 Pathology: Prostate tissue Drains: Davis catheter
[2023-12-30] MEDS: Acetaminophen 325 MG TABLET 975 MG PO (12:09)
[2023-12-30] MEDS: oxyCODONE HCl Immed Release 5 MG TABLET PO (12:10)
== END 2023-12-30 13:00 | disposition home or self-care (01) ==
PROVIDERS: PCP Internal Medicine; Visit Provider Urology
PROC: (CPT 52648; principal; 2023-12-30 10:30)
DX: N40.1 Benign prostatic hyperplasia with lower urinary tract symptoms (principal); N32.0 Bladder-neck obstruction; R39.15 Urgency of urination; E11.22 Type 2 diabetes mellitus with diabetic chronic kidney disease; I12.9 Hypertensive chronic kidney disease with stage 1 through stage 4 chronic kidney disease, or unspecified chronic kidney disease; N18.30 Chronic kidney disease, stage 3 unspecified; K91.2 Postsurgical malabsorption, not elsewhere classified; K57.30 Diverticulosis of large intestine without perforation or abscess without bleeding; E66.01 Morbid (severe) obesity due to excess calories; Z68.41 Body mass index [BMI] 40.0-44.9, adult; Z98.84 Bariatric surgery status; Z79.899 Other long term (current) drug therapy; Z79.82 Long term (current) use of aspirin; Z88.8 Allergy status to other drugs, medicaments and biological substances
CPT/HCPCS: 52649; 82947; 88305; 88344; J1956; J2704; J3010

== ENCOUNTER → 2023-12-30 08:43 | Outpatient (BNV) | payer MEDICARE, SELFPAY | PROVIDERS: PCP Internal Medicine; Visit Provider Urology | DX: N40.1 Benign prostatic hyperplasia with lower urinary tract symptoms (principal); N13.8 Other obstructive and reflux uropathy | CPT/HCPCS: 52649 ==

== ENCOUNTER → 2024-01-02 10:35 | Outpatient (BNVA) | payer MEDICARE, SELFPAY | PROVIDERS: PCP Internal Medicine; Visit Provider Urology | DX: N32.0 Bladder-neck obstruction (principal) | CPT/HCPCS: 51700; 51798 ==

== ENCOUNTER 2024-02-11 12:56 | Outpatient (AMB) | payer MEDICARE, SELFPAY ==
--- NOTE | 2024-02-11 13:13 | A.OFFVIS_ITS ---
Intake Visit Reasons: Prostatectomy- follow up Intake Note: Patient presents today for prostatectomy f/u Meds: Tamsulosin,finasteride,bactrim Allergies to Antibiotic: No Known Allergies Blood Thinner: Aspirin Collar Separator Required: No Accompanied by: Self / Same As Patient Allergies canagliflozin [From Invokana] Allergy (Intermediate, Verified 02/11/24 13:15) vomitting linagliptin [Tradjenta] Allergy (Intermediate, Verified 02/11/24 13:15) Cough phentermine Allergy (Intermediate, Verified 02/11/24 13:15) insomnia,palpitations tuberculin, purified protein deriva [From Tuberculin PPD Henny Test] Allergy (Mild, Verified 02/11/24 13:15) RASH Medication List - Last Reconciled 02/11/24 by Meir Carver MD acetaminophen (Tylenol Extra Strength) 1,000 mg (2 x 500 mg) PO QID PRN allopurinol 300 mg PO DAILY 90 days aspirin (Adult Aspirin Regimen) 81 mg PO DAILY 90 days atorvastatin 40 mg PO BEDTIME 90 days blood sugar diagnostic (Accu-Chek Guide test strips) Use 1 test strip once a day blood-glucose meter (Accu-Chek Guide Glucose Meter) As directed cholecalciferol (vitamin D3) 50 mcg PO DAILY 90 days cyanocobalamin (vitamin B-12) 1,000 mcg sublingual DAILY 30 days [diabetic shoes with inserts As directed] docusate sodium (Colace) 100 mg PO BID PRN 30 days lisinopril 20 mg PO DAILY 30 days multivitamin 1 tab PO DAILY sennosides (senna) 8.6 mg PO BEDTIME PRN sulfamethoxazole-trimethoprim 400-80 mg (Bactrim) 1 tab PO DAILY tamsulosin 0.4 mg PO BEDTIME 90 days HPI Comments Details: Zan is a pleasant male. He is a patient of Dr. Black. He is seen for the following urologic conditions - lower urinary tract symptoms - left hydrocele Yi translation provided in office by qualified medical sales consultant Significant improvement in flow Happy with current result Will cease finasteride Follow-up from 01/05 GreenLight laser 11/05 Cystoscopy for urinary urgency and progressive bladder outlet obstruction symptoms Bladder ultrasound 50 g prostate, effective emptying, small diverticulum Hydrocele seen for epididymo-orchitis in emergency room 2020 reactive hydrocele on left side Substantially improved The is no pain in the swelling resolved Bladder outlet obstruction Follow-up for lower urinary tract symptoms Currently has less restricted stream and improved emptying - nocturia - 1-2 times PSA 03/04 9.3, 10/03 1.9, 07/05 1.2, 03/06 1.5 Good response tamsulosin and finasteride Father had prostate cancer [facility] Medical History Diverticulosis Morbid obesity with BMI of 40.0-44.9, adult CKD stage 3 due to type 2 diabetes mellitus Class 2 obesity with body mass index (BMI) of 38.0 to 38.9 in adult Physical exam Arnold-Chiari malformation, type I Testicular pain Dizziness Malabsorption due to intolerance, not elsewhere classified Dyslipidemia B12 deficiency CKD stage 3 due to type 2 diabetes mellitus Diabetes type 2, controlled Hypoglycemia after GI (gastrointestinal) surgery Hypovitaminosis D Essential hypertension Gout Diabetes Surgical History Kaposi sarcoma History of tonsillectomy Gastric bypass status for obesity Family History Father Prostate cancer Mother Diabetes Brother In good health Sister In good health Son No problems noted. Sister In good health Social History Housing: House Alcohol intake: never Patient Tobacco Use Status: Never used Tobacco e-Cigarette/Vaping Use: Never Used Second Hand Smoke Exposure: No service: No Current occupational status: employed Current occupational exposures/hazards: No Cognitive needs: No Hearing needs: No Vision needs: Yes Review of Systems Const Denies chills and Denies fever(s) Card Reports no additional complaints and Denies syncope Resp Denies cough GI Denies abdominal pain and Denies heartburn Reports as per HPI and Denies change in libido Neuro Denies syncope Psych Denies change in libido Endo Denies change in libido Physical Exam Const General: cooperative, healthy appearing, comfortable and no acute distress Orientation/consciousness: patient oriented x3 HEENT Face and sinus: Yes normal facial exam Mouth: moist mucous membranes Neck Neck: Yes normal visual inspection, Yes full ROM and Yes trachea midline Chest Chest palpation & inspection: normal inspection of the chest Resp Effort & Inspection: normal respiratory effort, able to speak in complete sentences and no respiratory distress GI Inspection: Yes normal to inspection Back/Spine/Pelvis Cervical Spine: normal cervical lordosis Thoracic/Lumbar Spine: thoracic and lumbar spine normal to inspection Skin General skin exam: no rashes or lesions noted Neuro General: patient oriented x3, gait normal, tone normal and moves all extremities Extrem General: Yes normal to inspection and Yes capillary refill normal Results AMB Urinalysis, Automated UA Leukoctes 125 Eli/uL Last Edit by SCHUYLER Quiles on 02/11/24 13:28 UA Nitrite Negative Last Edit by SCHUYLER Quiles on 02/11/24 13:28 UA Urobilinogen 0.2 mg/dL Last Edit by SCHUYLER Quiles on 02/11/24 13:2 8 UA Protein 15 mg/dL Last Edit by Slim Parsons CCM on 02/11/24 13:28 UA pH 5.5 Last Edit by Slim Parsons CCM on 02/11/24 13:28 UA Blood 200 Jasen/uL Last Edit by Slim Parsons CCM on 02/11/24 13:28 UA Specific [place] 1.015 Last Edit by SCHUYLER Quiles on 02/11/24 13: 28 UA Ketone Negative Last Edit by SCHUYLER Quiles on 02/11/24 13:28 UA Bilirubin 0 mg/dL Last Edit by Slim Parsons CCM on 02/11/24 13:28 UA Glucose 0 mg/dL Last Edit by Slim Parsons CCM on 02/11/24 13:28 Results Reviewed Results Reviewed: Laboratory Last Values Urine pH (Auto) 5.5 02/11/24 13:26 Specific [place] (Auto) 1.015 02/11/24 13:26 Urine Protein (Auto) 15 mg/dL 02/11/24 13:26 Glucose (UA)(Auto) 0 mg/dL 02/11/24 13:26 Urine Ketones (Auto) Negative 02/11/24 13:26 Urine Blood (Auto) 200 Jasen/uL 02/11/24 13:26 Urine Nitrite (Auto) Negative 02/11/24 13:26 Urine Bilirubin (Auto) 0 mg/dL 02/11/24 13:26 Urine Urobilinogen (Auto) 0.2 mg/dL 02/11/24 13:26 Leukocyte Esterase (Auto) 125 Eli/uL 02/11/24 13:26 Assessment & Plan Assessment & Plan (1) Bladder outlet obstruction: Code(s): N32.0 - Bladder-neck obstruction Category: Medical Plan Six month follow-up PSA Orders: Orders AMB Urinalysis Automated Today Z13.9 - Encounter for screening, unspecified Prostate Specific Antigen 6 Months N32.0 - Bladder-neck obstruction Medications: Discontinued finasteride Discontinued Reason: Patient Completed Course 5 mg PO DAILY 90 days 90 tabs 3RF N13.8 - Other obstructive and reflux uropathy, N32.0 - Bladder-neck obstruction, N40.1 - Benign prostatic hyperplasia with lower urinary tract symptoms, R33.9 - Retention of urine, unspecified Patient Instructions: Imaging studies, laboratory and physical exam results were discussed and reviewed in detail. No major barriers to patient understanding were identified. An opportunity to ask questions regarding the treatment plan was provided. All questions were answered. The patient expressed understanding and agreement with the above treatment plan. The patient is aware they should contact our office by phone for worsening of their current condition or the appearance of new urologic symptoms. Compliance is encouraged with any medications and followup testing that is ordered. It is a privilege to participate in the urologic care of your patient. If you have any questions or concerns regarding treatment for the above conditions, or other urologic issues, please do not hesitate to contact me. The office telephone contact is [phone]. This note is constructed using voice recognition software. While every effort has been made to ensure accuracy public health program manager errors may have been included. Yours sincerely, Dr Meir Carver MD, [facility] - Urology Providers of Expert, Compassionate Care for the Genitourinary System Coding Level of Care Code Est Pt Level 3 (54744) Diagnoses Bladder outlet obstruction N32.0
== END 2024-02-11 14:18 | disposition home or self-care (01) ==
PROVIDERS: PCP Internal Medicine; Visit Provider Urology
DX: Z13.9 Encounter for screening, unspecified (principal); N32.0 Bladder-neck obstruction
CPT/HCPCS: 99024

== ENCOUNTER → 2024-02-11 12:56 | Outpatient (BNVA) | payer MEDICARE, SELFPAY | PROVIDERS: PCP Internal Medicine; Visit Provider Urology | DX: N32.0 Bladder-neck obstruction (principal); Z90.79 Acquired absence of other genital organ(s) | CPT/HCPCS: 81003; 99212 ==

== ENCOUNTER 2024-05-08 08:23 | Outpatient (REF) | payer MEDICARE, SELFPAY ==
[2024-05-08 10:42] LABS: Alanine Aminotransferase 24 U/L (0-40); Albumin Level 3.8 g/dL (3.5-5.0); Alkaline Phosphatase 97 U/L (39-117); Anion Gap 11 (12-20); Aspartate Amino Transferase 29 U/L (5-37); Bilirubin Total 0.6 mg/dL (0.0-1.0); Blood Urea Nitrogen 15 mg/dL (9-16); Calcium 9.5 mg/dL (8.4-10.2); Carbon Dioxide 27 mmol/L (22-29); Chloride 109 mmol/L (96-108); Cholesterol 135 mg/dL (<200); Estimated Glomerular Filt Rate 46; Glucose Fasting 120 mg/dL (60-99); HDL Cholesterol 42 mg/dL (>40); LDL Cholesterol Calculated 77 mg/dL (<100); Potassium 4.1 mmol/L (3.3-5.1); Sodium 143 mmol/L (135-145); Total Protein 7.1 g/dL (6.5-8.0); Triglycerides 82 mg/dL (<150); Uric Acid 4.6 mg/dL (3.4-7.0)
[2024-05-08 10:43] LABS: Vitamin D 25-OH Total 28.7 ng/mL (>30)
[2024-05-08 11:00] LABS: Folate 16.7 ng/mL (> or = 4.0); Vitamin B12 346 pg/mL (200-900)
== END 2024-05-08 08:24 | disposition home or self-care (01) ==
LOC: HO.10HDL 08:23
PROVIDERS: Visit Provider Internal Medicine
DX: E78.5 Hyperlipidemia, unspecified (principal); E53.8 Deficiency of other specified B group vitamins; M10.9 Gout, unspecified; E55.9 Vitamin D deficiency, unspecified; E11.9 Type 2 diabetes mellitus without complications
CPT/HCPCS: 36415; 80053; 80061; 82306; 82607; 82746; 84550

== ENCOUNTER 2024-05-11 13:42 | Outpatient (AMB) | payer MEDICARE, SELFPAY ==
--- NOTE | 2024-05-11 13:46 | MHC.PC.OV ---
Vital Signs 05/11/24 13:49 Height 5 ft 8.75 in Weight 263 lb BMI 39.1 BP 110/76 Blood Pressure Location Lt brachial Position Sitting Intake Visit Reasons: annual exam - see comments Plate Shop Helper Required: No Accompanied by: Self / Same As Patient Allergies canagliflozin [From Invokana] Allergy (Intermediate, Verified 05/11/24 13:57) vomitting linagliptin [Tradjenta] Allergy (Intermediate, Verified 05/11/24 13:57) Cough phentermine Allergy (Intermediate, Verified 05/11/24 13:57) insomnia,palpitations tuberculin, purified protein deriva [From Tuberculin PPD Henny Test] Allergy (Mild, Verified 05/11/24 13:57) RASH Medication List - Last Reconciled 05/11/24 by Maryam Black MD acetaminophen (Tylenol Extra Strength) 1,000 mg (2 x 500 mg) PO QID PRN allopurinol 300 mg PO DAILY 90 days aspirin (Adult Aspirin Regimen) 81 mg PO DAILY 90 days atorvastatin 40 mg PO BEDTIME 90 days blood sugar diagnostic (Accu-Chek Guide test strips) Use 1 test strip once a day blood-glucose meter (Accu-Chek Guide Glucose Meter) As directed cholecalciferol (vitamin D3) 50 mcg PO DAILY 90 days cyanocobalamin (vitamin B-12) 1,000 mcg sublingual DAILY 30 days [diabetic shoes with inserts As directed] docusate sodium (Colace) 100 mg PO BID PRN 30 days lisinopril 20 mg PO DAILY 30 days multivitamin 1 tab PO DAILY sennosides (senna) 8.6 mg PO BEDTIME PRN sulfamethoxazole-trimethoprim 400-80 mg (Bactrim) 1 tab PO DAILY tamsulosin 0.4 mg PO BEDTIME 90 days Tobacco use date assessed: 07/25/23 Dental Screening Dental Screen Date: 07/25/23 HPI HPI Comments History of Present Illness Details This is a 68-year-old male with diabetes mellitus type 2 controlled with diet that comes for his physical exam. A1c within goal. LDL close to goal. Also has chronic kidney disease stage 3 with last GFR of 46. Colonoscopy done 2023 showing tubular adenoma. No chest pain or shortness on breath. He is obese with a BMI of 39.1 and will try to start him on semaglutide. PFSH Medical History (Updated 05/11/24 @ 15:38 by Maryam Black MD) Diverticulosis Morbid obesity with BMI of 40.0-44.9, adult CKD stage 3 due to type 2 diabetes mellitus Class 2 obesity with body mass index (BMI) of 38.0 to 38.9 in adult Physical exam Arnold-Chiari malformation, type I Testicular pain Dizziness Malabsorption due to intolerance, not elsewhere classified Dyslipidemia B12 deficiency CKD stage 3 due to type 2 diabetes mellitus Diabetes type 2, controlled Hypoglycemia after GI (gastrointestinal) surgery Hypovitaminosis D Essential hypertension Gout Diabetes Surgical History (Updated 05/11/24 @ 14:03 by Maryam Black MD) S/P TURP Kaposi sarcoma History of tonsillectomy Gastric bypass status for obesity Family History Father Prostate cancer Mother Diabetes Brother In good health Sister In good health Son No problems noted. Sister In good health Social History Housing: House Alcohol intake: never Patient Tobacco Use Status: Never used Tobacco e-Cigarette/Vaping Use: Never Used Second Hand Smoke Exposure: No service: No Current occupational status: employed Current occupational exposures/hazards: No Cognitive needs: No Hearing needs: No Vision needs: Yes Questionnaire Thrive Questionnaire Date Thrive assessed: 07/25/23 JORGE L-7 AMB Questionnaire JORGE L-7 Date JORGE L - 7 assessed: 07/25/23 Source: Developed by Drs. Amando Del Toro, Amna Harris, Zeus Ho and colleagues, with an educational josé antonio from [employer]. Review of Systems Const All systems reviewed & are unremarkable except as noted in HPI and below Card Denies chest pain at rest, Denies chest pain with activity, Denies edema, Denies irregular heart rhythm, Denies claudication, Denies dyspnea, Denies dyspnea on exertion, Denies orthopnea, Denies paroxysmal nocturnal dyspnea and Denies slow heart rate Resp Denies cough, Denies dyspnea and Denies dyspnea on exertion GI Denies abdominal pain, Denies change in bowel habits, Denies excessive flatus, Denies nausea and Denies vomiting Denies urinary hesitancy, Denies urinary incontinence and Denies urinary urgency Musc Denies atrophy, Denies deformity and Denies limited range of motion Physical exam (Primary Care) Vital Signs: Last Vital Signs BP 110/76 05/11/24 13:49 BMI result Body Mass Index 39.1 BMI Assessment/Plan discussion: High BMI High, discussed plan: lifestyle, weight reduction, dietary and physical activity Tobacco/Smoking Status: Tobacco use Status Tobacco use date assessed 07/25/23 05/11/24 13:47 Patient Tobacco Use Status Never used Tobacco 05/11/24 13:47 e-Cigarette/Vaping Use Never Used 05/11/24 13:47 Thrive Assessment: Date of Thrive Assessment Date Thrive assessed 07/25/23 05/11/24 13:47 HENMT Head: Yes normal to inspection, Yes normocephalic and Yes atraumatic Ears: external ears normal Eyes General: appearance normal, both eyes and all related structures Eyelids: Yes eyelids normal Conjunctivae: conjunctivae normal Neck Neck: Yes normal visual inspection and Yes supple Resp Effort & Inspection: normal respiratory effort Auscultation: clear to auscultation bilaterally Cardio Jugular venous distension: no JVD Rate: regular rate Rhythm: regular rhythm Heart sounds: S1 normal heart sound present and S2 normal heart sound present GI Inspection: Yes normal to inspection Palpation (GI): Soft to palpation and nontender Auscultation: normal bowel sounds Skin General skin exam: no rashes or lesions noted Neuro General: no focal motor deficits Extrem General: Yes full ROM Psych Appearance: grossly normal Office Procedures Flu Questionnaire Does the patient have a severe egg allergy?: No Results AMB Hemoglobin A1c AMB Hemoglobin A1c 6.4 % Last Edit by JOSE Hebert on 05/11/24 13:56 Immunizations Fluarix Triv [id number] (PF) 45 mcg (15 mcg x 3)/0.5 mL IM syringe Performing Provider: Maryam Black MD [facility] [place] [facility] Documented (not given) by: JOSE Hebert on 05/11/24 13:55 Reason Not Given: Patient Refused Results Reviewed Results Reviewed: Laboratory Last Values Hgb A1c (Clinic) 6.4 % (4.0-6.0) H 05/11/24 13:54 Coding Level of Care Code Est Pt Prev Care >65y(94176) Diagnoses Physical exam Z00.00 Controlled type 2 diabetes mellitus without complication, without long-term current use of insulin E11.9 Diabetes mellitus exterminator helper insulin use: without usp use Diabetes mellitus complication status: without complication CKD stage 3 due to type 2 diabetes mellitus E11.22; N18.30 Time Spent (min) 31 Assessment & Plan Assessment & Plan (1) Physical exam: Code(s): Z00.00 - Encounter for general adult medical examination without abnormal findings Category: Medical Plan: Repeat in a year. (2) Diabetes type 2, controlled: Code(s): E11.9 - Type 2 diabetes mellitus without complications Category: Medical Qualifiers: Diabetes mellitus exterminator helper insulin use: without exterminator helper use Diabetes mellitus complication status: without complication Qualified Code(s): E11.9 - Type 2 diabetes mellitus without complications Plan: Continue low-carbohydrate diet. A1c goal is equal or less than 7%. (3) CKD stage 3 due to type 2 diabetes mellitus: Code(s): E11.22 - Type 2 diabetes mellitus with diabetic chronic kidney disease; N18.30 - Chronic kidney disease, stage 3 unspecified Category: Medical Plan: Avoid NSAIDs. Keep blood pressure within goal. Orders: Orders AMB Hemoglobin A1c Today E11.9 - Type 2 diabetes mellitus without complications Vitamin B12 and Folate 6 Months E53.8 - Deficiency of other specified B group vitamins Vitamin D 25-OH Total 6 Months E55.9 - Vitamin D deficiency, unspecified Influenza [id number] Immunization Today Z23 - Encounter for immunization Lipid Panel 6 Months E78.5 - Hyperlipidemia, unspecified Microalbumin, Random (w Creat) 6 Months R80.9 - Proteinuria, unspecified Comprehensive [place]. Panel Fast 6 Months E66.01 - Morbid (severe) obesity due to excess calories, Z68.41 - Body mass index [BMI] 40.0-44.9, adult Medications: New semaglutide for 4 weeks 0.25 mg (0.368 mL) subcut QWEEK 4 weeks 1.472 mL 0RF
[2024-05-11 13:49] VITALS: BP 110/76; BMI 39.1
== END 2024-05-11 14:08 | disposition home or self-care (01) ==
LOC: HO.HMCH 13:42
PROVIDERS: PCP Internal Medicine; Visit Provider Internal Medicine
DX: Z00.00 Encounter for general adult medical examination without abnormal findings (principal); E11.22 Type 2 diabetes mellitus with diabetic chronic kidney disease; N18.30 Chronic kidney disease, stage 3 unspecified; Z23 Encounter for immunization

== ENCOUNTER → 2024-05-11 13:42 | Outpatient (BNVA) | payer MEDICARE, SELFPAY | PROVIDERS: PCP Internal Medicine; Visit Provider Internal Medicine | DX: Z00.00 Encounter for general adult medical examination without abnormal findings (principal); E11.22 Type 2 diabetes mellitus with diabetic chronic kidney disease; N18.30 Chronic kidney disease, stage 3 unspecified | CPT/HCPCS: 83036; 90471; 99397 ==

== ENCOUNTER 2024-08-14 07:52 | Outpatient (REF) | payer MEDICARE, SELFPAY ==
--- OUTSIDE RECORDS SUMMARY | 2024-08-14 07:55 | XMS_ITS | Encounter Summary ---
Author Organization [employer] [facility] Address [address] [place] [address] Care Team Providers Care Service Electrician Name Role Phone Unavailable Primary Care Provider Unavailabl e Encounter Details Date Type Department Care Team (Latest Contact Info) Description 02/27/2021 Abstract [facility] CONVERSIONS Dental, Provider, DDS Social History Tobacco Use Types Packs/Day Years Used Date Smoking Tobacco: Never Assessed Sex and Gender Information Value Date Recorded Sex Assigned at Male 05/14/2022 10:14 AM EDT Legal Sex Male 10:14 AM EDT Gender Identity Male 05/14/2022 10:14 AM EDT Sexual Orientation Choose not to disclose 2021 10:14 AM EDT documented as of this encounter Plan of Treatment Not on file documented as of this encounter Visit Diagnoses Not on filedocumented in this encounter
--- OUTSIDE RECORDS SUMMARY | 2024-08-14 07:55 | XMS_ITS | Encounter Summary ---
Author Organization [employer] [facility] Address [address] [place] [address] Care Team Providers Care Tester Sound Name Role Phone Unavailable Primary Care Provider Unavailabl e Encounter Details Date Type Department Care Team (Late st Contact Info) Description 01/01/2023 Abstract [facility] ADULT DENTAL [address] [place] [address] David Michelaris [address] [place] [address] Social History Tobacco Use Types Packs/Day Years Used Date Smoking Tobacco: Never Passive Smoke Exposure: Never Smokeless Tobacco: Never Alcohol Use Standard Drinks/Week Comments Never 0 (1 standard drink = 0.6 oz pur e alcohol) Sex and Gender Information Value Date Recorded Sex Assigned at Male 05/14/2022 10:14 AM EDT Legal Sex Male 10:14 AM EDT Gender Identity Male 05/14/2022 10:14 AM EDT Sexual Orientation Choose not to disclose 2021 10:14 AM EDT COVID-19 Exposure Response Date Recorded In the last 10 days, have yo u been in contact with someone who was confirmed or suspected to have Coronavirus/COVID-19? No / Unsure 12/11/2022 10:01 AM EDT documented as of this encounter Plan of Treatment Not on file documented as of this encounter Visit Diagnoses Not on filedocumented in this encounter
--- OUTSIDE RECORDS SUMMARY | 2024-08-14 07:55 | XMS_ITS | Clinical Summary ---
Author Organization [facility] Address [address] [place] [address] Phone Care Team Providers Care Synthetic Cloth Binding Cutter Name Role Phone Maryam Art MD Primary Care Provider [phone] Allergies Active Allergy Reactions Criticality Noted Date Comments Canagliflozin Other (see comments) 08/14/2021 Linagliptin 08/13/2023 Phentermine 08/13/2023 Medications * This document contains information received from the source organization and may not represent a complete record from that organization. Multiple Vitamin (multivitamin) capsule Take 1 capsule by mouth 1 (one) time each day Active allopurinol (ZYLOPRIM) 300 MG tablet Take 1 tablet by mouth 1 (one) time each day Active aspirin (ST GAGAN) 81 MG EC tablet Take 1 tablet by mouth 1 (one) time each day Active atorvastatin (LIPITOR) 40 MG tablet Take 1 tablet by mouth 1 (one) time each day Active cholecalciferol (VITAMIN D-3) 25 MCG (1000 UT) capsule Take 1 capsule by mouth 1 (one) time each day Active lisinopril 20 MG tablet Take 1 tablet by mouth 1 (one) time each day Active terbinafine (LamISIL) 250 MG tablet Take 1 tablet by mouth 1 (one) time each day Active Cyanocobalamin ER 1000 MCG tablet controlled-relea se Take by mouth Active tamsulosin (FLOMAX) 0.4 MG 24 hr capsule Take 0.4 mg by mouth at bed time 07/11/2021 Active finasteride (PROSCAR) 5 MG tablet Take 5 mg by mouth 1 (one) time each day 06/30/2021 Active Dapagliflozin Propanediol 10 MG tablet Take 10 mg by mouth 1 (one) time each day in the morning 90 tablet 3 06/15/2024 09/14/19 25 Active Active Problems Problem Noted Date Diagnosed Date Renal osteodystrophy 06/15/2024 Stage 3a chronic kidney disease 10/15/2023 Periodontal disease 12/11/2022 Generalized gingival recession 12/11/2022 Dental calculus 12/11/2022 Chronic periodontitis 11/19/2022 Vitamin D deficiency 08/14/2021 Renal stone 08/14/2021 Renal disorder due to type 2 diabetes mellitus 0 08/14/2021 Chronic kidney disease stage 3 08/14/2021 Obesity 04/13/2019 Exposure to fenfluramine 04/01/2019 Overview (08/17/2021): for weight loss Gout 04/01/2019 History of bariatric surgical procedure 04/01/20 19 Overview (08/17/2021): 09/2011 Gastric bypass Hyperlipidemia 04/01/2019 Hypertension 04/01/2019 Obstructive sleep apnea syndrome 04/01/2019 Osteoarthritis 04/01/2019 Overview (08/17/2021): Low back, knees, feet Type 2 diabetes mellitus without complication Vitamin B12 deficiency 04/01/2019 Encounters Date Type Department Care Team Description 06/15/2024 2:00 PM EST Office Visit [facility] [address] [place] [id number] Polo Miller MD Stage 3a chronic kidney disease (HCC) (Primary Dx); Renal disorder due to type 2 diabetes mellitus <Diabetic nephropathy> (HCC); Renal osteodystrophy from Last 3 Months Immunizations Name Administration Dates Next Due Influenza, Unspecified 06/24/2019,05/28/2018,05/2017,03/12/2016 Moderna SARS-COV-2 06/28/2021,09/15/2020, 021 Pneumococcal Polysaccharide 05/28/2018 Tdap 06/01/2015 Family History Medical History Relation Comments Cancer Father prostate Diabetes Mother Relation Status Comments Father Unknown Mother Unknown Social History Tobacco Use Types Packs/Day Years Used Date Smoking Tobacco: Never Smokeless Tobacco: Never Tobacco Cessation:Counseling Given: Not Answered Alcohol Use Standard Drinks/Week Comments No 0 (1 standard drink = 0.6 oz pur e alcohol) Sex and Gender Information Value Date Recorded Sex Assigned at Not on file Legal Sex Male 4:52 PM EST Gender Identity Not on file Sexual Orientation Not on file Last Filed Vital Signs Vital Sign Reading Time Taken Comments Blood Pressure 108/62 06/15/2024 1:52 PM EST Pulse 74 06/15/2024 1:52 PM EST Temperature - - Respiratory Rate - - Oxygen Saturation 95% 06/15/2024 1:52 PM EST Inhaled Oxygen Concentration - - Weight 122 kg (269 lb) 06/15/2024 1:52 PM EST Height 175.3 cm (5' 9 ) 10/01/2022 2:19 PM EDT Body Mass Index 39.72 10/01/2022 2:19 PM EDT Plan of Treatment Upcoming Encounters Date Type Department Care Team (Late st Contact Info) Description 12/21/2024 3:45 PM EDT Office Visit [facility] [address] [place] [phone] Polo Miller MD [address] [facility] [address] [place] [address] Health Maintenance Due Date Last Done Comments Colorectal Cancer Screening: Annual FOBT 10/13/2003 Colorectal Cancer Screening: Colonoscopy 10/13/2003 Colorectal Cancer Screening: Sigmoidoscopy 10/13/2003 Pneumococcal Vaccine: 65+ Years (2 of 2 - PCV) 05/28/2019 05/28/2018 Diabetes: Ophthalmology Exam 08/14/2020 Diabetes: Pedal Pulse Checked 08/14/2020 Diabetes: Sensory Foot Exam 08/14/2020 Diabetes: Visual Foot Exam 08/14/2020 Diabetes: Hemoglobin A1C 10/24/2023 07/25/2023 Influenza Vaccine (#1) 2024 9, 05/28/2018, 03/25/2017, Additional history exists Hepatitis B Vaccine Aged Out No longe r eligible based on patient's age to complete this topic Procedures Procedure Name Priority Date/Time Associated Diagnosis Comments EXT RESULT ENTRY Routine 07/25/2023 from Last 3 Months or Most Recently Relevant to Health Maintenance Results * (ABNORMAL) EXT RESULT ENTRY (07/25/2023) Hemoglobin A1C 6.8(A) 4.0 - 6.0 07/25/2023 Historical Provider LAB BLOOD ORDERABLES Gracie l Result from Last 3 Months or Most Recently Relevant to Health Maintenance Insurance Care Teams Synthetic Cloth Binding Cutter Relationship Specialty Start Date End Date Maryam Art MD [address] [place], [place] PCP - General 07/25/20
--- OUTSIDE RECORDS SUMMARY | 2024-08-14 07:55 | XMS_ITS | Encounter Summary ---
Author Organization [facility] Address [address] [place] [address] Care Team Providers Care Broodmare Barn Groom Name Role Phone Unavailable Primary Care Provider Unavailabl e Encounter Details Date Type Department Care Team (Latest Contact Info) Description 02/27/[address] [facility] CONVERSIONS Dental, Provider, DDS Social History Tobacco [...]
--- OUTSIDE RECORDS SUMMARY | 2024-08-14 07:55 | XMS_ITS | Clinical Summary ---
Author Organization [facility] Address [address] [address] [address] [place] [address] Care Team Providers Care Dental Detail Representative Name Role Phone Unavailable Primary Care Provider Unavailabl e Allergies Active Allergy Reactions Criticality Noted Date Comments Canagliflozin Rash Low 08/14/2021 Medications allopurinol (Zyloprim) 300 MG tablet Take 300 mg by mouth in the morning. 10/03/2022 Active Aspirin Low Dose 81 MG EC tablet Take 81 mg by mouth in the morning. 09/02/2022 Active atorvastatin (Lipitor) 20 MG tablet Take 20 mg by mouth in the morning. 11/29/2022 Active Cyanocobalamin ER 1000 MCG tablet controlled-rele ase Take by mouth. Active finasteride (Proscar) 5 MG tablet Take 5 mg by mouth. 06/30/2021 Active lisinopril 20 MG tablet Take 1 tablet by mouth. Active Multiple Vitamin (multivitamin) capsule Take 1 capsule by mouth. Active tamsulosin (Flomax) 0.4 MG 24 hr capsule Take 0.4 mg by mouth at bed time. 07/11/2021 Active Active Problems Problem Noted Date Diagnosed Date Dental calculus 12/11/2022 Periodontal disease 12/11/2022 Gingival recession, generalized 12/11/2022 Periodontitis chronic, apical 11/19/2022 Social History Tobacco Use Types Packs/Day Years Used Date Smoking Tobacco: Never Passive Smoke Exposure: Never Smokeless Tobacco: Never Tobacco Cessation:Counseling Given: Not Answered Alcohol Use Standard Drinks/Week Comments Never 0 (1 standard drink = 0.6 oz pur e alcohol) Sex and Gender Information Value Date Recorded Sex Assigned at Male 05/14/2022 10:14 AM EDT Legal Sex Male 10:14 AM EDT Gender Identity Male 05/14/2022 10:14 AM EDT Sexual Orientation Choose not to disclose 2021 10:14 AM EDT Last Filed Vital Signs Vital Sign Reading Time Taken Comments Blood Pressure 126/74 12/11/2022 10:11 AM EDT Pulse 78 12/11/2022 10:11 AM EDT Temperature - - Respiratory Rate - - Oxygen Saturation - - Inhaled Oxygen Concentration - - Weight - - Height - - Body Mass Index - - Plan of Treatment Health Maintenance Due Date Last Done Comments CT Colonography 1954 Colonoscopy 1954 Colorectal Cancer Screening 1954 Dental X-Ray: Bitewings 1954 Dental X-Ray: Full Mouth 1954 Depression Screening 1954 FIT DNA/Cologuard 1954 FIT 1954 FOBT 1954 Lipid Panel 1954 SDOH Screening 1954 Sigmoidoscopy 1954 Alcohol/Substance Use Screening 1966 Hepatitis C Screening 1972 Zoster Vaccines (1 of 2) 2004 Pneumococcal Vaccine: 50+ Years (2 of 2 - PCV) 05/28/2019 05/28/2018 Dental Oral Exam 05/23/2023 11/19/2022 Dental Prophylaxis 06/14/2023 12/11/2022 Tobacco Screening 12/12/2023 12/11/2022 COVID-19 Vaccine ( season) 2024 06/28/2021, 09/15/2020, 08/18/2020 Influenza Vaccine (#1) 2024 9, 05/28/2018, 03/25/2017, Additional history exists DTaP/Tdap/Td Vaccines (2 - Td or Tdap) 06/01/2025 06/01/2015 RSV Patients and Patients Aged 60 years or older (1 - 1-dose 75+ series) 2029 HIB Vaccines Aged Out No longer eligi ble based on patient's age to complete this topic HPV Vaccines Aged Out No longer eligi ble based on patient's age to complete this topic Hepatitis A Vaccines Aged Out No long er eligible based on patient's age to complete this topic Hepatitis B Vaccines Aged Out No long er eligible based on patient's age to complete this topic IPV Vaccines Aged Out No longer eligi ble based on patient's age to complete this topic Meningococcal Vaccine Aged Out No marco a christin eligible based on patient's age to complete this topic RSV under 20 months Aged Out No longe r eligible based on patient's age to complete this topic Rotavirus Vaccines Aged Out No longer eligible based on patient's age to complete this topic Procedures Procedure Name Priority Date/Time Associated Diagnosis Comments PROPHYLAXIS - ADULT Routine 12/11/2022 1 0:00 AM EDT Dental calculus PERIODIC ORAL EVALUATION - ESTABLISHED PATIENT Routine 11/19/2022 3:30 PM EDT from Last 3 Months or Most Recently Relevant to Health Maintenance Insurance DENTAL - [facility]
--- OUTSIDE RECORDS SUMMARY | 2024-08-14 07:55 | XMS_ITS | Encounter Summary ---
Author Organization [facility] Address [address] [place] [address] Care Team Providers Care Nursing Education Consultant Name Role Phone Unavailable Primary Care Provider Unavailabl e Encounter Details Date Type Department Care Team (Latest Contact Info) Description 02/27/2021 Abstract [facility] CONVERSIONS Dental, Provider, DDS Social History [...]
[2024-08-14 11:44] LABS: Prostate Specific Antigen 4.55 ng/mL (<0.05-4.0)
== END 2024-08-14 07:53 | disposition home or self-care (01) ==
LOC: HO.10HDL 07:52
PROVIDERS: Visit Provider Urology
DX: Z12.5 Encounter for screening for malignant neoplasm of prostate (principal); N32.0 Bladder-neck obstruction
CPT/HCPCS: 36415; 84153

== ENCOUNTER 2024-09-03 04:43 | Inpatient (IN) | payer MEDICARE, SELFPAY ==
--- NOTE | ~2024-09-03 | CT_ITS ---
EXAMINATION: CT ABDOMEN AND PELVIS WITHOUT CONTRAST CLINICAL INFORMATION: Leukocytosis. Hematuria. Concerning pyelonephritis. COMPARISON: CT dated December 02, 2020. TECHNIQUE: Multidetector volumetric imaging was performed from the superior aspect of the liver through the pubic symphysis. Sagittal and coronal reformatted images were obtained on the technologist's workstation. This CT examination was performed using dose optimization techniques as appropriate, variously including the following: *Automated exposure control *Adjustment of mA and/or kV according to patient size (this includes techniques or standardized protocols for targeted exams where dose is matched to indication/reason for exam; i.e. extremities or head) *Use of iterative reconstruction technique. DLP: 947 mGy centimeter. FINDINGS: Inadequate evaluation of the intra-abdominal organs and vascular structures due to lack of IV contrast. LUNG BASES: Patchy pulmonary groundglass. LIVER, GALLBLADDER, AND BILIARY TREE: Liver measures 18 cm. Subtle nodular surface. Layering small cholelithiasis without pericholecystic fluid collection or gallbladder wall thickening. Common bile duct measures 4 mm. PANCREAS: No peripancreatic fluid collections. No main pancreatic ductal dilatation. SPLEEN: 10 cm. ADRENAL GLANDS: No nodular lesions. KIDNEYS AND URETERS: 1 mm calculus in the mid/lower pole junction right pelvicalyceal system. No hydronephrosis in either kidney. BLADDER: Collapsed with questionable wall thickening and pericystic edema pattern. GASTROINTESTINAL TRACT: Sutures at the gastroesophageal junction and the proximal small bowel loops likely Linda-en-Y procedure. Appendix is normal. Numerous diverticula throughout the large intestine mostly the left hemicolon. Small, 6 mm fat density in the duodenal bulb region may represent small lipoma. Abundant stool within the large intestine. No intestinal obstruction pattern. No pneumatosis intestinalis. No ascites. No pneumoperitoneum. ABDOMINAL WALL: Small tiny fat-containing umbilical hernia. Small to moderate sized fat-containing inguinal hernias, bilaterally. LYMPH NODES: Prominent subcentimeter nodules in the periprostatic and mesenteric. VASCULAR: Calcified plaques in the distal abdominal aorta wall and iliac arteries. No aneurysm, abdominal aorta. Calcified plaques in the coronary arteries. PELVIC VISCERA: 9 cm heterogeneous and enlarged prostate gland extending into the urinary bladder floor with periprostatic edema pattern and prominent nodules. OSSEOUS STRUCTURES: Facet joint hypertrophy at L4-5 and L5-S1 resulting in central spinal canal and bilateral neuroforamina stenosis. Spina bifida occulta, S1. Sclerosis and the sacroiliac joints. Mild degenerative changes in the coxofemoral joints. S-shaped curvature of the thoracolumbar spine. No acute fracture. No gross lytic or blastic lesions Well-defined lobulated fat density within the right quadriceps muscle.. CT/CT abdomen pelvis wo IV con IMPRESSION: Consider benign prostate hyperplasia versus malignancy with questionable associated the/superimposed inflammatory versus infectious process. Alternative diagnosis of acute cystitis in the correct clinical settings. Diverticular disease/diverticulosis. Cholelithiasis. Hepatomegaly, mild to moderate with questionable hepatocellular disease. Probable nonobstructing nephrolithiasis, right kidney. Fat-containing umbilical and inguinal hernias. 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 Status post Linda-en-Y procedure.. Fleischner guidelines were followed. Electronically signed by: Antione Siddiqui MD 09/03/2024 08:56 AM IFRAH
[2024-09-03 04:50] VITALS: BP 109/75; PULSE 106; RESP 20; TEMP 36.5; O2SAT 98; BMI 38.8
[2024-09-03 05:16] LABS: Hematocrit 40.7 % (42.0-52.0); Hemoglobin 13.6 g/dl (14.0-18.0); Mean Corpuscular HGB Conc 33.4 g/dl (31.0-36.0); Mean Corpuscular Hemoglobin 30.2 pg (27.0-33.0); Mean Corpuscular Volume 90.2 fL (80.0-98.0); Mean Platelet Volume 8.6 fL (9.4-12.4); Platelet Count 274 X10*3/uL (160-400); Red Blood Count 4.51 X10*6/uL (4.60-5.80); Red Cell Distribution Width 13.6 % (11.0-16.0)
[2024-09-03 05:20] LABS: White Blood Count 35.6 X10*3/uL (4.8-10.8)
[2024-09-03 05:25] LABS: Appearance Urine Turbid; Color Urine RED; Glucose Urine UA Negative (Negative); Leukocyte Esterase Urine Trace (Negative); Nitrite Urine Negative (Negative); Specific Gravity - Urine >= 1.030 (1.005-1.025); UMIC TRIGGER UACC YES; Urine Blood Large (3+) (Negative); Urine Ketones Negative (Negative); Urine Protein 100 (2+) mg/dL (Neg-Trace)
[2024-09-03 05:28] LABS: Bacteria Urine 2+ (None Seen); Hyaline Casts Urine 0-2 /LPF (0-2); RBC Urine >20 /HPF (0-2); UACC Culture Trigger YES; WBC Urine 21-50 /HPF (0-5)
[2024-09-03 05:37] LABS: Alanine Aminotransferase 24 U/L (0-40); Albumin Level 3.8 g/dL (3.5-5.0); Anion Gap 13 (12-20); Aspartate Amino Transferase 36 U/L (5-37); Bilirubin Total 1.5 mg/dL (0.0-1.0); Blood Urea Nitrogen 15 mg/dL (9-16); Calcium 9.4 mg/dL (8.4-10.2); Carbon Dioxide 21 mmol/L (22-29); Chloride 106 mmol/L (96-108); Creatinine Clr Calc Pharmacy 57.7; Estimated Glomerular Filt Rate 45; Glucose Random 157 mg/dL (60-115); Sodium 136 mmol/L (135-145); Total Protein 8.3 g/dL (6.5-8.0)
[2024-09-03 05:38] LABS: Alkaline Phosphatase 99 U/L (39-117)
--- NOTE | 2024-09-03 06:08 | PC.NURSE ---
Pt no answer in waiting room at this time. Attempted to call pts listed cell phone number with no answer.
[2024-09-03 06:15] VITALS: BP 117/79; PULSE 95; RESP 18; TEMP 36.2; O2SAT 95
[2024-09-03] MEDS: 0.9 % Sodium Chloride 1,000 ML 999 ML IV (07:06)
[2024-09-03 07:26] LABS: Lipase 22 U/L (8-78); Magnesium 1.7 mg/dL (1.6-2.6)
--- NOTE | 2024-09-03 07:30 | ED_ITS ---
HPI - Male Genitourinary General Chief complaint: Urogenital-Male Stated complaint: UTI Time Seen by Provider: 09/03/24 06:32 Source: patient, RN notes reviewed and old records reviewed Mode of arrival: ambulatory History of Present Illness ED Provider: Stephanie Moreno PA-C HPI Narrative: 68-year-old male with a past medical history diverticulosis, CKD, diabetes, gout, HTN, presenting to the ED complaining of dysuria and gross hematuria since yesterday and constipation, last BM 2 days ago. Also reports URI symptoms with cough. Denies abdominal pain, flank pain, back pain, nausea, vomiting, diarrhea, CP/SOB. Takes baby ASA Related Data Home Medications ?Medication ?Instructions ?Recorded ?Confirmed multivitamin 1 tab PO DAILY 12/07/21 05/11/24 sennosides 8.6 mg tablet (senna) 8.6 mg PO BEDTIME PRN constipation 07/06/22 05/11/24 Previous Rx's ?Medication ?Instructions ?Recorded acetaminophen 500 mg tablet 1,000 mg (2 x 500 mg) PO QID PRN 12/02/20 (Tylenol Extra Strength) fever or pain #14 tabs cyanocobalamin (vitamin B-12) 1,000 mcg sublingual DAILY 30 days 12/19/20 1,000 mcg sublingual tablet #30 tabs blood sugar diagnostic (Accu-Chek #100 ea 05/21/22 Guide test strips) blood-glucose meter (Accu-Chek #1 ea 10/11/22 Guide Glucose Meter) tamsulosin 0.4 mg capsule 0.4 mg PO BEDTIME 90 days #90 caps 09/05/23 docusate sodium 100 mg capsule 100 mg PO BID PRN constipation 30 10/08/23 (Colace) days #30 caps aspirin 81 mg tablet,delayed 81 mg PO DAILY 90 days #90 tabs 11/04/23 release (Adult Aspirin Regimen) diabetic shoes with inserts #1 ea 12/26/23 sulfamethoxazole 400 1 tab PO DAILY #10 tabs 12/30/23 mg-trimethoprim 80 mg tablet (Bactrim) atorvastatin 40 mg tablet 40 mg PO BEDTIME 90 days #90 tabs 02/17/24 semaglutide 0.25 mg or 0.5 mg (2 0.25 mg (0.368 mL) subcut QWEEK 4 05/11/24 mg/3 mL) subcutaneous pen injector weeks #1.472 mL allopurinol 300 mg tablet 300 mg PO DAILY 90 days #90 tabs 06/17/24 cholecalciferol (vitamin D3) 50 50 mcg PO DAILY 90 days #90 caps 08/12/24 mcg (2,000 unit) capsule lisinopril 20 mg tablet 20 mg PO DAILY 30 days #30 tabs 08/12/24 Allergies Allergy/AdvReac Type Severity Reaction Status Date / Time canagliflozin [From Invokana] Allergy Intermediate vomitting Verified 09/03/24 04:52 linagliptin [Tradjenta] Allergy Intermediate Cough Verified 09/03/24 04:52 phentermine Allergy Intermediate insomnia,pa Verified 09/03/24 04:52 lpitations tuberculin, purified protein Allergy Mild RASH Verified 09/03/24 04:52 deriva [From Tuberculin PPD Henny Test] Review of Systems 2 Review of Systems: Yes all other systems are reviewed and are negative Constitutional: Constitutional: Reports as per [facility] Past Medical History Attestation statement: The following information was validated with the patient. Source: old records reviewed Medical History Diverticulosis Morbid obesity with BMI of 40.0-44.9, adult CKD stage 3 due to type 2 diabetes mellitus Class 2 obesity with body mass index (BMI) of 38.0 to 38.9 in adult Physical exam Arnold-Chiari malformation, type I Testicular pain Dizziness Malabsorption due to intolerance, not elsewhere classified Dyslipidemia B12 deficiency CKD stage 3 due to type 2 diabetes mellitus Diabetes type 2, controlled Hypoglycemia after GI (gastrointestinal) surgery Hypovitaminosis D Essential hypertension Gout Diabetes Surgical History S/P TURP Kaposi sarcoma History of tonsillectomy Gastric bypass status for obesity Family History Family History Father Prostate cancer Mother Diabetes Brother In good health Sister In good health Son No problems noted. Sister In good health Social History Social History Housing: House Alcohol intake: never Patient Tobacco Use Status: Never used Tobacco Smoked in Last 30 Days: No e-Cigarette/Vaping Use: Never Used Second Hand Smoke Exposure: No Use of substances other than those prescribed or required for medical reasons: No Advance Directives: No Advance Directives Information Provided: Yes service: No Current occupational status: employed Current occupational exposures/hazards: No Cognitive needs: No Hearing needs: No Vision needs: Yes Physical Exam 2 Vital Signs: Vital Signs: Last Vital Signs Temp 97.2 F 09/03/24 06:15 Pulse 95 09/03/24 06:15 Resp 18 09/03/24 06:15 BP 117/79 09/03/24 06:15 Pulse Ox 95 09/03/24 06:15 O2 Del Method Room Air 09/03/24 06:15 BMI result Body Mass Index 38.8 Const: General: cooperative, healthy appearing and no acute distress O rientation/consciousness: patient oriented x3 Limitations: no limitations HEENT: Head: Yes normal to inspection and Yes atraumatic Ears: hearing grossly normal bilaterally General nose exam: Normal external nose present Face and sinus: Yes normal facial exam Eyes: General: appearance normal, both eyes and all related structures EOM: EOMs intact bilaterally Neck: Neck: Yes normal visual inspection and Yes no meningeal signs Resp: Effort & Inspection: normal respiratory effort and no respiratory distress Auscultation: clear to auscultation bilaterally, no crackles and no wheezes Cardio: Rate: regular rate Heart sounds: S1 normal heart sound present and S2 normal heart sound present GI: Inspection: Yes normal to inspection Palpation (GI): Soft to palpation, nontender, no guarding and not rigid : General: Yes no CVA tenderness Back/Spine/Pelvis: Back: no CVA tenderness Skin: Rashes: no rashes Wounds: no wounds Neuro: General: patient oriented x3, tone normal and no meningeal signs C ranial nerves: Yes CN's II-XII intact bilaterally Gait exam (Neuro): Normal gait present Extrem: General: Yes normal to inspection Course Course Course Narrative: -0735-- leukocytosis of 35.6 > will obtain lactic/blood cultures and give empiric IV antibiotics. H/H stable. -chronic CKD. Lactic acid WNL. Bilirubin slightly elevated -UA infected 0910--CT abdomen pelvis wo IV con IMPRESSION: Consider benign prostate hyperplasia versus malignancy with questionable associated the/superimposed inflammatory versus infectious process. Alternative diagnosis of acute cystitis in the correct clinical settings. Diverticular disease/diverticulosis. Cholelithiasis. Hepatomegaly, mild to moderate with questionable hepatocellular disease. Probable nonobstructing nephrolithiasis, right kidney. Fat-containing umbilical and inguinal hernias. 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 Status post Linda-en-Y procedure.. Fleischner guidelines were followed. > plan to admit for further management, case discussed with Dr. Hernandez. Admission accepted Medications Administered Discontinued Medications Generic Name Dose Route Start Last Admin Trade Name Freq PRN Reason Stop Dose Admin Ceftriaxone Sodium 1 gm 09/03/24 07:10 09/03/24 07:46 Ceftriaxone Sodium 1 Gm Vial IVPUSH 09/03/24 07:11 1 gm ONCE ONE Administration Sodium Chloride 1,000 mls @ 999 mls/hr 09/03/24 06:45 09/03/24 08:37 Ns IV 09/03/24 07:45 Infused .Q1H1M DANIELLA Infusion Medical Decision Making Medical Decision Making MDM Narrative: 729 68-year-old male with a past medical history diverticulosis, CKD, diabetes, gout, HTN, presenting to the ED complaining of dysuria and gross hematuria since yesterday and constipation, last BM 2 days ago. On exam initially tachycardic, NAD, nontoxic appearing, ambulating with steady gait, abdomen soft/nontender, no CVAT, lungs CTA. Concern for UTI vs viral illness vs constipation vs SBO vs fecal impaction. Rule out bronchitis vs pneumonia. Pyelonephritis/renal stone on differential. Unlikely appendicitis/diverticulitis or testicular torsion Plan: Labs, UA, viral testing Please refer to course for remaining clinical decision making, interpretation of labs/imaging results, and discussions with consultants and/or family members. Differential Diagnosis Differential Diagnoses: The differential diagnosis associated with the presentation includes As above Admission/Observation Consideration of admission/observation: Escalation of care including admission/observation considered Lab Data [facility] Lab Attestation statement: I reviewed the patient's lab results. 09/03/24 05:08 09/03/24 05:08 Labs: Lab Results 09/03/24 09/03/24 09/03/24 Range/Units 05:08 07:04 08:26 WBC 35.6 H* (4.8-10.8) X10*3/uL RBC 4.51 L (4.60-5.80) X10*6/uL Hgb 13.6 L (14.0-18.0) g/dl Hct 40.7 L (42.0-52.0) % MCV 90.2 (80.0-98.0) fL MCH 30.2 (27.0-33.0) pg MCHC 33.4 (31.0-36.0) g/dl RDW 13.6 (11.0-16.0) % Plt Count 274 D (160-400) X10*3/uL MPV 8.6 L (9.4-12.4) fL Absolute Nucleated RBC 0.000 (0.0-0.012) X10*3/uL Nucleated RBC % (auto) 0.0 (0.0-0.2) /100WBC Smear Path Review SEE NOTE Sodium 136 (135-145) mmol/L Potassium 4.0 (3.3-5.1) mmol/L Chloride 106 (96-108) mmol/L Carbon Dioxide 21 L (22-29) mmol/L Anion Gap 13 (12-20) BUN 15 (9-16) mg/dL Creatinine 1.54 H (0.5-1.4) mg/dL Estim Creat Clear Calc 57.7 Estimated GFR 45 Random Glucose 157 H (60-115) mg/dL Lactic Acid 1.4 (0.5-2.0) mmol/L Calcium 9.4 (8.4-10.2) mg/dL Magnesium 1.7 (1.6-2.6) mg/dL Total Bilirubin 1.5 H (0.0-1.0) mg/dL AST 36 (5-37) U/L ALT 24 (0-40) U/L Alkaline Phosphatase 99 (39-117) U/L Total Protein 8.3 H (6.5-8.0) g/dL Albumin 3.8 (3.5-5.0) g/dL Lipase 22 (8-78) U/L Urine Color RED Urine Appearance Turbid Urine pH 6.0 (5.0-9.0) Ur Specific Sherwood >= 1.030 H (1.005-1.025) Urine Protein 100 (2+) H (Neg-Trace) mg/dL Urine Glucose (UA) Negative (Negative) mg/dL Urine Ketones Negative (Negative) mg/dL Urine Blood Large (3+) H (Negative) Urine Nitrite Negative (Negative) Ur Leukocyte Esterase Trace H (Negative) Urine RBC >20 H (0-2) /HPF Urine WBC 21-50 H (0-5) /HPF Ur Squamous Epith Cells 3-5 (0-2) /HPF Urine Bacteria 2+ (None Seen) Hyaline Casts 0-2 (0-2) /LPF Influenza Type A (PCR) NEGATIVE (Negative) Influenza Type B (PCR) NEGATIVE (Negative) RSV RNA Qual (PCR) NEGATIVE (Negative) SARS-CoV-2 RNA (RT-PCR) NEGATIVE (Negative) Independent Interpretation I performed an independent interpretation of an: CT Scan Radiology Impression Discussion of test interpretation with radiology: I have reviewed the radiologist's reading. External Record Review External record reviewed: Inpatient record, Office record, Outpatient record, Prior outpatient labs, Prior outpatient radiology, Primary care record and Outside ED record Tests considered The following testing was considered but not selected: As above Prescription Management I considered prescription management with: Pain Medication and Antibiotic Chronic Conditions Patient?s care impacted by: Diabetes and Hypertension Social Determinants Patient?s care significantly limited by Social Determinants of Health including: Other Social Determinant of Health Critical Care Time Critical Care Time Critical Care Time: Yes Total Critical Care Time: 40 Attestation: I have personally provided critical care time exclusive of time spent on separately billable procedures. Time includes review of lab data, radiology results, discussion with consultants, and monitoring for potential decompensation. Intervention performed as documented. Discharge Plan Discharge Clinical Impression: Cystitis, Leukocytosis Patient Disposition: Admitted As Inpatient Print Language: [place]
[2024-09-03 07:35] LABS: Lactic Acid 1.4 mmol/L (0.5-2.0)
[2024-09-03] MEDS: cefTRIAXone sodium 1 GM VIAL IVPUSH (07:46)
[2024-09-03 09:16] LABS: Influenza A PCR NEGATIVE (Negative); Influenza B PCR NEGATIVE (Negative); Resp Syncy Virus RNA Qual PCR NEGATIVE (Negative); SARS COV2 PCR INHOUSE NEGATIVE (Negative)
--- NOTE | 2024-09-03 11:07 | P.HPHOSP_ITS ---
History of Present Illness Date of Service: 09/03/24 Chief Complaint: hematuria 68M PMH BPH, CKD 3, diabetes, obesity status post gastric bypass, hypertension, gout, fatty liver presented with 1 day of hematuria. Patient states that symptoms began 1 day prior to presentation. Was having dysuria with urinary frequency and burning also noted to have gross hematuria. Denies fever or chills. 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 Pathology at that time showed atypical small acinar proliferation suspicious for carcinoma. In ED noted to have leukocytosis of 36,000, tachycardia, grossly positive UA. Urine now without gross hematuria though. CT abdomen showed possible BPH versus malignancy with questionable associated inflammatory versus infectious process, hepatomegaly, status post Linda-en-Y. Review of Systems 2 Review of Systems: Yes all other systems are reviewed and are negative [facility] Medical History Diverticulosis Morbid obesity with BMI of 40.0-44.9, adult CKD stage 3 due to type 2 diabetes mellitus Class 2 obesity with body mass index (BMI) of 38.0 to 38.9 in adult Physical exam Arnold-Chiari malformation, type I Testicular pain Dizziness Malabsorption due to intolerance, not elsewhere classified Dyslipidemia B12 deficiency CKD stage 3 due to type 2 diabetes mellitus Diabetes type 2, controlled Hypoglycemia after GI (gastrointestinal) surgery Hypovitaminosis D Essential hypertension Gout Diabetes Family History Father Prostate cancer Mother Diabetes Brother In good health Sister In good health Son No problems noted. Sister In good health Surgical History S/P TURP Kaposi sarcoma History of tonsillectomy Gastric bypass status for obesity Social History Housing: House Alcohol intake: never Patient Tobacco Use Status: Never used Tobacco Smoked in Last 30 Days: No e-Cigarette/Vaping Use: Never Used Second Hand Smoke Exposure: No Use of substances other than those prescribed or required for medical reasons: No Advance Directives: No Advance Directives Information Provided: Yes service: No Current occupational status: employed Current occupational exposures/hazards: No Cognitive needs: No Hearing needs: No Vision needs: Yes Meds Allergies Allergy/AdvReac Type Severity Reaction Status Date / Time canagliflozin [From Invokana] Allergy Intermediate vomitting Verified 09/03/24 04:52 linagliptin [Tradjenta] Allergy Intermediate Cough Verified 09/03/24 04:52 phentermine Allergy Intermediate insomnia,pa Verified 09/03/24 04:52 lpitations tuberculin, purified protein Allergy Mild RASH Verified 09/03/24 04:52 deriva [From Tuberculin PPD Henny Test] Active Medications: Current Medications Acetaminophen (Acetaminophen 325 Mg Tablet) 650 mg PO Q6H PRN PRN Reason: Pain, Mild 1-3,fever,headache Calcium Carbonate (Calcium Carbonate 750 Mg Tab.Chew) 750 mg PO Q4H PRN PRN Reason: Heartburn Ceftriaxone Sodium (Ceftriaxone Sodium 1 Gm Vial) 1 gm IVPUSH Q24H DANIELLA Dextrose (Dextrose 50 % 25 Gm/50 Ml Syringe) 25 gm IVPUSH Q15M PRN; Protocol PRN Reason: per Hypoglycemia Standing Ord. Enoxaparin Sodium (Enoxaparin Sodium 40 Mg/0.4 Ml Syringe) 40 mg SUBCUT Q24H DANIELLA Glucose (Glucose Gel 15 Gm Gel..Gram.) 15 gm PO Q15M PRN; Protocol PRN Reason: per Hypoglycemia Standing Ord. Insulin Human Lispro (Insulin Lispro 100 Unit/Ml 3 Ml Vial) 0 unit SUBCUT QIDACHS [facility]; Protocol Magnesium Hydroxide (Milk Of Magnesia 30 Ml Oral.Susp) 30 ml PO DAILY PRN PRN Reason: Constipation Melatonin (Melatonin 3 Mg Tablet) 6 mg PO BEDTIME PRN PRN Reason: Insomnia Sodium Chloride (0.9 % Sodium Chloride Flush 3 Ml Syringe) 3 ml IVFLUSH QSHIFT [facility] Home Medications ?Medication ?Instructions ?Recorded ?Confirmed ?Last Taken ?Type multivitamin 1 tab PO DAILY 12/07/21 05/11/24 Unknown History sennosides 8.6 mg tablet (senna) 8.6 mg PO BEDTIME PRN constipation 07/06/22 05/11/24 Unknown History Physical Exam 2 Vital Signs and Narrative: Vital Signs: Last Vital Signs Temp 97.2 F 09/03/24 06:15 Pulse 95 09/03/24 06:15 Resp 18 09/03/24 06:15 BP 117/79 09/03/24 06:15 Pulse Ox 95 09/03/24 06:15 O2 Del Method Room Air 09/03/24 06:15 BMI result Body Mass Index 38.8 General: AO X 3, no acute distress Resp: CTA bilateral, no accessory muscles used CVS: S1,S2,RRR GI: soft, non tender, non distended Neuro: motor grossly intact, alert Psych: appropriate affect, appropriate insight Results Labs 09/03/24 05:08 09/03/24 05:08 Labs: Laboratory Results - last 24 hr 09/03/24 09/03/24 09/03/24 05:08 07:04 08:26 MCV 90.2 MCH 30.2 MCHC 33.4 RDW 13.6 Plt Count 274 D MPV 8.6 L Absolute Nucleated RBC 0.000 Nucleated RBC % (auto) 0.0 Smear Path Review SEE NOTE Anion Gap 13 Estim Creat Clear Calc 57.7 Estimated GFR 45 Random Glucose 157 H Lactic Acid 1.4 Calcium 9.4 Magnesium 1.7 Total Bilirubin 1.5 H AST 36 ALT 24 Alkaline Phosphatase 99 Total Protein 8.3 H Albumin 3.8 Lipase 22 Urine Color RED Urine Appearance Turbid Urine pH 6.0 Ur Specific [place] >= 1.030 H Urine Protein 100 (2+) H Urine Glucose (UA) Negative Urine Ketones Negative Urine Blood Large (3+) H Urine Nitrite Negative Ur Leukocyte Esterase Trace H Urine RBC >20 H Urine WBC 21-50 H Ur Squamous Epith Cells 3-5 Urine Bacteria 2+ Hyaline Casts 0-2 Influenza Type A (PCR) NEGATIVE Influenza Type B (PCR) NEGATIVE RSV RNA Qual (PCR) NEGATIVE SARS-CoV-2 RNA (RT-PCR) NEGATIVE Imaging Radiologist's Impressions: Impressions Abdomen/Pelvis CT 09/03/24 08:12 IMPRESSION: Consider benign prostate hyperplasia versus malignancy with questionable associated the/superimposed inflammatory versus infectious process. Alternative diagnosis of acute cystitis in the correct clinical settings. Diverticular disease/diverticulosis. Cholelithiasis. Hepatomegaly, mild to moderate with questionable hepatocellular disease. Probable nonobstructing nephrolithiasis, right kidney. Fat-containing umbilical and inguinal hernias. 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 Status post Linda-en-Y procedure.. Fleischner guidelines were followed. Electronically signed by: Antione Siddiqui MD 09/03/2024 08:56 AM EST JAIMIE Assessment and Plan (1) Essential hypertension: Status: Acute Plan 68M PMH BPH, CKD 3, diabetes, obesity status post gastric bypass, gout, hypertension, fatty liver presented with 1 day of hematuria Sepsis due to urinary tract infection Ceftriaxone, follow up cultures, follow up differential and CBC Concern for prostate malignancy Urology eval Diabetes Insulin sliding scale History of obesity status post gastric bypass On Ozempic as outpatient CKD 3 Stable Gout On allopurinol Hypertension Lisinopril Fatty liver Likely nonalcoholic fatty liver Weight loss recommended DVT prophylaxis-Lovenox (currently no gross hematuria) Full code Given patient's sepsis due to urinary tract infection will require at least 2 midnights inpatient for IV antibiotics and pending cultures Quality Stroke Does the patient have a stroke diagnosis?: No VTE Prior VTE?: No VTE Risk Level:: Medical - moderate - high VTE Device Contraindication: Treatment Not Indicated VTE Drug Contraindication: N/A - Med Ordered
[2024-09-03 12:08] VITALS: BP 107/69; PULSE 84; RESP 18; O2SAT 97
[2024-09-03 12:08] LABS: Band Neutrophils Percent 3 % (3-5); Eosinophils Absolute Manual 0.4 X10*3/uL (0.0-0.4); Eosinophils Percent Manual 1 % (0-4); Lymphocytes Absolute Manual 1.1 X10*3/uL (1.2-4.9); Lymphocytes Percent Manual 3 % (20-40); Monocytes Absolute Manual 2.5 X10*3/uL (0.1-1.2); Monocytes Percent Manual 7 % (2-11); Neutrophils Absolute Manual 31.3 X10*3/uL (2.0-8.3); Neutrophils Percent Manual 85 % (45-73)
[2024-09-03 12:09] LABS: Burr Cells 1+ (0-2) /OIF; Platelet Estimate NORMAL (NORMAL); Platelet Morphology Comment NORMAL; RBC Morphology NOTED
[2024-09-03 12:10] LABS: Polychromasia 1+ (0-2) /OIF; Toxic Vacuolation PRESENT
[2024-09-03 12:12] LABS: Glucose, Whole Blood 130 mg/dL (60-115)
--- NOTE | 2024-09-03 12:29 | PM.UROCN ---
History of Present Illness Consult details Consult date: 09/03/24 Narrative: CC: Cystitis with hematuria 68-year-old Welsh-speaking male Presents with 1 day of hematuria associated dysuria with urinary frequency Prior GreenLight laser 01/02/2024. Recent PSA 4.5. Had urology follow-up last month but has rescheduled. WBC 34063, tachycardic and UA positive leukocyte negative nitrite positive blood Imaging shows BPH with cystitis Urine culture pending Would keep Davis catheter Await urine culture Continue antibiotics Ensure diabetic control Review of Systems Constitutional: Constitutional: Reports as per HPI and Reports no additional constitutional complaints Cardiovascular: Cardiovascular: Reports as per HPI and Reports no additional cardiovascular complaints Respiratory: Respiratory: Reports as per HPI and Reports no additional respiratory complaints Gastrointestinal: Gastrointestinal: Reports as per HPI and Reports no additional gastrointestinal complaints Genitourinary: Genitourinary: Reports as per HPI Musculoskeletal: Musculoskeletal: Reports no additional musculoskeletal complaints and Reports as per HPI Neurologic: Reports system reviewed and no additional complaints, except as documented and Reports as per HPI [facility] Past Medical History Medical History Diverticulosis Morbid obesity with BMI of 40.0-44.9, adult CKD stage 3 due to type 2 diabetes mellitus Class 2 obesity with body mass index (BMI) of 38.0 to 38.9 in adult Physical exam Arnold-Chiari malformation, type I Testicular pain Dizziness Malabsorption due to intolerance, not elsewhere classified Dyslipidemia B12 deficiency CKD stage 3 due to type 2 diabetes mellitus Diabetes type 2, controlled Hypoglycemia after GI (gastrointestinal) surgery Hypovitaminosis D Essential hypertension Gout Diabetes Family History Family History Father Prostate cancer Mother Diabetes Brother In good health Sister In good health Son No problems noted. Sister In good health Surgical History Surgical History S/P TURP Kaposi sarcoma History of tonsillectomy Gastric bypass status for obesity Social History Social History Housing: House Alcohol intake: never Patient Tobacco Use Status: Never used Tobacco Smoked in Last 30 Days: No e-Cigarette/Vaping Use: Never Used Second Hand Smoke Exposure: No Use of substances other than those prescribed or required for medical reasons: No Advance Directives: No Advance Directives Information Provided: Yes service: No Current occupational status: employed Current occupational exposures/hazards: No Cognitive needs: No Hearing needs: No Vision needs: Yes Meds Allergies Allergy/AdvReac Type Severity Reaction Status Date / Time canagliflozin [From Invokana] Allergy Intermediate vomitting Verified 09/03/24 04:52 linagliptin [Tradjenta] Allergy Intermediate Cough Verified 09/03/24 04:52 phentermine Allergy Intermediate insomnia,pa Verified 09/03/24 04:52 lpitations tuberculin, purified protein Allergy Mild RASH Verified 09/03/24 04:52 deriva [From Tuberculin PPD Henny Test] Active Medications: Current Medications Acetaminophen (Acetaminophen 325 Mg Tablet) 650 mg PO Q6H PRN PRN Reason: Pain, Mild 1-3,fever,headache Allopurinol (Allopurinol 100 Mg Tablet) 200 mg PO DAILY DANIELLA Aspirin (Aspirin Enteric Coated 81 Mg Tablet.Dr) 81 mg PO DAILY DANIELLA Calcium Carbonate (Calcium Carbonate 750 Mg Tab.Chew) 750 mg PO Q4H PRN PRN Reason: Heartburn Ceftriaxone Sodium (Ceftriaxone Sodium 1 Gm Vial) 1 gm IVPUSH Q24H DANIELLA Dextrose (Dextrose 50 % 25 Gm/50 Ml Syringe) 25 gm IVPUSH Q15M PRN; Protocol PRN Reason: per Hypoglycemia Standing Ord. Enoxaparin Sodium (Enoxaparin Sodium 40 Mg/0.4 Ml Syringe) 40 mg SUBCUT Q24H DANIELLA Glucose (Glucose Gel 15 Gm Gel..Gram.) 15 gm PO Q15M PRN; Protocol PRN Reason: per Hypoglycemia Standing Ord. Insulin Human Lispro (Insulin Lispro 100 Unit/Ml 3 Ml Vial) 0 unit SUBCUT QIDACHS [facility]; Protocol Last Admin: 09/03/24 12:26 Dose: Not Given Lisinopril (Lisinopril 20 Mg Tablet) 20 mg PO DAILY DANIELLA; Protocol Magnesium Hydroxide (Milk Of Magnesia 30 Ml Oral.Susp) 30 ml PO DAILY PRN PRN Reason: Constipation Melatonin (Melatonin 3 Mg Tablet) 6 mg PO BEDTIME PRN PRN Reason: Insomnia Sodium Chloride (0.9 % Sodium Chloride Flush 3 Ml Syringe) 3 ml IVFLUSH QSHIFT DANIELLA Tamsulosin HCl (Tamsulosin Hcl 0.4 Mg Capsule) 0.4 mg PO BEDTIME DANIELLA Home Medications ?Medication ?Instructions ?Recorded ?Confirmed ?Last Taken ?Type multivitamin 1 tab PO DAILY 12/07/21 05/11/24 Unknown History sennosides 8.6 mg tablet (senna) 8.6 mg PO BEDTIME PRN constipation 07/06/22 05/11/24 Unknown History Physical Exam Vital Signs: Vital Signs: Last Vital Signs Temp 97.2 F 09/03/24 06:15 Pulse 84 09/03/24 12:08 Resp 18 09/03/24 12:08 BP 107/69 09/03/24 12:08 Pulse Ox 97 09/03/24 12:08 O2 Del Method Room Air 09/03/24 12:08 BMI result Body Mass Index 38.8 Const: General: cooperative, healthy appearing, comfortable and no acute distress Orientation/consciousness: patient oriented x3 HEENT: Face and sinus: Yes normal facial exam Mouth: moist mucous membranes Neck: Neck: Yes normal visual inspection, Yes full ROM and Yes trachea midline Chest: Chest palpation & inspection: normal inspection of the chest Resp: Effort & Inspection: normal respiratory effort, able to speak in complete sentences and no respiratory distress GI: Inspection: Yes normal to inspection Back/Spine/Pelvis: Cervical Spine: normal cervical lordosis Thoracic/Lumbar Spine: thoracic and lumbar spine normal to inspection Skin: General skin exam: no rashes or lesions noted Neuro: General: patient oriented x3, tone normal and moves all extremities Extrem: General: Yes normal to inspection and Yes capillary refill normal Results Labs 09/03/24 05:08 09/03/24 05:08 Labs: Abnormal lab results 09/03/24 09/03/24 Range/Units 05:08 12:05 WBC 35.6 H* (4.8-10.8) X10*3/uL RBC 4.51 L (4.60-5.80) X10*6/uL Hgb 13.6 L (14.0-18.0) g/dl Hct 40.7 L (42.0-52.0) % MPV 8.6 L (9.4-12.4) fL Neutrophils % (Manual) 85 H (45-73) % Lymphocytes % (Manual) 3 L (20-40) % Abs Neuts (Manual) 31.3 H (2.0-8.3) X10*3/uL Lymphocytes # (Manual) 1.1 L (1.2-4.9) X10*3/uL Monocytes # (Manual) 2.5 H (0.1-1.2) X10*3/uL Carbon Dioxide 21 L (22-29) mmol/L Creatinine 1.54 H (0.5-1.4) mg/dL POC Glucose 130 H (60-115) mg/dL Random Glucose 157 H (60-115) mg/dL Total Bilirubin 1.5 H (0.0-1.0) mg/dL Total Protein 8.3 H (6.5-8.0) g/dL Ur Specific [place] >= 1.030 H (1.005-1.025) Urine Protein 100 (2+) H (Neg-Trace) mg/dL Urine Blood Large (3+) H (Negative) Ur Leukocyte Esterase Trace H (Negative) Urine RBC >20 H (0-2) /HPF Urine WBC 21-50 H (0-5) /HPF Short CBC 09/03/24 Range/Units 05:08 WBC 35.6 H* (4.8-10.8) X10*3/uL Hgb 13.6 L (14.0-18.0) g/dl Hct 40.7 L (42.0-52.0) % Plt Count 274 D (160-400) X10*3/uL BMP 09/03/24 05:08 Sodium 136 Potassium 4.0 Chloride 106 Carbon Dioxide 21 L BUN 15 Creatinine 1.54 H Calcium 9.4 Liver Function 09/03/24 Range/Units 05:08 Total Bilirubin 1.5 H (0.0-1.0) mg/dL AST 36 (5-37) U/L ALT 24 (0-40) U/L Alkaline Phosphatase 99 (39-117) U/L Albumin 3.8 (3.5-5.0) g/dL Urine 09/03/24 Range/Units 05:08 Urine Color RED Urine Appearance Turbid Urine pH 6.0 (5.0-9.0) Ur Specific [place] >= 1.030 H (1.005-1.025) Urine Protein 100 (2+) H (Neg-Trace) mg/dL Urine Glucose (UA) Negative (Negative) mg/dL All other labs normal. Assessment and Plan (1) Acute hemorrhagic cystitis: Status: Acute Plan Broad-spectrum antibiotics Karin once culture result finalize Procedures Date of Service Date of Service: 09/03/24
--- NOTE | 2024-09-03 13:15 | PHA.MEDREC ---
Addendum entered by Chhaya Ventura RPh 09/03/24 13:39: Reviewed by [facility], will let provider know pt takes Flomax PRN Original Note: Pharmacy Consult ? Medication Reconciliation Pharmacy has completed the medication reconciliation. Spoke with patient utilizing plasma center nurse and patient was able to confirm his medications. He confirmed the Ozempic injection once a week on Mondays and confirmed he took this Saturday. He claims he uses his Tamsulosin 0.4mg tab as needed for an enlarge prostate. He confirmed he is still also using the Finasteride 5mg tab once daily. He states he last took his medications yesterday morning.
--- NOTE | 2024-09-03 14:23 | PC.NURSE ---
Pt has been resting comfortably in stretcher. Denies pain discomfort, hematuria has now resolved. Aware of plan for care, uro consult. Report given to overai.
[2024-09-03] MEDS: Milk of Magnesia 30 ML ORAL.SUSP PO (14:29)
[2024-09-03 15:08] VITALS: BP 111/71; PULSE 84; RESP 20; TEMP 37.9; O2SAT 94
[2024-09-03] MEDS: 0.9 % Sodium Chloride Flush 3 ML SYRINGE IVFLUSH ×2 (15:31→20:47)
[2024-09-03 16:18] LABS: Glucose, Whole Blood 142 mg/dL (60-115)
--- NOTE | 2024-09-03 20:05 | PC.NURSE ---
Assumed care of patient at 19:00. Patient seen in ED overflow, awaiting PT/CM. A&Ox4. Pt incontinent of urine in bed this evening. Incontinence care provided, linens and gown changed. Verbal reassurance given. Continues with chronic cough per pt report. Non-productive. Breathing is even and unlabored without distress. Call chavez within reach, patient and visitors educated on use. Pt denies pain including chest pain, sob, n/v. Ambulates steadily in room. Safety measures in place.
[2024-09-03] MEDS: Tamsulosin HCL 0.4 MG CAPSULE PO (20:47)
[2024-09-03] MEDS: Atorvastatin Calcium 40 MG TABLET PO (20:47)
[2024-09-03 21:02] LABS: Glucose, Whole Blood 139 mg/dL (60-115)
[2024-09-03 22:51] VITALS: BP 99/61; PULSE 66; RESP 22; TEMP 36.2; O2SAT 94
[2024-09-04 04:59] VITALS: BP 110/64; PULSE 70; RESP 18; TEMP 36.4; O2SAT 97
--- NOTE | 2024-09-04 04:59 | PC.NURSE ---
pt reposition for comfort by tech, pt resting in bed, no sign of distress.
--- NOTE | 2024-09-04 06:45 | PC.NURSE ---
pt oob with a steady gait.
[2024-09-04 06:55] LABS: Hematocrit 37.1 % (42.0-52.0); Hemoglobin 12.6 g/dl (14.0-18.0); Mean Corpuscular Hemoglobin 30.7 pg (27.0-33.0); Mean Corpuscular Volume 90.5 fL (80.0-98.0); Mean Platelet Volume 8.9 fL (9.4-12.4); Platelet Count 244 X10*3/uL (160-400); Red Cell Distribution Width 13.5 % (11.0-16.0); White Blood Count 22.1 X10*3/uL (4.8-10.8)
[2024-09-04 06:59] LABS: Anion Gap 11 (12-20); Blood Urea Nitrogen 15 mg/dL (9-16); Calcium 9.1 mg/dL (8.4-10.2); Carbon Dioxide 23 mmol/L (22-29); Chloride 107 mmol/L (96-108); Creatinine Clr Calc Pharmacy 77.9; Estimated Glomerular Filt Rate > 60; Glucose Random 108 mg/dL (60-115); Potassium 3.9 mmol/L (3.3-5.1); Sodium 137 mmol/L (135-145)
[2024-09-04 07:51] LABS: Glucose, Whole Blood 112 mg/dL (60-115)
[2024-09-04] MEDS: Cholecalciferol (Vitamin D3) 25 MCG TABLET 50 MCG PO (08:48)
[2024-09-04] MEDS: Aspirin Enteric Coated 81 MG TABLET.DR PO (08:48)
[2024-09-04] MEDS: allopurinoL 100 MG TABLET 200 MG PO (08:48)
[2024-09-04] MEDS: Cyanocobalamin (Vitamin B-12) 1,000 MCG TABLET 1000 MCG PO (08:48)
[2024-09-04] MEDS: Multivitamin TABLET 1 TAB PO (08:48)
[2024-09-04] MEDS: Finasteride 5 MG TABLET PO (08:48)
[2024-09-04] MEDS: 0.9 % Sodium Chloride Flush 3 ML SYRINGE IVFLUSH ×3 (08:50→23:23)
[2024-09-04 11:03] VITALS: BP 110/65; PULSE 69; RESP 15; TEMP 36.8; O2SAT 98
[2024-09-04] MEDS: Enoxaparin Sodium 40 MG/0.4 ML SYRINGE SUBCUT (11:25)
[2024-09-04 11:35] LABS: Glucose, Whole Blood 121 mg/dL (60-115)
--- NOTE | 2024-09-04 13:12 | HO.PM.IMPN ---
Subjective Subjective Date of Service: 09/04/24 Interval History: Seen and examined this morning with cataloging assistant services Patient reports feeling well Denies any dysuria or hematuria Discussed with him about positive blood cultures Review of Systems Negative except HPI/interval history. Physical Exam Vital Signs: Vital Signs: Last Vital Signs Temp 98.2 F 09/04/24 11:03 Pulse 69 09/04/24 11:03 Resp 15 09/04/24 11:03 BP 110/65 09/04/24 11:03 Pulse Ox 98 09/04/24 11:03 O2 Del Method Room Air 09/04/24 11:03 BMI result Body Mass Index 38.8 Const: Other: General - no acute distress, appears comfortable Cardiovascular - regular rate and rhythm, S1-S2 Lungs - normal respiratory effort, clear to auscultation bilaterally, no wheezing Abdomen - soft, nontender, no rebound or guarding Extremities - no edema bilaterally Neuro - awake and alert, no focal deficits Objective Data Active Medications Acetaminophen (Acetaminophen 325 Mg Tablet) 650 mg PO Q6H PRN PRN Reason: Pain, Mild 1-3,fever,headache Allopurinol (Allopurinol 100 Mg Tablet) 200 mg PO DAILY [facility] Last Admin: 09/04/24 08:48 Dose: 200 mg Documented By: GENEVA Aspirin (Aspirin Enteric Coated 81 Mg Tablet.) 81 mg PO DAILY [facility] Last Admin: 09/04/24 08:48 Dose: 81 mg Documented By: GENEVA Atorvastatin Calcium (Atorvastatin Calcium 40 Mg Tablet) 40 mg PO BEDTIME [facility] Last Admin: 09/03/24 20:47 Dose: 40 mg Documented By: RASHMI Calcium Carbonate (Calcium Carbonate 750 Mg Tab.Chew) 750 mg PO Q4H PRN PRN Reason: Heartburn Ceftriaxone Sodium (Ceftriaxone Sodium 1 Gm Vial) 1 gm IVPUSH Q24H [facility] Cyanocobalamin (Cyanocobalamin (Vitamin B-12) 1,000 Mcg Tablet) 1,000 mcg PO DAILY [facility] Last Admin: 09/04/24 08:48 Dose: 1,000 mcg Documented By: GENEVA Dextrose (Dextrose 50 % 25 Gm/50 Ml Syringe) 25 gm IVPUSH Q15M PRN; Protocol PRN Reason: per Hypoglycemia Standing Ord. Enoxaparin Sodium (Enoxaparin Sodium 40 Mg/0.4 Ml Syringe) 40 mg SUBCUT Q24H [facility] Last Admin: 09/04/24 11:25 Dose: 40 mg Documented By: SURY Finasteride (Finasteride 5 Mg Tablet) 5 mg PO DAILY [facility] Last Admin: 09/04/24 08:48 Dose: 5 mg Documented By: GENEVA Glucose (Glucose Gel 15 Gm Gel..Gram.) 15 gm PO Q15M PRN; Protocol PRN Reason: per Hypoglycemia Standing Ord. Insulin Human Lispro (Insulin Lispro 100 Unit/Ml 3 Ml Vial) 0 unit SUBCUT QIDACHS [facility]; Protocol Last Admin: 09/04/24 11:32 Dose: Not Given Documented By: SURY Non-Admin Reason: poc 121 Magnesium Hydroxide (Milk Of Magnesia 30 Ml Oral.Susp) 30 ml PO DAILY PRN PRN Reason: Constipation Last Admin: 09/03/24 14:29 Dose: 30 ml Documented By: CALLIE Melatonin (Melatonin 3 Mg Tablet) 6 mg PO BEDTIME PRN PRN Reason: Insomnia Multivitamins/Vitamin C (Multivitamin Tablet) 1 tab PO DAILY [facility] Last Admin: 09/04/24 08:48 Dose: 1 tab Documented By: GENEVA Sodium Chloride (0.9 % Sodium Chloride Flush 3 Ml Syringe) 3 ml IVFLUSH QSHIFT [facility] Last Admin: 09/04/24 08:50 Dose: 3 ml Documented By: GENEVA Tamsulosin HCl (Tamsulosin Hcl 0.4 Mg Capsule) 0.4 mg PO BEDTIME [facility] Last Admin: 09/03/24 20:47 Dose: 0.4 mg Documented By: RASHMI Vitamin D (Cholecalciferol (Vitamin D3) 25 Mcg Tablet) 50 mcg PO DAILY [facility] Last Admin: 09/04/24 08:48 Dose: 50 mcg Documented By: GENEVA Labs 09/04/24 06:31 09/04/24 06:31 Labs: Laboratory Results - last 24 hr 09/03/24 09/03/24 09/04/24 16:11 20:41 06:31 MCV 90.5 MCH 30.7 MCHC 34.0 RDW 13.5 Plt Count 244 MPV 8.9 L Absolute Nucleated RBC 0.000 Nucleated RBC % (auto) 0.0 Anion Gap 11 L Estim Creat Clear Calc 77.9 Estimated GFR > 60 POC Glucose 142 H 139 H Random Glucose 108 Calcium 9.1 Magnesium 2.0 09/04/24 09/04/24 07:44 11:29 MCV MCH MCHC RDW Plt Count MPV Absolute Nucleated RBC Nucleated RBC % (auto) Anion Gap Estim Creat Clear Calc Estimated GFR POC Glucose 112 121 H Random Glucose Calcium Magnesium Microbiology Microbiology Results: Microbiology 09/03/24 Unknown Urine Culture - Preliminary Urine clean catch - Clean Catch Midstream Gram negative jordyn 09/03/24 07:20 Blood Culture - Preliminary Blood - Subclavian No growth after 24 hours. 09/03/24 07:04 Blood Culture - Preliminary Blood - Subclavian Prelim: GNR Gram Stain only Assessment and Plan (1) Sepsis: Status: Acute Plan 68M PMH BPH, CKD 3, diabetes, obesity status post gastric bypass, gout, hypertension, fatty liver presented with 1 day of hematuria Sepsis due to urinary tract infection Gram-negative bacteremia Continue ceftriaxone Follow cultures Concern for prostate malignancy Urology eval appreciated, recommendations to treat infection Diabetes Insulin sliding scale History of obesity status post gastric bypass On Ozempic as outpatient CKD 3 Stable Gout On allopurinol Hypertension Lisinopril Fatty liver Likely nonalcoholic fatty liver Weight loss recommended Full code DVT prophylaxis, Lovenox which he is tolerating without recurrence of hematuria Quality Stroke Does the patient have a stroke diagnosis?: No VTE Prior VTE?: No VTE Risk Level:: Medical - moderate - high VTE Device Contraindication: Treatment Not Indicated VTE Drug Contraindication: N/A - Med Ordered
[2024-09-04] MEDS: cefTRIAXone sodium 1 GM VIAL IVPUSH (13:35)
--- NOTE | 2024-09-04 16:11 | MHC.CM.PN ---
CM MET WITH PT WITH A VIDEO SPECIALIST PT REPORTS HE LIVES WITH HIS AND ONE OF HIS SONS HE IS INDEPENDENT WITH CARE AND WORKS HE DECLINES TO COMPLETE A HCP AT THIS TIME PCP: RAJI NOYOLA IMM DELIVERED DCP: HOME NO SERVICES VIA FAMILY TRANSPORT
[2024-09-04 16:59] LABS: Glucose, Whole Blood 103 mg/dL (60-115)
--- NOTE | 2024-09-04 19:21 | PC.NURSE ---
Assumed care at 1400, patient alert and oriented, Turkish speaking, VSS, patient on RA sats above 98%, intermittent cough, Ambulates independently to the bathroom, no complaints offered, ate 100% dinner. Visitors at bedside.
[2024-09-04 21:11] LABS: Glucose, Whole Blood 187 mg/dL (60-115)
[2024-09-04] MEDS: Tamsulosin HCL 0.4 MG CAPSULE PO (21:55)
[2024-09-04] MEDS: Milk of Magnesia 30 ML ORAL.SUSP PO (21:55)
[2024-09-04] MEDS: Atorvastatin Calcium 40 MG TABLET PO (21:55)
[2024-09-04] MEDS: Insulin Lispro 100 UNIT/ML 3 ML VIAL SUBCUT (21:55)
[2024-09-04 21:58] VITALS: BP 119/70; PULSE 64; RESP 18; TEMP 36.8; O2SAT 98
[2024-09-05 03:36] VITALS: BP 102/60; PULSE 65; RESP 16; TEMP 36.3; O2SAT 97
[2024-09-05 07:19] VITALS: BP 108/61; PULSE 62; RESP 14; TEMP 36.6; O2SAT 98
[2024-09-05 07:35] LABS: Glucose, Whole Blood 117 mg/dL (60-115)
[2024-09-05] MEDS: Cholecalciferol (Vitamin D3) 25 MCG TABLET 50 MCG PO (07:52)
[2024-09-05] MEDS: Finasteride 5 MG TABLET PO (07:53)
[2024-09-05] MEDS: Multivitamin TABLET 1 TAB PO (07:53)
[2024-09-05] MEDS: 0.9 % Sodium Chloride Flush 3 ML SYRINGE IVFLUSH ×3 (07:53→21:35)
[2024-09-05] MEDS: Aspirin Enteric Coated 81 MG TABLET.DR PO (07:53)
[2024-09-05] MEDS: Cyanocobalamin (Vitamin B-12) 1,000 MCG TABLET 1000 MCG PO (07:53)
[2024-09-05] MEDS: allopurinoL 100 MG TABLET 200 MG PO (07:53)
[2024-09-05 10:45] LABS: Hematocrit 37.2 % (42.0-52.0); Hemoglobin 12.5 g/dl (14.0-18.0); Mean Corpuscular HGB Conc 33.6 g/dl (31.0-36.0); Mean Corpuscular Hemoglobin 30.1 pg (27.0-33.0); Mean Corpuscular Volume 89.6 fL (80.0-98.0); Mean Platelet Volume 8.8 fL (9.4-12.4); Platelet Count 282 X10*3/uL (160-400); Red Blood Count 4.15 X10*6/uL (4.60-5.80); Red Cell Distribution Width 13.3 % (11.0-16.0); White Blood Count 8.4 X10*3/uL (4.8-10.8)
[2024-09-05] MEDS: cefTRIAXone sodium 1 GM VIAL IVPUSH (11:16)
[2024-09-05] MEDS: Enoxaparin Sodium 40 MG/0.4 ML SYRINGE SUBCUT (11:16)
[2024-09-05 11:19] LABS: Glucose, Whole Blood 172 mg/dL (60-115)
[2024-09-05] MEDS: Insulin Lispro 100 UNIT/ML 3 ML VIAL SUBCUT ×2 (11:29→21:35)
[2024-09-05 15:07] VITALS: BP 111/76; PULSE 55; RESP 14; TEMP 36.7; O2SAT 97
--- NOTE | 2024-09-05 15:36 | HO.PM.IMPN ---
Subjective Subjective Date of Service: 09/05/24 Interval History: uti,bacteremia Review of Systems denies any abd pain or new urinary c/o Physical Exam Vital Signs: Vital Signs: Last Vital Signs Temp 98.0 F 09/05/24 15:07 Pulse 55 09/05/24 15:07 Resp 14 09/05/24 15:07 BP 111/76 09/05/24 15:07 Pulse Ox 97 09/05/24 15:07 O2 Del Method Room Air 09/05/24 15:07 BMI result Body Mass Index 38.8 General - no acute distress, appears comfortable Cardiovascular - regular rate and rhythm, S1-S2 Lungs - normal respiratory effort, clear to auscultation bilaterally, no wheezing Abdomen - soft, nontender, no rebound or guarding Extremities - no edema bilaterally Neuro - awake and alert, no focal deficits Objective Data Active Medications Acetaminophen (Acetaminophen 325 Mg Tablet) 650 mg PO Q6H PRN PRN Reason: Pain, Mild 1-3,fever,headache Allopurinol (Allopurinol 100 Mg Tablet) 200 mg PO DAILY [facility] Last Admin: 09/05/24 07:53 Dose: 200 mg Documented By: RANDALL Aspirin (Aspirin Enteric Coated 81 Mg Tablet.) 81 mg PO DAILY [facility] Last Admin: 09/05/24 07:53 Dose: 81 mg Documented By: RANDALL Atorvastatin Calcium (Atorvastatin Calcium 40 Mg Tablet) 40 mg PO BEDTIME [facility] Last Admin: 09/04/24 21:55 Dose: 40 mg Documented By: VINCENT Calcium Carbonate (Calcium Carbonate 750 Mg Tab.Chew) 750 mg PO Q4H PRN PRN Reason: Heartburn Ceftriaxone Sodium (Ceftriaxone Sodium 1 Gm Vial) 1 gm IVPUSH Q24H [facility] Last Admin: 09/05/24 11:16 Dose: 1 gm Documented By: RANDALL Cyanocobalamin (Cyanocobalamin (Vitamin B-12) 1,000 Mcg Tablet) 1,000 mcg PO DAILY [facility] Last Admin: 09/05/24 07:53 Dose: 1,000 mcg Documented By: RANDALL Dextrose (Dextrose 50 % 25 Gm/50 Ml Syringe) 25 gm IVPUSH Q15M PRN; Protocol PRN Reason: per Hypoglycemia Standing Ord. Enoxaparin Sodium (Enoxaparin Sodium 40 Mg/0.4 Ml Syringe) 40 mg SUBCUT Q24H [facility] Last Admin: 09/05/24 11:16 Dose: 40 mg Documented By: RANDALL Finasteride (Finasteride 5 Mg Tablet) 5 mg PO DAILY [facility] Last Admin: 09/05/24 07:53 Dose: 5 mg Documented By: RANDALL Glucose (Glucose Gel 15 Gm Gel..Gram.) 15 gm PO Q15M PRN; Protocol PRN Reason: per Hypoglycemia Standing Ord. Insulin Human Lispro (Insulin Lispro 100 Unit/Ml 3 Ml Vial) 0 unit SUBCUT QIDACHS [facility]; Protocol Last Admin: 09/05/24 11:29 Dose: 2 unit Documented By: RANDALL Magnesium Hydroxide (Milk Of Magnesia 30 Ml Oral.Susp) 30 ml PO DAILY PRN PRN Reason: Constipation Last Admin: 09/04/24 21:55 Dose: 30 ml Documented By: VINCENT Melatonin (Melatonin 3 Mg Tablet) 6 mg PO BEDTIME PRN PRN Reason: Insomnia Multivitamins/Vitamin C (Multivitamin Tablet) 1 tab PO DAILY [facility] Last Admin: 09/05/24 07:53 Dose: 1 tab Documented By: RANDALL Sodium Chloride (0.9 % Sodium Chloride Flush 3 Ml Syringe) 3 ml IVFLUSH QSHIFT [facility] Last Admin: 09/05/24 07:53 Dose: 3 ml Documented By: RANDALL Tamsulosin HCl (Tamsulosin Hcl 0.4 Mg Capsule) 0.4 mg PO BEDTIME [facility] Last Admin: 09/04/24 21:55 Dose: 0.4 mg Documented By: VINCENT Vitamin D (Cholecalciferol (Vitamin D3) 25 Mcg Tablet) 50 mcg PO DAILY [facility] Last Admin: 09/05/24 07:52 Dose: 50 mcg Documented By: RANDALL Labs 09/05/24 10:33 09/04/24 06:31 Labs: Laboratory Results - last 24 hr 09/04/24 09/04/24 09/05/24 16:56 21:07 07:22 MCV MCH MCHC RDW Plt Count MPV Absolute Nucleated RBC Nucleated RBC % (auto) POC Glucose 103 187 H 117 H 09/05/24 09/05/24 10:33 11:12 MCV 89.6 MCH 30.1 MCHC 33.6 RDW 13.3 Plt Count 282 MPV 8.8 L Absolute Nucleated RBC 0.000 Nucleated RBC % (auto) 0.0 POC Glucose 172 H Microbiology Microbiology Results: Microbiology 09/03/24 07:04 Blood Culture - Preliminary Blood - Subclavian Gram negative jordyn 09/03/24 07:20 Blood Culture - Preliminary Blood - Subclavian No growth after 48 hours. 09/03/24 Unknown Urine Culture - Final Urine clean catch - Clean Catch Midstream Escherichia coli Assessment and Plan (1) Sepsis: Status: Acute (2) Acute hemorrhagic cystitis: Status: Acute Assessment and Plan: 68M PMH BPH, CKD 3, diabetes, obesity status post gastric bypass, gout, hypertension, fatty liver presented with 1 day of hematuria Sepsis due to urinary tract infection leucocytosis resolved Gram-negative bacteremia Continue ceftriaxone Follow cultures id eval added for above. Concern for prostate malignancy Urology eval appreciated, recommendations to treat infection Diabetes Insulin sliding scale History of obesity status post gastric bypass On Ozempic as outpatient CKD 3 Stable Gout On allopurinol Hypertension Lisinopril Fatty liver Likely nonalcoholic fatty liver Weight loss recommended Full code DVT prophylaxis, Lovenox which he is tolerating without recurrence of hematuria Quality Stroke Does the patient have a stroke diagnosis?: No VTE Prior VTE?: No VTE Risk Level:: Medical - moderate - high VTE Device Contraindication: Treatment Not Indicated VTE Drug Contraindication: N/A - Med Ordered
[2024-09-05 16:27] LABS: Glucose, Whole Blood 119 mg/dL (60-115)
--- NOTE | 2024-09-05 19:29 | W.PM.IDCN ---
History of Present Illness Data of Consult Service Date: 09/05/24 Requesting physician: Kathy Hernandez Primary Care Provider: Maryam Black MD HPI Reason for consult: sepsis He presents with one day frequency and urgency as well as hematuria. He has WBC 36,000. He has CT scan shows increased prostate gland size with nodules. He has gram negative jordyn 09/03 in blood and urine E coli sensitive to Cefepime,Ceftriaxone and Kefzol. He saw Urology He is feeling better. Review of Systems Review of Systems: Yes all other systems are reviewed and are negative [facility] Past Medical History Medical History Diverticulosis Morbid obesity with BMI of 40.0-44.9, adult CKD stage 3 due to type 2 diabetes mellitus Class 2 obesity with body mass index (BMI) of 38.0 to 38.9 in adult Physical exam Arnold-Chiari malformation, type I Testicular pain Dizziness Malabsorption due to intolerance, not elsewhere classified Dyslipidemia B12 deficiency CKD stage 3 due to type 2 diabetes mellitus Diabetes type 2, controlled Hypoglycemia after GI (gastrointestinal) surgery Hypovitaminosis D Essential hypertension Gout Diabetes Family History Family History Father Prostate cancer Mother Diabetes Brother In good health Sister In good health Son No problems noted. Sister In good health Family history: reviewed and not pertinent Surgical History Surgical History S/P TURP Kaposi sarcoma History of tonsillectomy Gastric bypass status for obesity Social History Social History Household Members: Spouse and Children Housing: House Do you presently have visiting nurse or other home services: No Alcohol intake: never Patient Tobacco Use Status: Never used Tobacco e-Cigarette/Vaping Use: Never Used Second Hand Smoke Exposure: No service: No Current occupational status: employed Current occupational exposures/hazards: No Cognitive needs: No Hearing needs: No Vision needs: Yes Meds Allergies Allergy/AdvReac Type Severity Reaction Status Date / Time canagliflozin [From Invokana] Allergy Intermediate vomitting Verified 09/03/24 04:52 linagliptin [Tradjenta] Allergy Intermediate Cough Verified 09/03/24 04:52 phentermine Allergy Intermediate insomnia,pa Verified 09/03/24 04:52 lpitations tuberculin, purified protein Allergy Mild RASH Verified 09/03/24 04:52 deriva [From Tuberculin PPD Henny Test] Active Medications: Current Medications Acetaminophen (Acetaminophen 325 Mg Tablet) 650 mg PO Q6H PRN PRN Reason: Pain, Mild 1-3,fever,headache Allopurinol (Allopurinol 100 Mg Tablet) 200 mg PO DAILY [facility] Last Admin: 09/05/24 07:53 Dose: 200 mg Aspirin (Aspirin Enteric Coated 81 Mg Tablet.Dr) 81 mg PO DAILY [facility] Last Admin: 09/05/24 07:53 Dose: 81 mg Atorvastatin Calcium (Atorvastatin Calcium 40 Mg Tablet) 40 mg PO BEDTIME [facility] Last Admin: 09/04/24 21:55 Dose: 40 mg Calcium Carbonate (Calcium Carbonate 750 Mg Tab.Chew) 750 mg PO Q4H PRN PRN Reason: Heartburn Ceftriaxone Sodium (Ceftriaxone Sodium 1 Gm Vial) 1 gm IVPUSH Q24H [facility] Last Admin: 09/05/24 11:16 Dose: 1 gm Cyanocobalamin (Cyanocobalamin (Vitamin B-12) 1,000 Mcg Tablet) 1,000 mcg PO DAILY [facility] Last Admin: 09/05/24 07:53 Dose: 1,000 mcg Dextrose (Dextrose 50 % 25 Gm/50 Ml Syringe) 25 gm IVPUSH Q15M PRN; Protocol PRN Reason: per Hypoglycemia Standing Ord. Enoxaparin Sodium (Enoxaparin Sodium 40 Mg/0.4 Ml Syringe) 40 mg SUBCUT Q24H [facility] Last Admin: 09/05/24 11:16 Dose: 40 mg Finasteride (Finasteride 5 Mg Tablet) 5 mg PO DAILY [facility] Last Admin: 09/05/24 07:53 Dose: 5 mg Glucose (Glucose Gel 15 Gm Gel..Gram.) 15 gm PO Q15M PRN; Protocol PRN Reason: per Hypoglycemia Standing Ord. Insulin Human Lispro (Insulin Lispro 100 Unit/Ml 3 Ml Vial) 0 unit SUBCUT QIDACHS [facility]; Protocol Last Admin: 09/05/24 16:32 Dose: Not Given Magnesium Hydroxide (Milk Of Magnesia 30 Ml Oral.Susp) 30 ml PO DAILY PRN PRN Reason: Constipation Last Admin: 09/04/24 21:55 Dose: 30 ml Melatonin (Melatonin 3 Mg Tablet) 6 mg PO BEDTIME PRN PRN Reason: Insomnia Multivitamins/Vitamin C (Multivitamin Tablet) 1 tab PO DAILY [facility] Last Admin: 09/05/24 07:53 Dose: 1 tab Sodium Chloride (0.9 % Sodium Chloride Flush 3 Ml Syringe) 3 ml IVFLUSH QSHIFT [facility] Last Admin: 09/05/24 16:34 Dose: 3 ml Tamsulosin HCl (Tamsulosin Hcl 0.4 Mg Capsule) 0.4 mg PO BEDTIME [facility] Last Admin: 09/04/24 21:55 Dose: 0.4 mg Vitamin D (Cholecalciferol (Vitamin D3) 25 Mcg Tablet) 50 mcg PO DAILY [facility] Last Admin: 09/05/24 07:52 Dose: 50 mcg Home Medications ?Medication ?Instructions ?Recorded ?Confirmed ?Last Taken ?Type multivitamin 1 tab PO DAILY 12/07/21 09/03/24 09/02/24 History sennosides 8.6 mg tablet (senna) 8.6 mg PO BEDTIME PRN constipation 07/06/22 09/03/24 09/01/24 History finasteride 5 mg tablet 5 mg PO DAILY 09/03/24 09/03/24 09/02/24 History semaglutide 0.25 mg or 0.5 mg (2 0.25 mg subcut [place] 09/03/24 09/03/24 08/31/24 History mg/3 mL) subcutaneous pen injector tamsulosin 0.4 mg capsule 0.4 mg PO BEDTIME PRN Enlarge 09/03/24 09/03/24 09/01/24 History Prostate Physical Exam Vital Signs: Vital Signs: Last Vital Signs Temp 98.0 F 09/05/24 15:07 Pulse 55 09/05/24 15:07 Resp 14 09/05/24 15:07 BP 111/76 09/05/24 15:07 Pulse Ox 97 09/05/24 15:07 O2 Del Method Room Air 09/05/24 15:07 BMI result Body Mass Index 38.8 Const: General: cooperative HEENT: Head: Yes normal to inspection Face and sinus: Yes normal facial exam Mouth: Normal oral and palatal mucosa present Teeth and gingiva: dentition normal Eyes: General: appearance normal, both eyes and all related structures Pupils: Equal, round and reactive pupils present Resp: Effort & Inspection: normal respiratory effort Cardio: Rate: regular rate Rhythm: regular rhythm GI: Palpation (GI): Soft to palpation and nontender : General: Yes no CVA tenderness Back/Spine/Pelvis: Back: no CVA tenderness Skin: General skin exam: no rashes or lesions noted Neuro: General: moves all extremities Cranial nerves: Yes Equal, round and reactive pupils present Extrem: General: Yes normal to inspection Psych: Appearance: grossly normal Results Labs 09/05/24 10:33 09/04/24 06:31 Labs: Short CBC 09/05/24 Range/Units 10:33 WBC 8.4 (4.8-10.8) X10*3/uL Hgb 12.5 L (14.0-18.0) g/dl Hct 37.2 L (42.0-52.0) % Plt Count 282 (160-400) X10*3/uL Microbiology Microbiology Results: Microbiology 09/03/24 07:04 Blood - Subclavian Blood Culture - Preliminary Gram negative jordyn 09/03/24 07:20 Blood - Subclavian Blood Culture - Preliminary No growth after 48 hours. 09/03/24 Unknown Urine clean catch - Clean Catch Midstream Urine Culture - Final Escherichia coli Assessment and Plan (1) Sepsis: Status: Acute (2) Acute hemorrhagic cystitis: Status: Acute Plan He has sepsis related to bacteremia from likely E coli bladder infection,do not think the gallbladder is etiology. Therefore since not gallbladder concern would not add anerobic coverage. He should be treated with 14 days antibiotics total (can finish with po cephalosporin) or 28 days if Urology feels prostate is implicated e.g abscesses.
[2024-09-05 19:39] VITALS: BP 114/74; PULSE 58; RESP 18; TEMP 36.4; O2SAT 96
[2024-09-05 20:31] LABS: Glucose, Whole Blood 165 mg/dL (60-115)
[2024-09-05] MEDS: Atorvastatin Calcium 40 MG TABLET PO (21:34)
[2024-09-05] MEDS: Tamsulosin HCL 0.4 MG CAPSULE PO (21:34)
[2024-09-06 03:15] VITALS: BP 114/68; PULSE 59; RESP 18; TEMP 36.3; O2SAT 95
[2024-09-06 07:30] VITALS: BP 113/64; PULSE 62; RESP 14; TEMP 36.2; O2SAT 96
--- NOTE | 2024-09-06 07:31 | HO.PM.IMPN ---
Subjective Subjective Date of Service: 09/06/24 Interval History: gram negative bacteremia Review of Systems denies any abd pain or new urinary c/o Review of Systems: Yes all other systems are reviewed and are negative Physical Exam Vital Signs: Vital Signs: Last Vital Signs Temp 97.1 F 09/06/24 07:30 Pulse 62 09/06/24 07:30 Resp 14 09/06/24 07:30 BP 113/64 09/06/24 07:30 Pulse Ox 96 09/06/24 07:30 O2 Del Method Room Air 09/06/24 07:30 BMI result Body Mass Index 38.8 General - no acute distress, appears comfortable Cardiovascular - regular rate and rhythm, S1-S2 Lungs - normal respiratory effort, clear to auscultation bilaterally, no wheezing Abdomen - soft, nontender, no rebound or guarding Extremities - no edema bilaterally Neuro - awake and alert, no focal deficits Objective Data Active Medications Acetaminophen (Acetaminophen 325 Mg Tablet) 650 mg PO Q6H PRN PRN Reason: Pain, Mild 1-3,fever,headache Allopurinol (Allopurinol 100 Mg Tablet) 200 mg PO DAILY [facility] Last Admin: 09/05/24 07:53 Dose: 200 mg Documented By: RANDALL Aspirin (Aspirin Enteric Coated 81 Mg Tablet.) 81 mg PO DAILY [facility] Last Admin: 09/05/24 07:53 Dose: 81 mg Documented By: RANDALL Atorvastatin Calcium (Atorvastatin Calcium 40 Mg Tablet) 40 mg PO BEDTIME [facility] Last Admin: 09/05/24 21:34 Dose: 40 mg Documented By: MARVIN Calcium Carbonate (Calcium Carbonate 750 Mg Tab.Chew) 750 mg PO Q4H PRN PRN Reason: Heartburn Ceftriaxone Sodium (Ceftriaxone Sodium 1 Gm Vial) 1 gm IVPUSH Q24H [facility] Last Admin: 09/05/24 11:16 Dose: 1 gm Documented By: RNADALL Cyanocobalamin (Cyanocobalamin (Vitamin B-12) 1,000 Mcg Tablet) 1,000 mcg PO DAILY [facility] Last Admin: 09/05/24 07:53 Dose: 1,000 mcg Documented By: RANDALL Dextrose (Dextrose 50 % 25 Gm/50 Ml Syringe) 25 gm IVPUSH Q15M PRN; Protocol PRN Reason: per Hypoglycemia Standing Ord. Enoxaparin Sodium (Enoxaparin Sodium 40 Mg/0.4 Ml Syringe) 40 mg SUBCUT Q24H [facility] Last Admin: 09/05/24 11:16 Dose: 40 mg Documented By: RANDALL Finasteride (Finasteride 5 Mg Tablet) 5 mg PO DAILY [facility] Last Admin: 09/05/24 07:53 Dose: 5 mg Documented By: RANDALL Glucose (Glucose Gel 15 Gm Gel..Gram.) 15 gm PO Q15M PRN; Protocol PRN Reason: per Hypoglycemia Standing Ord. Insulin Human Lispro (Insulin Lispro 100 Unit/Ml 3 Ml Vial) 0 unit SUBCUT QIDACHS [facility]; Protocol Last Admin: 09/05/24 21:35 Dose: 2 unit Documented By: MARVIN Magnesium Hydroxide (Milk Of Magnesia 30 Ml Oral.Susp) 30 ml PO DAILY PRN PRN Reason: Constipation Last Admin: 09/04/24 21:55 Dose: 30 ml Documented By: VINCENT Melatonin (Melatonin 3 Mg Tablet) 6 mg PO BEDTIME PRN PRN Reason: Insomnia Multivitamins/Vitamin C (Multivitamin Tablet) 1 tab PO DAILY [facility] Last Admin: 09/05/24 07:53 Dose: 1 tab Documented By: RANDALL Sodium Chloride (0.9 % Sodium Chloride Flush 3 Ml Syringe) 3 ml IVFLUSH QSHIFT [facility] Last Admin: 09/05/24 21:35 Dose: 3 ml Documented By: MARVIN Tamsulosin HCl (Tamsulosin Hcl 0.4 Mg Capsule) 0.4 mg PO BEDTIME [facility] Last Admin: 09/05/24 21:34 Dose: 0.4 mg Documented By: MARVIN Vitamin D (Cholecalciferol (Vitamin D3) 25 Mcg Tablet) 50 mcg PO DAILY [facility] Last Admin: 09/05/24 07:52 Dose: 50 mcg Documented By: RANDALL Labs 09/05/24 10:33 09/04/24 06:31 Labs: Laboratory Results - last 24 hr 09/05/24 09/05/24 09/05/24 07:22 10:33 11:12 MCV 89.6 MCH 30.1 MCHC 33.6 RDW 13.3 Plt Count 282 MPV 8.8 L Absolute Nucleated RBC 0.000 Nucleated RBC % (auto) 0.0 POC Glucose 117 H 172 H 09/05/24 09/05/24 16:22 19:42 MCV MCH MCHC RDW Plt Count MPV Absolute Nucleated RBC Nucleated RBC % (auto) POC Glucose 119 H 165 H Microbiology Microbiology Results: Microbiology 09/03/24 07:04 Blood Culture - Final Blood - Subclavian Escherichia coli 09/03/24 07:20 Blood Culture - Preliminary Blood - Subclavian No growth after 48 hours. 09/03/24 Unknown Urine Culture - Final Urine clean catch - Clean Catch Midstream Escherichia coli Assessment and Plan (1) Sepsis: Status: Acute (2) Acute hemorrhagic cystitis: Status: Acute Assessment and Plan: 68M PMH BPH, CKD 3, diabetes, obesity status post gastric bypass, gout, hypertension, fatty liver presented with 1 day of hematuria Sepsis due to urinary tract infection leucocytosis resolved Gram-negative bacteremia Continue ceftriaxone Follow cultures id eval added for above. Concern for prostate malignancy Urology eval appreciated, recommendations to treat infection Diabetes Insulin sliding scale History of obesity status post gastric bypass On Ozempic as outpatient CKD 3 Stable Gout On allopurinol Hypertension Lisinopril Fatty liver Likely nonalcoholic fatty liver Weight loss recommended Full code DVT prophylaxis, Lovenox which he is tolerating without recurrence of hematuria Quality Stroke Does the patient have a stroke diagnosis?: No VTE Prior VTE?: No VTE Risk Level:: Medical - moderate - high VTE Device Contraindication: Treatment Not Indicated VTE Drug Contraindication: N/A - Med Ordered
[2024-09-06 07:43] LABS: Glucose, Whole Blood 126 mg/dL (60-115)
[2024-09-06] MEDS: Cyanocobalamin (Vitamin B-12) 1,000 MCG TABLET 1000 MCG PO (08:34)
[2024-09-06] MEDS: Finasteride 5 MG TABLET PO (08:34)
[2024-09-06] MEDS: Aspirin Enteric Coated 81 MG TABLET.DR PO (08:34)
[2024-09-06] MEDS: Cholecalciferol (Vitamin D3) 25 MCG TABLET 50 MCG PO (08:34)
[2024-09-06] MEDS: Multivitamin TABLET 1 TAB PO (08:34)
[2024-09-06] MEDS: allopurinoL 100 MG TABLET 200 MG PO (08:34)
[2024-09-06] MEDS: 0.9 % Sodium Chloride Flush 3 ML SYRINGE IVFLUSH ×3 (08:38→20:58)
[2024-09-06] MEDS: Enoxaparin Sodium 40 MG/0.4 ML SYRINGE SUBCUT (10:18)
[2024-09-06 11:29] LABS: Glucose, Whole Blood 113 mg/dL (60-115)
[2024-09-06] MEDS: cefTRIAXone sodium 1 GM VIAL IVPUSH (11:51)
[2024-09-06 15:24] VITALS: BP 111/71; PULSE 64; RESP 14; TEMP 36.3; O2SAT 98
[2024-09-06 16:17] LABS: Glucose, Whole Blood 168 mg/dL (60-115)
[2024-09-06] MEDS: Insulin Lispro 100 UNIT/ML 3 ML VIAL SUBCUT (16:50)
[2024-09-06 19:06] VITALS: BP 122/76; PULSE 67; RESP 18; TEMP 36.4; O2SAT 96
[2024-09-06 20:14] LABS: Glucose, Whole Blood 96 mg/dL (60-115)
[2024-09-06] MEDS: Atorvastatin Calcium 40 MG TABLET PO (20:57)
[2024-09-06] MEDS: Tamsulosin HCL 0.4 MG CAPSULE PO (20:57)
[2024-09-07 03:50] VITALS: BP 114/69; PULSE 62; RESP 16; TEMP 36.3; O2SAT 96
[2024-09-07 07:39] LABS: Glucose, Whole Blood 109 mg/dL (60-115)
[2024-09-07 08:00] VITALS: BP 126/81; PULSE 73; RESP 76; TEMP 36; O2SAT 96
[2024-09-07] MEDS: allopurinoL 100 MG TABLET 200 MG PO (08:45)
[2024-09-07] MEDS: Cholecalciferol (Vitamin D3) 25 MCG TABLET 50 MCG PO (08:45)
[2024-09-07] MEDS: Aspirin Enteric Coated 81 MG TABLET.DR PO (08:45)
[2024-09-07] MEDS: Finasteride 5 MG TABLET PO (08:45)
[2024-09-07] MEDS: Cyanocobalamin (Vitamin B-12) 1,000 MCG TABLET 1000 MCG PO (08:45)
[2024-09-07] MEDS: Multivitamin TABLET 1 TAB PO (08:45)
[2024-09-07] MEDS: Enoxaparin Sodium 40 MG/0.4 ML SYRINGE SUBCUT (08:46)
[2024-09-07] MEDS: 0.9 % Sodium Chloride Flush 3 ML SYRINGE IVFLUSH (08:47)
[2024-09-07] MEDS: cefuroxime axetiL 500 MG TABLET PO (10:22)
--- NOTE | 2024-09-07 10:32 | PM.DS ---
DS: Providers Provider Date of Service: 09/07/24 Date of admission: 09/03/24 11:07 Date of discharge: 09/07/24 Primary care physician: Maryam Black MD Consults: 09/03/24 11:02 Consult to Urology Routine Consulting Provider: [facility] Urology Services Reason for consultation: hematuria, ?prostate CA on CT and previous pathology 09/05/24 10:24 Consult to Infectious Diseases Routine Consulting Provider: [facility] Infectious Disease [facility] Reason for consultation: Bacteremia Has provider been notified: No Attending physician on discharge: Kathy Hernandez Discharging clinician: Kathy Hernandez DS: Diagnosis Discharge Diagnosis (1) Sepsis: Status: Acute (2) Acute hemorrhagic cystitis: Status: Acute DS: Summary Hospital Course Hospital Course: hpi:68M PMH BPH, CKD 3, diabetes, obesity status post gastric bypass, hypertension, gout, fatty liver presented with 1 day of hematuria. Patient states that symptoms began 1 day prior to presentation. Was having dysuria with urinary frequency and burning also noted to have gross hematuria. Denies fever or chills. 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 Pathology at that time showed atypical small acinar proliferation suspicious for carcinoma. In ED noted to have leukocytosis of 36,000, tachycardia, grossly positive UA. Urine now without gross hematuria though. CT abdomen showed possible BPH versus malignancy with questionable associated inflammatory versus infectious process, hepatomegaly, status post Linda-en-Y. Hospital course: 68M PMH BPH, CKD 3, diabetes, obesity status post gastric bypass, gout, hypertension, fatty liver presented with 1 day of hematuria: UA shows pyuria/hematuria/bacteriuria, had leukocytosis, blood cultures sent: Patient was admitted for sepsis due to UTI: Started on IV antibiotics, urology evaluation added. With the above supportive management patient seems to be improved significantly, blood culture positive for E coli 1/2 and sensitive to ceftriaxone. Urine culture also positive for E coli sensitive to ceftriaxone. Leukocytosis resolved, no fever. Above was discussed with infectious disease and urology: Concern for UTI more than prostate infection. So recommended Ceftin for 500 mg b.i.d. for 2 weeks. Patient is off Davis, urinating well. In addition his last PSA was 4.5-as per the chart review:Concern for prostate malignancy, patient need to follow up with urology outpatient ,patient has already has appointment. plan: Ceftin for 500 mg b.i.d. for 2 weeks. follow up with urology outpatient. Above management discussed with the patient detail length he understand and in agreement with the above plan, time spent 40 minute. Time Attestation Total time managing care of this patient today: 40 mintues. Discharge Coordination Time (in mins): 40 min Quality: Safe Use of Opioids Does Pt have an Active Cancer Diagnosis on the Problem List?: No Quality: Stroke Does the patient have a stroke diagnosis?: No Physical Exam Vital Signs: Vital Signs: Last Vital Signs Temp 96.8 F 09/07/24 08:00 Pulse 73 09/07/24 08:00 Resp 76 H 09/07/24 08:00 BP 126/81 09/07/24 08:00 Pulse Ox 96 09/07/24 08:00 O2 Del Method Room Air 09/07/24 08:00 BMI result Body Mass Index 38.8 General - no acute distress, appears comfortable Cvs:rrr, S1-S2 Lungs - normal respiratory effort, clear to auscultation bilaterally, no wheezing Abdomen - soft, nontender, no rebound or guarding Gu-no pain or cva tenderness Extremities - no edema bilaterally Neuro - awake and alert, no focal deficits DS: Data Data Completed and Pending Labs on day of discharge: Laboratory Results - last 24 hr 09/06/24 09/06/24 09/06/24 11:25 16:11 19:11 POC Glucose 113 168 H 96 09/07/24 07:24 POC Glucose 109 Preliminary micro results at discharge 09/03/24 07:20 Blood Culture - Preliminary Blood - Subclavian No growth after 48 hours. Imaging Chest x-ray: Radiologist's impression: ITS Impressions Abdomen/Pelvis CT 09/03/24 08:12 IMPRESSION: Consider benign prostate hyperplasia versus malignancy with questionable associated the/superimposed inflammatory versus infectious process. Alternative diagnosis of acute cystitis in the correct clinical settings. Diverticular disease/diverticulosis. Cholelithiasis. Hepatomegaly, mild to moderate with questionable hepatocellular disease. Probable nonobstructing nephrolithiasis, right kidney. Fat-containing umbilical and inguinal hernias. 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 Status post Linda-en-Y procedure.. Fleischner guidelines were followed. Electronically signed by: Antione Siddiqui MD 09/03/2024 08:56 AM EST Discharge Plan Discharge Anticipated Discharge Date/Time: 09/07/24 10:17 Patient Disposition: Home, Self-Care Discharge Diagnosis: ecoli uti and bacteremia Referrals: Maryam Art MD [Primary Care Provider] - 1 Week Discharge Medications: New cefuroxime axetil 500 mg Tablet 500 mg PO Q12H Qty: 28 0RF Continued (DME) Accu-Chek Guide test strips Strip See Rx Instructions .Route Qty: 100 3RF Rx Instructions: Use 1 test strip once a day (DME) blood-glucose meter [Accu-Chek Guide Glucose Meter] Misc See Rx Instructions .Route Qty: 1 0RF Rx Instructions: As directed docusate sodium [Colace] 100 mg capsule 100 mg PO BID PRN (Reason: constipation) 30 Days Qty: 30 3RF aspirin [Adult Aspirin Regimen] 81 mg tablet,delayed release (DR/EC) 81 mg PO DAILY 90 Days Qty: 90 1RF (DME) diabetic shoes with inserts 11 See Rx Instructions .Route .MEDSUPPLY Qty: 1 1RF Rx Instructions: As directed atorvastatin 40 mg tablet 40 mg PO BEDTIME 90 Days Qty: 90 1RF allopurinol 300 mg tablet 300 mg PO DAILY 90 Days Qty: 90 1RF cholecalciferol (vitamin D3) 50 mcg (2,000 unit) capsule 50 mcg PO DAILY 90 Days Qty: 90 2RF lisinopril 20 mg tablet 20 mg PO DAILY 30 Days Qty: 30 6RF acetaminophen [Tylenol Extra Strength] 500 mg tablet 1,000 mg PO QID PRN (Reason: fever or pain) Qty: 14 0RF semaglutide 0.25 mg or 0.5 mg (2 mg/3 mL) pen injector 0.25 mg subcut MO Rx Instructions: for 4 weeks finasteride 5 mg tablet 5 mg PO DAILY tamsulosin 0.4 mg capsule 0.4 mg PO BEDTIME PRN (Reason: Enlarge Prostate) cyanocobalamin (vitamin B-12) 1,000 mcg tablet, sublingual 1,000 mcg sublingual DAILY 30 Days Qty: 30 6RF multivitamin Tablet 1 tab PO DAILY sennosides [senna] 8.6 mg tablet 8.6 mg PO BEDTIME PRN (Reason: constipation) Discharge Orders: Discharge Order (Routine); Ordered 09/07/24 Ordered By: Kathy Hernandez Diet: Advance to usual diet Activity on Discharge: As tolerated Stand Alone Forms: Patient Portal Discharge page Print Language: Jordanian Care Plan Goals: 68M PMH BPH, CKD 3, diabetes, obesity status post gastric bypass, gout, hypertension, fatty liver presented with 1 day of hematuria: UA shows pyuria/hematuria/bacteriuria, had leukocytosis, blood cultures sent: Patient was admitted for sepsis due to UTI: Started on IV antibiotics, urology evaluation added. With the above supportive management patient seems to be improved significantly, blood culture positive for E coli 1/2 and sensitive to ceftriaxone. Urine culture also positive for E coli sensitive to ceftriaxone. Above was discussed with infectious disease and urology: Concern for UTI more than prostate infection. So recommended Ceftin for 500 mg b.i.d. for 2 weeks. Patient is off Davis, urinating well. In addition his last PSA was 4.5-as per the chart review:Concern for prostate malignancy, patient need to follow up with urology outpatient ,patient has already has appointment. Health Concerns: as above. Plan of Treatment: Ceftin for 500 mg b.i.d. for 2 weeks. follow up with urology outpatient Assessment: as above.
--- NOTE | 2024-09-07 10:33 | MHC.CM.PN ---
pt dcd home self care has own transport home
[2024-09-07 13:25] VITALS: BP 115/71; PULSE 70; RESP 16; TEMP 36.3; O2SAT 97
== END 2024-09-07 13:31 | disposition home or self-care (01) | DRG 689 ==
LOC: HO.ED 09:11 → HO.EDOVER 11:07 → HO.S3 09-04 19:37
PROVIDERS: Family Medicine; Physician Assistant; Admitting Provider Internal Medicine; Emergency Provider Emergency Medicine; PCP Internal Medicine; Visit Provider Internal Medicine
DX: N30.01 Acute cystitis with hematuria (principal); G93.5 Compression of brain; I12.9 Hypertensive chronic kidney disease with stage 1 through stage 4 chronic kidney disease, or unspecified chronic kidney disease; B96.20 Unspecified Escherichia coli [E. coli] as the cause of diseases classified elsewhere; N18.30 Chronic kidney disease, stage 3 unspecified; E66.9 Obesity, unspecified; C61 Malignant neoplasm of prostate; Z68.38 Body mass index [BMI] 38.0-38.9, adult; Z98.84 Bariatric surgery status; K76.0 Fatty (change of) liver, not elsewhere classified; E11.22 Type 2 diabetes mellitus with diabetic chronic kidney disease; M10.9 Gout, unspecified; Z20.822 Contact with and (suspected) exposure to COVID-19; Z79.82 Long term (current) use of aspirin; Z79.899 Other long term (current) drug therapy
CPT/HCPCS: 0241U; 36415; 74176; 80048; 80053; 81001; 82947; 83605; 83690; 83735; 85007; 85025; 85027; 87040; 87077; 87086; 87088; 87186; 87205; 99285; J0696; J1650

== ENCOUNTER → 2024-09-03 07:06 | Outpatient (BNV) | payer MEDICARE, SELFPAY | PROVIDERS: Emergency Provider Emergency Medicine; PCP Internal Medicine; Visit Provider Radiology Diagnostic Radiology | DX: N20.0 Calculus of kidney (principal); R16.0 Hepatomegaly, not elsewhere classified | CPT/HCPCS: 74176 ==

== ENCOUNTER → 2024-09-03 11:07 | Outpatient (BNV) | payer MEDICARE, SELFPAY | PROVIDERS: Admitting Provider Internal Medicine; Emergency Provider Emergency Medicine; PCP Internal Medicine; Visit Provider Internal Medicine | DX: A41.9 Sepsis, unspecified organism (principal); N30.01 Acute cystitis with hematuria | CPT/HCPCS: 99222 ==

== ENCOUNTER → 2024-09-03 11:07 | Outpatient (BNV) | payer MEDICARE, SELFPAY | PROVIDERS: Admitting Provider Internal Medicine; Emergency Provider Emergency Medicine; PCP Internal Medicine; Visit Provider Internal Medicine | DX: A41.9 Sepsis, unspecified organism (principal); N30.01 Acute cystitis with hematuria | CPT/HCPCS: 99222; 99231; 99232; 99239 ==

== ENCOUNTER → 2024-09-03 11:07 | Outpatient (BNV) | payer MEDICARE, SELFPAY | PROVIDERS: Admitting Provider Internal Medicine; Emergency Provider Emergency Medicine; PCP Internal Medicine; Visit Provider Urology | DX: N30.01 Acute cystitis with hematuria (principal) | CPT/HCPCS: 99222 ==

== ENCOUNTER 2024-09-10 11:00 | Outpatient (AMB) | payer MEDICARE, SELFPAY ==
--- NOTE | 2024-09-10 11:05 | A.OFFVIS_ITS ---
Intake Visit Reasons: 6m/PSA/PVR(set) Elevated Intake Note: Patient is present for 6M/PSA/PVR Urology Medication:ALLOPURINOL, TAMSULOSIN,FINASTERIDE Antibiotic Allergy:NONE Blood Thinner:ASPIRIN Todays PVR:[employer] Consultant Required: No Allergies canagliflozin [From Invokana] Allergy (Intermediate, Verified 09/10/24 11:08) vomitting linagliptin [Tradjenta] Allergy (Intermediate, Verified 09/10/24 11:08) Cough phentermine Allergy (Intermediate, Verified 09/10/24 11:08) insomnia,palpitations tuberculin, purified protein deriva [From Tuberculin PPD Henny Test] Allergy (Mild, Verified 09/10/24 11:08) RASH HPI Comments Details: Zan is a pleasant male. He is a patient of Dr. Black. He is seen for the following urologic conditions - lower urinary tract symptoms - left hydrocele Togolese translation provided in office by qualified medical service representative Recent hospital admission for hemorrhagic cystitis E coli resistant to gentamicin and ampicillin Had catheter placed temporarily Improved voiding now Remains on tamsulosin 11/05 Cystoscopy for urinary urgency and progressive bladder outlet obstruction symptoms Bladder ultrasound 50 g prostate, effective emptying, small diverticulum Hydrocele seen for epididymo-orchitis in emergency room 2020 reactive hydrocele on left side Substantially improved The is no pain in the swelling resolved Bladder outlet obstruction Follow-up for lower urinary tract symptoms Currently has less restricted stream and improved emptying - nocturia - 1-2 times Previous medications include finasteride PSA 03/04 9.3, 10/03 1.9, 07/05 1.2, 03/06 1.5 01/05 GreenLight laser Father had prostate cancer [facility] Medical History Diverticulosis Morbid obesity with BMI of 40.0-44.9, adult CKD stage 3 due to type 2 diabetes mellitus Class 2 obesity with body mass index (BMI) of 38.0 to 38.9 in adult Physical exam Arnold-Chiari malformation, type I Testicular pain Dizziness Malabsorption due to intolerance, not elsewhere classified Dyslipidemia B12 deficiency CKD stage 3 due to type 2 diabetes mellitus Diabetes type 2, controlled Hypoglycemia after GI (gastrointestinal) surgery Hypovitaminosis D Essential hypertension Gout Diabetes Surgical History S/P TURP Kaposi sarcoma History of tonsillectomy Gastric bypass status for obesity Family History Father Prostate cancer Mother Diabetes Brother In good health Sister In good health Son No problems noted. Sister In good health Social History Household Members: Spouse and Children Housing: House Do you presently have visiting nurse or other home services: No Alcohol intake: never Patient Tobacco Use Status: Never used Tobacco e-Cigarette/Vaping Use: Never Used Second Hand Smoke Exposure: No service: No Current occupational status: employed Current occupational exposures/hazards: No Cognitive needs: No Hearing needs: No Vision needs: Yes Review of Systems Const Denies chills and Denies fever(s) Card Reports no additional complaints and Denies syncope Resp Denies cough GI Denies abdominal pain and Denies heartburn Reports as per HPI and Denies change in libido Neuro Denies syncope Psych Denies change in libido Endo Denies change in libido Physical Exam Const General: cooperative, healthy appearing, comfortable and no acute distress Orientation/consciousness: patient oriented x3 HEENT Face and sinus: Yes normal facial exam Mouth: moist mucous membranes Neck Neck: Yes normal visual inspection, Yes full ROM and Yes trachea midline Chest Chest palpation & inspection: normal inspection of the chest Resp Effort & Inspection: normal respiratory effort, able to speak in complete sentences and no respiratory distress GI Inspection: Yes normal to inspection Back/Spine/Pelvis Cervical Spine: normal cervical lordosis Thoracic/Lumbar Spine: thoracic and lumbar spine normal to inspection Skin General skin exam: no rashes or lesions noted Neuro General: patient oriented x3, gait normal, tone normal and moves all extremities Extrem General: Yes normal to inspection and Yes capillary refill normal Office Procedures Post Void Residual Post Residual Void Post Void Residual (PVR): 14 45198-Vixe Void Residual by ultrasound Results AMB Urinalysis, Automated UA Leukoctes 15 Eli/uL Last Edit by SCHUYLER Quiles on 09/10/24 11:15 UA Nitrite Negative Last Edit by SCHUYLER Quiles on 09/10/24 11:15 UA Urobilinogen 0.2 mg/dL Last Edit by SCHUYLER Quiles on 09/10/24 11:1 5 UA Protein 15 mg/dL Last Edit by SCHUYLER Quiles on 09/10/24 11:15 UA pH 6.0 Last Edit by SCHUYLER Quiles on 09/10/24 11:15 UA Blood 0 Jasen/uL Last Edit by SCHUYLER Quiles on 09/10/24 11:15 UA Specific Vance 1.020 Last Edit by SCHUYLER Quiles on 09/10/24 11: 15 UA Ketone Negative Last Edit by SCHUYLER Quiles on 09/10/24 11:15 UA Bilirubin 0 mg/dL Last Edit by SCHUYLER Quiles on 09/10/24 11:15 UA Glucose 0 mg/dL Last Edit by SCHUYLER Quiles on 09/10/24 11:15 Results Reviewed Results Reviewed: Laboratory Last Values Urine pH (Auto) 6.0 09/10/24 11:14 Specific Vance (Auto) 1.020 09/10/24 11:14 Urine Protein (Auto) 15 mg/dL 09/10/24 11:14 Glucose (UA)(Auto) 0 mg/dL 09/10/24 11:14 Urine Ketones (Auto) Negative 09/10/24 11:14 Urine Blood (Auto) 0 Jasen/uL 09/10/24 11:14 Urine Nitrite (Auto) Negative 09/10/24 11:14 Urine Bilirubin (Auto) 0 mg/dL 09/10/24 11:14 Urine Urobilinogen (Auto) 0.2 mg/dL 09/10/24 11:14 Leukocyte Esterase (Auto) 15 Eli/uL 09/10/24 11:14 Assessment & Plan Assessment & Plan (1) Acute hemorrhagic cystitis: Code(s): N30.01 - Acute cystitis with hematuria Category: Medical (2) Bladder outlet obstruction: Code(s): N32.0 - Bladder-neck obstruction Category: Medical (3) Urinary retention with incomplete bladder emptying: Code(s): R33.9 - Retention of urine, unspecified Category: Medical Plan Six-month follow-up PVR office Orders: Orders AMB Urinalysis Automated Today Z13.9 - Encounter for screening, unspecified Patient Instructions: This note is constructed using voice recognition software. While every effort has been made to ensure accuracy devulcanizer tender errors may have been included. Imaging studies, laboratory and physical exam results were discussed and reviewed in detail. No major barriers to patient understanding were identified. An opportunity to ask questions regarding the treatment plan was provided. All questions were answered. The patient expressed understanding and agreement with the above treatment plan. The patient is aware they should contact our office by phone for worsening of their current condition or the appearance of new urologic symptoms. Compliance is encouraged with any medications and followup testing that is ordered. It is a privilege to participate in the urologic care of your patient. If you have any questions or concerns regarding treatment for the above conditions, or other urologic issues, please do not hesitate to contact me. The office telephone contact is [phone]. Sincerely, Dr Meir Carver MD, [facility] - Urology Compassionate Specialist Care for the Genitourinary System Coding Level of Care Code Est Pt Level 4 (94604) Diagnoses Acute hemorrhagic cystitis N30.01 Bladder outlet obstruction N32.0 Urinary retention with incomplete bladder emptying R33.9 CPT Codes Post Residual Void - PVR CPT Code: 86644-Cvey Void Residual by ultrasound ([id number])
--- OUTSIDE RECORDS SUMMARY | 2024-09-10 13:13 | XMS_ITS | Encounter Summary ---
Author Organization [facility] Address [address] [place] [address] Care Team Providers Care Wharf Hand Name Role Phone Unavailable Primary Care Provider Unavailabl e Encounter Details Date Type Department Care Team (Latest Contact Info) Description 02/27/2021 Abstract [facility] CONVERSIONS Dental, Provider, DDS Social History [...]
--- OUTSIDE RECORDS SUMMARY | 2024-09-10 13:13 | XMS_ITS | Encounter Summary ---
Author Organization [email or web address] [facility] Address [address] [place] [address] Care Team Providers Care Bending Shed Worker Name Role Phone Unavailable Primary Care Provider Unavailabl e Encounter Details Date Type Department Care Team (Latest Contact Info) Description 02/27/2021 Abstract [facility] CONVERSIONS Dental, Provider, DDS Social History Tobacco [...]
--- OUTSIDE RECORDS SUMMARY | 2024-09-10 13:13 | XMS_ITS | Clinical Summary ---
Author Organization [facility] Address [address] [place] [address] Care Team Providers Care Training Officer Name Role Phone Unavailable Primary Care Provider [...] Relevant to Health Maintenance Insurance DENTAL - [facility]
--- OUTSIDE RECORDS SUMMARY | 2024-09-10 13:13 | XMS_ITS | Encounter Summary ---
Author Organization [facility] Address [address] [place] [address] Care Team Providers Care Grain Trimmer Name Role Phone Unavailable Primary Care Provider Unavailabl e Encounter Details Date Type Department Care Team (Late st Contact Info) Description 01/01/[address] [facility] DENTAL [address] [place] [address] David Michelaris [address] [place] [address] Social History Tobacco Use Types Packs/Day Years [...]
--- OUTSIDE RECORDS SUMMARY | 2024-09-10 13:13 | XMS_ITS | Clinical Summary ---
Author Organization [facility] Address [address] [place] [address] Phone Care Team Providers Care Asw Specialist Name Role Phone Maryam Art MD Primary Care Provider Allergies Active Allergy Reactions Criticality Noted Date [...] Visit [facility] [address] [place] [address] Polo Miller MD Stage 3a chronic kidney [...] Visit [facility] [address] [place] [id number] Polo Miller MD [address] [place] [address] Health Maintenance Due Date Last [...] Relevant to Health Maintenance Insurance Care Teams Asw Specialist Relationship Specialty Start Date End Date Maryam Art MD [address] [place], [place] PCP - General 07/25/20
--- OUTSIDE RECORDS SUMMARY | 2024-09-10 13:13 | XMS_ITS | Encounter Summary ---
Author Organization [facility] Address [address] [place] [address] Care Team Providers Care Grove Superintendent Name Role Phone Unavailable Primary Care Provider Unavailabl e Encounter Details Date Type Department Care Team (Latest Contact Info) Description 02/27/2021 Abstract [facility] CONVERSIONS Dental, Provider, DDS Social History [...]
== END 2024-09-10 11:40 | disposition home or self-care (01) ==
PROVIDERS: PCP Internal Medicine; Visit Provider Urology
DX: N30.01 Acute cystitis with hematuria (principal); N32.0 Bladder-neck obstruction; R33.9 Retention of urine, unspecified; Z13.9 Encounter for screening, unspecified
CPT/HCPCS: 99214

== ENCOUNTER → 2024-09-10 11:00 | Outpatient (BNVA) | payer MEDICARE, SELFPAY | PROVIDERS: PCP Internal Medicine; Visit Provider Urology | DX: N30.01 Acute cystitis with hematuria (principal); N32.0 Bladder-neck obstruction; R33.9 Retention of urine, unspecified | CPT/HCPCS: 51798; 81003; 99212 ==

== ENCOUNTER 2024-09-11 07:48 | Outpatient (AMB) | payer MEDICARE, SELFPAY ==
--- OUTSIDE RECORDS SUMMARY | 2024-09-11 07:51 | XMS_ITS | Encounter Summary ---
Author Organization [employer] [facility] Address [address] 7t [place] [address] Care Team Providers Care Landfill Grader Name Role Phone Unavailable Primary Care Provider Unavailabl e Encounter Details Date Type Department Care Team (Latest Contact Info) Description 02/27/2021 Abstract [facility] CONVERSIONS Dental, Provider, DDS Social History Tobacco [...]
--- OUTSIDE RECORDS SUMMARY | 2024-09-11 07:51 | XMS_ITS | Encounter Summary ---
Author Organization [employer] [facility] Address [address] 7[address] [place] [address] Care Team Providers Care Student Teacher Name Role Phone Unavailable Primary Care Provider Unavailabl e Encounter Details Date Type Department Care Team (Late st Contact Info) Description 01/01/2023 Abstract [facility] [address] [place] [address] David Michelaris [address] [place] [address] Social History Tobacco Use Types Packs/Day Years [...]
--- OUTSIDE RECORDS SUMMARY | 2024-09-11 07:51 | XMS_ITS | Encounter Summary ---
Author Organization [employer] [facility] Address [address] 7t [place] [address] Care Team Providers Care Insurance Sales Specialist Name Role Phone Unavailable Primary Care Provider Unavailabl e Encounter Details Date Type Department Care Team (Latest Contact Info) Description 02/27/2021 Abstract [facility] CONVERSIONS Dental, Provider, DDS Social [...]
--- OUTSIDE RECORDS SUMMARY | 2024-09-11 07:51 | XMS_ITS | Clinical Summary ---
Author Organization [facility] Address [address] [place] [address] Care Team Providers Care Engineering Technologist Name Role Phone Unavailable Primary Care Provider [...] Relevant to Health Maintenance Insurance DENTAL - [facility]
--- OUTSIDE RECORDS SUMMARY | 2024-09-11 07:51 | XMS_ITS | Encounter Summary ---
Author Organization [facility] [facility] Address [address] 7t [place] [address] Care Team Providers Care Supervisor Fertilizer Name Role Phone Unavailable Primary Care Provider Unavailabl e Encounter Details Date Type Department Care Team (Latest Contact Info) Description 02/27/2021 Abstract [facility] CONVERSIONS Dental, Provider, DDS Social History Tobacco [...]
--- OUTSIDE RECORDS SUMMARY | 2024-09-11 07:51 | XMS_ITS | Clinical Summary ---
Author Organization [facility] Address [address] [place] [address] Phone Care Team Providers Care Investigator Name Role Phone Maryam Art MD Primary Care Provider [phone] Allergies Active Allergy Reactions Criticality Noted Date [...] Visit [facility] [address] [place] [address] Polo Miller MD Stage 3a chronic kidney [...] Visit [facility] [address] [place] [id number] Polo Miller MD [address] [address] [place] [address] Health Maintenance Due Date Last [...] Relevant to Health Maintenance Insurance Care Teams Investigator Relationship Specialty Start Date End Date Maryam Art MD [address] [place], [place] PCP - General 07/25/20
--- NOTE | 2024-09-11 07:59 | A.OFFPC_ITS ---
Vital Signs 09/11/24 08:00 Height 5 ft 8 in Weight 263 lb BMI 40.0 BP 112/68 Blood Pressure Location Lt brachial Position Sitting Pulse 65 Pulse Source Pulse Oximeter Pulse Oximetry (%) 95 Oxygen Delivery Method Room Air Intake Visit Reasons: TCM [facility] 09/08 UTI Patient Placement Coordinator Required: Yes Patient Placement Coordinator Language: Argentine Allergies canagliflozin [From Invokana] Allergy (Intermediate, Verified 09/11/24 08:00) vomitting linagliptin [Tradjenta] Allergy (Intermediate, Verified 09/11/24 08:00) Cough phentermine Allergy (Intermediate, Verified 09/11/24 08:00) insomnia,palpitations tuberculin, purified protein deriva [From Tuberculin PPD Henny Test] Allergy (Mild, Verified 09/11/24 08:00) RASH Tobacco use date assessed: 09/11/24 Fall risk assessment: No Falls in past year Last assessed Fall Risk: 09/11/24 Dental Screening Dental Screen Date: 09/11/24 Did you have a dental visit in the last 12 months?: Yes Did you have a dental problem in the last 6 months where you did not have access to dental care?: No Was dental information given to patient?: Patient has dentist HPI TCM TCM Information Date of Discharge 09/08/24 Discharged From [facility] HPI Comments History of Present Illness Details 68 y/o male patient who presents to the clinic for TCM. Pmhx Significant for BPH, CKD 3, diabetes, obesity status post gastric bypass, hypertension, gout, fatty liver presented to [facility] 1 day h/o Hematuria. He was admitted on 09/03/24 and dischanged home 09/07/24 due to Hemorrhagic Cystitis. Pt was able to follow up with his Urologist this week. Reports that his symptoms have since been resolved. [facility] Medical History Diverticulosis Morbid obesity with BMI of 40.0-44.9, adult CKD stage 3 due to type 2 diabetes mellitus Class 2 obesity with body mass index (BMI) of 38.0 to 38.9 in adult Physical exam Arnold-Chiari malformation, type I Testicular pain Dizziness Malabsorption due to intolerance, not elsewhere classified Dyslipidemia B12 deficiency CKD stage 3 due to type 2 diabetes mellitus Diabetes type 2, controlled Hypoglycemia after GI (gastrointestinal) surgery Hypovitaminosis D Essential hypertension Gout Diabetes Surgical History S/P TURP Kaposi sarcoma History of tonsillectomy Gastric bypass status for obesity Family History Father Prostate cancer Mother Diabetes Brother In good health Sister In good health Son No problems noted. Sister In good health Social History Household Members: Spouse and Children Housing: House Do you presently have visiting nurse or other home services: No Alcohol intake: never Patient Tobacco Use Status: Never used Tobacco Tobacco use type: Cigarette e-Cigarette/Vaping Use: Never Used Second Hand Smoke Exposure: No service: No Current occupational status: employed Current occupational exposures/hazards: No Cognitive needs: No Hearing needs: No Vision needs: Yes Questionnaire Thrive Questionnaire Date Thrive assessed: 09/04/24 JORGE L-7 AMB Questionnaire JORGE L-7 Date JORGE L - 7 assessed: 07/25/23 Source: Developed by Drs. Amando Del Toro, Amna Harris, Zeus Ho and colleagues, with an educational josé antonio from [employer]. Review of Systems Const All systems reviewed & are unremarkable except as noted in HPI and below Physical exam (Primary Care) Vital Signs: Last Vital Signs Pulse 65 09/11/24 08:00 BP 112/68 09/11/24 08:00 Pulse Ox 95 09/11/24 08:00 Oxygen Delivery Method Room Air 09/11/24 08:00 BMI result Body Mass Index 40.0 Tobacco/Smoking Status: Tobacco use Status Tobacco use date assessed 09/11/24 09/11/24 08:06 Patient Tobacco Use Status Never used Tobacco 09/11/24 08:06 Tobacco use type Cigarette 09/11/24 08:06 e-Cigarette/Vaping Use Never Used 09/11/24 08:06 Thrive Assessment: Date of Thrive Assessment Date Thrive assessed 09/04/24 09/11/24 08:06 Const General: cooperative and no acute distress Nutritional Appearance: obese Orientation/consciousness: patient oriented x3 Resp Effort & Inspection: normal respiratory effort and able to speak in complete sentences Auscultation: clear to auscultation bilaterally Cardio Heart sounds: S1 normal heart sound present and S2 normal heart sound present General: Yes no CVA tenderness Back/Spine/Pelvis Back: no CVA tenderness Neuro General: patient oriented x3, gait normal and moves all extremities Coding Level of Care Code TCM Mod MDM <= 7 Days Diagnoses Acute hemorrhagic cystitis N30.01 Time Spent (min) 20 Assessment & Plan Assessment & Plan (1) Acute hemorrhagic cystitis: Code(s): N30.01 - Acute cystitis with hematuria Category: Medical Plan: Symptoms have resolved. He completed his course of Abx. Medications: Changed From sennosides (senna) 8.6 mg PO BEDTIME 90 days PRN 90 tabs 0RF constipation To sennosides (senna) 8.6 mg PO BEDTIME PRN 90 tabs 0RF constipation
[2024-09-11 08:00] VITALS: BP 112/68; PULSE 65; O2SAT 95; BMI 40.0
== END 2024-09-11 09:39 | disposition home or self-care (01) ==
PROVIDERS: PCP Internal Medicine; Visit Provider Nurse Practitioner Family
DX: N30.01 Acute cystitis with hematuria (principal)

== ENCOUNTER → 2024-09-11 07:48 | Outpatient (BNVA) | payer MEDICARE, SELFPAY | PROVIDERS: PCP Internal Medicine; Visit Provider Nurse Practitioner Family | DX: N30.01 Acute cystitis with hematuria (principal) | CPT/HCPCS: 99212 ==

== ENCOUNTER 2024-11-09 16:43 | Outpatient (AMB) | payer MEDICARE, SELFPAY ==
--- NOTE | 2024-11-09 16:56 | MHC.PC.OV ---
Vital Signs 11/09/24 16:59 Height 5 ft 8 in Weight 268 lb BMI 40.7 BP 112/76 Blood Pressure Location Lt brachial Position Sitting Intake Visit Reasons: dm Intake Note: Patient here for a follow up DM Care Navigator Required: Yes Care Navigator Language: Real Property Evaluator Name: Maryam Black MD Information Interpreted: non-clinical & clinical Accompanied by: Self / Same As Patient Allergies canagliflozin [From Invokana] Allergy (Intermediate, Verified 11/09/24 17:13) vomitting linagliptin [Tradjenta] Allergy (Intermediate, Verified 11/09/24 17:13) Cough phentermine Allergy (Intermediate, Verified 11/09/24 17:13) insomnia,palpitations tuberculin, purified protein deriva [From Tuberculin PPD Henny Test] Allergy (Mild, Verified 11/09/24 17:13) RASH Medication List - Last Reconciled 11/09/24 by Maryam Black MD acetaminophen (Tylenol Extra Strength) 1,000 mg (2 x 500 mg) PO QID PRN allopurinol 300 mg PO DAILY 90 days aspirin (Adult Aspirin Regimen) 81 mg PO DAILY 90 days atorvastatin 40 mg PO BEDTIME 90 days blood sugar diagnostic (Accu-Chek Guide test strips) Use 1 test strip once a day blood-glucose meter (Accu-Chek Guide Glucose Meter) As directed cefuroxime axetil 500 mg PO Q12H cholecalciferol (vitamin D3) 50 mcg PO DAILY 90 days cyanocobalamin (vitamin B-12) 1,000 mcg sublingual DAILY 30 days [diabetic shoes with inserts As directed] docusate sodium (Colace) 100 mg PO BID PRN 30 days finasteride 5 mg PO DAILY lisinopril 20 mg PO DAILY 30 days multivitamin 1 tab PO DAILY semaglutide (Ozempic) 0.25 mg (0.368 mL) subcut QWEEK 4 weeks sennosides (senna) 8.6 mg PO BEDTIME PRN tamsulosin 0.4 mg PO BEDTIME 90 days Tobacco use date assessed: 09/11/24 Fall risk assessment: No Falls in past year Last assessed Fall Risk: 11/09/24 Dental Screening Dental Screen Date: 09/11/24 HPI HPI Comments History of Present Illness Details The patient is a 69-year-old male presenting for follow-up related to diabetes management and associated health concerns. He has a history of Type 2 Diabetes Mellitus with good control, indicated by an HbA1c under 7%. Additionally, the patient has managed hypertension and hyperlipidemia and reports chronic constipation. He has a small umbilical hernia and bilateral inguinal hernias, with a plan for surgical assessment. Attention is given to managing his obesity through lifestyle modifications. He is morbidly obese with a BMI of 40.7 and was advised to do diet and exercise to reach BMI goal less than 30. He also has Arnold-Chiari malformation and last MRI of the brain was over a year ago. Denies any neurological deficit. [facility] Medical History (Updated 11/09/24 @ 19:27 by Maryam Black MD) Sepsis Diverticulosis Morbid obesity with BMI of 40.0-44.9, adult CKD stage 3 due to type 2 diabetes mellitus Class 2 obesity with body mass index (BMI) of 38.0 to 38.9 in adult Physical exam Arnold-Chiari malformation, type I Testicular pain Dizziness Malabsorption due to intolerance, not elsewhere classified Dyslipidemia B12 deficiency CKD stage 3 due to type 2 diabetes mellitus Diabetes type 2, controlled Hypoglycemia after GI (gastrointestinal) surgery Hypovitaminosis D Essential hypertension Gout Diabetes Surgical History S/P TURP Kaposi sarcoma History of tonsillectomy Gastric bypass status for obesity Family History Father Prostate cancer Mother Diabetes Brother In good health Sister In good health Son No problems noted. Sister In good health Social History Household Members: Spouse and Children Housing: House Do you presently have visiting nurse or other home services: No Alcohol intake: never Patient Tobacco Use Status: Never used Tobacco e-Cigarette/Vaping Use: Never Used Second Hand Smoke Exposure: No service: No Current occupational status: employed Current occupational exposures/hazards: No Cognitive needs: No Hearing needs: No Vision needs: Yes Questionnaire PHQ-9 Over the last 2 weeks, how often have you been bothered by any of the following problems? 1. Little interest or pleasure in doing things: not at all 2. Feeling down, depressed, or hopeless: not at all 3. Trouble falling or staying asleep, or sleeping too much: not at all 4. Feeling tired or having little energy: not at all 5. Poor appetite or overeating: not at all 6. Feeling bad about yourself - or that you are a failure or have let yourself or your family down: not at all 7. Trouble concentrating on things, such as reading the newspaper or watching television: not at all 8. Moving or speaking so slowly that other people could have noticed. Or the opposite - being so fidgety or restless that you have been moving around a lot more than usual: not at all 9. Thoughts that you would be better off or of hurting yourself in some way: not at all Total score: 0 Depression Screening Interpretation: Negative Depression Screening Done: Yes 18493 - PHQ-9 Billing: Yes Source: Developed by Drs. Amando Del Toro, Amna Harris, Zeus Ho and colleagues, with an educational josé atnonio from [employer]. Thrive Questionnaire Date Thrive assessed: 09/04/24 I am a: Patient What is your living situation today?: I have a steady place to live Within the past 12 months, did the food you bought not last and you didn't have the money to get more?: Never true Within the past 12 months, did you worry whether your food would run out before you got money to buy more?: Never true Do you have trouble paying for medicines?: No Do you have trouble getting transportation to medical appointments?: No Do you have trouble paying your heating and electricity bill?: No Do you have trouble taking care of your child, family member or friend?: No Do you have trouble with day-to-day activities such as bathing, preparing meals, shopping, managing finances, etc.?: No Are you currently unemployed and looking for a job?: No Are you interested in more education?: No Please select the resources that you would like help with: None Currently or been in a relationship where the following occur: No concerns reported THRIVE Score: 0 AUDIT C Alcohol Use Questionnaire (AUDIT-C) 1. How often do you have a drink containing alcohol?: Never Total Score: 0 Score Reviewed/Action Taken: No JORGE L-7 AMB Questionnaire JORGE L-7 Date JORGE L - 7 assessed: 11/09/24 Feeling nervous, anxious, or on edge: 0 = Not at all Not being able to stop or control worryin = Not at all Worrying too much about different things: 0 = Not at all Trouble relaxin = Not at all Being so restless that it is hard to sit still: 0 = Not at all Becoming easily annoyed or irritable: 0 = Not at all Feeling afraid as if something awful might happen: 0 = Not at all Total JORGE L-7 score (0-4 normal; 5-9 mild; 10-14 moderate; 15-21 severe): 0 Source: Developed by Drs. Amando Del Toro, Amna Harris, Zeus Ho and colleagues, with an educational josé antonio from [employer]. JORGE L-7 Assessment Billing JORGE L-7 Assessment Tool: JORGE L-7 Assessment 26163 Review of Systems Const All systems reviewed & are unremarkable except as noted in HPI and below Card Denies chest pain at rest, Denies chest pain with activity, Denies edema, Denies irregular heart rhythm, Denies claudication, Denies dyspnea, Denies dyspnea on exertion, Denies orthopnea, Denies paroxysmal nocturnal dyspnea and Denies slow heart rate Resp Denies cough, Denies dyspnea and Denies dyspnea on exertion GI Denies abdominal pain, Denies change in bowel habits, Denies excessive flatus, Denies nausea and Denies vomiting Physical exam (Primary Care) Vital Signs: Last Vital Signs BP 112/76 11/09/24 16:59 BMI result Body Mass Index 40.7 BMI Assessment/Plan discussion: High BMI High, discussed plan: lifestyle, weight reduction, dietary and physical activity Tobacco/Smoking Status: Tobacco use Status Tobacco use date assessed 09/11/24 11/09/24 16:57 Patient Tobacco Use Status Never used Tobacco 11/09/24 16:57 Tobacco use type 11/09/24 17:03 e-Cigarette/Vaping Use Never Used 11/09/24 16:57 PHQ-9: PHQ-9 Score PHQ-9: Total score 0 11/09/24 17:15 Depression Screening Interpretation: Negative Thrive Assessment: Date of Thrive Assessment Date Thrive assessed 09/04/24 11/09/24 16:57 Currently or been in a relationship where the following occur: No concerns reported Resp Effort & Inspection: normal respiratory effort Auscultation: clear to auscultation bilaterally Cardio Jugular venous distension: no JVD Rate: regular rate Rhythm: regular rhythm Heart sounds: S1 normal heart sound present and S2 normal heart sound present Extrem General: Yes full ROM Results AMB Hemoglobin A1c AMB Hemoglobin A1c 6.8 % Last Edit by JOSE Hebert on 11/09/24 17:16 Results Reviewed Results Reviewed: Laboratory Last Values Hgb A1c (Clinic) 6.8 % (4.0-6.0) H 11/09/24 16:55 Coding Level of Care Code Est Pt Level 4 (64381) Complex EM visit Add On G2211 Diagnoses Arnold-Chiari malformation, type I G93.5 Controlled type 2 diabetes mellitus without complication, without long-term current use of insulin E11.9 Diabetes mellitus longterm insulin use: without termite control servicer use Diabetes mellitus complication status: without complication Essential hypertension I10 Umbilical hernia K42.9 Inguinal hernia bilateral, non-recurrent K40.20 Hyperlipidemia LDL goal <70 E78.5 Additional Codes JORGE L-7 Assessment Billing - JOGRE L-7 Assessment Tool: JORGE L-7 Assessment 14930 ([id number]) PHQ-9 - 82149 - PHQ-9 Billing: Yes ([id number]) Time Spent (min) 24 Assessment & Plan Assessment & Plan (1) Arnold-Chiari malformation, type I: Code(s): G93.5 - Compression of brain Category: Medical (2) Diabetes type 2, controlled: Code(s): E11.9 - Type 2 diabetes mellitus without complications Category: Medical Qualifiers: Diabetes mellitus termite control servicer insulin use: without longterm use Diabetes mellitus complication status: without complication Qualified Code(s): E11.9 - Type 2 diabetes mellitus without complications (3) Essential hypertension: Code(s): I10 - Essential (primary) hypertension Category: Medical (4) Umbilical hernia: Code(s): K42.9 - Umbilical hernia without obstruction or gangrene Category: Medical (5) Inguinal hernia bilateral, non-recurrent: Code(s): K40.20 - Bilateral inguinal hernia, without obstruction or gangrene, not specified as recurrent Category: Medical (6) Hyperlipidemia LDL goal <70: Code(s): E78.5 - Hyperlipidemia, unspecified Category: Medical Plan During this visit, we focused on maintaining effective management strategies for Type 2 Diabetes Mellitus, supported by current medication regimens, while addressing the concern of frequent urination. We are planning surgical evaluation for the hernias discovered, highlighting the importance of preventative measures versus immediate surgical action. Antibiotic treatment for previous urinary tract infections and aspiration towards weight goals form a significant focus of lifestyle management. Regular monitoring of hypertension and lipid levels remains a priority for chronic condition stabilization. Patient was informed and verbally consented to the use of an ambient scribe In our discussions, we addressed the diagnosis of Type 2 Diabetes Mellitus and commended the patient for maintaining an HbA1c level under 7%, discussing the positive impact of continued medication regime. We explained the rationale for considering surgical evaluation of hernias and the need for vigilance in addressing potential complications. For morbid obesity, we discussed lifestyle alterations, underlining diet and exercise benefits in reducing BMI. Follow-up should include imaging and lab work to ensure no progression of previous urinary symptoms and close monitoring of hypertension and lipid levels to sustain current management efficiency. for clinic note documentation during this visit. Orders: Orders AMB Hemoglobin A1c Today E11.9 - Type 2 diabetes mellitus without complications MR head/brain wo con Today G93.5 - Compression of brain Lipid Panel 4 Months E11.9 - Type 2 diabetes mellitus without complications Microalbumin, Random (w Creat) 4 Months R80.9 - Proteinuria, unspecified Uric Acid Today [id number] - Idiopathic chronic gout, unspecified site, without tophus (tophi) Vitamin B12 and Folate 4 Months E53.8 - Deficiency of other specified B group vitamins Vitamin D 25-OH Total 4 Months E55.9 - Vitamin D deficiency, unspecified Comprehensive [place]. Panel Fast 4 Months E11.9 - Type 2 diabetes mellitus without complications Referrals General Surgery Referral K40.20 - Bilateral inguinal hernia, without obstruction or gangrene, not specified as recurrent, K42.9 - Umbilical hernia without obstruction or gangrene Medications: Discontinued finasteride Discontinued Reason: Insurance Denied 5 mg PO DAILY cefuroxime axetil Discontinued Reason: Patient Completed Course 500 mg PO Q12H 28 tabs 0RF semaglutide (Ozempic) Discontinued Reason: Insurance Denied 0.25 mg (0.368 mL) subcut QWEEK 4 weeks 1.472 mL 0RF Patient Instructions: - Continue your current diabetes medications as prescribed. - Follow the diet and exercise plan to aid in weight reduction. - Await contact for scheduled surgical evaluations for hernia assessment. - Report any changes in urinary symptoms or abdominal discomfort. - Keep your follow-up appointment for blood work and imaging as planned. - Maintain regular check-ups for hypertension and lipid levels. - Wear provided diabetic shoes for proper foot care.
[2024-11-09 16:59] VITALS: BP 112/76; BMI 40.7
--- OUTSIDE RECORDS SUMMARY | 2024-11-09 19:05 | XMS_ITS | Encounter Summary ---
Author Organization [employer] [facility] Address [address]t [place] [address] Care Team Providers Care Channel Worker Name Role Phone Unavailable Primary Care Provider Unavailabl e Encounter Details Date Type Department Care Team (Latest Contact Info) Description 02/27/2021 Abstract [facility] CONVERSIONS Dental, Provider, DDS Social History [...]
--- OUTSIDE RECORDS SUMMARY | 2024-11-09 19:05 | XMS_ITS | Encounter Summary ---
Author Organization [employer] [facility] Address [address] [place] [address] Care Team Providers Care Beverage Steward Name Role Phone Unavailable Primary Care Provider Unavailabl e Encounter Details Date Type Department Care Team (Late st Contact Info) Description 01/01/2023 Abstract [facility] [address] [place] [address] David Michelaris [address] [place] [address] Social History Tobacco Use Types Packs/Day Years [...]
--- OUTSIDE RECORDS SUMMARY | 2024-11-09 19:05 | XMS_ITS | Clinical Summary ---
Author Organization [employer] [facility] Address [address] [facility] [facility] [address]t [place] [address] Care Team Providers Care Key Account Coordinator Name Role Phone Unavailable Primary Care Provider [...] Relevant to Health Maintenance Insurance DENTAL - [facility]
--- OUTSIDE RECORDS SUMMARY | 2024-11-09 19:05 | XMS_ITS | Encounter Summary ---
Author Organization [employer] [facility] Address [address]t [place] [address] Care Team Providers Care Automobile Accessories Installer Name Role Phone Unavailable Primary Care Provider Unavailabl e Encounter Details Date Type Department Care Team (Latest Contact Info) Description 02/27/2021 Abstract [facility] CONVERSIONS Dental, Provider, DDS Social History [...]
--- OUTSIDE RECORDS SUMMARY | 2024-11-09 19:05 | XMS_ITS | Clinical Summary ---
Author Organization [facility] Address [address] [place] [address] Phone Care Team Providers Care Pharmaceutical Operator Name Role Phone Maryam Art MD Primary Care Provider [phone] Allergies Active Allergy Reactions Criticality Noted Date [...] in the morning 90 tablet 3 06/15/2024 Active Active Problems Problem Noted Date Diagnosed [...] mellitus without complication Vitamin B12 deficiency 04/01/2019 Immunizations Immunization Administration Dates Next Due Influenza, Unspecified 06/24/2019,05/28/2018,05/2017,03/12/2016 [...] Upcoming Encounters Date Type Department Care Team (Latest Contact Info) Description 11/13/2024 Orders Only [facility] [address] [place] [address] Polo Miller MD [address] [facility] [address] [place] [id number] Stage 3a chronic kidney disease (HCC); Renal disorder due to type 2 diabetes mellitus <Diabetic nephropathy> (HCC); Renal osteodystrophy 12/21/2024 3:45 PM EDT Office Visit [facility] [address] [place] [address] Polo Miller MD [address] [facility] [address] [place] [address] Health Maintenance Due Date Last Done Comments Colorectal Cancer Screening: Annual FOBT 10/13/2003 Colorectal Cancer Screening: Colonoscopy 10/13/2003 Colorectal Cancer Screening: Sigmoidoscopy 10/13/2003 Pneumococcal Vaccine: 50+ Years (2 of 2 - PCV) 05/28/2019 05/28/2018 Diabetes: Ophthalmology Exam 08/14/2020 Diabetes: Pedal Pulse Checked 08/14/2020 Diabetes: Sensory Foot Exam 08/14/2020 Diabetes: Visual Foot Exam 08/14/2020 Diabetes: Hemoglobin A1C 10/24/2023 07/25/2023 Influenza Vaccine (Season Ended) 2025 06/24/2019, 05/28/2018, 03/25/2017, Additional history exists Pneumococcal Vaccine: Peds (0 to 5 Years) and At-Risk Patients (6 to 49 Years) Discontinued 05/28/2018 Hepatitis B Vaccine Aged Out No longe r eligible based on patient's age to complete this topic Procedures Procedure Name Priority Date/Time Associated Diagnosis Comments EXT RESULT ENTRY Routine 07/25/2023 from Last 3 Months or Most Recently Relevant to Health Maintenance Results * (ABNORMAL) EXT RESULT ENTRY (07/25/2023) Hemoglobin A1C 6.8(A) 4.0 - 6.0 07/25/2023 us Historical Provider LAB BLOOD ORDERABLES Gracie l Result from Last 3 Months or Most Recently Relevant to Health Maintenance Insurance Member Subscriber Plan / Payer (Ef fective 2021-Present) Name:Zan Smith Relation to Subscriber:Self Name:Zan Smith Payer ID:[id number] (NAIC) Type:Not on file Address: [place] [phone] Care Teams Pharmaceutical Operator Relationship Specialty Start Date End Date Maryam Art MD [address] [place], [place] [address] [place] PCP - General 07/25/20
--- OUTSIDE RECORDS SUMMARY | 2024-11-09 19:05 | XMS_ITS | Encounter Summary ---
Author Organization [facility] Address [address] [facility] 7t [place] [address] Care Team Providers Care Periodicals Clerk Name Role Phone Unavailable Primary Care Provider Unavailabl e Encounter Details Date Type Department Care Team (Latest Contact Info) Description 02/27/2021 Abstract [facility] CONVERSIONS Dental, Provider, DDS Social [...]
== END 2024-11-09 17:30 | disposition home or self-care (01) ==
LOC: HO.HMCH 16:44
PROVIDERS: PCP Internal Medicine; Visit Provider Internal Medicine
DX: G93.5 Compression of brain (principal); E11.9 Type 2 diabetes mellitus without complications; I10 Essential (primary) hypertension; K42.9 Umbilical hernia without obstruction or gangrene; K40.20 Bilateral inguinal hernia, without obstruction or gangrene, not specified as recurrent; E78.5 Hyperlipidemia, unspecified

== ENCOUNTER → 2024-11-09 16:43 | Outpatient (BNVA) | payer MEDICARE, SELFPAY | PROVIDERS: PCP Internal Medicine; Visit Provider Internal Medicine | DX: G93.5 Compression of brain (principal); E11.9 Type 2 diabetes mellitus without complications | CPT/HCPCS: 83036; 96127; 99212 ==

== ENCOUNTER 2024-11-13 07:33 | Outpatient (REF) | payer MEDICARE, SELFPAY ==
--- NOTE | ~2024-11-13 | MR_ITS ---
EXAMINATION: MR BRAIN WITHOUT CONTRAST CLINICAL INFORMATION: Chiari 1 malformation. COMPARISON: April 25, 2023. TECHNIQUE: MRI of the brain was obtained using routine sequences without contrast. FINDINGS: There is a 3 mm low position of the cerebellar tonsils below foramen magnum. No restricted diffusion. No acute intracranial hemorrhage, mass effect, midline shift, hydrocephalus or herniation. Bilateral multifocal patchy and punctate deep periventricular white matter hyperintense T2 FLAIR signal involving centrum semiovale and golden radiata more conspicuous in the right parietal white matter. Flow-void signal within the main cerebral vessels is normal. Focal susceptibility signal in the left frontal deep white matter golden radiata, likely cavernoma. Sellar/suprasellar region demonstrated no signal abnormality or masses. Polypoid mucosal thickening and secretions with volume loss in the right maxillary sinus. MR/MR head/brain wo con IMPRESSION: Cerebellar tonsillar ectopia/borderline positioning. White matter disease likely related to small vessel occlusive disease. Acute on chronic right maxillary sinus disease. Electronically signed by: Antione Siddiqui MD 11/13/2024 10:09 AM EDT
--- OUTSIDE RECORDS SUMMARY | 2024-11-13 07:35 | XMS_ITS | Encounter Summary ---
Author Organization [facility] Address [address] [facility] 7t [place] [address] Care Team Providers Care Hair Boiler Name Role Phone Unavailable Primary Care Provider Unavailabl e Encounter Details Date Type Department Care Team (Latest Contact Info) Description 02/27/2021 Abstract [facility] CONVERSIONS Dental, Provider, DDS Social History Tobacco [...]
--- OUTSIDE RECORDS SUMMARY | 2024-11-13 07:35 | XMS_ITS | Encounter Summary ---
Author Organization [facility] Address [address] [address] Phone Care Team Providers Care Lockstitch Tunnel Elastic Operator Name Role Phone Maryam Art MD Primary Care Provider [phone] Encounter Details Date Type Department Care Team (Late Contact Info) Description 11/13/2024 Orders Only [facility] [address] [place] [address] Polo Miller MD [address] [address] Stage 3a chronic kidney disease (HCC); Renal disorder due to type 2 diabetes mellitus <Diabetic nephropathy> (HCC); Renal osteodystrophy Social History Tobacco Use Types Packs/Day Years Used Date Smoking Tobacco: Never Smokeless Tobacco: Never Alcohol Use Standard Drinks/Week Comments No 0 (1 standard drink = 0.6 oz pur e alcohol) Sex and Gender Information Value Date Recorded Sex Assigned at Not on file Legal Sex Male 4:52 PM EST Gender Identity Not on file Sexual Orientation Not on file documented as of this encounter Plan of Treatment Upcoming Encounters Date Type Department Care Team (Late st Contact Info) Description 12/21/2024 3:45 PM EDT Office [facility] [address] [place] [address] Polo Miller MD [address] [address] documented as of this encounter Visit Diagnoses Diagnosis Stage 3a chronic kidney disease (HCC) Renal disorder due to type 2 diabetes mellitus <Diabetic nephropathy> (HCC) Renal osteodystrophy documented in this encounter Care Teams Lockstitch Tunnel Elastic Operator Relationship Specialty Start Date End Date Maryam Art MD [address] [place], [place] PCP - General 07/25/20 documented as of this encounter
--- OUTSIDE RECORDS SUMMARY | 2024-11-13 07:35 | XMS_ITS | Encounter Summary ---
Author Organization [facility] Address [address] [facility] 7t [place] [address] Care Team Providers Care Sawmill Relief Worker Name Role Phone Unavailable Primary Care Provider Unavailabl e Encounter Details Date Type Department Care Team (Latest Contact Info) Description 02/27/2021 Abstract [facility] CONVERSIONS Dental, Provider, DDS Social History [...]
--- OUTSIDE RECORDS SUMMARY | 2024-11-13 07:35 | XMS_ITS | Clinical Summary ---
Author Organization [facility] Address [address] [facility] 7t [place] [address] Care Team Providers Care Power Generation Technician Name Role Phone Unavailable Primary Care Provider [...] Relevant to Health Maintenance Insurance [facility]ENTAL - [facility]
--- OUTSIDE RECORDS SUMMARY | 2024-11-13 07:35 | XMS_ITS | Encounter Summary ---
Author Organization [facility] Address [address] [facility] [address] 7[address] [place] [address] Care Team Providers Care Lining Machine Tender Name Role Phone Unavailable Primary Care Provider Unavailabl e Encounter Details Date Type Department Care Team (Late st Contact Info) Description 01/01/[address] [facility] ADULT DENTAL [address] [place] [address] David Michelaris [address] [place] [address] Social History Tobacco Use Types Packs/Day Years [...]
--- OUTSIDE RECORDS SUMMARY | 2024-11-13 07:35 | XMS_ITS | Clinical Summary ---
Author Organization [facility] Address [address] [place] [address] Phone Care Team Providers Care Merchandise Pickup/Receiving Associate Name Role Phone Maryam Art MD Primary Care Provider [phone] Allergies Active Allergy Reactions Criticality Noted Date [...] Encounters Date Type Department Care Team Description 11/13/2024 Orders Only [facility] [address] [place], [place] [address] Polo Miller MD Stage 3a chronic kidney disease (HCC); Renal disorder due to type 2 diabetes mellitus <Diabetic nephropathy> (HCC); Renal osteodystrophy from Last 3 Months Immunizations Immunization Administration Dates Next Due Influenza, [...] Visit [facility] [address] [place] [address] Polo Miller MD [address] [facility] [address] [place] [address] Health Maintenance Due Date Last [...] Most Recently Relevant to Health Maintenance Insurance Medicare Care Teams Merchandise Pickup/Receiving Associate Relationship Specialty Start Date End Date Maryam Art MD [address] [place] [address] PCP - General 07/25/20
--- OUTSIDE RECORDS SUMMARY | 2024-11-13 07:35 | XMS_ITS | Encounter Summary ---
Author Organization [employer] [facility] Address [address] [facility] 7t [place] [address] Care Team Providers Care Preschool Adviser Name Role Phone Unavailable Primary Care Provider Unavailabl e Encounter Details Date Type Department Care Team (Latest Contact Info) Description 02/27/2021 Abstract [facility] CONVERSIONS Dental, Provider, DDS Social History [...]
== END 2024-11-13 07:34 | disposition home or self-care (01) ==
LOC: HO.MRI 07:33
PROVIDERS: Visit Provider Internal Medicine
DX: G93.5 Compression of brain (principal)
CPT/HCPCS: 70551

== ENCOUNTER → 2024-11-13 08:10 | Outpatient (BNV) | payer MEDICARE, SELFPAY | PROVIDERS: Visit Provider Radiology Diagnostic Radiology | DX: R90.82 White matter disease, unspecified (principal); J34.89 Other specified disorders of nose and nasal sinuses | CPT/HCPCS: 70551 ==

== ENCOUNTER 2024-12-25 10:08 | Outpatient (AMB) | payer MEDICARE, SELFPAY ==
--- NOTE | 2024-12-25 10:27 | A.OFFVIS_ITS ---
Vital Signs 12/25/24 10:36 Height 5 ft 9 in Weight 270 lb BMI 39.9 BP 114/76 Blood Pressure Location Lt brachial Position Sitting Pulse 58 Intake Visit Reasons: Bilateral Inguinal Hernia & Umbilical hernia Intake Note: Patient is seen in office for evaluation of bilateral inguinal & umbilical hernias. Pt c/o: had a colonoscopy done and CT and was told he has multiple hernias, per pt does not feel any lump or discomfort CT:09/03/24 Tape Edge Machine Operator Required: Yes Tape Edge Machine Operator Language: [employer] Technology Development Manager Services: Tape Edge Machine Operator Present Tape Edge Machine Operator Name: Chela GARCIA Information Interpreted: non-clinical & clinical Sumatra Opener: Sumatra Opener Present Accompanied by: Self / Same As Patient Allergies canagliflozin [From Invokana] Allergy (Intermediate, Verified 12/25/24 10:38) vomitting linagliptin [Tradjenta] Allergy (Intermediate, Verified 12/25/24 10:38) Cough phentermine Allergy (Intermediate, Verified 12/25/24 10:38) insomnia,palpitations tuberculin, purified protein deriva [From Tuberculin PPD Henny Test] Allergy (Mild, Verified 12/25/24 10:38) RASH HPI Comments Details: 69-year-old male patient with a past medical history significant for diabetes mellitus, Arnold Chiari type 1, chronic kidney disease type 3, morbid obesity status post gastric bypass, gout presenting following a recent CT abdomen and pelvis which revealed bilateral fat containing inguinal hernias and a small umbilical hernia. The patient denies any knowledge of a previous history of hernias or hernia surgery. He denies any pain or palpable lump in the groins or umbilicus. He denies nausea, vomiting, fever, chills, diarrhea or constipation. He denies needing to do much lifting on a regular basis. [facility] Medical History Sepsis Diverticulosis Morbid obesity with BMI of 40.0-44.9, adult CKD stage 3 due to type 2 diabetes mellitus Class 2 obesity with body mass index (BMI) of 38.0 to 38.9 in adult Physical exam Arnold-Chiari malformation, type I Testicular pain Dizziness Malabsorption due to intolerance, not elsewhere classified Dyslipidemia B12 deficiency CKD stage 3 due to type 2 diabetes mellitus Diabetes type 2, controlled Hypoglycemia after GI (gastrointestinal) surgery Hypovitaminosis D Essential hypertension Gout Diabetes Surgical History S/P TURP Kaposi sarcoma History of tonsillectomy Gastric bypass status for obesity Family History Father Prostate cancer Mother Diabetes Brother In good health Sister In good health Son No problems noted. Sister In good health Social History Household Members: Spouse and Children Housing: House Do you presently have visiting nurse or other home services: No Alcohol intake: never Patient Tobacco Use Status: Never used Tobacco e-Cigarette/Vaping Use: Never Used Second Hand Smoke Exposure: No service: No Current occupational status: employed Current occupational exposures/hazards: No Cognitive needs: No Hearing needs: No Vision needs: Yes Review of Systems Const All systems reviewed & are unremarkable except as noted in HPI and below Physical Exam Const General: cooperative and no acute distress Nutritional Appearance: well nourished Orientation/consciousness: patient oriented x3 Limitations: no limitations HEENT Head: Yes normocephalic and Yes atraumatic Ears: hearing grossly normal bilaterally Resp Effort & Inspection: normal respiratory effort, no audible wheezes, no cough and no respiratory distress Cardio Jugular venous distension: no JVD GI Other: No palpable hernias appreciated in either groin or umbilicus. No tenderness to palpation. Inspection: Yes normal to inspection Palpation (GI): Soft to palpation, nontender, no guarding and not rigid Skin Other: Warm, dry, no rash Neuro General: patient oriented x3 Extrem General: Yes no clubbing, cyanosis or edema Results Reviewed Results Reviewed: CT abdomen and pelvis reviewed. This reveals a very small bilateral fat containing umbilical hernias with no bowel nearby. An extremely small umbilical hernia is also identified. Assessment & Plan Assessment & Plan (1) Inguinal hernia bilateral, non-recurrent: Code(s): K40.20 - Bilateral inguinal hernia, without obstruction or gangrene, not specified as recurrent Category: Medical Qualifiers: Obstruction and gangrene presence: without obstruction or gangrene Recurrence: non-recurrent Qualified Code(s): K40.20 - Bilateral inguinal hernia, without obstruction or gangrene, not specified as recurrent (2) Umbilical hernia: Code(s): K42.9 - Umbilical hernia without obstruction or gangrene Category: Medical Qualifiers: Obstruction and gangrene presence: without obstruction or gangrene Qualified Code(s): K42.9 - Umbilical hernia without obstruction or gangrene Plan 69-year-old male patient with an incidentally noted fat containing bilateral inguinal hernia and umbilical hernia identified on CT abdomen and pelvis. These appear quite small and not clinically significant at this time. Examination reveals no significant changes with Valsalva maneuvers. I recommended observation of these very small hernias. I reviewed the signs and symptoms to be aware of and he is welcome to call our office follow-up should any symptoms develop. He expressed understanding and agrees with the plan. Coding Level of Care Code New Pt Level 4 (36096) Diagnoses Non-recurrent bilateral inguinal hernia without obstruction or gangrene K40.20 Obstruction and gangrene presence: without obstruction or gangrene Recurrence: non-recurrent Umbilical hernia without obstruction and without gangrene K42.9 Obstruction and gangrene presence: without obstruction or gangrene
[2024-12-25 10:36] VITALS: BP 114/76; PULSE 58; BMI 39.9
== END 2024-12-25 10:47 | disposition home or self-care (01) ==
LOC: HO.HGS 10:09
PROVIDERS: PCP Internal Medicine; Visit Provider Surgery
DX: K40.20 Bilateral inguinal hernia, without obstruction or gangrene, not specified as recurrent (principal); K42.9 Umbilical hernia without obstruction or gangrene
CPT/HCPCS: 99204

== ENCOUNTER → 2024-12-25 10:08 | Outpatient (BNVA) | payer MEDICARE, SELFPAY | PROVIDERS: PCP Internal Medicine; Visit Provider Surgery | DX: K40.20 Bilateral inguinal hernia, without obstruction or gangrene, not specified as recurrent (principal); K42.9 Umbilical hernia without obstruction or gangrene | CPT/HCPCS: 99202 ==

== ENCOUNTER 2025-03-01 08:59 | Outpatient (REF) | payer MEDICARE, SELFPAY ==
--- OUTSIDE RECORDS SUMMARY | 2025-03-01 09:29 | XMS_ITS | Clinical Summary ---
Author Organization [facility] Address [address] [facility] [address] [address] [place] [address] Phone Care Team Providers Care Parallel Computing Software Engineer Name Role Phone Maryam Art MD Primary Care Provider [phone] Allergies Active Allergy Reactions Criticality Noted Date [...] Encounters Date Type Department Care Team Description 12/21/2024 3:45 PM EDT [facility] [address] [place] [address] Polo Miller MD Stage 3a chronic kidney disease (HCC) (Primary Dx); Renal osteodystrophy from Last 3 Months Immunizations [...] Sign Reading Time Taken Comments Blood Pressure 110/74 12/21/2024 3:58 PM EDT Pulse 74 06/15/2024 1:52 PM EST Temperature - - Respiratory Rate - - Oxygen Saturation 95% 06/15/2024 1:52 PM EST Inhaled Oxygen Concentration - - Weight 124 kg (273 lb 6.4 oz) 12/21/2024 3:58 PM EDT Height 175.3 cm (5' 9 ) 10/01/2022 2:19 PM EDT Body Mass Index 40.37 10/01/2022 2:19 PM EDT Plan of Treatment Upcoming Encounters Date Type Department Care Team (Late st Contact Info) Description 06/21/2025 4:00 PM EST Office [facility] [address] [place] [address] Polo Miller MD [address] [facility] [address] [place] [address] Health Maintenance Due Date Last Done Comments Colorectal Cancer Screening: Annual FOBT 10/13/2003 Colorectal Cancer Screening: Colonoscopy 10/13/2003 Colorectal Cancer Screening: Sigmoidoscopy 10/13/2003 Pneumococcal Vaccine: 50+ Years (3 of 3 - PCV) 05/28/2019 05/28/2018, 06/04/2016 Diabetes: Ophthalmology Exam 08/14/2020 Diabetes: Pedal Pulse Checked 08/14/2020 Diabetes: Sensory Foot Exam 08/14/2020 Diabetes: Visual Foot Exam 08/14/2020 Diabetes: Hemoglobin A1C 02/08/2025 11/09/2024, 07/15 Influenza Vaccine (#1) 2025 9, 05/28/2018, 03/25/2017, Additional history exists Pneumococcal Vaccine: Peds (0 to 5 Years) and At-Risk Patients (6 to 49 Years) Discontinued 05/28/2018, 06/04/2016 Hepatitis B Vaccine Aged Out No longe r eligible based on patient's age to complete this topic Procedures Procedure Name Priority Date/Time Associated Diagnosis Comments ALT EXT LABS Routine 11/09/2024 from Last 3 Months or Most Recently Relevant to Health Maintenance Results * (ABNORMAL) ALT EXT LABS (11/09/2024) Hemoglobin A1C 6.8(A) 4.0 - 6.0 11/09/2024 [facility] Provider LAB BLOOD ORDERABLES Gracie l Result from Last 3 Months or Most Recently Relevant to Health Maintenance Insurance Member Subscriber Plan / Payer (Ef fective 2021-Present) Name:Zan Smith Relation to Subscriber:Self Name:Zan Smith Payer ID:[id number] (NAIC) Type:Not on file Address: [place] [phone] Care Teams Parallel Computing Software Engineer Relationship Specialty Start Date End Date Maryam Art MD [address] [place] [address] PCP - General 07/25/20
--- OUTSIDE RECORDS SUMMARY | 2025-03-01 09:29 | XMS_ITS | Patient Health Record ---
Author Organization [facility] Address [address] [place] [address] Care Team Providers Care Technical Sales Advisor Name Role Phone Antwan Mohr Jr [phone] Reason For Referral No Information Plan Of Treatment No Information
--- OUTSIDE RECORDS SUMMARY | 2025-03-01 09:29 | XMS_ITS | Patient Health Record ---
Author Organization [facility] Address [address] [place] [address] Care Team Providers Care Outside Sales Professional Name Role Phone Davey AMIN, Maryam Primary Care Provider Unavail able Jennifer Marroquin Unavailable [phone] Reason For Referral No Information Medications Medication SIG (Take, Route, Frequency, Duration) Notes Start Date End Date Status Vitamin D3 2000 UNIT Oral; Duration: 30 Active Work Note-Appointment . . . [facility]; Duration: . 06/04/2016 Active Hydrocortisone 2.5 % External; Duration: 7 Not-Taking Fluarix Quadrivalent 0.5 ML Intramuscular; Duration: 1 Not-Taking Colchicine 0.6 MG Oral; Duration: 1 Active Atorvastatin Calcium 20 MG Oral; Duration: 30 Active metFORMIN HCl 850 MG Oral; Duration: 30 Active Lisinopril 20 MG Oral; Duration: 30 Active predniSONE 5 MG (21) Oral; Duration: 7 Not-Taking Phentermine HCl 37.5 MG (Schedule IV Ajay g) Oral; Duration: 30 Not-Taking Aspirin 81 MG Oral; Duration: 30 Active Immunizations Vaccine Route Administration Date Status Comme nts Influenza Unknown 04/23/2016 Administered Pneumococcal Unknown 06/04/2016 Administered unknown Problems Problem Type SNOMED Code ICD Code Onset Dates Problem Status W/U Status Risk Notes Problem Type 2 diabetes mellitus without complication (E11.9) Active confirmed Plan Of Treatment Pending Test Test Name Order Date [id number] Plate 06/04/2016 Insurance Providers Payer Name Payer Address Payer Phone Subscriber Number Group Number Insured Name Patient Relationship to Insured Coverage Start Date Coverage End Date [facility] [address] [place] [address] [id number] Zan Smith Self - patient is the insured Medical (General) History Medical History History ICD Code Diabetic Gout Hypertention High Cholesterol Surgical History Surgery Date(Month/Year) gastric bypass 2012
--- OUTSIDE RECORDS SUMMARY | 2025-03-01 09:29 | XMS_ITS | Encounter Summary ---
Author Organization [facility] Address [address] [facility] 7 [place] [address] Care Team Providers Care Cut Off Tender Glass Name Role Phone Unavailable Primary Care Provider Unavailabl e Encounter Details Date Type Department Care Team (Latest Contact Info) Description 02/27/2021 Abstract [facility] CONVERSIONS Dental, Provider, DDS Social [...] Care Team (Late st Contact Info) Description 07/16/2025 8:00 AM EST Office Visit [facility] ADULT DENTAL [address] [place] [address] David Michelaris [address] [place] [address] documented as of this encounter Visit Diagnoses Not on filedocumented in this encounter
[2025-03-01 10:46] LABS: Microalbum/Creatinine Ratio Ur 23.1 ug/mg cr (<30)
[2025-03-01 11:17] LABS: Folate 14.1 ng/mL (> or = 4.0); Vitamin B12 284 pg/mL (200-900)
[2025-03-01 11:23] LABS: Alanine Aminotransferase 24 U/L (0-40); Albumin Level 4.2 g/dL (3.5-5.0); Alkaline Phosphatase 117 U/L (39-117); Anion Gap 10 (12-20); Aspartate Amino Transferase 31 U/L (5-37); Blood Urea Nitrogen 16 mg/dL (9-16); Calcium 9.3 mg/dL (8.4-10.2); Carbon Dioxide 28 mmol/L (22-29); Chloride 108 mmol/L (96-108); Cholesterol 141 mg/dL (<200); Estimated Glomerular Filt Rate 51; HDL Cholesterol 38 mg/dL (>40); Potassium 4.2 mmol/L (3.3-5.1); Sodium 142 mmol/L (135-145); Total Protein 7.5 g/dL (6.5-8.0); Triglycerides 115 mg/dL (<150)
== END 2025-03-01 09:00 | disposition home or self-care (01) ==
LOC: HO.10HDL 08:59
PROVIDERS: Visit Provider Internal Medicine
DX: E11.9 Type 2 diabetes mellitus without complications (principal); E53.8 Deficiency of other specified B group vitamins; R80.9 Proteinuria, unspecified; E55.9 Vitamin D deficiency, unspecified
CPT/HCPCS: 36415; 80053; 80061; 82043; 82306; 82570; 82607; 82746

== ENCOUNTER 2025-03-17 16:37 | Outpatient (AMB) | payer MEDICARE, SELFPAY ==
[2025-03-17 16:38] VITALS: BP 92/60; PULSE 77; RESP 18; TEMP 36; O2SAT 97; BMI 40.0
--- NOTE | 2025-03-17 16:38 | A.OFFPC_ITS ---
Vital Signs 03/17/25 16:38 Height 5 ft 9 in Weight 271 lb 2 oz BMI 40.0 BP 92/60 Blood Pressure Location Lt brachial Position Sitting Respiration 18 Pulse 77 Pulse Source Pulse Oximeter Temp 96.8 F Temp Source Temporal Artery Scan Pulse Oximetry (%) 97 Oxygen Delivery Method Room Air Intake Visit Reasons: dm Electronic Engraver Required: No Accompanied by: Self / Same As Patient Allergies canagliflozin (From Invokana) Allergy (Intermediate, Verified 03/17/25 16:53) vomitting linagliptin (Tradjenta) Allergy (Intermediate, Verified 03/17/25 16:53) Cough phentermine Allergy (Intermediate, Verified 03/17/25 16:53) insomnia,palpitations tuberculin, purified protein deriva (From Tuberculin PPD Henny Test) Allergy (Mild, Verified 03/17/25 16:53) RASH Medication List - Last Reconciled 03/17/25 by Maryam Black MD acetaminophen (Tylenol Extra Strength) 1,000 mg (2 x 500 mg) PO QID PRN allopurinol 300 mg PO DAILY 90 days aspirin (Adult Aspirin Regimen) 81 mg PO DAILY 90 days atorvastatin 40 mg PO BEDTIME 90 days blood sugar diagnostic (Accu-Chek Guide test strips) Use 1 test strip once a day blood-glucose meter (Accu-Chek Guide Glucose Meter) As directed cholecalciferol (vitamin D3) 50 mcg PO DAILY 90 days cyanocobalamin (vitamin B-12) 1,000 mcg sublingual DAILY 30 days [diabetic shoes with inserts As directed] docusate sodium (Colace) 100 mg PO BID PRN 30 days lisinopril 20 mg PO DAILY 30 days multivitamin 1 tab PO DAILY sennosides (senna) 8.6 mg PO BEDTIME PRN tamsulosin 0.4 mg PO BEDTIME 90 days Tobacco use date assessed: 03/17/25 Fall risk assessment: No Falls in past year Last assessed Fall Risk: 03/17/25 Dental Screening Dental Screen Date: 03/17/25 Did you have a dental visit in the last 12 months?: Yes Did you have a dental problem in the last 6 months where you did not have access to dental care?: No Was dental information given to patient?: Patient has dentist HPI HPI Comments History of Present Illness Details The patient is a 69-year-old male presenting with morbid obesity and associated conditions. He has a history of renal insufficiency, with a recent GFR of 51 indicating decreased renal function. The patient reports taking ibuprofen frequently, which may contribute to renal function decline. The patient also has hyperlipidemia, with an LDL cholesterol level of 80 mg/dL, which is close to the target goal of 70 mg/dL. He is currently on atorvastatin for cholesterol management. A1c of 6.9 % therefore diabetes well controlled. 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 The patient has vitamin D and B12 deficiencies, with levels noted to be low. He is advised to continue supplementation to address these deficiencies. The patient experiences foot pain, which he associates with stress and fatigue. He manages this by soaking his feet in hot water and ensuring they are well- dried. [facility] Medical History (Updated 03/17/25 @ 17:25 by Maryam Black MD) Morbid obesity with BMI of 40.0-44.9, adult Sepsis Diverticulosis CKD stage 3 due to type 2 diabetes mellitus Class 2 obesity with body mass index (BMI) of 38.0 to 38.9 in adult Physical exam Arnold-Chiari malformation, type I Testicular pain Dizziness Malabsorption due to intolerance, not elsewhere classified Dyslipidemia B12 deficiency CKD stage 3 due to type 2 diabetes mellitus Diabetes type 2, controlled Hypoglycemia after GI (gastrointestinal) surgery Hypovitaminosis D Essential hypertension Gout Diabetes Surgical History S/P TURP Kaposi sarcoma History of tonsillectomy Gastric bypass status for obesity Family History Father Prostate cancer Mother Diabetes Brother In good health Sister In good health Son No problems noted. Sister In good health Social History Household Members: Spouse and Children Housing: House Do you presently have visiting nurse or other home services: No Alcohol intake: never Patient Tobacco Use Status: Never used Tobacco e-Cigarette/Vaping Use: Never Used Second Hand Smoke Exposure: No service: No Current occupational status: employed Current occupational exposures/hazards: No Cognitive needs: No Hearing needs: No Vision needs: Yes Questionnaire PHQ-9 Over the last 2 weeks, how often have you been bothered by any of the following problems? 1. Little interest or pleasure in doing things: not at all 2. Feeling down, depressed, or hopeless: not at all 3. Trouble falling or staying asleep, or sleeping too much: not at all 4. Feeling tired or having little energy: not at all 5. Poor appetite or overeating: not at all 6. Feeling bad about yourself - or that you are a failure or have let yourself or your family down: not at all 7. Trouble concentrating on things, such as reading the newspaper or watching television: not at all 8. Moving or speaking so slowly that other people could have noticed. Or the opposite - being so fidgety or restless that you have been moving around a lot more than usual: not at all 9. Thoughts that you would be better off or of hurting yourself in some way: not at all Total score: 0 Depression Screening Interpretation: Negative Depression Screening Done: Yes 02091 - PHQ-9 Billing: Yes Source: Developed by Drs. Amando Del Toro, Amna Harris, Zeus Ho and colleagues, with an educational josé antonio from [employer]. Thrive Questionnaire Date Thrive assessed: 03/17/25 I am a: Patient What is your living situation today?: I have a steady place to live Within the past 12 months, did the food you bought not last and you didn't have the money to get more?: Never true Within the past 12 months, did you worry whether your food would run out before you got money to buy more?: Never true Do you have trouble paying for medicines?: No Do you have trouble getting transportation to medical appointments?: No Do you have trouble paying your heating and electricity bill?: No Do you have trouble taking care of your child, family member or friend?: No Do you have trouble with day-to-day activities such as bathing, preparing meals, shopping, managing finances, etc.?: No Are you currently unemployed and looking for a job?: No Are you interested in more education?: No Please select the resources that you would like help with: None Currently or been in a relationship where the following occur: No concerns reported THRIVE Score: 0 AUDIT C Alcohol Use Questionnaire (AUDIT-C) 1. How often do you have a drink containing alcohol?: Never Total Score: 0 Score Reviewed/Action Taken: No JORGE L-7 AMB Questionnaire JORGE L-7 Date JORGE L - 7 assessed: 03/17/25 Feeling nervous, anxious, or on edge: 0 = Not at all Not being able to stop or control worryin = Not at all Worrying too much about different things: 0 = Not at all Trouble relaxin = Not at all Being so restless that it is hard to sit still: 0 = Not at all Becoming easily annoyed or irritable: 0 = Not at all Feeling afraid as if something awful might happen: 0 = Not at all Total JORGE L-7 score (0-4 normal; 5-9 mild; 10-14 moderate; 15-21 severe): 0 Source: Developed by Drs. Amando Del Toro, Amna Harris, Zeus Ho and colleagues, with an educational josé antonio from [employer]. JORGE L-7 Assessment Billing JORGE L-7 Assessment Tool: JORGE L-7 Assessment 52116 Review of Systems Const All systems reviewed & are unremarkable except as noted in HPI and below Card Denies chest pain at rest, Denies chest pain with activity, Denies edema, Denies irregular heart rhythm, Denies claudication, Denies dyspnea, Denies dyspnea on exertion, Denies orthopnea, Denies paroxysmal nocturnal dyspnea and Denies slow heart rate Resp Denies cough, Denies dyspnea and Denies dyspnea on exertion Physical exam (Primary Care) Vital Signs: Last Vital Signs Temp 96.8 F 03/17/25 16:38 Pulse 77 03/17/25 16:38 Resp 18 03/17/25 16:38 BP 92/60 03/17/25 16:38 Pulse Ox 97 03/17/25 16:38 Oxygen Delivery Method Room Air 03/17/25 16:38 BMI result Body Mass Index 40.0 BMI Assessment/Plan discussion: High BMI High, discussed plan: lifestyle, weight reduction, dietary and physical activity Tobacco/Smoking Status: Tobacco use Status Tobacco use date assessed 03/17/25 03/17/25 16:43 Patient Tobacco Use Status Never used Tobacco 03/17/25 16:43 Tobacco use type 11/09/24 17:29 e-Cigarette/Vaping Use Never Used 03/17/25 16:43 PHQ-9: PHQ-9 Score PHQ-9: Total score 0 03/17/25 17:05 Depression Screening Interpretation: Negative Thrive Assessment: Date of Thrive Assessment Date Thrive assessed 03/17/25 03/17/25 16:43 Currently or been in a relationship where the following occur: No concerns reported Resp Effort & Inspection: normal respiratory effort Auscultation: clear to auscultation bilaterally Cardio Jugular venous distension: no JVD Rate: regular rate Rhythm: regular rhythm Heart sounds: S1 normal heart sound present and S2 normal heart sound present Extrem General: Yes full ROM Results AMB Hemoglobin A1c AMB Hemoglobin A1c 6.9 % Last Edit by Kami Agarwal CMA on 03/17/25 17 :05 Results Reviewed Results Reviewed: Laboratory Last Values Hgb A1c (Clinic) 6.9 % (4.0-6.0) H 03/17/25 17:05 Coding Level of Care Code Est Pt Level 4 (61514) Complex EM visit Add On G2211 Diagnoses Essential hypertension I10 Hyperlipidemia LDL goal <70 E78.5 Diabetes type 2, controlled E11.9 Cavernoma D18.00 Morbid obesity with BMI of 40.0-44.9, adult E66.01; Z68.41 Additional Codes JORGE L-7 Assessment Billing - JORGE L-7 Assessment Tool: JORGE L-7 Assessment 04492 ([id number]) PHQ-9 - 05866 - PHQ-9 Billing: Yes ([id number]) Time Spent (min) 23 Assessment & Plan Assessment & Plan (1) Essential hypertension: Code(s): I10 - Essential (primary) hypertension Category: Medical (2) Hyperlipidemia LDL goal <70: Code(s): E78.5 - Hyperlipidemia, unspecified Category: Medical (3) Diabetes type 2, controlled: Code(s): E11.9 - Type 2 diabetes mellitus without complications Category: Medical (4) Cavernoma: Code(s): D18.00 - Hemangioma unspecified site Category: Medical (5) Morbid obesity with BMI of 40.0-44.9, adult: Code(s): E66.01 - Morbid (severe) obesity due to excess calories; Z68.41 - Body mass index [BMI] 40.0-44.9, adult Category: Medical Plan Plan Patient was informed and verbally consented to the use of an ambient scribe for clinic note documentation during this visit. 1. Morbid (severe) obesity due to excess calories E66.01 HCC 22 The patient is advised to try a lower dose of phentermine to manage his morbid obesity, with the recommendation to use it for 30 days and assess its effectiveness. The use of phentermine is limited to three months due to potential side effects such as palpitations and increased blood pressure, which could lead to a stroke. 2. Type 2 diabetes mellitus with other specified complication E11.69 HCC 18 The patient is currently on atorvastatin to manage hyperlipidemia, with an LDL level of 80 mg/dL, close to the target of 70 mg/dL. 3. Vitamin D deficiency, unspecified E55.9 The patient is advised to continue vitamin D supplementation to address the deficiency. 4. Other vitamin B12 deficiency anemias D51.8 The patient is advised to continue vitamin B12 supplementation to address the deficiency. 5. essential hypertension Continue lisinopril. Blood pressure goal is equal or less than 130/80. 6. hyperlipidemia LDL goal is less than 70. Orders: Orders Lipid Panel 4 Months E78.5 - Hyperlipidemia, unspecified Complete Blood Count Auto Diff 4 Months D64.9 - Anemia, unspecified Vitamin D 25-OH Total 4 Months E55.9 - Vitamin D deficiency, unspecified AMB Hemoglobin A1c Today Z13.9 - Encounter for screening, unspecified Microalbumin, Random (w Creat) 4 Months R80.9 - Proteinuria, unspecified IRON PROFILE 4 Months D64.9 - Anemia, unspecified Vitamin B12 and Folate 4 Months E53.8 - Deficiency of other specified B group vitamins Comprehensive Filer. Panel Fast 4 Months E11.9 - Type 2 diabetes mellitus without complications Referrals Neurosurgery Referral D18.00 - Hemangioma unspecified site Medications: New phentermine must administer 2 hours after breakfast 15 mg PO DAILY 30 caps 0RF 30 days
--- OUTSIDE RECORDS SUMMARY | 2025-03-17 18:01 | XMS_ITS | Clinical Summary ---
Author Organization [facility] Address [address] [place] [address] Phone Care Team Providers Care Manager Site Name Role Phone Maryam Art MD Primary Care Provider [phone] Allergies Active Allergy Reactions Criticality Noted Date [...] Visit [facility] [address] [place] [address] Polo Miller MD Stage 3a chronic kidney [...] Visit [facility] [address] [place] [address] Polo Miller MD [address] [facility] [address] [place] [address] Health Maintenance Due Date Last [...] Hemoglobin A1C 6.8(A) 4.0 - 6.0 11/09/2024 [facility] Provider LAB BLOOD ORDERABLES Gracie l Result from Last 3 Months or Most Recently Relevant to Health Maintenance Insurance Member Subscriber Plan / Payer (Ef fective 2021-Present) Name:Zan Smith Relation to Subscriber:Self Name:Zan Smith Payer ID:[id number] (NAIC) Type:Not on file Address: [place] [id number] Care Teams Manager Site Relationship Specialty Start Date End Date Maryam Art MD [address] [place] [address] PCP - General 07/25/20
--- OUTSIDE RECORDS SUMMARY | 2025-03-17 18:01 | XMS_ITS | Encounter Summary ---
Author Organization [employer] [facility] Address [address] [facility] 7 [place] [address] Care Team Providers Care Electrician Supervisor Substation Name Role Phone Unavailable Primary Care Provider Unavailabl e Encounter Details Date Type Department Care Team (Latest Contact Info) Description 02/27/2021 Abstract [facility] CONVERSIONS Dental, Provider, DDS Social [...] Description 07/16/2025 8:00 AM EST Office Visit [facility] ADULT DENTAL [address] [place] [address] David Michelaris [address] [place] [address] documented as of this encounter Visit Diagnoses Not on filedocumented in this encounter
--- OUTSIDE RECORDS SUMMARY | 2025-03-17 18:01 | XMS_ITS | Encounter Summary ---
Author Organization [employer] [facility] Address [address] [facility] 7 [place] [address] Care Team Providers Care Virtualization Architect Name Role Phone Unavailable Primary Care Provider Unavailabl e Encounter Details Date Type Department Care Team (Latest Contact Info) Description 02/27/2021 Abstract [facility] CONVERSIONS Dental, Provider, DDS Social History [...] Description 07/16/2025 8:00 AM EST Office Visit [facility] ADULT DENTAL [address] [place] [address] David Michelaris [address] [place] [address] documented as of this encounter Visit Diagnoses Not on filedocumented in this encounter
--- OUTSIDE RECORDS SUMMARY | 2025-03-17 18:01 | XMS_ITS | Encounter Summary ---
Author Organization [employer] [facility] Address [address] [facility] 7t [place] [address] Care Team Providers Care Developer Prover Upholstering Name Role Phone Unavailable Primary Care Provider Unavailabl e Encounter Details Date Type Department Care Team (Late st Contact Info) Description 01/01/2023 Abstract [facility] ADULT DENTAL [address] [place] [address] Carli Michel [address] [place] [address] Social History Tobacco Use Types Packs/Day Years [...] Description 07/16/2025 8:00 AM EST Office Visit [facility] ADULT DENTAL [address] [place] [address] Carli Michel [address] [place] [address] documented as of this encounter Visit Diagnoses Not on filedocumented in this encounter
--- OUTSIDE RECORDS SUMMARY | 2025-03-17 18:01 | XMS_ITS | Patient Health Record ---
Author Organization [employer] [facility] Address [address] [place] [address] Care Team Providers Care Rn Rehab Name Role Phone Antwan Mohr Jr [phone] Reason For Referral No Information Plan Of Treatment No Information
--- OUTSIDE RECORDS SUMMARY | 2025-03-17 18:01 | XMS_ITS | Clinical Summary ---
Author Organization [employer] Address [address] [place] [address] Care Team Providers Care Blood Donor Unit Assistant Name Role Phone Unavailable Primary Care Provider [...] by mouth at bed time. 07/11/2021 Active acetaminophen (Tylenol 8 Hour) 650 MG ER tabletIndicatio ns:Pain, dental Take 1 tablet (650 mg) by mouth every 8 (eight) hours if needed for mild pain. Do not crush, chew, or split. 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/19/2022 Encounters Date Type Department Care Team Description 01/12/2025 8:00 AM EDT Office Visit [facility] ADULT DENTAL [address] [place] [address] Cheri Walden Severe dental caries (Primary Dx); Pain, dental; Missing teeth, acquired; Dental plaque; Dental calculus; Gingival recession, generalized from Last 3 Months Social History Tobacco Use Types Packs/Day Years [...] Sign Reading Time Taken Comments Blood Pressure 122/60 01/12/2025 8:07 AM EDT Pulse 61 01/12/2025 8:07 AM EDT Temperature - - Respiratory Rate - - Oxygen Saturation - - Inhaled Oxygen Concentration - - Weight - - Height - - Body Mass Index - - Plan of Treatment Upcoming Encounters Date Type Department Care Team (Late st Contact Info) Description 07/16/2025 8:00 AM EST Office Visit [facility] ADULT DENTAL [address] [place] [address] Carli Michel [address] [place] [address] Health Maintenance Due Date Last Done Comments [...] of 2 - PCV) 05/28/2019 05/28/2018 Dental Prophylaxis 06/14/2023 12/11/2022 COVID-19 Vaccine ( season) 2024 06/28/2021, 09/15/2020, 08/18/2020 Influenza Vaccine (#1) 2025 9, 05/28/2018, 03/25/2017, Additional history exists DTaP/Tdap/Td Vaccines (2 - Td or Tdap) 06/01/2025 06/01/2015 Dental Oral Exam 07/16/2025 01/12/2025, 11/19/2022 Tobacco Screening 01/12/2026 01/12/2025 RSV Patients and Patients Aged 60 years [...] patient's age to complete this topic Meningococcal B Vaccine Aged Out No l onger eligible based on patient's age to complete [...] Procedure Name Priority Date/Time Associated Diagnosis Comments PERIODIC ORAL EVALUATION - ESTABLISHED PATIENT Routine 01/12/2025 8:00 AM EDT PROPHYLAXIS - ADULT Routine 12/11/2022 1 0:00 AM EDT Dental calculus from Last 3 Months or Most Recently Relevant to Health Maintenance Insurance D[facility]AL - [facility]
--- OUTSIDE RECORDS SUMMARY | 2025-03-17 18:01 | XMS_ITS | Patient Health Record ---
Author Organization [facility] Address [address] [place] [address] Care Team Providers Care Tile Professional Name Role Phone Davey AMIN, Maryam Primary Care Provider Unavail able Jennifer Marroquin Unavailable [phone] Reason For Referral No Information Medications Medication SIG (Take, Route, Frequency, Duration) Notes Start Date End Date Status Vitamin D3 2000 UNIT Oral; Duration: 30 Active Work Note-Appointment . . . [facility]; Duration: . 06/04/2016 Active [...] Status W/U Status Risk Notes Problem Type II diabetes mellitus without complication ([id number]) Type 2 diabetes mellitus without complication (E11.9) Active confirmed Plan Of Treatment Pending Test Test Name Order Date [id number] Plate 06/04/2016 Insurance Providers Payer Name Payer Address Payer Phone Subscriber Number Group Number Insured Name Patient Relationship to Insured Coverage Start Date Coverage End Date [facility] [address] [facility] [place] [address] [phone] [id number] Zan Smith Self - patient is the insured Medical (General) History Medical History History ICD Code Diabetic Gout Hypertention High Cholesterol Surgical History Surgery Date(Month/Year) gastric bypass 2012
--- OUTSIDE RECORDS SUMMARY | 2025-03-17 18:01 | XMS_ITS | Encounter Summary ---
Author Organization [employer] [facility] Address [address] [facility] 7 [place] [address] Care Team Providers Care Household Appliance Installer Name Role Phone Unavailable Primary Care Provider Unavailabl e Encounter Details Date Type Department Care Team (Latest Contact Info) Description 02/27/2021 Abstract [facility] CONVERSIONS Dental, Provider, DDS Social [...] Description 07/16/2025 8:00 AM EST Office Visit [facility] ADULT DENTAL [address] [place] [address] David Michelaris [address] [place] [address] documented as of this encounter Visit Diagnoses Not on filedocumented in this encounter
== END 2025-03-17 17:05 | disposition home or self-care (01) ==
LOC: HO.HMCH 16:37
PROVIDERS: PCP Internal Medicine; Visit Provider Internal Medicine
DX: E11.69 Type 2 diabetes mellitus with other specified complication (principal); E66.01 Morbid (severe) obesity due to excess calories; Z68.41 Body mass index [BMI] 40.0-44.9, adult; I10 Essential (primary) hypertension; E78.5 Hyperlipidemia, unspecified; D18.00 Hemangioma unspecified site

== ENCOUNTER → 2025-03-17 16:37 | Outpatient (BNVA) | payer MEDICARE, SELFPAY | PROVIDERS: PCP Internal Medicine; Visit Provider Internal Medicine | DX: E11.9 Type 2 diabetes mellitus without complications (principal); I10 Essential (primary) hypertension; E78.5 Hyperlipidemia, unspecified; D18.00 Hemangioma unspecified site; E66.01 Morbid (severe) obesity due to excess calories; Z68.41 Body mass index [BMI] 40.0-44.9, adult; Z71.3 Dietary counseling and surveillance | CPT/HCPCS: 83036; 96127; 99212 ==

== ENCOUNTER 2025-03-18 09:52 | Outpatient (AMB) | payer MEDICARE, SELFPAY ==
--- NOTE | 2025-03-18 09:53 | MHC.OFFVIS ---
Intake Visit Reasons: 6m/PVR Intake Note: Patient is present for 6M/PVR Urology Medication:ALLOPURINOL, TAMSULOSIN, Antibiotic Allergy:NONE Blood Thinner:ASPIRIN Todays PVR:0 mls Tea Bag Machine Tender Required: No Accompanied by: Self / Same As Patient Allergies canagliflozin (From Invokana) Allergy (Intermediate, Verified 03/18/25 10:02) vomitting linagliptin (Tradjenta) Allergy (Intermediate, Verified 03/18/25 10:02) Cough phentermine Allergy (Intermediate, Verified 03/18/25 10:02) insomnia,palpitations tuberculin, purified protein deriva (From Tuberculin PPD Henny Test) Allergy (Mild, Verified 03/18/25 10:02) RASH HPI Comments Details: Zan is a pleasant male. He is a patient of Dr. Black. He is seen for the following urologic conditions - lower urinary tract symptoms - left hydrocele Thai translation provided in office by qualified medical records receptionist Six-month follow-up after recent hospital admission for hemorrhagic cystitis Remains on tamsulosin PVR today shows effective bladder emptying and normal UA 12 month follow-up 11/05 Cystoscopy for urinary urgency and progressive bladder outlet obstruction symptoms Bladder ultrasound 50 g prostate, effective emptying, small diverticulum Hydrocele seen for epididymo-orchitis in emergency room 2020 reactive hydrocele on left side Substantially improved The is no pain in the swelling resolved Bladder outlet obstruction Follow-up for lower urinary tract symptoms Currently has less restricted stream and improved emptying - nocturia - 1-2 times Previous medications include finasteride PSA 03/04 9.3, 10/03 1.9, 07/05 1.2, 03/06 1.5 01/05 GreenLight laser Father had prostate cancer [facility] Medical History (Updated 03/17/25 @ 17:25 by Maryam Black MD) Morbid obesity with BMI of 40.0-44.9, adult Sepsis Diverticulosis CKD stage 3 due to type 2 diabetes mellitus Class 2 obesity with body mass index (BMI) of 38.0 to 38.9 in adult Physical exam Arnold-Chiari malformation, type I Testicular pain Dizziness Malabsorption due to intolerance, not elsewhere classified Dyslipidemia B12 deficiency CKD stage 3 due to type 2 diabetes mellitus Diabetes type 2, controlled Hypoglycemia after GI (gastrointestinal) surgery Hypovitaminosis D Essential hypertension Gout Diabetes Surgical History S/P TURP Kaposi sarcoma History of tonsillectomy Gastric bypass status for obesity Family History Father Prostate cancer Mother Diabetes Brother In good health Sister In good health Son No problems noted. Sister In good health Social History Household Members: Spouse and Children Housing: House Do you presently have visiting nurse or other home services: No Alcohol intake: never Patient Tobacco Use Status: Never used Tobacco e-Cigarette/Vaping Use: Never Used Second Hand Smoke Exposure: No service: No Current occupational status: employed Current occupational exposures/hazards: No Cognitive needs: No Hearing needs: No Vision needs: Yes Review of Systems Const Denies chills and Denies fever(s) Card Reports no additional complaints and Denies syncope Resp Denies cough GI Denies abdominal pain and Denies heartburn Reports as per HPI and Denies change in libido Neuro Denies syncope Psych Denies change in libido Endo Denies change in libido Physical Exam Const General: cooperative, healthy appearing, comfortable and no acute distress Orientation/consciousness: patient oriented x3 HEENT Face and sinus: Yes normal facial exam Mouth: moist mucous membranes Neck Neck: Yes normal visual inspection, Yes full ROM and Yes trachea midline Chest Chest palpation & inspection: normal inspection of the chest Resp Effort & Inspection: normal respiratory effort, able to speak in complete sentences and no respiratory distress GI Inspection: Yes normal to inspection Back/Spine/Pelvis Cervical Spine: normal cervical lordosis Thoracic/Lumbar Spine: thoracic and lumbar spine normal to inspection Skin General skin exam: no rashes or lesions noted Neuro General: patient oriented x3, gait normal, tone normal and moves all extremities Extrem General: Yes normal to inspection and Yes capillary refill normal Assessment & Plan Assessment & Plan (1) Urinary retention with incomplete bladder emptying: Code(s): R33.9 - Retention of urine, unspecified Category: Medical (2) Bladder outlet obstruction: Code(s): N32.0 - Bladder-neck obstruction Category: Medical Plan Twelve month follow-up Orders: Orders Prostate Specific Antigen 12 Months R33.9 - Retention of urine, unspecified Medications: Refilled tamsulosin 0.4 mg PO BEDTIME 90 caps 3RF Enlarge Prostate 90 days R33.9 - Retention of urine, unspecified Patient Instructions: This note is constructed using voice recognition software. While every effort has been made to ensure accuracy drilling and production superintendent errors may have been included. Imaging studies, laboratory and physical exam results were discussed and reviewed in detail. No major barriers to patient understanding were identified. An opportunity to ask questions regarding the treatment plan was provided. All questions were answered. The patient expressed understanding and agreement with the above treatment plan. The patient is aware they should contact our office by phone for worsening of their current condition or the appearance of new urologic symptoms. Compliance is encouraged with any medications and followup testing that is ordered. It is a privilege to participate in the urologic care of your patient. If you have any questions or concerns regarding treatment for the above conditions, or other urologic issues, please do not hesitate to contact me. The office telephone contact is [phone]. Sincerely, Dr Meir Carver MD, [facility] - Urology Compassionate Specialist Care for the Genitourinary System Coding Level of Care Code Est Pt Level 3 (61680) Diagnoses Urinary retention with incomplete bladder emptying R33.9 Bladder outlet obstruction N32.0
--- OUTSIDE RECORDS SUMMARY | 2025-03-18 10:53 | XMS_ITS | Patient Health Record ---
Author Organization [facility] Address [address] [place] [address] Care Team Providers Care Hydramatic Specialist Name Role Phone Antwan Mohr Jr Reason For Referral No Information Plan Of Treatment No Information
--- OUTSIDE RECORDS SUMMARY | 2025-03-18 10:53 | XMS_ITS | Encounter Summary ---
Author Organization [employer] [facility] Address [address] 7t [place] [address] Care Team Providers Care Pickling Tank Operator Name Role Phone Unavailable Primary Care Provider Unavailabl e Encounter Details Date Type Department Care Team (Late st Contact Info) Description 01/01/2023 Abstract [facility] ADULT DENTAL [address] [place] [address] Carli Michel [address] [place] [address] Social History Tobacco Use Types Packs/Day Years [...] Description 07/16/2025 8:00 AM EST Office Visit [facility] ADULT DENTAL [address] [place] [address] Carli Michel [address] [place] [address] documented as of this encounter Visit Diagnoses Not on filedocumented in this encounter
--- OUTSIDE RECORDS SUMMARY | 2025-03-18 10:53 | XMS_ITS | Encounter Summary ---
Author Organization [employer] [facility] Address [address] 7 [place] [address] Care Team Providers Care Mergers And Acquisitions Associate Name Role Phone Unavailable Primary Care Provider Unavailabl e Encounter Details Date Type Department Care Team (Latest Contact Info) Description 02/27/2021 Abstract [facility] CONVERSIONS Dental, Provider, DDS Social History [...] Description 07/16/2025 8:00 AM EST Office Visit [facility] ADULT DENTAL [address] [place] [address] David Michelaris [address] [place] [address] documented as of this encounter Visit Diagnoses Not on filedocumented in this encounter
--- OUTSIDE RECORDS SUMMARY | 2025-03-18 10:53 | XMS_ITS | Encounter Summary ---
Author Organization [facility] Address [address] [address] 7 [place] [address] Care Team Providers Care Car Usher Name Role Phone Unavailable Primary Care Provider Unavailabl e Encounter Details Date Type Department Care Team (Latest Contact Info) Description 02/27/2021 Abstract [facility] CONVERSIONS Dental, Provider, DDS Social History [...] Description 07/16/2025 8:00 AM EST Office Visit [facility] ADULT DENTAL [address] [place] [address] David Michelaris [address] [place] [address] documented as of this encounter Visit Diagnoses Not on filedocumented in this encounter
--- OUTSIDE RECORDS SUMMARY | 2025-03-18 10:53 | XMS_ITS | Clinical Summary ---
Author Organization [employer] Address [address] 7[address] [place] [address] Care Team Providers Care Broadcast News Producer Name Role Phone Unavailable Primary Care Provider [...] Description 01/12/2025 8:00 AM EDT Office Visit [facility] ADULT DENTAL [address] [place] [address] Cheri Walden Severe dental caries (Primary Dx); [...] 07/16/2025 8:00 AM EST Office Visit [facility] ADULT DENTAL [address] [place] [address] Carli Michel [address] [place] [address] Health Maintenance Due Date Last Done Comments [...] Prophylaxis 06/14/2023 12/11/2022 COVID-19 Vaccine ( season) 2025 06/28/2021, 09/15/2020, 08/18/2020 Influenza Vaccine (#1) 2025 [...] Relevant to Health Maintenance Insurance DENTAL - [facility]
--- OUTSIDE RECORDS SUMMARY | 2025-03-18 10:53 | XMS_ITS | Encounter Summary ---
Author Organization [facility] Address [address] [facility] [address] [place] [address] Care Team Providers Care Clay Pigeon Setter Name Role Phone Unavailable Primary Care Provider Unavailabl e Encounter Details Date Type Department Care Team (Latest Contact Info) Description 02/27/2021 Abstract [facility] CONVERSIONS Dental, Provider, DDS Social [...] Description 07/16/2025 8:00 AM EST Office Visit [facility] ADULT DENTAL [address] [place] [address] David Michelaris [address] [place] [address] documented as of this encounter Visit Diagnoses Not on filedocumented in this encounter
--- OUTSIDE RECORDS SUMMARY | 2025-03-18 10:53 | XMS_ITS | Patient Health Record ---
Author Organization [facility] Address [address] [place] [address] Care Team Providers Care Cadet Deck Name Role Phone Davey AMIN, Maryam Primary Care Provider Unavail able Jennifer Marroquin Unavailable [phone] Reason For Referral No Information Medications Medication SIG (Take, Route, Frequency, Duration) Notes Start Date End Date Status Vitamin D3 2000 UNIT Oral; Duration: 30 Active Work Note-Appointment . . . [facility]; Duration: . 06/04/2016 [...] Problem Type II diabetes mellitus without complication (118636604) Type 2 diabetes mellitus without complication (E11.9) Active confirmed Plan Of Treatment Pending Test Test Name Order Date [id number] Plate 06/04/2016 Insurance Providers Payer Name Payer Address Payer Phone Subscriber Number Group Number Insured Name Patient Relationship to Insured Coverage Start Date Coverage End Date [facility] [address] [place] [address] [phone] [id number] Zan Smith Self - patient is the insured Medical (General) History Medical History History ICD Code Diabetic Gout Hypertention High Cholesterol Surgical History Surgery Date(Month/Year) gastric bypass 2012
--- OUTSIDE RECORDS SUMMARY | 2025-03-18 10:53 | XMS_ITS | Clinical Summary ---
Author Organization [facility] Address [address] [place] [address] Phone Care Team Providers Care Log Roper Name Role Phone Maryam Art MD Primary Care Provider [phone] Allergies Active Allergy Reactions Criticality Noted Date [...] Visit [facility] [address] [place] [address] Polo Miller MD Stage 3a chronic kidney [...] Visit [facility] [address] [place] [address] Polo Miller MD [address] [facility] [address] [place] [address] Health Maintenance Due Date Last [...] Hemoglobin A1C 6.8(A) 4.0 - 6.0 11/09/2024 [facility] Provider LAB BLOOD ORDERABLES Gracie l Result from Last 3 Months or Most Recently Relevant to Health Maintenance Insurance Member Subscriber Plan / Payer (Ef fective 2021-Present) Name:Zan Smith Relation to Subscriber:Self Name:Zan Smith Payer ID:[id number] (NAIC) Type:Not on file Address: [place] [id number] Care Teams Log Roper Relationship Specialty Start Date End Date Maryam Art MD [address] [place] [address] PCP - General 07/25/20
== END 2025-03-18 10:16 | disposition home or self-care (01) ==
LOC: HO.HUSH 09:53
PROVIDERS: PCP Internal Medicine; Visit Provider Urology
DX: R33.9 Retention of urine, unspecified (principal); N32.0 Bladder-neck obstruction
CPT/HCPCS: 99213

== ENCOUNTER → 2025-03-18 09:52 | Outpatient (BNVA) | payer MEDICARE, SELFPAY | PROVIDERS: PCP Internal Medicine; Visit Provider Urology | DX: N32.0 Bladder-neck obstruction (principal); R33.9 Retention of urine, unspecified | CPT/HCPCS: 99212 ==

== ENCOUNTER 2025-04-19 12:11 | Outpatient (REF) | payer MEDICARE, SELFPAY ==
--- NOTE | ~2025-04-19 | XR_ITS ---
EXAMINATION: XR CHEST CLINICAL INFORMATION: Z22.7 - Latent tuberculosis COMPARISON: 02/13/2022. TECHNIQUE: 2 views of the chest were obtained. FINDINGS: The cardiac, hilar, and mediastinal contours are normal. Mild aortic mural calcification. The lungs are clear bilaterally. There is no pneumothorax or pleural effusion. There is no focal osseous or soft tissue abnormality. There is a mild to moderate right convex thoracic scoliosis with mild associated degenerative spondylosis. XR/XR chest 2V IMPRESSION: No active pulmonary disease. Electronically signed by: Momo Méndez MD 04/19/2025 12:38 PM EDT
--- OUTSIDE RECORDS SUMMARY | 2025-04-19 14:39 | XMS_ITS | Patient Health Record ---
Author Organization [employer] [facility] Address [address] [place] [address] Care Team Providers Care Rating Examiner Name Role Phone Antwan Mohr Jr [phone] Reason For Referral No Information Plan Of Treatment No Information
--- OUTSIDE RECORDS SUMMARY | 2025-04-19 14:39 | XMS_ITS | Clinical Summary ---
Author Organization [address] [facility] Address [address] [place] [address] Phone Care Team Providers Care Care Center Manager Name Role Phone Maryam Black MD Primary Care Provider [phone] Surgical History Surgery Date Site/Laterality Comments OTHER SURGICAL HISTORY 2011 PROCEDURE: WI LAPS GSTR RSTCV PX W/BYP JONAH-EN-Y LIMB <150 CM; COMMENT: Gastric Bypass OTHER SURGICAL HISTORY PROCEDURE: HISTORY OTHER; COMMENT: abdominoplasty tummy tuck after bypass surgery Medical History Medical History Date Comments Gout 04/01/2019 DX:Gout Osteoarthritis 04/01/2019 DX:Osteoarthriti s; COMMENT: Low back, knees, feet Hyperlipidemia 04/01/2019 DX:Hyperlipidemi a Diabetes mellitus type 2, uncomplicated ([facility] V24, [facility] V28) 04/01/2019 DX:Diabetes mellitus type 2, uncomplicated ([facility]) Hypertension 04/01/2019 DX:Hypertension Fen-phen history 04/01/2019 DX:Fen-phen his tory; COMMENT: for weight loss VINCE (obstructive sleep apnea) 04/01/2019 DX :VINCE (obstructive sleep apnea) History of bariatric surgery 04/01/2019 DX: History of bariatric surgery; COMMENT: 09/2011 Gastric bypass Vitamin B12 deficiency 04/01/2019 DX:Vitami n B12 deficiency Class 2 severe obesity due t o excess calories with serious comorbidity and body mass index (BMI) of 38.0 to 38.9 in adult 02/19/2019 DX:Class 2 severe obesity du e to excess calories with serious comorbidity and body mass index (BMI) of 38.0 to 38.9 in adult ([facility]) Testicular pain DX:Testicular pa in Dizziness DX:Dizziness Arnold-Chiari malformation, type I ([facility] V24, [facility] V28) DX:Arnold-Chiari malformati on, type I (HCC) Malabsorption due to intoler ance, not elsewhere classified DX:Malabsorption due to into lerance, not elsewhere classified Dyslipidemia DX:Dyslipidemia CKD stage 3 due to type 2 di abetes mellitus ([facility] V24, [facility] V28) DX:CKD stage 3 due to type 2 diabetes mellitus (HCC) Hypoglycemia after GI (gastrointestinal) surgery DX:Hypoglycemia after GI (gastrointestinal) surgery Family History Medical History Relation Name Comments Diabetes Brother Hypertension Father Diabetes Mother Hypertension,Th yroiditis Relation Name Status Comments Brother Father Mother Social History Tobacco Use Types Packs/Day Years Used Date Smoking Tobacco: Never Smokeless Tobacco: Never Alcohol Use Standard Drinks/Week Comments No 0 (1 standard drink = 0.6 oz pur e alcohol) Sex and Gender Information Value Date Recorded Sex Assigned at Not on file Legal Sex Male 2:03 PM EST Gender Identity Not on file Sexual Orientation Not on file Obstetrics History Last Filed Vital Signs Vital Sign Reading Time Taken Comments Blood Pressure 126/79 09/02/2023 2:32 PM EST Pulse 58 09/02/2023 2:32 PM EST Temperature - - Respiratory Rate - - Oxygen Saturation - - Inhaled Oxygen Concentration - - Weight 122 kg (269 lb) 11/05/2023 8:02 AM EDT Height 174.6 cm (5' 8.75 ) 09/02/2023 2:32 PM ES T Body Mass Index 40.01 09/02/2023 2:32 PM EST Plan of Treatment Upcoming Encounters Date Type Department Care Team (Late st Contact Info) Description 04/23/2025 3:15 PM EDT Office Visit [facility] [address] [place] [address] Michaela Franco MD [address] [place] [address] Health Maintenance Due Date Last Done Comments Colorectal Cancer Screening: Colonoscopy 1954 Diabetes: Annual GFR (Glomerular Filtration Rate) 1954 Diabetes: Annual Foot Exam 1964 Diabetes: Annual Retina Eye Exam 1964 Zoster Vaccines (1 of 2) 2004 RSV Immunization Adult Patients (1 - Risk 60-74 years 1-dose series) 2014 Pneumococcal Vaccine: 50+ Years (2 of 2 - PCV) 05/28/2019 05/28/2018 Abdominal Aortic Aneurysm (AAA) Screen 06/13/2022 Cholesterol Screening (Lipid Panel) 06/13/2022 Falls Risk Assessment 06/13/2022 Hepatitis C Screening 06/13/2022 Medicare Annual Wellness Visit 06/13/2022 Social Influencers of Health Screening 06/13/2022 Diabetes: Annual Urine Albumin-Creatinine Ratio (uACR) 06/30/2022 Diabetes: Blood Sugar Control Test (HGBA1C) 06/30/2022 Hypertension/CHF/CAD Annual BMP Blood Test 06/30/2022 Depression Screening 07/15/2024 COVID-19 Vaccine ( season) 2025 06/28/2021, 09/15/2020, 08/18/2020 Influenza Vaccine (#1) 2025 9, 05/28/2018, 03/25/2017, Additional history exists DTaP,Tdap,and Td Vaccines (2 - Td or Tdap) 06/01/2025 06/01/2015 HIB Vaccines Aged Out No longer eligi [...] on patient's age to complete this topic MMR Vaccines Aged Out No longer eligi ble based on patient's age to complete this topic Meningococcal ACWY Vaccine Aged Out N o longer eligible based on patient's age to complete this topic Meningococcal B Vaccine Aged Out No l onger eligible based on patient's age to complete this topic RSV Immunization Patients Under 20 months Aged Out No longer eligible based on patient's age to complete this topic Varicella Vaccines Aged Out No longer eligible based on patient's age to complete this topic Insurance [employer] MEDICARE Care Teams Care Center Manager Relationship Specialty Start Date End Date Maryam Black MD [address] [facility] , [address] Physician Associ D/B/A: [facility] MARCELLA Still PCP - General Internal Medicine 02/19/19
--- OUTSIDE RECORDS SUMMARY | 2025-04-19 14:39 | XMS_ITS | Patient Health Record ---
Author Organization [facility] Address [address] [place] [address] Care Team Providers Care Asset Specialist Name Role Phone Davey AMIN, Maryam Primary Care Provider Unavail able Jennifer Marroquin Unavailable [phone] Reason For Referral No Information Medications Medication SIG (Take, Route, Frequency, Duration) Notes Start Date End Date Status Vitamin D3 2000 UNIT Oral; Duration: 30 Active Work Note-Appointment . . . Pt had a [facility] eduled appointment today; Duration: . 06/04/2016 Active [...] Problem Type II diabetes mellitus without complication (854321805) Type 2 diabetes mellitus without complication (E11.9) Active confirmed Plan Of Treatment Pending Test Test Name Order Date [id number] Plate 06/04/2016 Insurance Providers Payer Name Payer Address Payer Phone Subscriber Number Group Number Insured Name Patient Relationship to Insured Coverage Start Date Coverage End Date [facility] [address] [facility] [place] [address] [phone] [id number] Zan Smith Self - patient is the insured Medical (General) History Medical History History ICD Code Diabetic Gout Hypertention High Cholesterol Surgical History Surgery Date(Month/Year) gastric bypass 2012
--- OUTSIDE RECORDS SUMMARY | 2025-04-19 14:39 | XMS_ITS | Encounter Summary ---
Author Organization [facility] Address [address] [facility] 7t [place] [address] Care Team Providers Care Bridge Operator Name Role Phone Unavailable Primary Care Provider Unavailabl e Encounter Details Date Type Department Care Team (Late st Contact Info) Description 01/01/2023 Abstract [facility] ADULT DENTAL [address] [place] [address] Carli Michel [address] [place] [address] Social History Tobacco Use Types Packs/Day Years [...] Care Team (Late st Contact Info) Description 05/12/2025 8:45 AM EDT Office Visit [facility] ADULT DENTAL [address] [place] [address] Carli Michel [address] [place] [address] documented as of this encounter Visit Diagnoses Not on filedocumented in this encounter
--- OUTSIDE RECORDS SUMMARY | 2025-04-19 14:39 | XMS_ITS | Encounter Summary ---
Author Organization [facility] Address [address] [facility] 7 [place] [address] Care Team Providers Care Etiologist Name Role Phone Unavailable Primary Care Provider Unavailabl e Encounter Details Date Type Department Care Team (Latest Contact Info) Description 02/27/2021 Abstract [facility] CONVERSIONS Dental, Provider, DDS Social History [...] Description 05/12/2025 8:45 AM EDT Office Visit [facility] ADULT DENTAL [address] [place] [address] Anand, Carli [address] [place] [address] documented as of this encounter Visit Diagnoses Not on filedocumented in this encounter
--- OUTSIDE RECORDS SUMMARY | 2025-04-19 14:39 | XMS_ITS | Clinical Summary ---
Author Organization [facility] Address [address] [place] [address] Phone Care Team Providers Care Poultry Raiser Name Role Phone Maryam Art MD Primary Care Provider [phone] Allergies Active Allergy Reactions Criticality Noted Date [...] Visit [facility] [address] [place] [address] Polo Miller MD [address] [facility] [address] [place] [address] Health Maintenance Due Date Last Done Comments [...] Hemoglobin A1C 6.8(A) 4.0 - 6.0 11/09/2024 us Historical Provider LAB BLOOD ORDERABLES Gracie l Result from Last 3 Months or Most Recently Relevant to Health Maintenance Insurance [facility] Medicare Care Teams Poultry Raiser Relationship Specialty Start Date End Date Maryam Art MD [address] [place] [address] PCP - General 07/25/20
--- OUTSIDE RECORDS SUMMARY | 2025-04-19 14:39 | XMS_ITS | Encounter Summary ---
Author Organization [facility] Address [address] [facility] 7 [place] [address] Care Team Providers Care Community Engagement Manager Name Role Phone Unavailable Primary Care Provider Unavailabl e Encounter Details Date Type Department Care Team (Latest Contact Info) Description 02/27/2021 Abstract [facility] CONVERSIONS Dental, Provider, DDS Social History [...] Description 05/12/2025 8:45 AM EDT Office Visit [facility] ADULT DENTAL [address] [place] [address] Anand, Carli [address] [place] [address] documented as of this encounter Visit Diagnoses Not on filedocumented in this encounter
--- OUTSIDE RECORDS SUMMARY | 2025-04-19 14:39 | XMS_ITS | Encounter Summary ---
Author Organization [employer] [facility] Address [address] [facility] 7 [place] [address] Care Team Providers Care Cage Cashier Name Role Phone Unavailable Primary Care Provider Unavailabl e Encounter Details Date Type Department Care Team (Latest Contact Info) Description 02/27/2021 Abstract [facility] CONVERSIONS Dental, Provider, DDS Social History [...] Description 05/12/2025 8:45 AM EDT Office Visit [facility] [address] [place] [address] Anand, Carli [address] [place] [address] documented as of this encounter Visit Diagnoses Not on filedocumented in this encounter
--- OUTSIDE RECORDS SUMMARY | 2025-04-19 14:39 | XMS_ITS | Clinical Summary ---
Author Organization [employer] Address [address] [place] [address] Care Team Providers Care Medical Affairs Leader Name Role Phone Unavailable Primary Care Provider [...] Visit [facility] [address] [place] [address] Anand, Carli [address] [place] [address] Health Maintenance Due Date Last Done Comments [...] Relevant to Health Maintenance Insurance DENTAL - [facility]
== END 2025-04-19 12:12 | disposition home or self-care (01) ==
LOC: HO.XRAY 12:11
PROVIDERS: PCP Internal Medicine; Visit Provider Internal Medicine
DX: Z22.7 Latent tuberculosis (principal)
CPT/HCPCS: 71046

== ENCOUNTER → 2025-04-19 12:14 | Outpatient (BNV) | payer MEDICARE, SELFPAY | PROVIDERS: PCP Internal Medicine; Visit Provider Radiology Diagnostic Radiology | DX: Z22.7 Latent tuberculosis (principal) | CPT/HCPCS: 71046 ==

== ENCOUNTER 2025-05-17 08:43 | Outpatient (AMB) | payer MEDICARE, SELFPAY ==
[2025-05-17 08:47] VITALS: BP 100/60; PULSE 67; RESP 18; TEMP 36.1; O2SAT 96; BMI 40.2
--- NOTE | 2025-05-17 08:47 | A.OFFPC_ITS ---
Vital Signs 05/17/25 08:47 Height 5 ft 9 in Weight 272 lb 2 oz BMI 40.2 BP 100/60 Blood Pressure Location Lt brachial Position Sitting Respiration 18 Pulse 67 Pulse Source Pulse Oximeter Temp 96.9 F Temp Source Temporal Artery Scan Pulse Oximetry (%) 96 Oxygen Delivery Method Room Air Intake Visit Reasons: annual exam - see comments Health And Human Performance Professor Required: No Accompanied by: Self / Same As Patient Allergies canagliflozin (From Invokana) Allergy (Intermediate, Verified 05/17/25 09:09) vomitting linagliptin (Tradjenta) Allergy (Intermediate, Verified 05/17/25 09:09) Cough phentermine Allergy (Intermediate, Verified 05/17/25 09:09) insomnia,palpitations tuberculin, purified protein deriva (From Tuberculin PPD Henny Test) Allergy (Mild, Verified 05/17/25 09:09) RASH Medication List - Last Reconciled 05/17/25 by Maryam Black MD acetaminophen (Tylenol Extra Strength) 1,000 mg (2 x 500 mg) PO QID PRN allopurinol 300 mg PO DAILY 90 days aspirin (Adult Aspirin Regimen) 81 mg PO DAILY 90 days atorvastatin 40 mg PO BEDTIME 90 days blood sugar diagnostic (Accu-Chek Guide test strips) Use 1 test strip once a day blood-glucose meter (Accu-Chek Guide Glucose Meter) As directed cholecalciferol (vitamin D3) 50 mcg PO DAILY 90 days cyanocobalamin (vitamin B-12) 1,000 mcg sublingual DAILY 30 days [diabetic shoes with inserts As directed] docusate sodium (Colace) 100 mg PO BID PRN 30 days lisinopril 20 mg PO DAILY 30 days multivitamin 1 tab PO DAILY phentermine 15 mg PO DAILY 30 days sennosides (senna) 8.6 mg PO BEDTIME PRN tamsulosin 0.4 mg PO BEDTIME 90 days Tobacco use date assessed: 05/17/25 Fall risk assessment: No Falls in past year Last assessed Fall Risk: 05/17/25 Dental Screening Dental Screen Date: 05/17/25 Did you have a dental visit in the last 12 months?: Yes Did you have a dental problem in the last 6 months where you did not have access to dental care?: No Was dental information given to patient?: Patient has dentist HPI HPI Comments History of Present Illness Details The patient is a 69-year-old male presenting for an annual physical exam. His last tetanus vaccination was in 2014. The patient has a history of morbid obesity. A review of recent laboratory results showed a slightly low vitamin D level of 27.9, and a normal vitamin B12 level. He has diabetes mellitus type 2 and his last A1c was 6.9% less than 3 months ago therefore within goal. Last diabetic eye exam was last month and showed no diabetic retinopathy. Has Arnold-Chiari malformation type 1 which was evaluated last month by Neurosurgery reporting to be a normal variant. Patient is asymptomatic with no headaches or weakness. Last colonoscopy was last month showing tubular adenoma next colonoscopy should be 5 years after. Needs a PCV 20 vaccine which will be placed today. Declines flu vaccine. [facility] Medical History (Updated 05/17/25 @ 09:21 by Maryam Black MD) Morbid obesity with BMI of 40.0-44.9, adult Sepsis Diverticulosis CKD stage 3 due to type 2 diabetes mellitus Class 2 obesity with body mass index (BMI) of 38.0 to 38.9 in adult Physical exam Arnold-Chiari malformation, type I Testicular pain Dizziness Malabsorption due to intolerance, not elsewhere classified Dyslipidemia B12 deficiency CKD stage 3 due to type 2 diabetes mellitus Diabetes type 2, controlled Hypoglycemia after GI (gastrointestinal) surgery Hypovitaminosis D Essential hypertension Gout Diabetes Surgical History S/P TURP Kaposi sarcoma History of tonsillectomy Gastric bypass status for obesity Family History Father Prostate cancer Mother Diabetes Brother In good health Sister In good health Son No problems noted. Sister In good health Social History Household Members: Spouse and Children Housing: House Do you presently have visiting nurse or other home services: No Alcohol intake: never Patient Tobacco Use Status: Never used Tobacco e-Cigarette/Vaping Use: Never Used Second Hand Smoke Exposure: No service: No Current occupational status: employed Current occupational exposures/hazards: No Cognitive needs: No Hearing needs: No Vision needs: Yes Questionnaire Thrive Questionnaire Date Thrive assessed: 11/09/24 I am a: Patient What is your living situation today?: I have a steady place to live Within the past 12 months, did the food you bought not last and you didn't have the money to get more?: Never true Within the past 12 months, did you worry whether your food would run out before you got money to buy more?: Never true Do you have trouble paying for medicines?: No Do you have trouble getting transportation to medical appointments?: No Do you have trouble paying your heating and electricity bill?: No Do you have trouble taking care of your child, family member or friend?: No Do you have trouble with day-to-day activities such as bathing, preparing meals, shopping, managing finances, etc.?: No Are you currently unemployed and looking for a job?: No Are you interested in more education?: No Please select the resources that you would like help with: None Currently or been in a relationship where the following occur: No concerns reported THRIVE Score: 0 JORGE L-7 AMB Questionnaire JORGE L-7 Date JORGE L - 7 assessed: 03/17/25 Source: Developed by Drs. Amando Del Toro, Amna Harris, Zeus Ho and colleagues, with an educational josé antonio from [employer]. Review of Systems Const All systems reviewed & are unremarkable except as noted in HPI and below Card Denies chest pain at rest, Denies chest pain with activity, Denies edema, Denies irregular heart rhythm, Denies claudication, Denies dyspnea, Denies dyspnea on exertion, Denies orthopnea, Denies paroxysmal nocturnal dyspnea and Denies slow heart rate Resp Denies cough, Denies dyspnea and Denies dyspnea on exertion Neuro Denies lack of coordination Physical exam (Primary Care) Vital Signs: Last Vital Signs Temp 96.9 F 05/17/25 08:47 Pulse 67 05/17/25 08:47 Resp 18 05/17/25 08:47 BP 100/60 05/17/25 08:47 Pulse Ox 96 05/17/25 08:47 Oxygen Delivery Method Room Air 05/17/25 08:47 BMI result Body Mass Index 40.2 BMI Assessment/Plan discussion: High BMI High, discussed plan: lifestyle, weight reduction, dietary and physical activity Tobacco/Smoking Status: Tobacco use Status Tobacco use date assessed 05/17/25 05/17/25 08:54 Patient Tobacco Use Status Never used Tobacco 05/17/25 08:54 Tobacco use type 11/09/24 17:29 e-Cigarette/Vaping Use Never Used 05/17/25 08:54 Thrive Assessment: Date of Thrive Assessment Date Thrive assessed 11/09/24 05/17/25 08:54 Currently or been in a relationship where the following occur: No concerns reported HENKS Head: Yes normal to inspection, Yes normocephalic and Yes atraumatic Ears: external ears normal Eyes General: appearance normal, both eyes and all related structures Eyelids: Yes eyelids normal Conjunctivae: conjunctivae normal Neck Neck: Yes normal visual inspection and Yes supple Resp Effort & Inspection: normal respiratory effort Auscultation: clear to auscultation bilaterally Cardio Jugular venous distension: no JVD Rate: regular rate Rhythm: regular rhythm Heart sounds: S1 normal heart sound present and S2 normal heart sound present GI Inspection: Yes normal to inspection Palpation (GI): Soft to palpation and nontender Auscultation: normal bowel sounds Skin General skin exam: no rashes or lesions noted Neuro General: no focal motor deficits Extrem General: Yes full ROM Psych Appearance: grossly normal Immunizations pneumoc 20-edmund conj-dip cr(PF) 0.5 mL IM syringe Performing Provider: Maryam Black MD Performing Location: [facility] Administered by: JOSE Linder on 05/17/25 09:26 Dose Route Admin Location Dispensed Lot Number Expiration Date [facility] Telephone Station Installer 0.5 mL IM Right Deltoid 0.5 mL [id number] 03/15/26 7223-1564-26 [employer] Total Dispensed Waste 0.5 mL 0 % VIS Given Date VIS Provided VIS Publication Date 05/17/25 Single Vaccine 24 Eligibility Eligibility Date Funding Source Not VFC Eligible 05/17/25 Private Boostrix Tdap 2.5 Lf unit-8 mcg-5 Lf/0.5 mL intramuscular syringe Performing Provider: Maryam Black MD Performing Location: [facility] Administered by: JOSE Linder on 05/17/25 09:26 Dose Route Admin Location Dispensed Lot Number Expiration Date [facility] Telephone Station Installer 0.5 mL IM Right Deltoid 0.5 mL [id number] 02/08/28 40818-529-25 Novatris Total Dispensed Waste 0.5 mL 0 % VIS Given Date VIS Provided VIS Publication Date 05/17/25 Single Vaccine 21 Eligibility Eligibility Date Funding Source Not [facility] Eligible 05/17/25 Private Coding Level of Care Code Est Pt Prev Care >65y(62610) Diagnoses Physical exam Z00.00 Arnold-Chiari malformation, type I G93.5 Morbid obesity with BMI of 40.0-44.9, adult E66.01; Z68.41 Controlled type 2 diabetes mellitus without complication, without long-term current use of insulin E11.9 Diabetes mellitus complication status: without complication Diabetes mellitus assisted insulin use: without assisted use Time Spent (min) 31 Assessment & Plan Assessment & Plan (1) Physical exam: Code(s): Z00.00 - Encounter for general adult medical examination without abnormal findings Category: Medical (2) Arnold-Chiari malformation, type I: Code(s): G93.5 - Compression of brain Category: Medical (3) Morbid obesity with BMI of 40.0-44.9, adult: Code(s): E66.01 - Morbid (severe) obesity due to excess calories; Z68.41 - Body mass index [BMI] 40.0-44.9, adult Category: Medical (4) Diabetes type 2, controlled: Code(s): E11.9 - Type 2 diabetes mellitus without complications Category: Medical Qualifiers: Diabetes mellitus complication status: without complication Diabetes m ellitus blueprint reader insulin use: without blueprint reader use Qualified Code(s): E11.9 - Type 2 diabetes mellitus without complications Plan Plan 1. Encounter for general adult medical examination without abnormal findings Z00.00 Repeat in a year. 2. Morbid (severe) obesity due to excess calories E66.01 HCC 22 The patient has morbid obesity and was counseled to begin a diet and exercise program with the goal of achieving a BMI of less than 30. 3. Type 2 diabetes mellitus without complications E11.9 HCC 19 Keep A1c within goal been less than 7 %. Do diabetic exam yearly. Continue same medications. 4. Arnold-Chiari malformation type 1 G93.5 HCC 80 Asymptomatic and follow by neurosurgery. Orders: Orders Vitamin B12 and Folate 4 Months E53.8 - Deficiency of other specified B group vitamins Microalbumin, Random (w Creat) 4 Months R80.9 - Proteinuria, unspecified Comprehensive [place]. Panel Fast 4 Months E11.9 - Type 2 diabetes mellitus without complications Pneumococcal 20 Immunization Today Z23 - Encounter for immunization Vitamin D 25-OH Total 4 Months E55.9 - Vitamin D deficiency, unspecified Lipid Panel 4 Months E78.5 - Hyperlipidemia, unspecified Uric Acid Today M10.9 - Gout, unspecified TDaP Immunization Today Z23 - Encounter for immunization
--- OUTSIDE RECORDS SUMMARY | 2025-05-17 09:17 | XMS_ITS | Patient Health Record ---
Author Organization [employer] [facility] Address [address] [place] [address] Care Team Providers Care Line Mechanic Name Role Phone Antwan Mohr Jr Reason For Referral No Information Plan Of Treatment No Information
--- OUTSIDE RECORDS SUMMARY | 2025-05-17 09:17 | XMS_ITS | Clinical Summary ---
Author Organization [address] [facility] Address [address] [place] [address] Phone Care Team Providers Care Butter Printer Name Role Phone Maryam Black MD Primary Care Provider [phone] Allergies Active Allergy Reactions Criticality Noted Date Comments Canagliflozin Nausea And Vomiting,Other,Rash Low 08/14/2021 Other Reaction(s): Rash/Dermatitis Linagliptin 08/13/2023 Phentermine 08/13/2023 Medications acetaminophen (TYLENOL 8 HOUR) 650 mg 8 hr tablet Take 1 tablet (650 mg total) by mouth every 8 hours as needed. 5 Active allopurinoL (ZYLOPRIM) 300 mg tablet Take 1 tablet (300 mg total) by mouth 1 (one) time each day. Active aspirin 81 mg EC tablet Take 1 tablet (81 mg total) by mouth 1 (one) time each day. Active atorvastatin (LIPITOR) 40 mg tablet Take 1 tablet (40 mg total) by mouth. at bedtime. Active blood sugar diagnostic (Accu-Chek Guide test strips) test strip USE 1 TEST STRIP ONCE A DAY 5 Active cholecalciferol (VITAMIN D-3) 25 mcg (1,000 unit) capsule Take 1 capsule (1,000 Units total) by mouth 1 (one) time each day. Active dapagliflozin propanediol (FARXIGA) 10 mg tablet Take 1 tablet (10 mg total) by mouth 1 (one) time each day in the morning. 4 Active lisinopriL (PRINIVIL,ZESTR IL) 20 mg tablet Take 1 tablet (20 mg total) by mouth 1 (one) time each day. Active senna 8.6 mg tablet TAKE 1 TABLET BY MOUTH EVERY NIGHT AT BEDTIME NEEDED FOR CONSTIPATION Active tamsulosin (FLOMAX) 0.4 mg 24 hr capsule Take 1 capsule (0.4 mg total) by mouth. at bedtime Active Active Problems Problem Noted Date Diagnosed Date Arnold-Chiari malformation, type I ([facility] V24, [facility] V28) 04/23/2025 Overview (04/23/2025): Last Assessment & Plan: Mr. Wong describes seeing flashes of light that will last 10 to 20 seconds, typically at night when driving, for over 1 year. Sometimes headlights from oncoming cars will bother him. This does not happen every time he is driving, but he states eventually it will happen. He has seen these flashes of light infrequently, may be 1 or 2 times during the daytime. He denies headache, nausea vomiting, dizziness, balance issues, difficulty swallowing/choking. He states he recently saw an adjunct psychology faculty member, they did not find anything worrisome , denies cataracts or glaucoma. He feels this started after an MRI that he had over a year ago, cannot recall what it was for, was not given any meds or anesthesia for the MRI. Patient had a head CT 04/25/2023 at [facility] that shows mild descent of cerebellar tonsils, radiology measured at 6 mm, similar to prior findings on his MRI brain 02/13/2021 at [facility]. At that time the radiologist measured as 4 mm inferior cerebellar tonsil ectopia, mild. I reviewed both study images with the patient in detail in the office. Mr. Smith is denying any headache, swallowing issues, balance issues, weakness. It is likely that this mild Chiari I malformation is an incidental finding on imaging, not causing any symptoms, does not appear to have crowding of the cerebellar tonsils, however I will review his case with Dr. Franco and see if she wants a cine flow cervical MRI study ordered. In the past he saw Dr. Montgomery in neurology, I can refer him back for these flashes of light complaints. Dr. Montgomery had ordered his brain MRI back in 2020, there was no findings for stroke or basilar artery stenosis/occlusion. We used [employer] interpre[employer] Aristides #[id number], Sal # [id number] (we got disconnected during the visit). Assessment & Plan (04/23/2025 4:07 PM EDT): Mr. Smith is doing quite well and denies any symptoms of headache, dysphagia or focal weakness. I reassured him that this finding of a Chiari malformation is stable compared to his prior studies and, in fact, it is in the range of a normal variant. He does not have findings or symptoms of hydrocephalus or brainstem compression and I do not think this needs to be followed with serial imaging. He is welcome to contact us if he has any concerns in the future. Diabetic nephropathy associa mildred with type 2 diabetes mellitus ([facility] V24, [facility] V28) 08/14/2021 Stage 3 chronic kidney disease ([facility] V24, [facility] V28) 08/14/2021 Vitamin D deficiency 08/14/2021 Obesity 04/13/2019 Diabetes mellitus type 2, un complicated ([facility] V24, [facility] V28) 04/01/2019 Gout 04/01/2019 Hyperlipidemia 04/01/2019 Hypertension 04/01/2019 Obstructive sleep apnea syndrome 04/01/2019 Osteoarthritis 04/01/2019 Overview (04/23/2025): Low back, knees, feet Vitamin B12 deficiency 04/01/2019 Encounters Date Type Department Care Team Description 04/23/2025 3:15 PM EDT Office Visit [facility] [place] [address] [place] [address] Michaela Franco MD Arnold-Chiari malformation, type I ([facility] V24, [facility] V28) (Primary Dx) from Last 3 Months Surgical History Surgery Date Site/Laterality Comments OTHER SURGICAL HISTORY 2011 PROCEDURE: OK LAPS GSTR RSTCV PX W/BYP JONAH-EN-Y LIMB <150 CM; COMMENT: Gastric Bypass OTHER SURGICAL HISTORY PROCEDURE: HISTORY OTHER; COMMENT: abdominoplasty tummy tuck after bypass surgery Medical History Medical History Date Comments Gout 04/01/2019 DX:Gout Osteoarthritis 04/01/2019 DX:Osteoarthriti s; COMMENT: Low back, knees, feet Hyperlipidemia 04/01/2019 DX:Hyperlipidemi a Diabetes mellitus type 2, uncomplicated ([facility] V24, [facility] V28) 04/01/2019 DX:Diabetes mellitus type 2, uncomplicated ([facility]) Hypertension 04/01/2019 DX:Hypertension Fen-phen history 04/01/2019 DX:Fen-phen [...] (BMI) of 38.0 to 38.9 in adult ([facility]) Testicular pain DX:Testicular pa in Dizziness DX:Dizziness Arnold-Chiari malformation, type I ([facility] V24, [facility] V28) DX:Arnold-Chiari malformati on, type I ([facility]) Malabsorption due to intoler ance, not elsewhere classified DX:Malabsorption due to into lerance, not elsewhere classified Dyslipidemia DX:Dyslipidemia CKD stage 3 due to type 2 di abetes mellitus ([facility] V24, [facility] V28) DX:CKD stage 3 due to type 2 diabetes mellitus ([facility]) Hypoglycemia after GI (gastrointestinal) surgery DX:Hypoglycemia after [...] - Inhaled Oxygen Concentration - - Weight 123 kg (271 lb) 04/23/2025 3:24 PM EDT Height 175.3 cm (5' 9 ) 04/23/2025 3:24 PM EDT Body Mass Index 40.02 04/23/2025 3:24 PM EDT Plan of Treatment Health Maintenance Due Date Last Done Comments Colorectal Cancer Screening: Colonoscopy 1954 Diabetes: Annual GFR (Glomerular Filtration Rate) 1954 Diabetes: Annual Foot Exam 1964 Diabetes: Annual Retina Eye Exam 1964 RSV Immunization Adult Patients (1 - Risk 50-74 years 1-dose series) 2004 Zoster Vaccines (1 of 2) 2004 Pneumococcal Vaccine: 50+ Years (2 of 2 - PCV) 05/28/2019 05/28/2018 Cholesterol Screening (Lipid Panel) 06/13/2022 Falls Risk [...] topic Insurance [employer] MEDICARE Care Teams Butter Printer Relationship Specialty Start Date End Date Maryam Black MD [address] [place] [address] , [address] Physician Associ D/B/A: [facility] [place], [place] PCP - General Internal Medicine 02/19/19
--- OUTSIDE RECORDS SUMMARY | 2025-05-17 09:17 | XMS_ITS | Clinical Summary ---
Author Organization [employer] Address [address] [place] [address] Care Team Providers Care Art Education Professor Name Role Phone Unavailable Primary Care Provider [...] Encounters Date Type Department Care Team Description 05/03/2025 Telephone [facility] [address] [place] [address] Ulises Rodriguez DDS 05/01/2025 Refill [facility] [address] [place] [address] Davis Olguin DDS Pain, dental from Last 3 Months Social History Tobacco [...] Care Team (Late st Contact Info) Description 05/31/2025 8:45 AM EST Office Visit [facility] [address] [place] [address] David Michelaris [address] [place] [address] 06/07/2025 9:00 AM EST Office Visit [facility] [address] [place] [address] Davis Olguin DDS [address] [place] [address] Health Maintenance Due Date Last Done Comments [...] Dental Prophylaxis 06/14/2023 12/11/2022 COVID-19 Vaccine ( - season) 2025 06/28/2021, 09/15/2020, 08/18/2020 Influenza Vaccine [...] Most Recently Relevant to Health Maintenance Insurance [facility]
--- OUTSIDE RECORDS SUMMARY | 2025-05-17 09:17 | XMS_ITS | Encounter Summary ---
Author Organization [facility] [facility] Address [address] [place] [address] Care Team Providers Care Physician General Internal Medicine Name Role Phone Unavailable Primary Care Provider Unavailabl e Encounter Details Date Type Department Care Team (Latest Contact Info) Description 02/27/2021 Abstract [facility] CONVERSIONS Dental, Provider, DDS Social History Tobacco [...] Description 05/31/2025 8:45 AM EST Office Visit [facility] [address] [place] [address] Carli Michel [address] [place] [address] 06/07/2025 9:00 AM EST Office Visit [facility] [address] [place] [address] Davis Olguin DDS [address] [place] [address] documented as of this encounter Visit Diagnoses Not on filedocumented in this encounter
--- OUTSIDE RECORDS SUMMARY | 2025-05-17 09:17 | XMS_ITS | Encounter Summary ---
Author Organization [employer] [facility] Address [address] [facility] [facility] 7 [place] [address] Care Team Providers Care Carpenter Rough Name Role Phone Unavailable Primary Care Provider Unavailabl e Encounter Details Date Type Department Care Team (Latest Contact Info) Description 02/27/2021 Abstract [facility] CONVERSIONS Dental, Provider, DDS Social [...] Description 05/31/2025 8:45 AM EST Office Visit [facility] ADULT DENTAL [address] [place] [address] Carli Michel [address] [place] [address] 06/07/2025 9:00 AM EST Office Visit [facility] ADULT DENTAL [address] [place] [address] Davis Olguin DDS [address] [place] [address] documented as of this encounter Visit Diagnoses Not on filedocumented in this encounter
--- OUTSIDE RECORDS SUMMARY | 2025-05-17 09:17 | XMS_ITS | Encounter Summary ---
Author Organization [employer] [facility] Address [address] [facility] [address] [facility] [address] [place] [address] Care Team Providers Care Crew Manager Name Role Phone Unavailable Primary Care Provider Unavailabl e Encounter Details Date Type Department Care Team (Latest Contact Info) Description 02/27/2021 Abstract [facility] CONVERSIONS Dental, Provider, DDS Social History [...] Description 05/31/2025 8:45 AM EST Office Visit [facility] ADULT DENTAL [address] [place] [address] Carli Michel [address] [place] [address] 06/07/2025 9:00 AM EST Office Visit [facility] ADULT DENTAL [address] [place] [address] Davis Olguin DDS [address] [place] [address] documented as of this encounter Visit Diagnoses Not on filedocumented in this encounter
--- OUTSIDE RECORDS SUMMARY | 2025-05-17 09:17 | XMS_ITS | Patient Health Record ---
Author [facility] Address [address] [place] [address] Care Team Providers Care Sandblaster Stone Name Role Phone Davey AMIN, Maryam Primary Care Provider Unavail able Jennifer Marroquin Unavailable [phone] Reason For Referral No Information Medications Medication SIG (Take, Route, Frequency, Duration) Notes Start Date End Date Status Vitamin D3 2000 UNIT Oral; Duration: 30 Active Work Note-Appointment . . . [facility]; Duration: . 06/04/2016 [...] Problem Type II diabetes mellitus without complication (391191888) Type 2 diabetes mellitus without complication (E11.9) Active confirmed Plan Of Treatment Pending Test Test Name Order Date [id number] Plate 06/04/2016 Insurance Providers Payer Name Payer Address Payer Phone Subscriber Number Group Number Insured Name Patient Relationship to Insured Coverage Start Date Coverage End Date [facility] [address] [place] [address] [phone] [id number] Zan Smith Self - patient is the insured Medical (General) History Medical History History ICD Code Diabetic Gout Hypertention High Cholesterol Surgical History Surgery Date(Month/Year) gastric bypass 2012
--- OUTSIDE RECORDS SUMMARY | 2025-05-17 09:17 | XMS_ITS | Encounter Summary ---
Author Organization [employer] [facility] Address [address] [facility] [address] [facility] 7 [place] [address] Care Team Providers Care Specialty Sales Consultant Name Role Phone Unavailable Primary Care Provider Unavailabl e Encounter Details Date Type Department Care Team (Late st Contact Info) Description 01/01/2023 Abstract [facility] ADULT DENTAL [address] [place] [address] Carli Michel [address] [place] [address] Social History Tobacco Use Types Packs/Day Years [...] 8:45 AM EST Office Visit [facility] ADULT DENTAL [address] [place] [address] Carli Michel [address] [place] [address] 06/07/2025 9:00 AM EST Office Visit [facility] ADULT DENTAL [address] [place] [address] Davis Olguin DDS [address] [place] [address] documented as of this encounter Visit Diagnoses Not on filedocumented in this encounter
== END 2025-05-17 09:26 | disposition home or self-care (01) ==
LOC: HO.HMCH 08:44
PROVIDERS: PCP Internal Medicine; Visit Provider Internal Medicine
DX: Z00.00 Encounter for general adult medical examination without abnormal findings (principal); G93.5 Compression of brain; E66.01 Morbid (severe) obesity due to excess calories; Z68.41 Body mass index [BMI] 40.0-44.9, adult; E11.9 Type 2 diabetes mellitus without complications; Z23 Encounter for immunization

== ENCOUNTER → 2025-05-17 08:43 | Outpatient (BNVA) | payer MEDICARE, SELFPAY | PROVIDERS: PCP Internal Medicine; Visit Provider Internal Medicine | DX: Z00.00 Encounter for general adult medical examination without abnormal findings (principal); G93.5 Compression of brain; E66.01 Morbid (severe) obesity due to excess calories; Z68.41 Body mass index [BMI] 40.0-44.9, adult; Z23 Encounter for immunization | CPT/HCPCS: 90471; 90677; 90715; 99397 ==

== ENCOUNTER 2025-05-24 10:13 | Outpatient (REF) | payer MEDICARE, SELFPAY ==
[2025-05-24 11:43] LABS: Troponin-I High Sensitivity 2.7 ng/L (<3.5-35.0)
[2025-05-24 11:47] LABS: Alanine Aminotransferase 40 U/L (0-40); Albumin Level 4.2 g/dL (3.5-5.0); Alkaline Phosphatase 125 U/L (39-117); Anion Gap 10 (12-20); Aspartate Amino Transferase 42 U/L (5-37); Blood Urea Nitrogen 15 mg/dL (9-16); Calcium 9.5 mg/dL (8.4-10.2); Carbon Dioxide 26 mmol/L (22-29); Chloride 108 mmol/L (96-108); Estimated Glomerular Filt Rate 50; Magnesium 2.0 mg/dL (1.6-2.6); Potassium 4.4 mmol/L (3.3-5.1); Sodium 140 mmol/L (135-145); Total Protein 7.8 g/dL (6.5-8.0)
--- OUTSIDE RECORDS SUMMARY | 2025-05-24 11:58 | XMS_ITS | Clinical Summary ---
Author Organization [facility] Address [address] [place] [address] Phone Care Team Providers Care Clinical Evaluator Name Role Phone Maryam Art MD Primary Care Provider [phone] Allergies Active Allergy Reactions Criticality Noted Date [...] Visit [facility] [address] [place] [address] Polo Miller MD [address] [facility] [address] [place] [phone] Health Maintenance Due Date Last Done Comments [...] Most Recently Relevant to Health Maintenance Insurance [facility] Medicare Care Teams Clinical Evaluator Relationship Specialty Start Date End Date Maryam Art MD [address] [place] [address] PCP - General 07/25/20
== END 2025-05-24 10:14 | disposition home or self-care (01) ==
LOC: HO.10HDL 10:13
PROVIDERS: Visit Provider Student in an Organized Health Care Education/Training Program
DX: R00.2 Palpitations (principal)
CPT/HCPCS: 36415; 80053; 83735; 84443; 84484

== ENCOUNTER 2025-06-17 08:28 | Outpatient (REF) | payer MEDICARE, SELFPAY ==
[2025-06-17 11:03] LABS: Prostate Specific Antigen 4.09 ng/mL (<0.05-4.0)
== END 2025-06-17 08:29 | disposition home or self-care (01) ==
LOC: HO.10HDL 08:28
PROVIDERS: Visit Provider Urology
DX: R33.9 Retention of urine, unspecified (principal); Z12.5 Encounter for screening for malignant neoplasm of prostate
CPT/HCPCS: 36415; 84153

== ENCOUNTER 2025-07-13 09:12 | Outpatient (REF) | payer MEDICARE, SELFPAY ==
[2025-07-13 11:36] LABS: Resp Syncy Virus RNA Qual PCR NEGATIVE (Negative); SARS COV2 PCR INHOUSE NEGATIVE (Negative)
== END 2025-07-13 09:13 | disposition home or self-care (01) ==
LOC: HO.10HDL 09:12
PROVIDERS: PCP Internal Medicine; Visit Provider Internal Medicine
DX: E11.9 Type 2 diabetes mellitus without complications (principal); R05.8 Other specified cough
CPT/HCPCS: 87637; 99212